=== PATIENT | male | born 1980 | race Caucasian/White ===

== ENCOUNTER 2018-07-31 11:19 | Emergency (ER) | payer MEDICARE, BC, MEDICAID, SELFPAY ==
[2018-07-31 11:21] VITALS: BP 145/92; PULSE 100; RESP 18; TEMP 36.9; O2SAT 100; BMI 42.2
--- NOTE | 2018-07-31 11:31 | ED.RN ---
HIGHEST FEVER WAS LAST FRIDAY 102.5. 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 TOOK TYLENOL LAST NIGHT FOR FEVER OF 100.2
--- NOTE | 2018-07-31 11:36 | EKG12_ITS ---
Test Reason : FEVER Blood Pressure : / mmHG Vent. Rate : 098 BPM Atrial Rate : 098 BPM P-R Int : 152 ms QRS Dur : 088 ms QT Int : 350 ms P-R-T Axes : 048 035 029 degrees QTc Int : 446 ms Normal sinus rhythm Normal ECG Confirmed by CONCHITA BELTRAN MD ([id number]), manuscript editor LUCINDA CHOWDHURY ([id number] on 08/05/2018 3:36:15 PM Referred By: DC Confirmed By:CONCHITA BELTRAN MD
--- NOTE | 2018-07-31 11:37 | RAD_ITS ---
STUDY: X-RAY CHEST REASON FOR EXAM: Male, 38 years old. Chest pain. TECHNIQUE: Single AP portable view of the chest. COMPARISON: Comparison is made with prior study dated October 18, 2015. FINDINGS: The lungs are clear and expanded. There is no demonstrated pleural abnormality. Normal size heart. Normal mediastinum and rakesh. Normal visualized pulmonary arteries. Normal visualized aortic arch and descending thoracic aorta. Normal visualized thoracic spine. Normal visualized ribs, clavicles, and shoulders. There is no demonstrated abnormality of the visualized soft tissue structures of the upper abdomen. RAD/Chest 1 View (Portable) IMPRESSION: Normal x-ray examination of the chest. Electronically Signed: Levon Mayorga MD at 13:24 EST Tel [phone], Service support ,
[2018-07-31 11:39] VITALS: BP 150/93; PULSE 84; RESP 18; TEMP 36.6
--- NOTE | 2018-07-31 11:42 | ED.DCSUM_ITS ---
- ER Visit Summary Date of Service: 07/31/18 Chief Complaint: Fevers History of Present Illness: The patient is a 38 M with fevers. He has these every day for the past week. They come on in the evenings. He does have a history of end-stage renal disease and performs hemodialysis at home. He was referred to the emergency department for possible bacteremia or endocarditis. He has no history of this. He only has cough and headache with his fevers but otherwise no symptoms. Physical Examination: Afebrile and vital signs unremarkable except for heart rate of 100. He appears in no acute distress. Alert and oriented. Skin appears unremarkable. His right forearm fistula unremarkable. Lungs are clear. Heart is regular. No murmurs. No signs of infective endocarditis. Test Results: EKG, troponin, labs, blood cultures pending. Emergency Department Course and Treatment: EKG unremarkable. Chest x-ray normal. Hemogram at 10.9, BUN 51, creatinine 12.4. Troponin normal. Cultures pending. Patient is doing well here. Afebrile. Not septic. I believe he is appropriate for outpatient follow-up. Will call him if his cultures are abnormal as he may need IV antibiotics. I discussed this with the patient. There is no reason to admit him for prophylactic antibiotics at this time. His phone number should we need to reach him is [phone]. Treatment Plan: As above Disposition: Discharge Impression: 1. Fevers 2. End-stage renal disease This note was generated with [employer] software. It may contain incorrect words, spelling, and punctuation that were not noted in review of the chart prior to signing ED Disposition - Plan for ED Patient: Chief Complaint: Fever Referrals: Marcell Thacker MD [Primary Care Provider] -
[2018-07-31 12:26] LABS: Absolute Neutrophil Count 6.4 X10^3/uL (2.0-7.7); Basophil# 0.04 X10^3/uL; Basophil% 0.5 % (0-1); Differential Indicated SCAN CRITERIA MET; Eosinophils% 2.5 % (0-5); Hematocrit 31.6 % (40-54); Hemoglobin 10.1 g/dl (13.0-16.5); Lymphocyte % 7.6 % (19-41); Mean Corpuscular Hgb 32.3 pg (27.0-32.0); Monocyte# 0.54 X10^3/uL; Monocyte% 6.8 % (0-10); Neutrophil # 6.41 X10^3/uL (2.7-7.7); Neutrophil % 81.2 % (47-70); POSITIVE COUNT NO; POSITIVE DIFFERENTIAL YES; POSITIVE MORPHOLOGY NO; Platelet Count 269 K/mm3 (150-450); RBC Distribution Width CV 14.7 % (11.6-14.6); RBC Distribution Width SD 53.4 fl (35.1-43.9); Red Blood Count 3.13 M/mm3 (4.6-6.2); White Blood Count 7.9 K/mm3 (4.4-11.0)
[2018-07-31 12:36] LABS: Anion Gap 13 (5-15); BUN 51 mg/dL (7-18); BUN/Creat Ratio 4.1 RATIO (10-20); Calcium,Total 9.5 mg/dL (8.5-10.1); Chloride 93 mmol/L (98-107); EST Glomerular Filtration Rate 5 mL/min (>60); Est Glom Filt Rate - Afr Amer 6 mL/min (>60); Estimated Creatinine Clearance 9.22 ml/min; Glucose 119 mg/dL (74-106); Potassium 3.7 mmol/L (3.5-5.1); Sodium Level 136 mmol/L (136-145)
[2018-07-31 12:39] VITALS: PULSE 89; RESP 16; TEMP 36.4
[2018-07-31 13:00] VITALS: BP 156/94; PULSE 72; RESP 15; TEMP 36.5
[2018-07-31 13:09] LABS: Platelet Estimate ADEQUATE (ADEQ); Red Cell Morphology NORM C+C NORMAL (NORM C&C)
--- NOTE | 2018-07-31 13:52 | ED.DEP ---
ED Disposition - Plan for ED Patient: Chief Complaint: Fever Instructions: ED Bacteremia Rule Out Referrals: Marcell Thacker MD [Primary Care Provider] -
[2018-07-31 14:19] VITALS: BP 138/79; PULSE 78; RESP 16; O2SAT 97
--- OUTSIDE RECORDS SUMMARY | 2018-09-16 06:36 | XMS RPT_ITS ---
:1980 Author Organization OHIP Care Team Providers Name Role Phone Marcell Thacker Primary Care Unavailable Robert Bryant Attending Unavailable Isma, Dr. Sebas Echavarria Attending Unavailable Kedar, Dr. Marcell Franz Primary Care Unavailable Isma, Dr. Sebas Echavarria Attending Unavailable Kedar, Dr. Marcell Franz Primary Care Unavailable Chapin, Dr. Paulina Pratt Admitting Unavailable Chapin, Dr. Paulina Pratt Attending Unavailable Braxton, Dr. Mcgregor Referring Unavailable Kedar, Dr. Marcell Franz Primary Care Unavailable Isma, Dr. Sebas Echavarria Attending Unavailable Kedar, Dr. Marcell Franz Primary Care Unavailable Isma, Dr. Sebas Echavarria Admitting Unavailable Isma, Dr. Sebsa Echavarria Attending Unavailable YASMANI, PCP Referring Unavailable Kedar, Dr. Marcell Franz Primary Care Unavailable Kedar, Dr. Marcell Franz Primary Care Unavailable Isma, Dr. Sebas Echavarria Attending Unavailable Isma, Dr. Sebas Echavarria Referring Unavailable Isma, Dr. Sebas Echavarria Attending Unavailable Thacker, Dr. Marcell Franz Primary Care Unavailable Isma, Dr. Sebas Echavarria Attending Unavailable Isma, Dr. Sebas Echavarria Referring Unavailable Thacker, Dr. Marcell Franz Primary Care Unavailable Thacker, Dr. Marcell Franz Primary Care Unavailable Isma, Dr. Sebas Echavarria Attending Unavailable Isma, Dr. Sebas Echavarria Referring Unavailable Isma, Dr. Sebas Echavarria Attending Unavailable Thacker, Dr. Marcell Franz Primary Care Unavailable BONILLA Attending Unavailable Isma, Dr. Sebas Echavarria Referring Unavailable Thacker, Dr. Marcell Franz Primary Care Unavailable Isma, Dr. Sebas Echavarria Attending Unavailable Thacker, Dr. Marcell Franz Primary Care Unavailable Isma, Dr. Sebas Echavarria Attending Unavailable Thacker, Dr. Marcell Franz Primary Care Unavailable Isma, Dr. Sebas Echavarria Attending Unavailable Thacker, Dr. Marcell Franz Primary Care Unavailable PROBLEMS PROBLEMS DATE TYPE CONDITION / CODE ATTENDING STATUS SOURCE 09/09/2018 Admitting End stage renal Dr. Isma [facility] diagnosis disease / [facility] N18.6(ICD-10) Repository 08/17/2018 Final diagnosis End stage renal Dr. Isma [facility] (discharge) disease / [facility] N18.6(ICD-10) Repository 06/12/2018 Final diagnosis Encounter for other Pending sale to [facility] (discharge) preprocedural Hospitals examination / Repository Z01.818(ICD-10) 06/12/2018 Final diagnosis Dependence on renal Pending sale to [facility] (discharge) dialysis / Hospitals Z99.2(ICD-10) Repository 06/12/2018 Final diagnosis Essential (primary) Pending sale to [facility] (discharge) hypertension / Hospitals I10(ICD-10) Repository 06/12/2018 Final diagnosis Morbid (severe) Pending sale to [facility] (discharge) obesity due to Hospitals excess calories / Repository E66.01(ICD-10) 06/12/2018 Final diagnosis Personal history of Pending sale to [facility] (discharge) endo, nutritional Hospitals and metabolic Repository disease / Z86.39(ICD-10) 06/12/2018 Final diagnosis Family hx of ischem Pending sale to [facility] (discharge) heart dis and oth Hospitals dis of the circ sys Repository / Z82.49(ICD-10) 06/12/2018 Final diagnosis Fam hx of congen IRENE [facility] (discharge) malform, Hospitals deformations and Repository chromsoml abnlt / Z82.79(ICD-10) 05/19/2018 Admitting Encounter for other Dr. Isma [facility] diagnosis preprocedural Sebas [facility] examination / Repository Z01.818(ICD-10) 12/29/2017 Final diagnosis Generalized anxiety Dr. Chapin [facility] (discharge) disorder / [facility] F41.1(ICD-10) Repository 12/29/[address] Pan[address]. Chapin [facility] (discharge) [episodic [facility] paroxysmal anxiety] Repository / F41.0(ICD-10) PROCEDURES PROCEDURES No Procedure Records FoundRESULTS RESULTS HLA CLASS II AB Collected: 09/09/2018 Status: F Source: [place] SCREEN,FC 11:43 AM HOSPITALS REPOSITORY TYPE CODE TESTS RESULT OUT OF REFERENCE UNITS RANGE LAB HLA2S(LOINC ) HLA CLASS SEE COMMENT II AB SCREEN,FC Result Comment: HLA CLASS II AB SCREEN,FLOW CYTOMETRY SEE SEPARATE REPORT. Performed By: #### HLAS2 #### [facility] [address] [place] [address] CROSSMATCH, FREEZE Collected: 08/17/2018 Status: F Source: [place] 10:22 AM HOSPITALS REPOSITORY TYPE CODE TESTS RESULT OUT OF REFERENCE UNITS RANGE LAB HLFXM(LOINC ) CROSSMATCH, COMMENT FREEZE Result Comment: SEE SEPARATE REPORT. Performed By: #### HLFXM #### [facility] [address] [place] [address] 12 LEAD ELECTROCARDIOGRAM Observed: 08/05/2018 Status: F Source: [place] 3:36 PM [facility] REPOSITORY Cardiovascular Services [address] [place] [address] 12 Lead EKG 07/31/18 1146 MR#: [id number] Acct: [id number] Name: DANE FONSECA Rep #: [id number] : 1980 38 From: Enmanuel Sanchez MD Attending Dr: Status: DEP ER Ordering Dr: Robert Bryant MD Date: 07/31/18 Location: ED Sex: M C Admitted: Test Reason : FEVER Blood Pressure : / mmHG Vent. Rate : 098 BPM Atrial Rate : 098 BPM P-R Int : 152 ms QRS Dur : 088 ms QT Int : 350 ms P-R-T Axes : 048 035 029 degrees QTc Int : 446 ms Normal sinus rhythm Normal ECG Confirmed by ENMANUEL SANCHEZ MD ([id number]), order editor LUCINDA CHOWDHURY ([id number]) on 08/05/2018 3:36:15 PM Referred By: DC Confirmed By:ENMANUEL SANCHEZ MD 08/05/18 1536 Date Enmanuel Sanchez MD CC: Robert Bryant MD; Marcell Thacker MD Signed DISCHARGE INSTRUCTION Observed: 07/31/2018 Status: F Source: [place] 4:14 PM [facility] REPOSITORY Medical Records Department [address] [place] [address] Discharge Instruction 07/31/18 1352 MR#: [id number] Acct: [id number] Name: DANE FONSECA Rep #: [id number] : 1980 38 From: Robert Bryant MD PCP: Marcell Thacker MD Status: DEP ER ED Disposition - Plan for ED Patient: Chief Complaint: Fever Instructions: ED Bacteremia Rule Out Referrals: Marcell Thacker MD [Primary Care Provider] - What to do if you have Problems For any increased pain, shortness of breath, bleeding, nausea or vomiting, chest pain, or any unexpected problems, contact your Primary Care Provider. Call [facility] ([phone]) or report to the closest Emergency Room. Call 911 if necessary. 07/31/18 1614 <Electronically signed by Robert Bryant MD> Date Robert Bryant MD Cosigner Signature (If Indicated): Date CC: Marcell Thacker MD EMERGENCY DEPARTMENT Observed: 07/31/2018 Status: F Source: [place] SUMMARY 4:14 PM [facility] REPOSITORY Medical Records Department [address] [place] [address] Emergency Department Summary 07/31/18 1140 MR#: [id number] Acct: [id number] Name: DANE FONSECA Rep #: [id number] : 1980 38 From: Robert Bryant MD PCP: Marcell Thacker MD Status: DEP ER - ER Visit Summary Date of Service: 07/31/18 Chief Complaint: Fevers History of Present Illness: The patient is a 38 M with fevers. He has these every day for the past week. They come on in the evenings. He does have a history of end-stage renal disease and performs hemodialysis at home. He was referred to the emergency department for possible bacteremia or endocarditis. He has no history of this. He only has cough and headache with his fevers but otherwise no symptoms. Physical Examination: Afebrile and vital signs unremarkable except for heart rate of 100. He appears in no acute distress. Alert and oriented. Skin appears unremarkable. His right forearm fistula unremarkable. Lungs are clear. Heart is regular. No murmurs. No signs of infective endocarditis. Test Results: EKG, troponin, labs, blood cultures pending. Emergency Department Course and Treatment: EKG unremarkable. Chest x-ray normal. Hemogram at 10.9, BUN 51, creatinine 12.4. Troponin normal. Cultures pending. Patient is doing well here. Afebrile. Not septic. I believe he is appropriate for outpatient follow-up. Will call him if his cultures are abnormal as he may need IV antibiotics. I discussed this with the patient. There is no reason to admit him for prophylactic antibiotics at this time. His phone number should we need to reach him is [phone]. Treatment Plan: As above Disposition: Discharge Impression: 1. Fevers 2. End-stage renal disease This note was generated with [employer] software. It may contain incorrect words, spelling, and punctuation that were not noted in review of the chart prior to signing ED Disposition - Plan for ED Patient: Chief Complaint: Fever Referrals: Marcell Thacker MD [Primary Care Provider] - What to do if you have Problems For any increased pain, shortness of breath, bleeding, nausea or vomiting, chest pain, or any unexpected problems, contact your Primary Care Provider. Call [facility] ([phone]) or report to the closest Emergency Room. Call 911 if necessary. 07/31/18 8974 <Electronically signed by Robert Bryant MD> Date Robert Bryant MD Cosigner Signature (If Indicated): Date CC: Marcell Thacker MD CBC W/DIFF, AUTOMATED Collected: 07/31/2018 Status: F Source: [place] 11:55 AM [facility] REPOSITORY TYPE CODE TESTS RESULT OUT OF RANGE REFERENCE UNITS LAB L100.1000 4.4-11.0 K/mm3 Normal WBC 7.9 LAB L100.1200 4.6-6.2 M/mm3 Low RBC 3.13 LAB L100.1300 13.0-16.5 g/dl Low HGB 10.1 LAB L100.1400 40-54 % Low HCT 31.6 LAB L100.1500 80-94 fL High MCV 101.0 LAB L100.1600 27.0-32.0 pg High MCH 32.3 LAB L100.1700 32-36 g/gl Normal MCHC 32.0 LAB L100.1810 11.6-14.6 % High RDW CV 14.7 LAB L100.1820 35.1-43.9 fl High RDW SD 53.4 LAB L100.1900 150-450 K/mm3 Normal PLT 269 LAB L100.2000 6.2-12.0 fl Normal MPV 9.0 LAB L100.2100 47-70 % High NEUT% 81.2 LAB L100.2200 19-41 % Low LY% 7.6 LAB L100.2300 0-10 % Normal MONO% 6.8 LAB L100.2400 0-5 % Normal EO% 2.5 LAB L100.2500 0-1 % Normal BASO% 0.5 LAB L100.2550 0.0-0.9 % High IM GRAN % 1.400 Result Comment: IG% - Immature Granulocytes (promyelocytes, myelocytes and metamyelocytes) > 1% indicates that a LEFT SHIFT is Present. LAB L100.2620 2.0-7.7 X10 3/uL Normal Absolute Neut 6.4 LAB L100.2720 0.83-4.51 X10 3/ul Low Absolute Lymph 0.60 LAB L100.4500 SMEAR Normal COMMENT Result Comment: LYMPHOPENIA NOTED LAB L100.5500 ADEQ Normal PLT ADEQUATE EST LAB L100.7000 NORM C AND NORMAL C Normal RED NORM C+C CELL MORPH Performed By: #### L100.0100 #### [facility] [address] [place], [address] BASIC METABOLIC Collected: 07/31/2018 Status: F Source: [place] PROFILE ([facility]) 11:55 AM [facility] REPOSITORY TYPE CODE TESTS RESULT OUT OF RANGE REFERENCE UNITS LAB L501.0100 74-106 mg/dL High GLU 119 Result Comment: Fasting Glucose result from 100 to 125 mg/dL suggests IMPAIRED HOMEOSTASIS per A.D.A. criteria. Please note revised GLUCOSE reference range effective 2017. LAB L501.1000 7-18 mg/dL High BUN 51 LAB L501.1100 0.70-1.30 mg/dL High alert CREAT,SERUM 12.40 Result Comment: Critical Result(s) Called at: 12:37:53 07/31/2018 by: Erasto Palacios RN The validity of the calculated GFR AND GFRAA in patients over 70 years has not been determined. Clinical correlation is essential. LAB L501.1110 >60 mL/min Low EST GFR 5 Result Comment: Non- GFR Calc LAB L501.1115 >60 mL/min Low EST GFR - AA 6 Result Comment: GFR Calc LAB L501.1255 ml/min Normal Estimated CRCL 9.22 LAB L501.1300 10-20 RATIO Low BUN/CRE 4.1 LAB L501.2200 8.5-10. mg/dL Normal 1 CA 9.5 LAB L501.5300 136-145 mmol/L Normal NA 136 LAB L501.5600 3.5-5.1 mmol/L Normal K 3.7 LAB L501.5900 98-107 mmol/L Low CL 93 LAB L501.6100 21.0-32 mmol/L Normal .0 CO2 30.0 LAB L501.6200 5-15 Normal GAP 13 Performed By: #### L500.2500, L501.4010 #### [facility] [address] [place], [address] TROPONIN-I Collected: 07/31/2018 Status: F Source: [place] 11:55 AM [facility] REPOSITORY TYPE CODE TESTS RESULT OUT OF RANGE REFERENCE UNITS LAB L501.4010 <0.045 ng/mL Normal < 0.015 TROPONIN-I Result Comment: TROPONIN-I EXPECTED VALUES <0.045 Negative 0.045 - 0.590 Consistent with Cardiac Damage > OR = 0.600 Critical Value Not every elevated troponin is indicative of WI. These values should be used with clinical judgement in examining the patient's clinical picture for diagnosis. To establish a diagnosis of WI versus myocardial injury, there must be a demonstrated rise and/or fall in the troponin values, in addition to ischemic symptoms, EKG changes, new regional wall motion abnormality, and/or angiographical evidence. PLEASE NOTE: REFERENCE RANGES EDITED 17 Performed By: #### L500.2500, L501.4010 #### [facility] [address] [place], [address] Observed: 07/31/2018 Status: F Source: [place] CULTURE, BLOOD (WB) 11:55 AM [facility] REPOSITORY BC No growth in 5 days. Performed By: #### M200.1000 #### [facility] [address] [place], [address] Observed: 07/31/2018 Status: F Source: [place] CULTURE, BLOOD (WB) 11:50 AM [facility] REPOSITORY BC No growth in 5 days. Performed By: #### M200.1000 #### [facility] [address] [place], [address] CHEST 1 VIEW Observed: 07/31/2018 Status: F Source: [place] (PORTABLE) 11:39 AM [facility] REPOSITORY Imaging Services [address] [place] [address] Chest 1 View (Portable) MR#: [id number] Acct: [id number] Name: DANE FONSECA Rep #: [id number] : 1980 M 38 From: Levon Mayorga MD PCP: Marcell Thacker MD Status: REG ER Study: Chest 1 View (Portable) Date of Exam: 07/31/18 Exam# [id number] Ordering Dr: Robert Bryant MD STUDY: X-RAY CHEST REASON FOR EXAM: Male, 38 years old. Chest pain. TECHNIQUE: Single AP portable view of the chest. COMPARISON: Comparison is made with prior study dated October 18, 2015. FINDINGS: The lungs are clear and expanded. There is no demonstrated pleural abnormality. Normal size heart. Normal mediastinum and rakesh. Normal visualized pulmonary arteries. Normal visualized aortic arch and descending thoracic aorta. Normal visualized thoracic spine. Normal visualized ribs, clavicles, and shoulders. There is no demonstrated abnormality of the visualized soft tissue structures of the upper abdomen. RAD/Chest 1 View (Portable) IMPRESSION: Normal x-ray examination of the chest. Electronically Signed: Levon Mayorga MD at 13:24 EST Tel [phone], Service support , CC: Robert Bryant MD; Marcell Thacker MD Medical Liaison: Signed HLA CLASS I AB Collected: 07/08/2018 Status: F Source: [facility] S[facility]EN,FC 11:55 AM [facility]ALS REPOSITORY TYPE CODE TESTS RESULT OUT OF REFERENCE UNITS RANGE LAB HLA1S(LOINC ) HLA CLASS SEE COMMENT I AB SCREEN,FC Result Comment: HLA CLASS I AB SCREEN,FLOW CYTOMETRY SEE SEPARATE REPORT. Performed By: #### HLAS1 #### [facility] [address] [place] [id number] OFFICE VISIT Observed: 06/12/2018 Status: UNK Source: [place] (CARDIOLOGY) 3:24 PM HOSPITALS REPOSITORY Chief Complaint DANE FONSECA is being seen for a cardiovascular evaluation. DANE FONSECA is being seen for an annual follow-up of Cardiac risk stratification pre-renal transplant and a routine medication evaluation. 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 Symptomatically he denies chest pain, palpitations, SOB, orthopnea, PND, syncope and pre syncope but will have occasional mild ankle swelling. His BP is high today despite taking his medications, and he has does conceded to being anxious whenever he needs to come to his medical appointments. Functionally, he continues to do well and has an unlimited exercise tolerance. He has been tolerating dialysis well and without any symptoms. he has undergone cardiovascular evaluation in the past ( 10- 12 years prior) and was given a clean bill of [employer]. Both his father and brother had a hole in the heart and his testing ruled this out for him. Since his last visit 03/31/2017 he has received several transplant calls. PSHx: Tonsillectomy, Peg tube placement (H1N1 disease) and PEG revision, AV fistula Shx: Never smoker,denies alcohol and illicit drug use Fhx: Father- heart issues, brother-heart issues hole in the heart. Dad unrepaired and with HF, brother intraop during defect repair Ix: TTE 05/19/2018 1. The left ventricular systolic function is normal with a 60% estimated ejection fraction. 2. Spectral Doppler shows an impaired relaxation pattern of left ventricular diastolic filling. LAs: 3.44 cm (2.7-4.0cm) IVSd: 1.14 cm (0.6-1.1cm) LVPWd: 1.00 cm (0.6-1.1cm) LVIDd: 4.84 cm (3.9-5.9cm) LVIDs: 2.30 cm LV % FS 52.5 % Physician portal has been reviewed by me for salient history. All cardiovascular imaging and testing available in Physician portal, and [facility] has been reviewed. ECG done in office today has been reviewed independently by me. He has no significant interval events. Symptoms: stable lower extremity edema, stable dyspnea on exertion, denies fatigue, denies exercise intolerance, denies orthopnea and denies paroxysmal nocturnal dyspnea. Associated symptoms include no chest pain and no palpitations. There are no spiritual/cultural practices/values/needs that are important to know Initial Fall Risk Screening: DANE has not fallen in the last 6 months. His fall did not result in injury. DANE does not have a fear of falling. He does not need assistance with sitting, standing or walking. Does not need assistan ce walking in his home. He does not need assistance in an unfamiliar setting. The patient is not using an assistive device. *Active Problems Anxiety (300.00) (F41.9) BPH (benign prostatic hypertrophy) (600.00) (N40.0) Elevated blood pressure reading in office with white coat syndrome, with diagnosis of hypertension (401.9) (I10) ESRD on hemodialysis (585.6,V45.11) (N18.6,Z99.2) High risk medication use (V58.69) (Z79.899) H1N1 Hypertension (401.9) (I10) Morbid obesity (278.01) (E66.01) Pre-kidney transplant, listed (V49.89) (Z76.82) UTI (urinary tract infection) (599.0) (N39.0) Pre-transplant evaluation for end stage renal disease (V72.83) (Z01.818) Surgical History History of Abdominal Surgery repair of bleeding after PEG placement History of G-Tube Insertion 2013 History of G-Tube Removal 2013 History of Hemodialysis Access Type Arteriovenous Fistula History of Tonsillectomy Past Medical History History of obesity (V12.29) (Z86.39) Current Meds Carvedilol 12.5 MG Oral Tablet; TAKE 1 TABLET TWICE DAILY; Therapy: (Recorded:53Dxb1749) to Recorded Dispense: 0 Days ; #: Sufficient Tablet; Refill: 0;For: PMH: Abdominal Surgery; PRATIK = N; Record; Last Updated By: Gayatri Butler; 01/03/2017 1:07:46 PM Doxazosin Mesylate 4 MG Oral Tablet; TAKE 1 TABLET DAILY; Therapy: (Recorded:03Jan2017) to Recorded Dispense: 0 Days ; #: Sufficient Tablet; Refill: 0;For: PMH: Abdominal Surgery; PRATIK = N; Record; Last Updated By: Gayatri Butler; 01/03/2017 1:07:46 PM Epogen SOLN; 5000 units every other week; Therapy: (Recorded:03Jan2017) to Recorded Dispense: 0 Days ; #: Sufficient ML; Refill: 0;For: PMH: Abdominal Surgery; PRATIK = N; Record; Last Updated By: Gayatri Butler; 01/03/2017 1:07:46 PM Imdur 30 MG TB24; TAKE 1 TABLET DAILY; Therapy: (Recorded:03Jan2017) to Recorded Dispense: 0 Days ; #: Sufficient Tablet Extended Release 24 Hour; Refill: 0;For: PMH: Abdominal Surgery; PRATIK = N; Record; Last Updated By: Gayatri Butler; 01/03/2017 1:07:46 PM Pantoprazole Sodium 40 MG Oral Tablet Delayed Release; Take 1 tablet daily; Therapy: (Recorded:03Jan2017) to Recorded Dispense: 0 Days ; #: Sufficient Tablet Delayed Release; Refill: 0;For: PMH: Abdominal Surgery; PRATIK = N; Record; Last Updated By: Gayatri Butler; 01/03/2017 1:07:46 PM Renal 1 MG Oral Capsule; TAKE 1 CAPSULE Daily; Therapy: (Recorded:03Jan2017) to Recorded Dispense: 0 Days ; #: Sufficient Capsule; Refill: 0;For: PMH: Abdominal Surgery; PRATIK = N; Record; Last Updated By: Gayatri Butler; 01/03/2017 1:07:46 PM Sensipar 30 MG Oral Tablet; TAKE 1 TABLET DAILY; Therapy: (Recorded:03Jan2017) to Recorded Dispense: 0 Days ; #: Sufficient Tablet; Refill: 0;For: PMH: Abdominal Surgery; PRATIK = N; Record; Last Updated By: Gayatri Butler; 01/03/2017 1:07:46 PM Ferrous Sulfate ER 140 (45 Fe) MG Oral Tablet Extended Release; Take 1 tablet daily; Therapy: 12Jun2018 to Recorded Dispense: 0 Days ; #: Sufficient Tablet Extended Release; Refill: 0; PRATIK = N; Record; Last Updated By: Katie Liu; 06/12/2018 11:58:19 AM Allergies No Known Drug Allergies Recorded By: Gayatri Butler; 01/03/2017 1:07:46 PM No Known Environmental Allergies Recorded By: Gayatri Butler; 01/03/2017 1:07:46 PM No Known Food Allergies Recorded By: Gayatri Butler; 01/03/2017 1:07:46 PM Family History Family history of hypertension (V17.49) (Z82.49) Family history of Family history of congenital heart disease (V19.5) (Z82.79) Family history of congenital heart disease (V19.5) (Z82.79) Social History Never a smoker No alcohol use No illicit drug use Review of Systems Constitutional: not feeling tired. Cardiovascular: as noted in HPI, no chest pain, no palpitations, no lower extremity edema and no intermittent leg claudication. Respiratory: no cough, no shortness of breath during exertion, no shortness of breath, no orthopnea and no PND. Gastrointestinal: no change in bowel habits and no blood in stools. Integumentary: no skin rashes. Neurological: no dizziness, no seizures, no frequent falls and no fainting. Vitals Vital Signs Recorded: 12Jun2018 11:48AM Heart Ptgr858 Qxnzuxyd950 Sapirpbol65 Height6 ft 1 in Jejdad035 lb BMI Rzzcpurbdz34.96 BSA Calculated2.62 Pain Scale0 Physical Exam Constitutional: Very pleasant young obese man in no CP or painful distress. MM pink and moist. No icterus or cyanosis. Eyes: no erythema, swelling or discharge from the eye . Neck: . Pulmonary: no increased work of breathing or signs of respiratory distress , normal percussion of chest , chest palpation normal and lungs clear to auscultation. Cardiovascular: carotid pulses 2+ bilaterally with no bruit , JVP was normal, no thrills , regular rhythm, normal S1 and S2, no murmurs and no edema . Abdomen: Obese, SNT, BS wnl. Lymphatic: no palpable adenopathy. Musculoskeletal: grossly normal. Skin: skin warm and dry, normal skin turgor . Neurologic: AO x 3. Psychiatric judgment and insight is normal , oriented to person, place and time , recent and remote memory intact and normal mood and affect . Results/Data 06/12/2018: sinus tachycardia [id number] 01:29PMSebas Ashby [Jun 05, 2018 10:56AM Sebas Ashby] Test looked good Test NameResultFlagReference Echocardiogram(Report) [id number] [facility], [address] [place] [address] and TRANSTHORACIC ECHOCARDIOGRAM RE PORT Patient Name: DANE FONSECA Reading Physician: [id number] Omar Arnett MD Study Date: 05/19/2018 Referring Physician: Sebas Ashby MD MRN/PID: [id number] PCP: Accession/Order#: [id number] 30 Department Location: [facility] Non Invasive Date of : 1980 Fellow: Gender: M Nurse: Lana Regalado RN Admit Date: Local Operator: Talya Ayala [facility] Admission Status: Outpatient Additional Staff: Height: 185.42 cm CC Report to: Weight: 140.61 kg Study Type: Echocardiogram BSA: 2.59 m2 Blood Pressure: 116 /79 mmHg Diagnosis/ICD: Z01.818 Encounter for other preprocedural examination Indication: Pre-transplant evaluation for end stage renal disease Procedure/CPT: Echo Complete w/Full Doppler (32358) Patient History: Pertinent History: H [place]. kidney disease. Study Detail: The following Echo studies were performed: 2D, M-Mode, Doppler and color flow. Technically challenging study due to body habitus and prominent lung artifa ct. Definity used as a contrast agent for endocardial border definition. Total contrast used for this procedure was 2 mL via IV push. PHYSICIAN INTERPRETATION: Left Ventricle: The left v entricular systolic function is normal, with an estimated ejection fraction of 60%. The left ventricular cavity size is normal. Abnormal (paradoxical) septal motion, consistent with an intraventricular conduction delay. Spectral Doppler shows an impaired relaxation pattern of left ventricular diastolic filling. Left Atrium: The left atrium is normal in size. Right Ventricle: The right ventricle is nor mal in size. There is normal right ventricular global systolic function. Right Atrium: The right atrium is normal in size. Aortic Valve: The aortic valve was not well visualized. There is trivial aortic valve regurgitation. The peak instantaneous gradient of the aortic valve is 8.2 mmHg. Mitral Valve: The mitral valve is normal in structure. There is trace mitral valve regurgitation. Tricuspid Valve: The tricuspid valve is structurally normal. There is trace tricuspid regurgitation. Pulmonic Valve: The pulmonic valve is not well visualized. There is trace pulmonic valve regurgitation. Pericardium: T here is a trivial pericardial effusion. Aorta: The aortic root is normal. Pulmonary Artery: The tricuspid regurgitant velocity is 1.25 m/s, and with an estimated right atrial pressure of 3 mmHg, the est imated pulmonary artery pressure is normal with the RVSP at 9.3 mmHg. CONCLUSIONS: 1. The left ventricular systolic function is normal with a 60% estimated ejection fraction. 2. Spectral Doppler nelly ws an impaired relaxation pattern of left ventricular diastolic filling. QUANTITATIVE DATA SUMMARY: 2D MEASUREMENTS: Normal Ranges: LAs: 3.44 cm (2.7-4.0cm) IVSd: 1.14 cm (0.6-1.1cm) LVPWd: 1. 00 cm (0.6-1.1cm) LVIDd: 4.84 cm (3.9-5.9cm) LVIDs: 2.30 cm LV % FS 52.5 % LA VOLUME: Normal Ranges: LA Vol A4C: 34.7 ml (22+/-6mL/m2) LA Vol A2C: 37.5 ml LA Vol BP: 38.3 ml LA Vol Index A4C: 13.4 ml/m2 LA Vol Index A2C: 14.5 ml/m2 LA Vol Index BP: 14.8 ml/m2 LA Area A4C: 14.7 cm2 LA Area A2C: 14.4 cm2 LA Major Flomot A4C: 5.3 cm LA Major Flomot A2C: 4.7 cm LA Volume Index : 14.8 ml/m2 LA Vol A4C: 30.7 ml LA Vol A2C: 36.0 ml RA VOLUME BY A/L METHOD: Normal Ranges: RA Area A4C: 15.8 cm2 M-MODE MEASUREMENTS: Normal Ranges: Ao Root: 3.00 cm (2.0-3. 7cm) LAs: 3.63 cm (2.7-4.0cm) AORTA MEASUREMENTS: Normal Ranges: Ao Sinus, d: 2.80 cm (2.1-3.5cm) LV SYSTOLIC FUNCTION BY 2D PLANIMETRY (MOD): Normal Ranges: EF-A4C View: 66.8 % ( >55%) EF-A2C View: 68.8 % EF-Biplane: 66.6 % LV DIASTOLIC FUNCTION: Normal Ranges: MV Peak E: 0.61 m/s (0.7-1.2 m/s) MV Peak A: 0.65 m/s (0.42-0.7 m/s) E/A Ratio: 0.94 (1 .0-2.2) MV e' 0.10 m/s (>8.0) MV lateral e' 0.08 m/s MV medial e' 0.11 m/s MV A Dur: 114.18 msec E/e' Ratio: 6.46 (<8.0) MV DT: 91 msec (150-240 msec) PulmV Sys Malcolm: 6 1.23 cm/s PulmV Stein Malcolm: 41.58 cm/s PulmV S/D Malcolm: 1.47 PulmV A Revs Malcolm: 53.16 cm/s PulmV A Revs Dur: 105.61 msec MITRAL VALVE: Normal Ranges: MV DT: 91 msec (150-240msec) AORTIC VALVE: Normal Ranges: AoV Vmax: 1.43 m/s (<1.7m/s) AoV Peak P.2 mmHg (<20mmHg) LVOT Max Malcolm: 1.14 m/s (<1.1m/s) LVOT VTI: 17.61 cm LVOT Diameter: 2.01 cm (1.8-2.4cm) AoV Area,Vmax: 2. 50 cm2 (2.5-4.5cm2) RIGHT VENTRICLE: RV 1 2.7 cm RV 2 1.7 cm RV 3 7.9 cm TAPSE: 19.8 mm RV s' 0.10 m/s TRICUSPID VALVE/RVSP: Normal Ranges: Peak TR Velocity: 1.25 m/s RV Syst Pressure: 9.3 mmHg (< 30mmHg) IVC Diam: 1.40 cm PULMONIC VALVE: Normal Ranges: PV Accel Time: 120 msec (>120ms) PV Max Malcolm: 1.0 m/s (0.6-0.9m/s) PV Max P.9 mmHg Pulmonary Veins: PulmV A Revs Dur: 105.61 msec PulmV A Revs Malcolm: 53.16 cm/s PulmV Stein Malcolm: 41.58 cm/s PulmV S/D Malcolm: 1.47 PulmV Sys Malcolm: 61.23 cm/s [id number] Omar Arnett MD Electronically signed on 05/20/2018 at 1:16:26 PM Final NM Cardiac Stress/Rest Nuclear Med Order Part [id number] 12:51PMSampson Lind [Apr 07, 2017 11:41AM Sampson Lind] Reason: Unspecified for NM Cardiac Stress/Rest Nuclear Med Order [Apr 07, 2017 11:41AM Sampson Lind] Reason: Unspecified for NM Cardiac Stress/Rest Nuclear Med Order Test NameResultFlagReference NM Cardiac Stress/Rest Nuclear Med Order(Report) Interpreted by: YURI OG 04/17/17 14:38 Patient Name: DANE FONSECA STUDY: PART 2 STRESS OR REST (NO CHARGE); CARDIAC STRESS/REST (MYOCARDIAL PERFUSION/MIBI); 04/17/2017 12:51 pm INDICATION: Signs/Symptoms: End stage renal disease, hypertension, obesity, obstructive sleep apnea. COMPARISON: None ACCESSION NUMBER(S): [id number]; [id number] ORDERING CLINICIAN: SAMPSON Freed TECHNIQUE: DIVISION OF NUCLEAR MEDICINE PHARMACOLOGIC STRESS MYOCARDIAL PERFUSION SCAN, ONE DAY PROTOCOL The patient received an intravenous dose of 10.6 mCi of Tc-99m Myoview and resting emission tomographic (SPECT) images of the myocardium were acquired. The patient then received an intravenous infusion of 0.4 mg regadenoson (Lexiscan) followed by an additional dose of 36 mCi of Tc-99m Myoview . Stress phase SPECT images of the myocardium were then acquired. These included ECG-gated images to assess and quantify ventricular function. FINDINGS: There is scatter artifact secondary to patient' s body habitus. There are mild fixed inferior wall irregularities with normal thickening representing diaphragmatic attenuation artifact. Stress and rest images both demonstrate an otherwise normal di stribution of perfusion throughout all LV segments with no sign of scar or ischemia. ECG-gated images demonstrate normal LV size and myocardial contractility with an LV ejection fraction of 56 % (norm al above 45 percent). IMPRESSION: 1. Normal stress myocardial perfusion imaging in response to pharmacologic stress with inferior attenuation artifact. 2. Well-maintained left ventricular function. I personally reviewed the images/study and I agree with the findings as stated. This study was interpreted at [place], [place]. Transcribed by: [email or web address], User Electronically signed by: Evi, User 04/17/17 14:38 NM Part 2 Stress OR Rest (No Charge)[id number] 12:51PMSampson Lind Test NameResultFlagReference NM Part 2 Stress Or Rest (No Charge)(Report) Interpreted by: YURI OG 04/17/17 14:38 Patient Name: DANE FONSECA STUDY: PART 2 STRESS OR REST (NO CHARGE); CARDIAC STRESS/REST (MYOCARDIAL PERFUSION/MIBI); 04/17/2017 12:51 pm INDICATION: Signs/Symptoms: End stage renal disease, hypertension, obesity, obstructive sleep apnea. COMPARISON: None ACCESSION NUMBER(S): [id number]; [id number] ORDERING CLINICIAN: SAMPSON Freed TECHNIQUE: DIVISION OF NUCLEAR MEDICINE PHARMACOLOGIC STRESS MYOCARDIAL PERFUSION SCAN, ONE DAY PROTOCOL The patient received an intravenous dose of 10.6 mCi of Tc-99m Myoview and resting emission tomographic (SPECT) images of the myocardium were acquired. The patient then received an intravenous infusion of 0.4 mg regadenoson (Lexiscan) followed by an additional dose of 36 mCi of Tc-99m Myoview . Stress phase SPECT images of the myocardium were then acquired. These included ECG-gated images to assess and quantify ventricular function. FINDINGS: There is scatter artifact secondary to patient' s body habitus. There are mild fixed inferior wall irregularities with normal thickening representing diaphragmatic attenuation artifact. Stress and rest images both demonstrate an otherwise normal di stribution of perfusion throughout all LV segments with no sign of scar or ischemia. ECG-gated images demonstrate normal LV size and myocardial contractility with an LV ejection fraction of 56 % (norm al above 45 percent). IMPRESSION: 1. Normal stress myocardial perfusion imaging in response to pharmacologic stress with inferior attenuation artifact. 2. Well-maintained left ventricular function. I personally reviewed the images/study and I agree with the findings as stated. This study was interpreted at [place], [place]. Transcribed by: [email or web address], User Electronically signed by: [email or web address], User 04/17/17 14:38 Diagnoses/Problems ESRD on hemodialysis (585.6,V45.11) (N18.6,Z99.2) Hypertension (401.9) (I10) Morbid obesity (278.01) (E66.01) Pre-transplant evaluation for end stage renal disease (V72.83) (Z01.818) History of Abdominal Surgery repair of bleeding after PEG placement History of Hemodialysis Access Type Arteriovenous Fistula History of obesity (V12.29) (Z86.39) Family history of hypertension (V17.49) (Z82.49) : Mother Family history of congenital heart disease (V19.5) (Z82.79) : Father, Brother Never a smoker No alcohol use No illicit drug use Impressions 38 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 He has been doing well and his ECG and TTE are satisfactory. His RCRI is 2 (high risk surgery, SCr> 2) with a 6.6% risk of cardiac perioperative events. No cardiac reservations re: kidney transplantation. Will plan to see Mr. Fonseca in May 2019 with a stress test and TTE before, if he is not transplanted. End of Encounter Meds Carvedilol 12.5 MG Oral Tablet; TAKE 1 TABLET TWICE DAILY; Therapy: (Recorded:[id number]) to Recorded Doxazosin Mesylate 4 MG Oral Tablet; TAKE 1 TABLET DAILY; Therapy: (Recorded:03Jan2017) to Recorded Epogen SOLN; 5000 units every other week; Therapy: (Recorded:03Jan2017) to Recorded Ferrous Sulfate ER 140 (45 Fe) MG Oral Tablet Extended Release; Take 1 tablet daily; Therapy: 12Jun2018 to Recorded Imdur 30 MG TB24 (Isosorbide Mononitrate ER); TAKE 1 TABLET DAILY; Therapy: (Recorded:03Jan2017) to Recorded Pantoprazole Sodium 40 MG Oral Tablet Delayed Release; Take 1 tablet daily; Therapy: (Recorded:03Jan2017) to Recorded Renal 1 MG Oral Capsule; TAKE 1 CAPSULE Daily; Therapy: (Recorded:[id number]) to Recorded Sensipar 30 MG Oral Tablet; TAKE 1 TABLET DAILY; Therapy: (Recorded:[id number]) to Recorded Signatures Electronically signed by : Sampson Lind MD; Jun 12 2018 3:24PM EST (Author) HLA CLASS I SP AB Collected: 06/05/2018 Status: F Source: [facility] ID,HD 9:12 AM HOSPITALS REPOSITORY TYPE CODE TESTS RESULT OUT OF REFERENCE UNITS RANGE LAB HL1HD(LOINC ) HLA CLASS SEE COMMENT I SP AB ID,HD Result Comment: HLA-CLASS I SP ANTIBODY IDENTIFICATION, HIGH DEFINITION SEE SEPARATE REPORT. Performed By: #### HL1HD #### [facility] [address] [place] [address] HLA CLASS II AB Collected: 06/05/2018 Status: F Source: [facility] SCREEN,FC 9:12 AM HOSPITALS REPOSITORY TYPE CODE TESTS RESULT OUT OF REFERENCE UNITS RANGE LAB HLA2S(LOINC ) HLA CLASS SEE COMMENT II AB SCREEN,FC Result Comment: HLA CLASS II AB SCREEN,FLOW CYTOMETRY SEE SEPARATE REPORT. Performed By: #### HLAS2 #### [facility] [address] [place] [address] TRANSPLANT SW Observed: 05/21/2018 Status: UNK Source: [facility] ASSESSMENT UPDATE 8:11 AM HOSPITALS REPOSITORY Note Body I met with the patient and his mother, Julisa, , to complete a psychosocial update. The patient currently has Medicare AANDB, Medicaid, and [place], and should not require PAP. I gave them in formation on [facility] Medicaid. The patients primary support person for post op recovery and transportation is his mother, she confirmed her support. The patients back up support person(s) for post op recove ry and transportation are Humaira, aunt and Radha, aunt and his niece, Shannen. The patient states his mood is good and stable, he states he has no anxiety, he takes Zoloft 150 mg QD, he reports he is stab le on this dose as prescribed by his psychiatrist. The patient has been seeing his psychiatrist for the past year. The patient states he does not use tobacco, alcohol, marijuana, crack, cocaine, or hero in. The patient states he uses a weekly pill organizer and reports he is compliant with his medications. He is compliant with his medical appointments. The patient does HD at home 3 hours a day 6 days a week, he has been doing this for 2 years. [employer] manages the patients PD and meet with the patient monthly. The patient is currently at a low psychosocial risk level. Plan: Social work to see the patient annually. Signatures Electronically signed by : HERB Guan; May 21 2018 8:11AM EST (Author) NUTRITION - TRANSPLANT Observed: 05/19/2018 Status: UNK Source: [facility] 3:50 PM HOSPITALS REPOSITORY Reason For Visit Reason For Visit: Patient is here for follow up/reassessment. Active Problems Problems Anxiety (300.00) (F41.9) BPH (benign prostatic hypertrophy) (600.00) (N40.0) Elevated blood pressure reading in office with white coat syndrome, with diagnosis of hypertension (401.9) (I10) ESRD on hemodialysis (585.6,V45.11) (N18.6,Z99.2) High risk medication use (V58.69) (Z79.899) Hypertension (401.9) (I10) Morbid obesity (278.01) (E66.01) Pre-kidney transplant, listed (V49.89) (Z76.82) Pre-transplant evaluation for end stage renal disease (V72.83) (Z01.818) UTI (urinary tract infection) (599.0) (N39.0) Past Medical History History of obesity (V12.29) (Z86.39) Family History Mother Family history of hypertension (V17.49) (Z82.49) Father Family history of Family history of congenital heart disease (V19.5) (Z82.79) Brother Family history of congenital heart disease (V19.5) (Z82.79) Social History Problems Never a smoker No alcohol use No illicit drug use Current Meds Medication NameInstruction Carvedilol 12.5 MG Oral TabletTAKE 1 TABLET TWICE DAILY. Doxazosin Mesylate 4 MG Oral TabletTAKE 1 TABLET DAILY. Epogen [id number] units every other week Imdur 30 MG [id number] 1 TABLET DAILY. Pantoprazole Sodium 40 MG Oral Tablet Delayed ReleaseTake 1 tablet daily Renal 1 MG Oral CapsuleTAKE 1 CAPSULE Daily Sensipar 30 MG Oral TabletTAKE 1 TABLET DAILY. Results/Data Nutrition Labs [id number] Height6 ft 1 in6 ft 1 in6 ft 1 in Wesefc653 lb 4.8 oz318 lb 319 lb BMI Oxoiccvasg93.9441.9642.09 Pxfqgpyjfb30.1 g/dL Sghutrgtea44.1 % Blood Urea Nitrogen (BUN)57 mg/dL Ejauyrdooo45.38 mg/dL Phosphorous4.5 mg/dL Albumin5.2 g/dL5.2 g/dL Total Bilirubin0.5 mg/dL Plqsdgogjud263 mg/dL Acfzgpovfineb735 mg/dL LDL64 mg/dL HGB A1C5.1 % History of Present Illness Transplant Nutrition HPI Listed Status: status 1 kidney. 24 Hour Diet Recall: - Breakfast: 2 eggs and 2 slices buttered toast. - Lunch: grilled chicken sandwich he prepared himself from the grill, w/ lettuce, tomato and james. - Dinner: 2 bowls of beef/vegetable stew, homemade. - 2 bananas w/ PB. Food Insecurity: denies. SNAP: Patient does not receive SNAP. Cooking: patient and family. Grocery Shopping: family. Appetite: Good - he thinks that Zoloft has caused his appetite to increase, he noticed increased appetite when his dose was increasd. Occasionally he has decreased appetite when his gastritis flares up. Fluid Intake: higher fluid intake has been the challenge the past few months (takes off 2-2.5 L/day). Supplement Intake: none. Dietary Supplements: multivitamin . no herbals. GI Symptoms: None . Uses zofran and carafate when he has episodes of gastritis. Chewing/Swallowing: Denies. 3-4 times per week walking for about 45 minutes, his back has been tolerating it. Every few months he sees the chiropractor for his back - it is much better than it used to be. Additional Comments: Patient reports that per discussions w/ his dialysis dietitian his albumin has been good, K+ has been WNL (was previously low and he needed supplements), phosphorus was elevated and he was switched to Auryxia and it has resulted in improved phosphorus the last few months. He used to take iron infusions w/ dialysis but hasn't required them w/ Auryxia. Recently got over a cold. Physical Exam Muscle Comment: No muscle wasting noted. Patient agrees his muscle mass has been stable for a few years. Subcutaneous Fat Comment: No subQ fat stores are reduced. Change in Metabolic Demand: Yes Malnutrition Assessment: Malnutrition not present at this time Estimated Nutrient Needs Estimated Nutrient Needs Estimated Nutrient Needs Designed for Weight Loss: 2500 kcals/day or less 125+ gms protein/day 1 L+ UOP over 24 hours . Nutrition Diagnosis Diagnosis 1: ongoing Overweight/obesity related to excessive calorie consumption due to intake of large portions of food as evidence by BMI of 40.9. This is an ongoing nutrition diagnosis that was initially established in when BMI was 41.6. He said that he continues to sometimes eat light during the day and then he ends up over-hungry at dinner and eats large portions (i.e. said he probably could have been satisfied w/ 1 bowl of stew last night but ate 2). Nutrition Interventions Nutrition Intervention Discussed: Coached patient on ideas for weight loss: 1) Discussed slowing down mealtime to allow his body to recognize satiety - advised if a meal is faster than 15 minutes he's going too quickly. 2) Rec'd satisfying hunger with high protein snacks in order to stave off big appetite later at meals, i.e. 2 hard-boiled eggs or a piece of re-heated chicken for an afternoon snack. 3) Told him to talk w/ his PCP about Zoloft if he truly thinks it is causing high appetite - but also told him not to lay all the blame on the medication since he could change food choices/timing to pro mote more satiety with less calories. Strongly encouraged at a minimum to maintain his weight, but told him to focus in on the short-term goal of trying to reach 300# prior to transplant coming through. He seems positive and receptive to these ideas. Monitoring and Evaluation Nutritional Goals: consistent meal/snack pattern and weight loss of at least 10# prior to transplant, and long-term it would be ideal to lose even more weight. Continue to walk for exercise. Recommended Follow-Up: 3-4 Months - will set a calender reminder to touch base w/ him about his weight. Signatures Electronically signed by : Renee Barber, ; May 19 2018 3:50PM EST (Author) ECHOCARDIOGRAM Observed: 05/19/2018 Status: F Source: [facility] 1:29 PM [facility], [address] [place] [address] and TRANSTHORACIC ECHOCARDIOGRAM REPORT Patient Name: DANE FONSECA Reading Physician: [id number] Omar Arnett MD Study Date: 05/19/2018 Referring Physician: Sebas Ashby MD MRN/PID: [id number] PCP: Accession/Order#: [id number] Department Location: [facility] Non Invasive Date of : 1980 Fellow: Gender: M Nurse: Lana Regalado RN Admit Date: Local Operator: Talya Ayala [facility] Admission Status: Outpatient Additional Staff: Height: 185.42 cm CC Report to: Weight: 140.61 kg Study Type: Echocardiogram BSA: 2.59 m2 Blood Pressure: 116 /79 mmHg Diagnosis/ICD: Z01.818 Encounter for other preprocedural examination Indication: Pre-transplant evaluation for end stage renal disease Procedure/CPT: Echo Complete w/Full Doppler (03259) Patient History: Pertinent History: HTN. kidney disease. Study Detail: The following Echo studies were performed: 2D, M-Mode, Doppler and color flow. Technically challenging study due to body habitus and prominent lung artifact. Definity used as a contrast agent for endocardial border definition. Total contrast used for this procedure was 2 mL via IV push. PHYSICIAN INTERPRETATION: Left Ventricle: The left ventricular systolic function is normal, with an estimated ejection fraction of 60%. The left ventricular cavity size is normal. Abnormal (paradoxical) septal motion, consistent with an intraventricular conduction delay. Spectral Doppler shows an impaired relaxation pattern of left ventricular diastolic filling. Left Atrium: The left atrium is normal in size. Right Ventricle: The right ventricle is normal in size. There is normal right ventricular global systolic function. Right Atrium: The right atrium is normal in size. Aortic Valve: The aortic valve was not well visualized. There is trivial aortic valve regurgitation. The peak instantaneous gradient of the aortic valve is 8.2 mmHg. Mitral Valve: The mitral valve is normal in structure. There is trace mitral valve regurgitation. Tricuspid Valve: The tricuspid valve is structurally normal. There is trace tricuspid regurgitation. Pulmonic Valve: The pulmonic valve is not well visualized. There is trace pulmonic valve regurgitation. Pericardium: There is a trivial pericardial effusion. Aorta: The aortic root is normal. Pulmonary Artery: The tricuspid regurgitant velocity is 1.25 m/s, and with an estimated right atrial pressure of 3 mmHg, the estimated pulmonary artery pressure is normal with the RVSP at 9.3 mmHg. CONCLUSIONS: 1. The left ventricular systolic function is normal with a 60% estimated ejection fraction. 2. Spectral Doppler shows an impaired relaxation pattern of left ventricular diastolic filling. QUANTITATIVE DATA SUMMARY: 2D MEASUREMENTS: Normal Ranges: LAs: 3.44 cm (2.7-4.0cm) IVSd: 1.14 cm (0.6-1.1cm) LVPWd: 1.00 cm (0.6-1.1cm) LVIDd: 4.84 cm (3.9-5.9cm) LVIDs: 2.30 cm LV % FS 52.5 % LA VOLUME: Normal Ranges: LA Vol A4C: 34.7 ml (22+/-6mL/m2) LA Vol A2C: 37.5 ml LA Vol BP: 38.3 ml LA Vol Index A4C: 13.4 ml/m2 LA Vol Index A2C: 14.5 ml/m2 LA Vol Index BP: 14.8 ml/m2 LA Area A4C: 14.7 cm2 LA Area A2C: 14.4 cm2 LA Major Flomot A4C: 5.3 cm LA Major Flomot A2C: 4.7 cm LA Volume Index: 14.8 ml/m2 LA Vol A4C: 30.7 ml LA Vol A2C: 36.0 ml RA VOLUME BY A/L METHOD: Normal Ranges: RA Area A4C: 15.8 cm2 M-MODE MEASUREMENTS: Normal Ranges: Ao Root: 3.00 cm (2.0-3.7cm) LAs: 3.63 cm (2.7-4.0cm) AORTA MEASUREMENTS: Normal Ranges: Ao Sinus, d: 2.80 cm (2.1-3.5cm) LV SYSTOLIC FUNCTION BY 2D PLANIMETRY (MOD): Normal Ranges: EF-A4C View: 66.8 % (>55%) EF-A2C View: 68.8 % EF-Biplane: 66.6 % LV DIASTOLIC FUNCTION: Normal Ranges: MV Peak E: 0.61 m/s (0.7-1.2 m/s) MV Peak A: 0.65 m/s (0.42-0.7 m/s) E/A Ratio: 0.94 (1.0-2.2) MV e' 0.10 m/s (>8.0) MV lateral e' 0.08 m/s MV medial e' 0.11 m/s MV A Dur: 114.18 msec E/e' Ratio: 6.46 (<8.0) MV DT: 91 msec (150-240 msec) PulmV Sys Malcolm: 61.23 cm/s PulmV Stein Malcolm: 41.58 cm/s PulmV S/D Malcolm: 1.47 PulmV A Revs Malcolm: 53.16 cm/s PulmV A Revs Dur: 105.61 msec MITRAL VALVE: Normal Ranges: MV DT: 91 msec (150-240msec) AORTIC VALVE: Normal Ranges: AoV Vmax: 1.43 m/s (<1.7m/s) AoV Peak P.2 mmHg (<20mmHg) LVOT Max Malcolm: 1.14 m/s (<1.1m/s) LVOT VTI: 17.61 cm LVOT Diameter: 2.01 cm (1.8-2.4cm) AoV Area,Vmax: 2.50 cm2 (2.5-4.5cm2) RIGHT VENTRICLE: RV 1 2.7 cm RV 2 1.7 cm RV 3 7.9 cm TAPSE: 19.8 mm RV s' 0.10 m/s TRICUSPID VALVE/RVSP: Normal Ranges: Peak TR Velocity: 1.25 m/s RV Syst Pressure: 9.3 mmHg (< 30mmHg) IVC Diam: 1.40 cm PULMONIC VALVE: Normal Ranges: PV Accel Time: 120 msec (>120ms) PV Max Malcolm: 1.0 m/s (0.6-0.9m/s) PV Max P.9 mmHg Pulmonary Veins: PulmV A Revs Dur: 105.61 msec PulmV A Revs Malcolm: 53.16 cm/s PulmV Stein Malcolm: 41.58 cm/s PulmV S/D Malcolm: 1.47 PulmV Sys Malcolm: 61.23 cm/s [id number] Omar Arnett MD Electronically signed on 05/20/2018 at 1:16:26 PM Final SYPHILIS IGG Collected: 05/19/2018 Status: F Source: [facility] 12:42 PM HOSPITALS REPOSITORY TYPE CODE TESTS RESULT OUT OF REFERENCE UNITS RANGE LAB SYPHG(LOIN NONREACTIVE C) SYPHILIS IGG NON REACTIVE Result Comment: Patients receiving more than 5 mg/day of biotin may have interference in test results. A sample should be taken no sooner than eight hours after previous dose. Contact [phone] for additional information. LAB SOURCE(LOINC) Lab Specimen Source Performed By: #### SYPH #### [facility] [address] [place] [address] HEPATITIS B SURF AB Collected: 05/19/2018 Status: F Source: [place] [address] [place] [address] REPOSITORY TYPE CODE TESTS RESULT OUT OF RANGE REFERENCE UNITS LAB HABF2(LOINC <10 mIU/mL ) HEP B 177.3 SURF AB Result Comment: INTERPRETIVE CRITERIA: <10 mIU/mL....NONREACTIVE >=10 mIU/mL...REACTIVE . Patients receiving more than 5 mg/day of biotin may have interference in test results. A sample should be taken no sooner than eight hours after previous dose. Contact [phone] for additional information. LAB SOURCE([facility]) Lab Specimen Source Performed By: #### [id number] #### [facility] [address] [place] [address] HEPATIC FUNCTION Collected: 05/19/2018 Status: F Source: [facility] 12:[address] [place] [address] REPOSITORY TYPE CODE TESTS RESULT OUT OF REFERENCE UNITS RANGE LAB ALB(LOINC) 3.4 - 5.0 g/dL ALBUMIN High 5.6 LAB TBILI(LOIN 0.0 - 1.2 mg/dL C) BILIRUBIN,TOTAL 0.6 LAB DBILI(LOIN 0.0 - 0.3 mg/dL C) BILIRUBIN,DIRECT 0.1 LAB AP(LOINC) 33 - 120 U/L ALKALINE PHOSPHATASE 66 LAB ALT(LOINC) 10 - 52 U/L ALT 19 Result Comment: Patients treated with Sulfasalazine may generate falsely decreased results for ALT. LAB AST(LOINC) 9 - 39 U/L AST 15 LAB TP(LOINC) 6.4 - 8.2 g/dL TOTAL High PROTEIN 8.4 LAB SOURCE(LOINC) Lab Specimen Source Performed By: #### HEPFP #### [facility] [address] [place] [address] HEPATITIS B SURFACE AG Collected: 05/19/2018 Status: F Source: [place] 12:42 [facility] REPOSITORY TYPE CODE TESTS RESULT OUT OF REFERENCE UNITS RANGE LAB HAGFN(LOIN NONREACTIVE C) HEP.B SURFACE NONREACTIVE AG Result Comment: Patients receiving more than 5 mg/day of biotin may have interference in test results. A sample should be taken no sooner than eight hours after previous dose. Contact [phone] for additional information. LAB SOURCE([facility]) Lab Specimen Source Performed By: #### HBSAG #### [facility] [address] [place] [address] HEPATITIS C AB Collected: 05/19/2018 Status: F Source: [place] 12:42 [facility] REPOSITORY TYPE CODE TESTS RESULT OUT OF REFERENCE UNITS RANGE LAB HCVFN(LOIN NONREACTIVE C) HEPATITIS C AB NON-REACTIVE Result Comment: Patients receiving more than 5 mg/day of biotin may have interference in test results. A sample should be taken no sooner than eight hours after previous dose. Contact [phone] for additional information. LAB SOURCE([facility]) Lab Specimen Source Performed By: #### HCVAB #### [facility] [address] [place] [address] HEPATITIS B CORE Collected: 05/19/2018 Status: F Source: [facility] 12:[address] [place] [address] REPOSITORY TYPE CODE TESTS RESULT OUT OF REFERENCE UNITS RANGE LAB HCTFN(LOIN NONREACTIVE C) NONREACTIVE HEP. B CORE AB-TOTAL Result Comment: Patients receiving more than 5 mg/day of biotin may have interference in test results. A sample should be taken no sooner than eight hours after previous dose. Contact [phone] for additional information. LAB SOURCE([facility]) Lab Specimen Source Performed By: #### HBCRT #### [facility] [address] [place] [address] QUANTIFERON TB GOLD Collected: 05/19/2018 Status: F Source: [place] 12:42 [facility] REPOSITORY TYPE CODE TESTS RESULT OUT OF REFERENCE UNITS RANGE LAB QUAFE(LOIN Negative C) QUANTIFERON TB GOLD NEGATIVE Result Comment: Negative test result. M. tuberculosis complex infection unlikely. LAB QUNIL(LOINC) IU/mL NIL 0.06 LAB QUMIN(LOINC) IU/mL MITOGEN NIL 8.82 LAB QUTBN(LOINC) IU/mL TB ANTIGEN NIL 0.00 Result Comment: The Nil tube value is used to determine if the patient has a preexisting immune response which could cause a false-positive reading on the test. In order for a test to be valid, the Nil tube must have a value of <=8.0 IU/mL. The Mitogen control tube is used to assure the patient has a healthy immune status and also serves as a control for correct blood handling and incubation. It is used to detect false-negative readings. The mitogen tube must have a gamma interferon value >= 0.5 IU/mL higher than the value of the Nil tube. The TB Antigen tube is coated with the M tuberculosis specific antigens. For a test to be considered positive the TB antigen tube value minus the Nil tube value must be >=0.35 IU/mL. Data on the performance of the test in children younger than 5 years of age are limited, and the CDC advises that caution is warranted when using the assay in children aged <5 years (MMWR 2010; 59 (RR-05):1-25). For additional information, please refer to: http://education.hdtMEDIA/faq/QFT (This link is being provided for informational/ educational purposes only). Performed By: #### QUAF1 #### [facility] [address] TH CHEST 2 VIEW PA Observed: 05/19/2018 Status: F Source: [facility] 12:24 PM HOSPITALS REPOSITORY Patient Name: DANE FONSECA STUDY: TH CHEST 2 VIEW PA AND LAT; 05/19/2018 12:24 pm INDICATION: Signs/Symptoms: pre-kidney transplant. COMPARISON: Chest radiograph from 11/12/2016 ACCESSION NUMBER(S): [id number] ORDERING CLINICIAN: SEBAS ASHBY FINDINGS: The cardiomediastinal silhouette is stable and within normal limits. There is no focal consolidation, edema or pneumothorax. No sizeable pleural effusion. No acute osseous abnormality. IMPRESSION: 1. No radiographic evidence of acute cardiopulmonary process. Electronically signed by: HAILEE REYES MD TRANSPLANT-SURGERY Observed: 05/19/2018 Status: UNK Source: [place] 10:52 AM HOSPITALS REPOSITORY Chief Complaint Annual follow up while on kidney transplant candidate list. History of Present Illness Reason For Visit: Follow-Up Surgical Evaluation . Annual Review. Functional Status: 71 - Cares for self; unable to carry on normal activity or do active work. CKD: stage 5 and ESRD. Disease Etiology: unknown. Disease Complications: hypertension. Symptoms Currently Experiencing: The patient is currently asymptomatic. Current Treatment: antihypertensives, aspirin, hemodialysis, renal diet and vitamin D. Compliance/Tolerance/Control: good compliance with treatment. Pertinent History: benign prostatic hypertrophy and hypertension. No risk factors have been identified. I am seeing your patient at your request to perform a surgical evaluation for potential candidacy on the kidney transplant list here at [facility] [place]. Michele fisher reviewed all potential records we have received, and all testing performed to this date. This is a patient of Dr. XIOMARA XAVIER [phone] This is a 37 year yo male with ESRD secondary to Unknown etiology Listing Date: 04/16/17 Dialysis Vintage: 03/28/14 Current Vascular Access or PD: right forearm, fistula Issues with dialysis or access: NO Exhausted Vascular Access: NO Urine O/P: small amount Blood transfusions in the past year: NO (last transfusion 2013) Recent hospitalizations/illnesses: NO Previous Transplant: NO Hx of Cancer: NO Hx Peripheral Vascular Disease: NO Living Donors: NO Patient reports he does home dialysis 6 days a week for 3 hours per day with a dry weight of 138 kg. Denies any smoking. Patient is from [place], [place] but does have a strong support system. Follows up candi counselor for anxiety. Reports to have ECHO scheduled for later today. Review of Systems Constitutional: no fever, no chills, no recent weight gain and no recent weight loss. Eyes: no jaundice present. ENT: no sore throat. Cardiovascular: no chest pain and no lower extremity edema. Respiratory: no cough and no shortness of breath. Gastrointestinal: no abdominal pain, no constipation, no vomiting, no diarrhea and no nausea. Genitourinary. no renal cancer. Musculoskeletal: no muscle aches. Integumentary: no skin lesions. Psychiatric: has stable social support system anxiety. Endocrine: not diabetic. Hematologic/Lymphatic: blood transfusion. Active Problems Anxiety (300.00) (F41.9) BPH (benign prostatic hypertrophy) (600.00) (N40.0) Elevated blood pressure reading in office with white coat syndrome, with diagnosis of hypertension (401.9) (I10) ESRD on hemodialysis (585.6,V45.11) (N18.6,Z99.2) Hypertension (401.9) (I10) Morbid obesity (278.01) (E66.01) Pre-transplant evaluation for end stage renal disease (V72.83) (Z01.818) UTI (urinary tract infection) (599.0) (N39.0) Past Medical History History of obesity (V12.29) (Z86.39) Surgical History History of Abdominal Surgery repair of bleeding after PEG placement History of G-Tube Insertion 2013 History of G-Tube Removal 2013 History of Hemodialysis Access Type Arteriovenous Fistula History of Tonsillectomy Family History Family history of hypertension (V17.49) (Z82.49) Family history of Family history of congenital heart disease (V19.5) (Z82.79) Family history of congenital heart disease (V19.5) (Z82.79) Social History Never a smoker No alcohol use No illicit drug use Allergies No Known Drug Allergies Recorded By: Gayatri Butler; 01/03/2017 1:07:46 PM No Known Environmental Allergies Recorded By: Gayatri Butler; 01/03/2017 1:07:46 PM No Known Food Allergies Recorded By: Gayatri Butler; 01/03/2017 1:07:46 PM Current Meds Carvedilol 12.5 MG Oral Tablet; TAKE 1 TABLET TWICE DAILY; Therapy: (Recorded:03Jan2017) to Recorded Dispense: 0 Days ; #: Sufficient Tablet; Refill: 0;For: PMH: Abdominal Surgery; PRATIK = N; Record; Last Updated By: Gayatri Butler; 01/03/2017 1:07:46 PM Doxazosin Mesylate 4 MG Oral Tablet; TAKE 1 TABLET DAILY; Therapy: (Recorded:03Jan2017) to Recorded Dispense: 0 Days ; #: Sufficient Tablet; Refill: 0;For: PMH: Abdominal Surgery; PRATIK = N; Record; Last Updated By: Gayatri Butler; 01/03/2017 1:07:46 PM Epogen SOLN; 5000 units every other week; Therapy: (Recorded:03Jan2017) to Recorded Dispense: 0 Days ; #: Sufficient ML; Refill: 0;For: PMH: Abdominal Surgery; PRATIK = N; Record; Last Updated By: Gayatri Butler; 01/03/2017 1:07:46 PM Imdur 30 MG TB24; TAKE 1 TABLET DAILY; Therapy: (Recorded:[id number]) to Recorded Dispense: 0 Days ; #: Sufficient Tablet Extended Release 24 Hour; Refill: 0;For: PMH: Abdominal Surgery; PRATIK = N; Record; Last Updated By: Gayatri Butler; 01/03/2017 1:07:46 PM Pantoprazole Sodium 40 MG Oral Tablet Delayed Release; Take 1 tablet daily; Therapy: (Recorded:69Rqc1077) to Recorded Dispense: 0 Days ; #: Sufficient Tablet Delayed Release; Refill: 0;For: PMH: Abdominal Surgery; PRATIK = N; Record; Last Updated By: Gayatri Butler; 01/03/2017 1:07:46 PM Renal 1 MG Oral Capsule; TAKE 1 CAPSULE Daily; Therapy: (Recorded:38Pjo8864) to Recorded Dispense: 0 Days ; #: Sufficient Capsule; Refill: 0;For: PMH: Abdominal Surgery; PRATIK = N; Record; Last Updated By: Gayatri Butler; 01/03/2017 1:07:46 PM Sensipar 30 MG Oral Tablet; TAKE 1 TABLET DAILY; Therapy: (Recorded:09Xxm5653) to Recorded Dispense: 0 Days ; #: Sufficient Tablet; Refill: 0;For: PMH: Abdominal Surgery; PRATIK = N; Record; Last Updated By: Gayatri Butler; 01/03/2017 1:07:46 PM Vitals Vital Signs Recorded: 19May2018 09:25AM Rogljpvutck86.8 F, Oral Heart Gzwz376 Ekwwgtog057 Nrbroemuo68 Height6 ft 1 in Jxadpp648 lb 4.8 oz BMI Nleeihrzub31.94 BSA Calculated2.59 O2 Xirjqwxjxf512, RA Physical Exam Constitutional - General appearance: In no acute distress, well appearing and well nourished. overweight. Eyes Conjunctiva and lids: No erythema, swelling or discharge. Ears, Nose, Mouth, and Throat - External inspection of ears and nose: Normal. Neck - Exam: Appearance of the neck was normal. No neck masses observed. Pulmonary - Respiratory effort: Normal respiration. Cardiovascular - Examination of femoral pulses equally palpable bilaterally. 2+ pulses bilaterally. Examination of extremities for edema and/or varicosities: No peripheral edema. Chest - Inspection of Breasts: Deferred. Abdomen - Abdomen: Non-tender, no abdominal masses. soft. Musculoskeletal - Range of motion: Normal. Muscle strength/tone: Normal. Neurologic - Coordination: Normal gait. Psychiatric - Orientation to person, place, and time: Normal. Mood and affect: Normal. Additional Findings - Right forearm fistula, button holes. Diagnoses/Problems Pre-transplant evaluation for end stage renal disease (V72.83) (Z01.818) Patient Discussion/Summary Impression: Kidney Transplant Pre-Transplant Visit . Annual Review. Current Status:. Patient is stable. Treatment plan includes. Dietary Modification. Transplant Status:. Candidate is on List. Obesity. Reviewed:. Appropriate for Transplant. Patient Discussion:. Discussed with the patient. I had a discussion with this patient regarding survival statistics at 1 year following renal transplantation for both living and donor allograft recipients. This data included [facility] data compared to National data. The difference between allograft function was discussed comparing living donor, KDPI 0-85%, >85% kidneys. Further discussion included: -The transplant selection committee process. -The need for lifelong immunosuppressive therapy, and the side effects of these medications including the risk of infections, cancer, and lymphoma. -The wait list time approximately is 3-5 years or more for donor transplants and the statistical superiority of a living donor. - public health services increased-risk donors and potential transmission of infectious disease from these donors, as well as living donors. -The possibility of transmission of tumors and infections via the transplanted organ. -The inability to completely test for all potential harmful tumors or infectious agents. -The possibility of listing at multiple locations. Surgical complications including need for reoperation(s) due to: -Bleeding -Repair of leaks -Control of infection -Possible Kidney Transplant removal The medical complications including but not limited to: - -Cardiac -Pulmonary -Infectious -Neurologic -Other Complications We also discussed how the Kidney Transplant could function: -Nonfunction and possible kidney transplant removal within the first 3-6 months -Delayed Graft function (Dialysis needed after transplant) -The potential of recurrence of kidney disease leading to kidney transplant graft loss The patient understands these issues and is eager to proceed with the re-evaluation and possibility of re-listing for Kidney transplantation. We appreciate asking us to evaluate and potentially help your patient with the possibility of transplantation. Plan: -Follow up with patient's ECHO results from today. -Advised patient to maintain his weight due to being at BMI cutoff. -Continue any further standard transplant workup via coordinator. -Patient has consented to DCD donors only. We did go over increased risk donors and patient will give it some consideration and call the office if he decides to sign up for those donors. Lasha Ashby MD FACS Surgical Director of Liver, Kidney, and Pancreas Transplantation Clinical Director of Abdominal Transplantation aerial applicator pilot Division of Transplant and Hepatobiliary Surgery [facility] [place], [place] [phone] FAX Transplant Office Line [phone] [employer]ATE [employer] .. By signing my name below, I, Vamsi VitaleScribe, attest that this documentation has been prepared under the direction and in the presence of Dr. Sebas Ashby. All medical record entries made by the Scribe were at my direction and personally dictated by me. I have reviewed the chart and agree that the record accurately reflects my personal performance of the h istory, physical exam, discussion and plan. Signatures Electronically signed by : Sebas Ashby MD; May 19 2018 10:52AM EST (Author) HLA CLASS II AB Collected: 01/08/2018 Status: F Source: [facility] 5:06 PM HOSPITALS REPOSITORY TYPE CODE TESTS RESULT OUT OF REFERENCE UNITS RANGE LAB HLA2S(LOINC ) HLA CLASS SEE COMMENT II AB SCREEN,FC Result Comment: HLA CLASS II AB SCREEN,FLOW CYTOMETRY SEE SEPARATE REPORT. Performed By: #### HLA2S #### [facility] [address] [place] [address] ALLOXM-FOR ADDN'L Collected: 11/25/2017 Status: F Source: [place] SERUM 4:51 PM HOSPITALS REPOSITORY TYPE CODE TESTS RESULT OUT OF REFERENCE UNITS RANGE LAB FLALP(LOINC ) COMMENT ALLOXM-FOR ADDN'L SERUM Result Comment: SEE SEPARATE REPORT. Performed By: #### FLALP #### [facility] [address] [place] [address] ALLOCROSSMATCH, FLOW Collected: 11/25/2017 Status: F Source: [place] 4:51 PM HOSPITALS REPOSITORY TYPE CODE TESTS RESULT OUT OF REFERENCE UNITS RANGE LAB FLALL(LOINC ) COMMENT ALLOCROSSMAT CH, FLOW Result Comment: SEE SEPARATE REPORT. Performed By: #### FLALL #### [facility] [address] [place] [address] HLA CLASS II AB Collected: 10/07/2017 Status: F Source: [facility] 8:24 AM HOSPITALS REPOSITORY TYPE CODE TESTS RESULT OUT OF REFERENCE UNITS RANGE LAB HLA2S(LOINC ) HLA CLASS SEE COMMENT II AB SCREEN,FC Result Comment: HLA CLASS II AB SCREEN,FLOW CYTOMETRY SEE SEPARATE REPORT. Performed By: #### HLA2S #### [facility] [address] [place] [address] HLA CLASS I SP AB Collected: 10/07/2017 Status: F Source: [facility] ID,[facility] 8:24 AM HOSPITALS REPOSITORY TYPE CODE TESTS RESULT OUT OF REFERENCE UNITS RANGE LAB HL1HD(LOINC ) HLA CLASS SEE COMMENT I SP AB ID,HD Result Comment: HLA-CLASS I SP ANTIBODY IDENTIFICATION, HIGH DEFINITION SEE SEPARATE REPORT. Performed By: #### HL1HD #### [facility] [address] [place] [address] SYNGO NUCLEAR ORDER Observed: 04/17/2017 Status: F Source: [place] 10:54 AM [facility], [address] [place] [address], [facility] [address] [address] and Nuclear Pharmacologic Stress Test Patient Name: Dane Fonseca Ordering Physician: Study Date: 04/17/2017 Reading Physician: [id number] Franchesca Kwok MD MRN/PID: [id number] Referring Physician: Sampson Lind MD Accession/Order#: [id number] PCP: Date of : 1980 Fellow: Gender: M Patient Location: [place] [facility] Admit Date: Rn Clinical Resource: Kiana PEREZ Admission Status: Outpatient Nurse: Roberta Nails RN Height: 185.42 cm Local Operator: MATHEUS Weight: 140.62 kg Technologist: BSA: 2.59 m2 Additional Staff: BMI: 40.90 kg/m2 cc report to: Age: 36 years cc report to: Study Type: Syngo Nuclear Order Diagnosis/ICD: Z01.810 Encounter for preprocedural cardiovascular examination Indication: Pre-Op Evaluation Procedure/CPT: 51-56576-3 NUCLEAR PHARMACOLOGIC STRESS TEST (71619); 51-39172-9 REGADENOSON ([id number]) Study Details: Correct procedure and correct patient verified verbally. Patient History: . 36 yo male ESRD on hemodialysis for pretransplant evaluation. PMH HTN, morbid obesity, DEVANG on BiPAP, anxiety, white coat syndrome. Medications: The patient's prescribed medication is Aspirin, Carvedilol, Clonazepam, Doxazosin, Epogen, Fosrenol, Imdur, Klorr-Con, Pantoprzole, Sensipar, Vitamin D, Ferrous. The patient took medications as prescribed. Patient Performance: Patient received a total of 36.0 mCi of Myoview at 11:42:07 AM. The patient exercised during infusion. The peak heart rate achieved was 131 bpm, which was 71 % of the age predicted target heart rate of 184 bpm. The resting blood pressure was 158/96 mmHg with a heart rate of 89 bpm. The standing blood pressure was 158/98 mmHg with a heart rate of 90 bpm. The patient developed no sy mptoms during the stress exam. The blood pressure response was normal. The test was terminated due to: completed lab protocol. Patient has met the discharge criteria and is discharged to home. Baseline ECG: Resting ECG showed normal sinus rhythm with normal tracing. Stress ECG: Stress ECG showed sinus tachycardia, with no abnormal findings. No ST changes. Peak HR 131 Peak BP 170/100. Stress Stage Data: +---+------+-------+ + HR Sys BPDias BPComments +---+------+-------+ + 89 158 96 +---+------+-------+ + 90 158 98 +---+------+-------+ + 104 00:30 Lexiscan 0.4mg IVP +---+------+-------+ + [id number] 100 02:00 +---+------+-------+ + 126 03:00 +---+------+-------+ + [id number] 102 04:00 +---+------+-------+ + Recovery ECG: Recovery ECG showed normal sinus rhythm. The heart rate recovery was normal. + +---+------+-------+--------+ HR Fiona ALBERTias BPComments + +---+------+-------+--------+ Recovery I [id number] 98 02:00 + +---+------+-------+--------+ Recovery [id number] 88 04:00 + +---+------+-------+--------+ Summary: 1. No electrocardiographic or clinical evidence for ischemia at a maximal infusion. 2. Nuclear image results are reported separately. 3. The adequate level of stress was achieved. [id number] Franchesca Kwok MD Electronically signed on 04/17/2017 at 1:17:35 PM Final ALLERGIES ALLERGIES DATE TYPE / CODE NAME / CODE REACTION SEVERITY SOURCE 07/31/2018 Drug No Known Unknown [facility]160 Allergies/F00 [facility] 22719(SNOMED [id number](RXNOR Repository CT) M) ENCOUNTERS ENCOUNTERS ADMIT/DISCHARGE ACCOUNT ADMITTING ENCOUNTER LOCATION SOURCE NUMBER CLASS 09/09/2018 [id number] [facility] Repository 08/17/2018 [id number] [facility] Repository 07/31/2018/07/31/20 [id number] [place] 18 [facility] ing:ED Repository 07/08/2018 [id number] [facility] Repository 06/12/2018 [id number] [facility] Repository 06/05/2018 [id number] [facility] Repository 05/19/2018 [id number] [facility] Repository 05/19/2018 [id number] [facility] Repository 05/19/2018 [id number] [facility] Repository 05/19/2018 [id number] [facility] Repository 05/19/[id number] [facility] Repository 01/08/2018 [id number] [facility] Repository 12/29/[id number] [facility] Repository 11/25/2017 [id number] [facility] Repository 10/07/2017 [id number] [facility] Repository PAYERS PAYERS ENCOUNTER GUARANTOR PAYER SUBSCRIBER SOURCE 09/09/2018 DANE BHATT: Primary DANE BHATT: University Insurance:Transplants [id number] [facility] SE[place]REST RecipientPolicy 3 [facility] [facility] [place] Number[facility] 95[address]Effective [facility] [place] [address]Okx: 330) Date:Plan Name:Health [address]26[address]Lde: (DA) [phone] () 09/09/2018 Secondary DANE BHATT: University Insurance:MedicarePol [id number] [facility] icy Number: 3 [place] Repository [id number] Date:Plan Name:[facility] [address]Pas: (330) A [phone] (HP) 09/09/2018 Tertiary DANE LONGB: [place] Insurance:MedicarePol [id number] [facility] icy Number: 3 [place] Repository [id number] [place] Date:Plan Name:[facility] [address]Nqm: ([phone]) B [phone] (HP) 09/09/2018 Tertiary DANE LONGB: [place] Insurance:AnthemPolic [id number] [facility] y Number: 3 [place] Repository [id number] [place] Date:Plan Name:[place] [id number]: (HP) 09/09/2018 Tertiary DANE LONGB: [place] Insurance:MedicaidPol [id number] [facility] icy Number: 3 [place] Repository [id number] [place] Date:Plan [address]Roq: (330) Name:Health [phone] (HP) [place], [place] [address]FU: 08/17/2018 DANE LONGB: Primary DANE LONGB: [place] Insurance:[facility] [id number] [facility] [place] RecipientPolicy 3 [place] Repository [place] Number: [address] [address]Xqn: (330) Date:Plan Name:Health [address]Gba: (HP) [phone] (HP) 08/17/2018 Secondary DANE LONGB: [place] Insurance:MedicarePol [id number] [facility] icy Number: 3 [place] Repository [id number] [place] Date:Plan Name:[facility] [address]Zjc: (330) A [phone] (HP) 08/17/2018 Tertiary DANE LONGB: [place] Insurance:MedicarePol [id number] [facility] icy Number: 3 [place] Repository [id number] [place] Date:Plan Name:[facility] [address]Leg: [phone]) B [phone] (HP) 08/17/2018 Tertiary DANE LONGB: [employer] Insurance:AnthemPolic [id number] Hospitals y Number: 3 [place] Repository [id number] [facility] [place] Date:Plan Name:Health [address]Tif: () 08/17/2018 Tertiary DANE LONGB: [facility] [id number] [facility] icy Number: 3 [place] Repository [id number] [facility], [place] Date:Plan [address]Gwa: (330) Name:[facility] [phone] () [place], [place] [address]IL: 07/31/2018 DANE L Primary DANE L [place] [id number] Insurance:MEDICARE EDGELLDOB: Community ELEONORA PART A BPolic [id number] [place], [place] Number: Repository [address]Xkt: (541) [id number] [id number] (HP) Date:2018-07-31 07/31/2018 Secondary DANE [place] Insurance:ANTHEMPolic EDGELLDOB: Community y Number: [id number] [facility] [id number] Repository Date:[id number] [id number] [place] [address]HA: 07/31/2018 Tertiary DANE L [place] Insurance:MEDICAIDPol EDGELLDOB: Community icy Number: [id number] [id number] Repository Date:2018-07-31 07/31/2018 Tertiary NOT GIVENUNK [place] Insurance:SELF PAY [facility] Number: Effective Repository Date:2018-07-31 07/08/2018 DANE FONSECADOB: Primary DANE EDGEHERIDOB: University Insurance:Transplants [id number] [facility] SECHREST RecipientPoly 3 SECHREST Repository [facility] [place] Number: [address]Effective [place], [place] [address]Cyg: (330) Date:Plan Name:Health 52148Hjp: (HP) 264-1216 (HP) 07/08/2018 Secondary DANE LONGB: [place] Insurance:MedicarePol [id number] Hospitals icy Number: 3 SECHREST Repository [id number] [place] Date:Plan Name:[facility] 50551Ruk: (330) A 264-1216 (HP) 07/08/2018 Tertiary DANE FONSECADOB: University Insurance:MedicarePol [id number] Hospitals icy Number: 3 SECHREST Repository [id number] [place] Date:Plan Name:[facility] 82726Qvj: (330) B 264-1216 (HP) 07/08/2018 Tertiary DANE LONGB: [place] Insurance:[facility] [id number] [facility] y Number: 3 SECHREST Repository [id number] [place] Date:Plan Name:[facility] 15894Ssp: (HP) 06/12/2018 DANE LONGB: Primary DANE LONGB: [place] Insurance:[facility] [id number] [facility] SECHREST RecipientPolicy 3 SECHREST Repository [place] Number: [address]ive [place] [address]Phg: (330) Date:Plan Name:Health 03544Oiw: (HP) 264-1216 (HP) 06/12/2018 Secondary DANE LONGB: [place] Insurance:MedicarePol [id number] [facility] icy Number: 3 SECHREST Repository [id number] [place] Date:Plan Name:[facility] 88842Mdv: (330) A 264-1216 (HP) 06/12/2018 Tertiary DANE LONGB: [place] Insurance:MedicarePol [id number] Hospitals icy Number: 3 SECHREST Repository [id number] [place] Date:Plan Name:[facility] 51124Cgo: (330) B 264-1216 (HP) 06/12/2018 Tertiary DANE FONSECADOB: [place] Insurance:[facility] [id number] Hospitals y Number: 3 SECHREST Repository [id number] [place] Date:Plan Name:[place] [address]Tel: (HP) 06/12/2018 Tertiary DANE FONSECADOB: University Insurance:MedicaidPol [id number] [facility] icy Number: 3 SECHREST Repository [id number] [place] Date:Plan [address]Exh: (330) Name:Health [address] (HP) [place], [place] [address]VE: 06/05/2018 DANE FONSECADOB: Primary [facility] [place] Insurance:[facility] [id number] [facility] SECHREST RecipientPolicy 3 SE[place] Repository [place] Number: [address]Effective [place], [place] [address]Rdk: (330) Date:Plan Name:[place] [address]Tel: (HP) 264-1216 (HP) 06/05/2018 Secondary DANE LONGB: [place] Insurance:MedicarePol [id number] [facility] icy Number: 3 SECHREST Repository [id number] [place] Date:Plan Name:[facility] 60977Pli: (330) A 264-1216 (HP) 06/05/2018 Tertiary DANE FONSECADOB: [place] Insurance:MedicarePol [id number] Hospitals icy Number: 3 SECHREST Repository [id number] [place] Date:Plan Name:[facility] 55713Lsp: (330) B 264-1216 (HP) 06/05/2018 Tertiary DANE LONGB: [place] Insurance:[facility] [id number] [facility] y Number: 3 SECHREST Repository [id number] [place] Date:Plan Name:[facility] 63172Hdk: (HP) 06/05/2018 Tertiary DANE LONGB: University Insurance:MedicaidPol [id number] [facility] icy Number: 3 SECHREST Repository [id number] [place] Date:Plan [address]Kpp: (330) Name:Health [address] (HP) [place], [place] [address]ZO: 05/19/2018 DANE LONGB: Primary [facility]ULSAHERIDOB: [place] Insurance:[facility] [id number] [facility] SECHREST RecipientPolicy 3 SE[place] Repository [place] Number: [address]ive [place] [address]Cwp: (330) Date:Plan Name:[facility] 77928Rvu: (HP) 264-1216 (HP) 05/19/2018 Secondary DANE LONGB: University Insurance:MedicarePol [id number] [facility] icy Number: 3 SECHREST Repository [id number] [place] Date:Plan Name:[facility] 16182Bot: (330) A 2641216 (HP) 05/19/2018 Tertiary DANE LONGB: University Insurance:MedicarePol [id number] [facility] icy Number: 3 SECHREST Repository [id number] [place] Date:Plan Name:[facility] 19549Fwc: (330) B 2641216 (HP) 05/19/2018 Tertiary ADNE LONGB: University Insurance:AnthemPolic [id number] Hospitals y Number: 3 SECHREST Repository [id number] [place] Date:Plan Name:[facility] 57408Htl: (HP) 05/19/2018 Tertiary DANE LONGB: University Insurance:MedicaidPol [id number] Hospitals icy Number: 3 SECHREST Repository [id number] [place] Date:Plan [address]Amr: (330) Name:HealthP [phone] (HP) [place], [place] [address]DX: 05/19/2018 DANE LONGB: Primary [facility]HERIB: [place] Insurance:[facility] [id number] [facility] SECHREST RecipientPolicy 3 [place] Repository [place] Number: [address]Effective [place] [address]Bzz: (330) Date:Plan Name:Health 77381Qoz: (HP) 264-1216 (HP) 05/19/2018 Secondary DANE LONGB: [place] [facility] [id number] [facility] icy Number: 3 SECHREST Repository [id number] [place] Date:Plan Name:[facility] 89799Brj: (330) A 264-1216 (HP) 05/19/2018 Tertiary DANE LONGB: [place] Insurance[facility] [id number] [facility] icy Number: 3 SECHREST Repository [id number] [place] Date:Plan Name:[facility] [address]7621Zfv: (330) B 264-1216 (HP) 05/19/2018 Tertiary DANE LONGB: [place] Insurance:[facility] [id number] [facility] y Number: 3 SECHREST Repository [id number] [place] Date:Plan Name:Health 78396Glw: (HP) 05/19/2018 Tertiary DANE LONGB: University Insurance:MedicaidPol [id number] [facility] icy Number: 3 SECHREST Repository [id number] [place] Date:Plan [address]Mhp: (330) Name:HealthP [address] (HP) [address], [place] [address]IK: 05/19/2018 DANE LONGB: Primary DANE LONGB: [place] Insurance:Transplants [id number] Hospitals SECHREST RecipientPolicy 3 SE[place] Repository [place] Number: [address]Effective [place], [place] [address]Xva: (330) Date:Plan Name:Health 69809Ber: (HP) 264-1216 (HP) 05/19/2018 Secondary DANE LONGB: [place] Insurance:[facility] [id number] [facility] olicy Number: 3 SECHREST Repository [id number] [place] Date:Plan [address]Emd: (330) Name:HealthP [phone] (HP) [address] [place] [address] [id number]: 05/19/2018 Tertiary DANE LONGB: [place] Insurance:[facility] [id number] [facility] olicy Number: 3 SECHREST Repository [id number] [place] Date:Plan [address]73Bur: (330) Name:HealthP [phone] (HP) [address] [place] [address] [id number]: 05/19/2018 DANE OLNGB: Primary DANE LONGB: [place] Insurance:[facility] [id number] [facility] SECHREST RecipientPolicy 3 SE[place] Repository [place] Number: [address]Effective [place], [place] [address]Ypr: (330) Date:Plan Name:Health 10685Jek: (HP) 264-1216 (HP) 05/19/2018 Secondary DANE LONGB: [place] Insurance:[facility] [id number] [facility] olicy Number: 3 SECHREST Repository [id number] [place] Date:Plan [address]Frq: (330) Name:HealthP [phone] (HP) [address], [place] [id number]: 05/19/2018 Tertiary DANE LONGB: [place] Insurance:CaresourceP [id number] [facility] olicy Number: 3 SECHREST Repository [id number] [place] Date:Plan 36503Hws: (330) Name:[facility] [phone] () [address] [place] [address] [id number]: 05/19/2018 DANE LONGB: Primary [facility]: [place] Insurance:[facility] [id number] [facility] SECHREST RecipientPolicy 3 SE[place] Repository [place] Number: [address]Effective [place], [place] [address]Qzq: (330) Date:Plan Name:[facility] 44284Unj: (HP) 264-1216 (HP) 05/19/2018 Secondary DANE LONGB: [place] Insurance:MedicarePol [id number] [facility] icy Number: 3 SECHREST Repository [id number] [place] Date:Plan Name:[facility] 22843Nqe: (330) A 2641216 (HP) 05/19/2018 Tertiary DANE LONGB: [place] Insurance:MedicarePol [id number] [facility] icy Number: 3 SE[place]REST Repository [id number] [place] Date:Plan Name:[facility] 88342Sea: (330) B 2641216 (HP) 05/19/2018 Tertiary DANE LONGB: [place] Insurance:AnthemPolic [id number] Hospitals y Number: 3 SECHREST Repository [id number] [place] Date:Plan Name:[facility] 13011Vvo: (HP) 05/19/2018 Tertiary DANE LONGB: University Insurance:MedicaidPol [id number] [facility] icy Number: 3 SE[place] Repository [id number] [place] Date:Plan [address]54[address]Ycn: (330) Name:HealthP [phone] (HP) [address], [place] [address]QJ: 01/08/2018 DANE LONGB: Primary DANE LONGB: [place] Insurance:Transplants [id number] Hospitals SECHREST RecipientPolicy 3 SE[place] Repository [place] Number: [address]Effective [place], [place] [address]Rpr: (330) Date:Plan Name:[facility] 51565Cvu: (HP) 264-1216 (HP) 01/08/2018 Secondary DANE LONGB: [place] Insurance:MedicarePol [id number] [facility] icy Number: 3 SECHREST Repository [id number] [place] Date:Plan Name:[facility] 92289Gpj: (330) A 264-1216 (HP) 01/08/2018 Tertiary DANE LONGB: [place] Insurance:MedicarePol [id number] [facility] icy Number: 3 SE[place] Repository [id number] [place] Date:Plan Name:[facility] 41738Bwh: (330) B 2641216 (HP) 01/08/2018 Tertiary DANE LONGB: [place] Insurance[facility] [id number] [facility] icy Number: 3 SE[place] Repository [id number] [place] Date:Plan [address]Djd: (330) Name:Health [phone] (HP) [place], [place] [address]OK: 12/29/2017 DANE FONSECADOB: Primary DANE LONGB: [place] Insurance:Transplants [id number] Hospitals SECHREST RecipientPolicy 3 SE[place] Repository [place] Number: 95[address]Effective [place], [place] [address]Lxe: (330) Date:Plan Name:[facility] 93376Oqf: (HP) [phone] (HP) 12/29/2017 Secondary DANE LONGB: [place] Insurance:MedicarePol [id number] Hospitals icy Number: 3 SECHREST Repository [id number] [place] Date:Plan Name:[facility] [address]Tew: (330) A 264-1216 (HP) 12/29/2017 Tertiary DANE LONGB: [place] Insurance:MedicarePol [id number] Hospitals icy Number: 3 SE[place] Repository [id number] [place] Date:Plan Name:[facility] 14624Lzq: (330) B 2641216 (HP) 12/29/2017 Tertiary DANE LONGB: [place] Insurance:MedicaidPol [id number] [facility] icy Number: 3 SECHREST Repository [id number] [place] Date:Plan 47[address]Rgr: (330) Name:[facility] [id number] () [address], [place] [address]ZT: 11/25/2017 DANE LONGB: Primary DANE LONGB: [place] Insurance:[facility] [id number] [facility] SECHREST RecipientPolicy 3 [place] Repository [place] Number: [address]Effective [place] [address]Znp: (330) Date:Plan Name:[facility] 21931Ccz: (HP) 264-1216 (HP) 11/25/2017 Secondary DANE LONGB: University Insurance:MedicarePol [id number] [facility] icy Number: 3 SE[place] Repository [id number] [place] Date:Plan Name:[facility] 55250Arq: (330) A 264-1216 (HP) 11/25/2017 Tertiary DANE LONGB: [place] Insurance:MedicarePol [id number] Hospitals icy Number: 3 SE[place] Repository [id number] [place] Date:Plan Name:[facility] 70931Hlw: (330) B 264-1216 (HP) 11/25/2017 Tertiary DANE LONGB: [place] Insurance:MedicaidPol [id number] Hospitals icy Number: 3 SE[place] Repository [id number] [place] Date:Plan [address]Tsc: (330) Name:HealthP [phone] (HP) [address], [place] [address]VD: 10/07/2017 DANE LONGB: Primary DANE LONGB: [place] Insurance:[facility] [id number] [facility] SECHREST RecipientPolicy 3 SE[place] Repository [place] Number: [address]Effective [place], [place] [address]Gwr: (330) Date:Plan Name:[place] 25588691Tel: (HP) [phone] (HP) 10/07/2017 Secondary DANE BHATT: [place] Insurance:MedicarePol [id number] [facility] icy Number: 3 SE[place] Repository [id number] [place] Date:Plan Name:[facility] 19151Jzh: (330) A 2641216 (HP) 10/07/2017 Tertiary DANE LONGB: [place] Insurance:MedicarePol [id number] [facility] icy Number: 3 SE[place] Repository [id number] [place] Date:Plan Name:[facility] 83560Tft: (330) B 2641216 (HP) 10/07/2017 Tertiary DANE LONGB: [place] Insurance:MedicaidPol [id number] [facility] icy Number: 3 SE[place] Repository [id number] [place] Date:Plan [address]Kdg: (330) Name:HealthP [address] (HP) [address], [place] [address]GP:
== END 2018-07-31 14:20 | disposition home or self-care (01) ==
LOC: ED 11:58
PROVIDERS: Emergency Provider Emergency Medicine; Family Provider Family Medicine; PCP Family Medicine
DX: R50.9 Fever, unspecified (principal); I12.0 Hypertensive chronic kidney disease with stage 5 chronic kidney disease or end stage renal disease; N18.6 End stage renal disease; Z99.2 Dependence on renal dialysis
CPT/HCPCS: 71045; 80048; 84484; 85025; 87040; 93005; 99283; A4216

== ENCOUNTER 2018-11-18 12:20 | Emergency (ER) | payer MEDICARE, BC, MEDICAID, SELFPAY ==
[2018-11-18 12:21] VITALS: BP 146/93; PULSE 84; RESP 16; TEMP 36.4; O2SAT 98; BMI 41.5
--- NOTE | 2018-11-18 12:31 | ED.VISSUMM ---
- ER Visit Summary Date of Service: 11/18/18 Chief Complaint: Fevers History of Present Illness: The patient is a 38 M with a history of focal segmental glomerulosclerosis, end-stage renal disease, and hemodialysis. He presents with intermittent fevers for the last several nights. T-max 100.5 degrees. He does report a mild headache and body aches as well as a dry cough. No other associated symptoms. No rashes. He does not make urine. Physical Examination: Afebrile and vital signs unremarkable. Alert and oriented. No acute distress. HEENT exam unremarkable. Heart regular. Lungs clear. Abdomen soft and nontender. Fistula normal, positive thrill. Skin normal. Test Results: Laboratory studies, blood cultures, influenza test pending. Emergency Department Course and Treatment: Patient symptoms sound infectious. He may be coming down with something. I did check a flu swab. I am also concerned for bacteremia and sepsis. I checked blood work and cultures. Patient overall appears well. Will reassess after results. Workup so far reflexes end-stage renal disease without any complication. He is anemic. His flu was negative. Cultures are pending. No further workup is indicated. No indication for admission. Patient will follow-up as an outpatient for his culture results. Return right away for any new or worsening issues. Treatment Plan: As above Disposition: Discharge Impression: 1. Fevers 2. End-stage renal disease This note was generated with [employer] Institute[employer] software. It may contain incorrect words, spelling, and punctuation that were not noted in review of the chart prior to signing ED Disposition - Plan for ED Patient: Referrals: Marcell Thacker MD [Primary Care Provider] -
[2018-11-18 13:12] LABS: Absolute Lymphocyte Count 0.69 X10^3/ul (0.83-4.51); Absolute Neutrophil Count 8.1 X10^3/uL (2.0-7.7); Basophil# 0.02 X10^3/uL; Basophil% 0.2 % (0-1); Eosinophil# 0.45 X10^3/uL; Eosinophils% 4.6 % (0-5); Hematocrit 30.4 % (40-54); Hemoglobin 10.1 g/dl (13.0-16.5); Lymphocyte # 0.69 X10^3/ul (4.0); Mean Corp Hgb Conc 33.2 g/gl (32-36); Mean Corpuscular Hgb 32.5 pg (27.0-32.0); Mean Corpuscular Volume 97.7 fL (80-94); Mean Platelet Vol. 9.8 fl (6.2-12.0); Monocyte% 6.1 % (0-10); Neutrophil # 8.09 X10^3/uL (2.7-7.7); Neutrophil % 81.7 % (47-70); Platelet Count 211 K/mm3 (150-450); RBC Distribution Width SD 44.1 fl (35.1-43.9); Red Blood Count 3.11 M/mm3 (4.6-6.2); White Blood Count 9.9 K/mm3 (4.4-11.0)
[2018-11-18 13:15] LABS: POSITIVE COUNT NO; POSITIVE DIFFERENTIAL NO; POSITIVE MORPHOLOGY NO
--- NOTE | 2018-11-18 13:25 | ED.RN ---
CREATININE 14.4, AWARE.
[2018-11-18 13:26] LABS: Anion Gap 10 (5-15); BUN 65 mg/dL (7-18); BUN/Creat Ratio 4.5 RATIO (10-20); Calcium,Total 9.6 mg/dL (8.5-10.1); Chloride 94 mmol/L (98-107); EST Glomerular Filtration Rate 4 mL/min (>60); Est Glom Filt Rate - Afr Amer 5 mL/min (>60); Estimated Creatinine Clearance 7.94 ml/min; Glucose 108 mg/dL (74-106); Potassium 3.7 mmol/L (3.5-5.1); Sodium Level 134 mmol/L (136-145)
--- NOTE | 2018-11-18 13:40 | ED.DEP ---
ED Disposition - Plan for ED Patient: Instructions: ED Fever Unconf Cause Referrals: Marcell Thacker MD [Primary Care Provider] -
[2018-11-18 14:01] VITALS: BP 139/74; PULSE 78; RESP 16; O2SAT 97
== END 2018-11-18 14:02 | disposition home or self-care (01) ==
LOC: ED 12:48
PROVIDERS: Emergency Provider Emergency Medicine; Family Provider Family Medicine; PCP Family Medicine
DX: R50.9 Fever, unspecified (principal); I12.0 Hypertensive chronic kidney disease with stage 5 chronic kidney disease or end stage renal disease; N18.6 End stage renal disease; N26.9 Renal sclerosis, unspecified; Z99.2 Dependence on renal dialysis; Z79.899 Other long term (current) drug therapy
CPT/HCPCS: 80048; 85025; 87040; 87804; 99283; A4216

== ENCOUNTER 2019-01-13 07:43 | Inpatient (IN) | payer MEDICARE, BC, MEDICAID, SELFPAY ==
[2019-01-13] VITALS (13 sets, daily range): BP systolic 128–162; BP diastolic 76–81; PULSE 78–100; RESP 18–35; TEMP 37–37.9; O2SAT 78–98; BMI 40.8; BMI 41.5
--- NOTE | 2019-01-13 08:03 | ED.VISSUMM ---
- ER Visit Summary Date of Service: 01/13/19 Chief Complaint: Nausea and vomiting History of Present Illness: The patient is a 38 M who presents with nausea and vomiting for the past 5 days. Patient states his vomiting improved after the first 24 hours but has since returned. Patient denies any hematemesis or coffee-ground emesis. Patient states his emesis is just stomach contents. Patient admits to some mild diarrhea. Patient denies any melena or hematochezia. Patient states he has been drinking some fluids. Patient states he did take some Reglan at home but this did not help. Patient complains of pain in his back chest, and upper abdomen from the vomiting. Patient also admits to some shortness of breath. Patient does home dialysis and states his last dialysis was 2 days ago. Patient states he has been having fevers up to 103.5 at home. Patient states his fevers are better in the morning but get worse throughout the day. Physical Examination: Vital signs are stable. Patient is afebrile. Patient is in no acute distress. Oral mucosa is pink and moist. Neck is supple. Trachea is midline. There is no JVD noted. Heart was regular rate and rhythm. Lungs are clear and equal bilaterally. Abdomen is soft. Bowel sounds are normal. There is no tenderness. There is no guarding noted. Cranial nerves II through XII are intact. There are no focal motor or sensory deficits noted. Test Results: CBC showed a hemoglobin of 8.9 and hematocrit 26.4. Platelets were 105. Comprehensive metabolic profile showed a sodium of 128 and chloride of 84. BUN was 90 and creatinine was 17.4. These are all consistent with prior results. Acute abdominal x-rays were obtained and showed increased markings at the lung bases slightly worse on the left suggestive of atelectasis and/or infiltrate. Emergency Department Course and Treatment: Given the patient's fevers, chest and back pain, I feel this is more of infiltrate than atelectasis. Patient requested a blood cultures be obtained. These were ordered. Patient was given his first dose of Zithromax here. Patient was given a prescription for Zithromax. Patient was instructed to continue his dialysis at home as previously instructed. Patient was given a prescription for Zofran to take as needed for nausea and vomiting. Patient was also given a prescription for a short course of [place] for pain. Patient was instructed to follow-up with his primary care physician in 3 to 5 days. Patient understood and was agreeable with the plan. All questions were answered. As the patient was getting ready to be discharged his oxygen saturation dropped into the 80s. Patient was given a DuoNeb aerosol here. Patient was reevaluated on room air and his oxygen saturation dropped to 86% on room air. Patient was placed back on oxygen. Case was discussed with the hospitalist. Patient will be admitted to the hospital. Patient understood and was agreeable with the plan. All questions were answered. Disposition: Admit to hospital Impression: Community-acquired pneumonia This note was generated with [employer] dictation software. It may contain incorrect words, spelling, and punctuation that were not noted in review of the chart prior to signing ED Disposition - Plan for ED Patient: Disposition: Acute Care Hospital [facility] Diagnosis: Community acquired pneumonia Instructions: ED Pneumonia Adult, ED Nausea Vomiting Prescriptions: Hydrocodone Bitart/Apap 5-325 [[place] 5MG-325MG] 1 tab PO Q6H PRN PRN 3 Days #10 tab PRN Reason: Pain Ondansetron [Zofran Odt] 4 mg PO Q8H PRN PRN #10 tab PRN Reason: Nausea Azithromycin [Zithromax] 250 mg PO DAILY #4 tab Referrals: Marcell Thacker MD [Primary Care Provider] - 3-5 Days
--- NOTE | 2019-01-13 08:06 | ED.DCSUM_ITS ---
- ER Visit Summary Date of Service: 01/13/19 Chief Complaint: Nausea and vomiting History of Present Illness: The patient is a 38 M who presents with nausea and vomiting for the past 5 days. Patient states his vomiting improved after the first 24 hours but has since returned. Patient denies any hematemesis or coffee-ground emesis. Patient states his emesis is just stomach contents. Patient admits to some mild diarrhea. Patient denies any melena or hematochezia. Patient states he has been drinking some fluids. Patient states he did take some Reglan at home but this did not help. Patient complains of pain in his back chest, and upper abdomen from the vomiting. Patient also admits to some shortness of breath. Patient does home dialysis and states his last dialysis was 2 days ago. Patient states he has been having fevers up to 103.5 at home. Patient states his fevers are better in the morning but get worse throughout the day. Physical Examination: Vital signs are stable. Patient is afebrile. Patient is in no acute distress. Oral mucosa is pink and moist. Neck is supple. Trachea is midline. There is no JVD noted. Heart was regular rate and rhythm. Lungs are clear and equal bilaterally. Abdomen is soft. Bowel sounds are normal. There is no tenderness. There is no guarding noted. Cranial nerves II through XII are intact. There are no focal motor or sensory deficits noted. Test Results: CBC showed a hemoglobin of 8.9 and hematocrit 26.4. Platelets were 105. Comprehensive metabolic profile showed a sodium of 128 and chloride of 84. BUN was 90 and creatinine was 17.4. These are all consistent with prior results. Acute abdominal x-rays were obtained and showed increased markings at the lung bases slightly worse on the left suggestive of atelectasis and/or infiltrate. Emergency Department Course and Treatment: Given the patient's fevers, chest and back pain, I feel this is more of infiltrate than atelectasis. Patient requested a blood cultures be obtained. These were ordered. Patient was given his first dose of Zithromax here. Patient was given a prescription for Zithromax. Patient was instructed to continue his dialysis at home as previously instructed. Patient was given a prescription for Zofran to take as needed for nausea and vomiting. Patient was also given a prescription for a short course of [place] for pain. Patient was instructed to follow-up with his primary care physician in 3 to 5 days. Patient understood and was agreeable with the plan. All questions were answered. As the patient was getting ready to be discharged his oxygen saturation dropped into the 80s. Patient was given a DuoNeb aerosol here. Patient was reevaluated on room air and his oxygen saturation dropped to 86% on room air. Patient was placed back on oxygen. Case was discussed with the hospitalist. Patient will be admitted to the hospital. Patient understood and was agreeable with the plan. All questions were answered. Disposition: Admit to hospital Impression: Community-acquired pneumonia This note was generated with vufind dictation software. It may contain incorrect words, spelling, and punctuation that were not noted in review of the chart prior to signing ED Disposition - Plan for ED Patient: Disposition: [facility] Care [facility] Diagnosis: Community acquired pneumonia Instructions: ED Pneumonia Adult, ED Nausea Vomiting Prescriptions: Hydrocodone Bitart/Apap 5-325 [[place] 5MG-325MG] 1 tab PO Q6H PRN PRN 3 Days #10 tab PRN Reason: Pain Ondansetron [Zofran Odt] 4 mg PO Q8H PRN PRN #10 tab PRN Reason: Nausea Azithromycin [Zithromax] 250 mg PO DAILY #4 tab Referrals: Marcell Thacker MD [Primary Care Provider] - 3-5 Days
--- NOTE | 2019-01-13 08:15 | RAD_ITS ---
STUDY: X-RAY - ACUTE ABDOMINAL SERIES REASON FOR EXAM: Male, 38 years old. Nausea and vomiting. TECHNIQUE: Single view of the chest. Supine, and erect view(s) of the abdomen were obtained. COMPARISON: Comparison is made with prior chest radiograph dated July 31, 2018. FINDINGS: Mild increased markings at the lung bases slightly worse on the left side suggesting bibasilar atelectasis and/or infiltrates. Normal size heart. Normal mediastinum and rakesh. Normal visualized pulmonary arteries. Normal visualized aortic arch and descending thoracic aorta. There is a moderate amount of colonic fecal material. Moderate splenomegaly. Normal visualized osseous structures. RAD/Acute Abdomen Inc Chest IMPRESSION: Increased markings at the lung bases slightly worse on the left side suggestive of bibasilar atelectasis and/or infiltrates. Splenomegaly. Electronically Signed: Levon Mayorga, at 8:53 EDT , Service support ,
[2019-01-13] MEDS: Ondansetron 4 MG/2 ML Vial IV (08:16)
[2019-01-13 08:23] LABS: ALB/GLOB Ratio 0.8 RATIO (0.9-2.4); AST(SGOT) 28 U/L (15-37); Alanine Aminotransfer ALT/SGPT 47 U/L (16-61); Albumin, Serum 3.2 g/dL (3.2-5.0); Alkaline Phosphatase 135 U/L (45-117); Anion Gap 17 (5-15); BUN 90 mg/dL (7-18); BUN/Creat Ratio 5.2 RATIO (10-20); Calcium,Total 8.7 mg/dL (8.5-10.1); Chloride 84 mmol/L (98-107); EST Glomerular Filtration Rate 3 mL/min (>60); Est Glom Filt Rate - Afr Amer 4 mL/min (>60); Estimated Creatinine Clearance 6.57 ml/min; Globulin 4.2 g/dL (2.2-4.2); Glucose 131 mg/dL (74-106); Lipase 251 U/L (73-393); Potassium 3.5 mmol/L (3.5-5.1); Protein, Total 7.4 g/dL (6.4-8.2); Sodium Level 128 mmol/L (136-145)
--- NOTE | 2019-01-13 08:23 | ED.RN ---
DR SHAH INFORMED CREATININE=17.40. NNO
[2019-01-13 08:31] LABS: Absolute Lymphocyte Count 0.24 X10^3/ul (0.83-4.51); Absolute Neutrophil Count 5.8 X10^3/uL (2.0-7.7); Basophil# 0.01 X10^3/uL; Basophil% 0.2 % (0-1); Eosinophil# 0.03 X10^3/uL; Eosinophils% 0.5 % (0-5); Hematocrit 26.4 % (40-54); Hemoglobin 8.9 g/dl (13.0-16.5); Lymphocyte # 0.24 X10^3/ul (4.0); Lymphocyte % 3.7 % (19-41); Mean Corp Hgb Conc 33.7 g/gl (32-36); Mean Corpuscular Hgb 31.2 pg (27.0-32.0); Mean Corpuscular Volume 92.6 fL (80-94); Mean Platelet Vol. 10.7 fl (6.2-12.0); Monocyte# 0.37 X10^3/uL; Monocyte% 5.7 % (0-10); Neutrophil # 5.84 X10^3/uL (2.7-7.7); Neutrophil % 89.6 % (47-70); Platelet Count 105 K/mm3 (150-450); RBC Distribution Width CV 12.9 % (11.6-14.6); RBC Distribution Width SD 42.1 fl (35.1-43.9); Red Blood Count 2.85 M/mm3 (4.6-6.2); White Blood Count 6.5 K/mm3 (4.4-11.0)
[2019-01-13 08:32] LABS: Differential Indicated SCAN CRITERIA MET; POSITIVE COUNT NO; POSITIVE DIFFERENTIAL YES; POSITIVE MORPHOLOGY NO
[2019-01-13 08:49] LABS: Hypochromasia 1+
--- NOTE | 2019-01-13 09:37 | ED.RN ---
PT COMPLAINS OF CONTINUED CHEST/BACK PAIN, DR. SHAH MADE AWARE.
[2019-01-13] MEDS: Morphine 4 MG/ML Syringe IV (09:48)
--- NOTE | 2019-01-13 10:33 | ED.RN ---
PT PLACED ON 3L O2 VIA NC, PULSE OX 95%.
--- NOTE | 2019-01-13 10:56 | ED.RN ---
CALLED LAB TO OBTAIN THE SECOND BLOOD CULTURE AFTER 2 SUCCESSFUL ATTEMPTS BY Kaushik GUZMAN RN AND Bill FORMAN.
[2019-01-13] MEDS: Ipratropium/Albuterol Sulfate 3 ML AMPUL.NEB INHALATION ×3 (11:04→19:14)
[2019-01-13] MEDS: Azithromycin 250 MG Tablet 500 MG PO (12:03)
--- NOTE | 2019-01-13 12:41 | ED.RN ---
ROCEPHIN AND MORPHINE NOT GIVEN IN ED, PT WAS TAKEN TO FLOOR BEFORE PT COULD BE MEDICATED.
--- NOTE | 2019-01-13 13:25 | PCM.HP.STD ---
Problem List (1) Acute respiratory failure with hypoxia Status: Acute (2) Community acquired pneumonia Status: Acute (3) Anxiety Status: Chronic Comment: generalized anxiety with panic attacks (4) Focal segmental glomerulosclerosis Status: Chronic Comment: on HD 3 times a week (5) HTN (hypertension) Status: Acute History of Present Illness Date of Admission: 01/13/19 Chief Complaint: Nausea and vomiting The patient is a 38 year old M with a PMH as below who presents with 5 days of nausea and vomiting. He states that it did improve a little bit after the first day but then worsened again. He is also had mild diarrhea but no blood in either his emesis or his diarrhea. He also is having some shortness of breath during this time and had a chest x-ray on admission to the ER which demonstrated a possible lower lobe infiltrate. He is also been having some chest soreness because of all of the vomiting and coughing. He was going to be discharged home however when he stood up his pulse ox decreased to the low 80s and he had to get a breathing treatment. When they try to get to get him up to walk he desatted once again and was therefore placed on oxygen. He states that he is also been having fevers up to about 103.5 at home. In the ER he was given a dose of azithromycin and Rocephin and was admitted. 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 Dysphagia (Chronic) Depression (Chronic) Anemia of chronic disease (Chronic) Allergies No Known Allergies Allergy (Verified 01/13/19 07:46) Home Medications: Ambulatory Orders Medication Instructions Recorded Carvedilol [Coreg (Beta Bentley)] 12.5 mg PO DAILY 06/02/14 Azithromycin [Zithromax] 250 mg PO DAILY #4 tab 01/13/19 Cinacalcet HCl [Sensipar] 90 mg PO DAILY 01/13/19 Hydrocodone Bitart/Apap 5-325 1 tab PO Q6H PRN PRN 3 Days #10 tab 01/13/19 [[place] 5MG-325MG] Isosorbide Mononitrate [Imdur] 30 mg PO DAILY 01/13/19 Ondansetron [Zofran Odt] 4 mg PO Q8H PRN PRN #10 tab 01/13/19 Sertraline HCl [Zoloft] 100 mg PO DAILY 01/13/19 Surgical History: - Psychiatric History: Anxiety Smoking Status: Never smoker Alcohol: None Drugs: None - *Family History Paternal History Items: Heart Disease Review of Systems Constitutional: Reports: Fever. Denies: Chills, Weight Change HEENT: Denies: Head Aches, Sinus Congestion, Sinus Drainage Cardiovascular: Denies: Chest Pain, Palpitations Respiratory: Reports: Cough, Shortness of Breath. Denies: Shortness of breath at rest, Sputum production Gastrointestinal: Reports: Diarrhea, Nausea, Vomiting. Denies: Abdominal Pain Genitourinary: Denies: Dysuria Musculoskeletal: Denies: Joint Pain, Joint Tenderness Skin: Denies: Rash, Wounds Neurological: Denies: Numbness, Tingling, Focal weakness Psychiatric: Denies: Anxiety, Depression Hematologic/ Lymphatic: Denies: Easy Bruising, Easy Bleeding VTE Information - Inpt Only VTE Present on Admission: No Patient Problems: Active and Suspected Problems Community acquired pneumonia (Acute) Acute respiratory failure with hypoxia (Acute) - Physical Exam General: Alert, Oriented x3, Cooperative, No apparent distress HEENT: Atraumatic, PERRLA, EOMI, Normocephalic Oral: Moist Mucosa Neck: Supple, No JVD Lungs: Clear to auscultation, Normal air movement, No rhonchi, No wheeze, No rales Cardiovascular: Regular rate, Regular Rhythm, Normal S1, Normal S2, No murmurs Abdomen: Soft, Non Tender, Non-Distended, No Hepato-splenomegaly, Obese Extremities: No edema, Capillary Refill Less than 3 Seconds Skin: No breakdown, Rash Present - He has a fistula in his right forearm, the thrill is good however he states that it is more elevated and there does seem to be an area of redness going into the medial aspect of his arm Neurological: Neuro grossly intact, Sensory exam intact to light touch and pain Psych/Mental Status: Normal Affect, Appropriate Vital Signs Temp Pulse Resp BP Pulse Ox 98.8 F 94 20 H 154/80 H 94 01/13/19 12:34 01/13/19 12:34 01/13/19 12:34 01/13/19 12:34 01/13/19 12:34 Oxygen Flow Rate (L/min) 2 Oxygen Delivery Method Nasal Cannula Weight: 315 lb 3 oz Body Mass Index (BMI) 41.5 Laboratory Tests Past 24 Hrs 01/13/19 01/13/19 07:56 07:56 WBC 6.5 RBC 2.85 L Hgb 8.9 L Hct 26.4 L MCV 92.6 MCH 31.2 MCHC 33.7 RDW 12.9 RDW Differential 42.1 Plt Count 105 L MPV 10.7 Immature Gran % (Auto) 0.300 Neut % (Auto) 89.6 H Lymph % (Auto) 3.7 L [place] % (Auto) 5.7 Eos % (Auto) 0.5 Baso % (Auto) 0.2 Absolute Neuts (auto) 5.8 Absolute Lymphs (auto) 0.24 L Total Counted Not Reportable Hypochromasia 1+ Sodium 128 L Potassium 3.5 Chloride 84 L Carbon Dioxide 27.0 Anion Gap 17 H BUN 90 H Creatinine 17.40 H* Estim Creat Clear Calc 6.57 Est GFR (MDRD) Af Amer 4 L Est GFR (MDRD) Non-Af 3 L BUN/Creatinine Ratio 5.2 L Glucose 131 H Calcium 8.7 Total Bilirubin 1.60 H AST 28 ALT 47 Alkaline Phosphatase 135 H Total Protein 7.4 Albumin 3.2 Globulin 4.2 Albumin/Globulin Ratio 0.8 L Lipase 251 Assessment/Plan All Active Problems Community acquired pneumonia (Acute) Acute respiratory failure with hypoxia (Acute) Anemia (Acute) Nausea (Acute) Transaminitis (Acute) HTN (hypertension) (Acute) Hematemesis/vomiting blood (Acute) Anemia due to blood loss, acute (Acute) Hemorrhagic shock (Acute) Decubitus ulcer (Acute) Physical deconditioning (Acute) ARDS (adult respiratory distress syndrome) (Resolved) H1N1 influenza with pneumonia (Resolved) 1. Acute hypoxic respiratory failure secondary to community-acquired pneumonia/questionable right fistula infection (abscess versus superficial cellulitis) -We will continue with azithromycin and Rocephin -We will continue with duo nebs as needed and placed on oxygen -We will obtain strep and Legionella urine antigens -He states that he is gone to the dialysis center to have his fistula checked out and they said that it was okay, however he is saying that it is more elevated than usual though not painful. Will obtain an ultrasound to see if there is an abscess underneath otherwise the Rocephin should treat the infection if is just a superficial cellulitis 2. 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 Anxiety/depression -Stable -We will continue with Zoloft 4. Morbid obesity -BMI is 41.6 -Had extensive discussions for lifestyle modifications DVT: Ambulation Code Visit Inpatient E&M: 16140 Init Hosp L3
[2019-01-13] MEDS: 0.9% NaCl Peripheral Flush Adult/Peds IV (13:53)
--- NOTE | 2019-01-13 15:12 | US_ITS ---
STUDY: SUPERFICIAL ULTRASOUND - RIGHT ARM ULTRASOUND. REASON FOR EXAM: Male, 38 years old. RT ARM ABSCESS? ENLARGED AREA AROUND FISTULA X 2 DAYS TECHNIQUE: A superficial ultrasound was performed with real-time and static tim-scale imaging. COMPARISON: None. FINDINGS: Ultrasound along the length of the AV fistula, shows a 3.0 x 2.9 x 1.7 cm heterogeneous structure directly adjacent to the fistula with internal echogenic material and some internal flow. The findings suggest a thrombosed pseudoaneurysm. Electronically Signed: Wing Cote MD at 17:52 EDT , Service support , US/Ext Non Vasc Limited/Soft Tiss
--- NOTE | 2019-01-13 15:15 | NURSING ---
PT PHARMACY, [facility], CALLED TO CLARIFY IMDUR
[2019-01-13] MEDS: Acetaminophen 325 MG Tablet 650 MG PO (20:19)
[2019-01-13] MEDS: Cinacalcet HCl 30 MG Tablet 90 MG PO (22:02)
[2019-01-13] MEDS: Isosorbide Mononitrate 30 MG Tablet PO (22:02)
[2019-01-13] MEDS: Carvedilol 12.5 MG Tablet PO (22:02)
[2019-01-13] MEDS: Sertraline 100 MG Tablet PO (22:03)
[2019-01-14] VITALS (16 sets, daily range): BP systolic 125–180; BP diastolic 71–97; PULSE 84–101; RESP 16–48; TEMP 36.6–37.1; O2SAT 91–98; BMI 43.3
[2019-01-14] MEDS: guaiFENesin 1,200 MG Tablet 1200 MG PO (00:38)
[2019-01-14] MEDS: Acetaminophen 325 MG Tablet 650 MG PO ×2 (02:30→10:14)
[2019-01-14] MEDS: cycloBENZAPRine HCl 10 MG Tablet PO (02:32)
[2019-01-14 06:22] LABS: Anion Gap 19 (5-15); BUN 109 mg/dL (7-18); BUN/Creat Ratio 5.5 RATIO (10-20); Calcium,Total 8.3 mg/dL (8.5-10.1); Chloride 82 mmol/L (98-107); EST Glomerular Filtration Rate 3 mL/min (>60); Est Glom Filt Rate - Afr Amer 3 mL/min (>60); Estimated Creatinine Clearance 5.77 ml/min; Glucose 106 mg/dL (74-106); Potassium 3.5 mmol/L (3.5-5.1); Sodium Level 125 mmol/L (136-145)
[2019-01-14 06:50] LABS: Absolute Lymphocyte Count 0.21 X10^3/ul (0.83-4.51); Absolute Neutrophil Count 5.9 X10^3/uL (2.0-7.7); Basophil# 0.01 X10^3/uL; Basophil% 0.1 % (0-1); Eosinophil# 0.05 X10^3/uL; Eosinophils% 0.7 % (0-5); Hemoglobin 7.9 g/dl (13.0-16.5); Lymphocyte # 0.21 X10^3/ul (4.0); Lymphocyte % 3.1 % (19-41); Mean Corp Hgb Conc 34.3 g/gl (32-36); Mean Corpuscular Hgb 31.3 pg (27.0-32.0); Mean Corpuscular Volume 91.3 fL (80-94); Mean Platelet Vol. 10.6 fl (6.2-12.0); Monocyte# 0.53 X10^3/uL; Monocyte% 7.9 % (0-10); Neutrophil # 5.88 X10^3/uL (2.7-7.7); Neutrophil % 88.1 % (47-70); Platelet Count 91 K/mm3 (150-450); RBC Distribution Width CV 13.5 % (11.6-14.6); RBC Distribution Width SD 45.2 fl (35.1-43.9); Red Blood Count 2.52 M/mm3 (4.6-6.2); White Blood Count 6.7 K/mm3 (4.4-11.0)
[2019-01-14 07:00] LABS: Differential Indicated SCAN CRITERIA MET; POSITIVE COUNT NO; POSITIVE DIFFERENTIAL YES; POSITIVE MORPHOLOGY NO
[2019-01-14] MEDS: Ipratropium/Albuterol Sulfate 3 ML AMPUL.NEB INHALATION ×3 (07:08→19:15)
--- NOTE | 2019-01-14 08:12 | NURSING ---
Pt resting in bed on 2 lnc. Dialysis nurse into see pt and she was notified that pt fistula in right upper arm doppler results. Dr.Dasari roberto and he was present at bedside and looked at fistula. Consult for Dr. Osei Aranda to see pt and assess fistula. DEMETRIUS Alvares was present and also looked at Pt fistula.Pt and mother is updated as to all the consults and that dialysis on on hold. DEMETRIUS requested that ultra sound machine be present at bedside for to use when he comes to see the patient. Shank Sorter felisa and Ultra sound machine is placed at pt bedside and office was notified of consult.
--- NOTE | 2019-01-14 09:14 | ECHOCS_ITS ---
Reason For Study: SOB Procedure This was a 2D Doppler, Color Flow transthoracic echocardiogram. The study was technically difficult. Contrast injection was performed. Exam performed portable in patient room. Left Ventricle Normal LV size. Left ventricular systolic function is normal. The estimated ejection fraction is 65 %. No evidence for diastolic dysfunction. No regional wall motion abnormalities noted. Right Ventricle Normal RV size. Normal systolic function. Atria The left atrium is mildly enlarged. Normal right atrium. No doppler evidence for ASD. Mitral Valve There is no mitral annular calcification. Normal mitral valve. Mild (1+) eccentric mitral valve insufficiency. Tricuspid Valve Normal tricuspid valve. Trivial tricuspid valve insufficiency. Right ventricular systolic pressure estimated to be 28 mmHg. Aortic Valve Trisinus/trileaflet aortic valve. Normal aortic valve. Pulmonic Valve The pulmonic valve is not well visualized. Trivial pulmonic valve insufficiency. Great Vessels Normal sized aortic root. Pericardium/Pleural No pericardial effusion. Medication Diluted definity 3ml given slow IV push to enhance endocardial definition. MMode/2D Measurements & Calculations LVIDd: 5.9 cm IVSd: 1.1 cm LVOT diam: 2.4 cm LVIDs: 3.3 cm LVPWd: 1.2 cm RVDd: 3.8 cm FS: 44.0 % LVOT area: 4.5 cm2 Ao root diam: 3.1 cm LAV(MOD-bp): 72.2 ml LA A4 area: 25.1 cm2 LAV(MOD-bp) Indexed: 27.7 ml/m2 LAV(MOD-sp2): 66.4 ml LAV(MOD-sp4): 70.7 ml LA dimension(2D): 4.3 cm RA A4 area: 17.2 cm2 Doppler Measurements & Calculations MV E max malcolm: 133.0 cm/sec Lat Peak E' Malcolm: 12.2 cm/sec Med Peak E' Malcolm: 10.1 cm/sec MV A max malcolm: 84.5 cm/sec E/E' lat: 10.9 E/E' med: 13.2 MV E/A: 1.6 Ao V2 max: 217.9 cm/sec LV V1 max: 143.1 cm/sec SV(LVOT): 123.8 ml Ao max P.0 mmHg LV V1 max P.2 mmHg Ao V2 mean: 147.6 cm/sec LV V1 mean P.9 mmHg Ao mean P.9 mmHg LV V1 mean: 103.1 cm/sec Ao V2 VTI: 39.3 cm LV V1 VTI: 27.6 cm ARGENIS(I,D): 3.1 cm2 ARGENIS(V,D): 2.9 cm2 PA V2 max: 121.2 cm/sec TR max malcolm: 251.2 cm/sec TR max P.2 mmHg Interpretation Summary The study was technically difficult. Contrast injection was performed. Left ventricular systolic function is normal. The estimated ejection fraction is 65 %. The left atrium is mildly enlarged. Mild (1+) eccentric mitral valve insufficiency. Trivial tricuspid valve insufficiency. Trivial pulmonic valve insufficiency. Right ventricular systolic pressure estimated to be 28 mmHg. No evidence for diastolic dysfunction. Ordering Physician: Osei Barba Referring Physician: Vitaly Pittman Performed By: Yessi Lucia RDCS
--- NOTE | 2019-01-14 09:28 | PCM.CONS.GEN ---
Problem List (1) Chronic renal failure, stage 5 Status: Chronic (2) Problem with dialysis access Status: Acute Reason for Consult Date of Consultation: 01/14/19 Reason for Consultation: Erythema and swelling of right forearm AV fistula History of Present Illness: The patient is a 38 year old M who presented yesterday with flu-like symptoms with associated nausea and vomiting. Patient is a known dialysis patient. Dr. Aranda had performed a transposition right forearm cephalic vein to radial artery arteriovenous in 2013. Patient is currently on dialysis at home 6 days a week. His last fistulogram by Dr. Aranda was on 09/21/14. Findings included venous spasm. No intervention was completed. Patient has since been evaluated by Dr. Pascal, transportation project manager, who has intermittently performed fistulograms in [place] at patient's request. Patient denies recent concerns or problems with fistula previously. Patient noted on Friday he had developed a lump in the mid portion of the fistula. He was evaluated at the dialysis center on Friday with concern of this lump. Per patient, dialysis had noted no concerns other than possible pseudoaneurysm. Patient's last dialysis treatment was on Friday. Per patient's mother, he took Friday off and presented to the ED on Friday. Patient did not want to have dialysis yesterday. Patient notes minimal amount of pain/discomfort. Soft tissue ultrasound demonstrated a 3.0 x 2.9 x 1.7 cm heterogeneous structure adjacent to the fistula. Findings suggested of thrombosed pseudo aneurysm. Past Medical History Past Medical History (Chronic Problems): Chronic Problems Chronic renal failure, stage 5 (Chronic) Anxiety (Chronic) generalized anxiety with panic attacks Focal segmental glomerulosclerosis (Chronic) on HD 3 times a week Dysphagia (Chronic) Depression (Chronic) Anemia of chronic disease (Chronic) Allergies No Known Allergies Allergy (Verified 01/13/19 07:46) Home Medications: Ambulatory Orders Medication Instructions Recorded Carvedilol [Coreg (Beta Bentley)] 12.5 mg PO DAILY 06/02/14 Azithromycin [Zithromax] 250 mg PO DAILY #4 tab 01/13/19 Cinacalcet HCl [Sensipar] 90 mg PO DAILY 01/13/19 Hydrocodone Bitart/Apap 5-325 1 tab PO Q6H PRN PRN 3 Days #10 tab 01/13/19 [[place] 5MG-325MG] Isosorbide Mononitrate [Imdur] 30 mg PO DAILY 01/13/19 Ondansetron [Zofran Odt] 4 mg PO Q8H PRN PRN #10 tab 01/13/19 Sertraline HCl [Zoloft] 100 mg PO DAILY 01/13/19 Surgical History: - - EGD w Dobhoff placement (09/2013), PEG tube placement (10/2013), Right IJ catheter placement (10/2013), right AV fistula placement (05/2014), fistulogram (08/2014, 09/2014), removal of tunneled catheters (10/2014) Psychiatric History: Anxiety Smoking Status: Never smoker Alcohol: None Drugs: None - *Family History Maternal History Items: COPD Paternal History Items: Heart Disease Review of Systems Constitutional: Reports: Anorexia, Weakness, Fatigue HEENT: Denies: Head Aches, Sinus Congestion, Sinus Drainage Cardiovascular: Denies: Chest Pain, Palpitations Respiratory: Denies: Cough, Shortness of breath at rest, Sputum production Gastrointestinal: Reports: Diarrhea, Nausea, Vomiting Genitourinary: Denies: Dysuria Musculoskeletal: Denies: Joint Pain, Joint Tenderness Skin: Reports: Dryness Neurological: Denies: Numbness, Tingling, Focal weakness Psychiatric: Denies: Anxiety, Depression, Homicidal Ideations, Suicidal Ideations Hematologic/ Lymphatic: Denies: Easy Bruising, Easy Bleeding Patient Problems: Active and Suspected Problems Community acquired pneumonia (Acute) Acute respiratory failure with hypoxia (Acute) Problem with dialysis access (Acute) ESRD (end stage renal disease) on dialysis (Acute) MRSA bacteremia (Acute) - Physical Exam General: Alert, Oriented x3, Cooperative HEENT: Atraumatic, PERRLA, EOMI, Normocephalic Neck: Supple, No JVD, Negative Carotid Bruits Lungs: Clear to auscultation, Normal air movement Cardiovascular: Regular rate, No murmurs Abdomen: Bowel Sounds Present, Soft, Non Tender, Obese Extremities: No edema, Capillary Refill Less than 3 Seconds, - - Right upper extremity AV fistula- moderate sized lump mid fistula with faint erythema surrounding. Good pulse, bruit and thrill. Diminished bruit at the site of swelling. Button hole appearance noted. Very mild tenderness at the site. Skin: No rashes, No breakdown Musculoskeletal: No Tenderness to Palpation of Joints or Extremities Neurological: Neuro grossly intact Psych/Mental Status: Normal Affect, Appropriate Vital Signs Temp Pulse Resp BP Pulse Ox 98.1 F 85 18 129/74 H 98 01/14/19 08:00 01/14/19 08:00 01/14/19 08:00 01/14/19 08:00 01/14/19 08:00 Oxygen Flow Rate (L/min) 2 Oxygen Delivery Method Nasal Cannula Weight: 328 lb 11.347 oz Body Mass Index (BMI) 41.5 Intake and Output for Last 24 Hours 01/12/19 01/13/19 01/14/19 23:59 23:59 23:59 Intake Total 290 / 290 960 / 960 Output Total 0 / 0 Balance 290 / 290 960 / 960 Microbiology Past 72 Hours 01/13/19 11:00 Blood Culture - Preliminary Blood Culture (Wb) - Anticubital Left 01/13/19 10:15 Bacteria Detection (PCR) - Final Blood Culture (Wb) - Anticubital Left Staphylococcus aureus Blood Culture - Preliminary Laboratory Tests Past 24 Hrs 01/14/19 01/14/19 05:15 05:15 WBC 6.7 RBC 2.52 L Hgb 7.9 L Hct 23.0 L MCV 91.3 MCH 31.3 MCHC 34.3 RDW 13.5 RDW Differential 45.2 H Plt Count 91 L MPV 10.6 Immature Gran % (Auto) 0.100 Neut % (Auto) 88.1 H Lymph % (Auto) 3.1 L [place] % (Auto) 7.9 Eos % (Auto) 0.7 Baso % (Auto) 0.1 Absolute Neuts (auto) 5.9 Absolute Lymphs (auto) 0.21 L Total Counted Not Reportable Sodium 125 L Potassium 3.5 Chloride 82 L Carbon Dioxide 24.0 Anion Gap 19 H BUN 109 H* Creatinine 19.80 H* Estim Creat Clear Calc 5.77 Est GFR (MDRD) Af Amer 3 L Est GFR (MDRD) Non-Af 3 L BUN/Creatinine Ratio 5.5 L Glucose 106 Calcium 8.3 L Assessment/Plan All Active Problems Community acquired pneumonia (Acute) Acute respiratory failure with hypoxia (Acute) Problem with dialysis access (Acute) ESRD (end stage renal disease) on dialysis (Acute) MRSA bacteremia (Acute) Anemia (Acute) Nausea (Acute) Transaminitis (Acute) HTN (hypertension) (Acute) Hematemesis/vomiting blood (Acute) Anemia due to blood loss, acute (Acute) Hemorrhagic shock (Acute) Decubitus ulcer (Acute) Physical deconditioning (Acute) ARDS (adult respiratory distress syndrome) (Resolved) H1N1 influenza with pneumonia (Resolved) I have been consulted in conjunction with Dr. Aranda. Impression: Infected right upper extremity AV fistula. In need of incision and debridement and tunneled dialysis catheter placement. Plan: I have discussed this patient with Dr. Aranda, who has evaluated this patient for himself. Dr. Aranda will plan to perform right possible left chest tunneled dialysis catheter placement and ligation of right forearm fistula with abscess drainage and vein resection. Procedure details, risks and benefits have been explained to the patient and his mother by Dr. Aranda. Patient has had the opportunity to ask and have questions answered. Patient verbally understands and agrees with the plan. We will order coags. Keep patient NPO. Ancef for pre-op antibiotic will be ordered. Plan for procedure later today around 1530. Thank you for allowing us to participate in this patient's care. Code Visit Office Visits / Consults: [id number] IP Consult L3
--- NOTE | 2019-01-14 09:40 | CASEMGMT ---
Addendum entered by Elsie Howard 01/14/19 10:17: Blood culture w/gram + cocci. ID consulted. CM to follow for further home-going needs. Original Note: Addendum entered by Elsie Howard 01/14/19 10:14: Pt states his mom runs a residential from out of their house and there are 3 people from the residential that live with them. Original Note: RN CM RAILWAY PATROL OFFICER CM to room to meet with patient for initial transition planning/care coordination assessment. RN CM introduced self and role at [facility]. Pt voices understanding and consents to assessment at this time. Pt sitting on edge of bed no distress at this time. Pt is A/O at this time and answers all questions appropriately. Care providers, pharmacy, and demographics verified at this time. PCP: Dr Thacker Specialists: Dr Limon--administrator of home health in [place]. Office #: [phone]. Does HD @ home 6 days a week. Prior to home HD, pt states he went to [facility] for Dialysis. He states he does not have any back-up chair time @ the Center. Preferred Pharmacy: [facility] Insurance: [facility], [place], On License Of [facility] Prescription Benefit: Yes Living Will/HPOA: Pt does not currently have LW/HCPOA and declines info at this time. LNOK: Mother Living Arrangements: Lives with mother in 2 story home. Stairs have rails. Ramp to enter home. States is independent w/personal ADL's. Mother manages home mgmt tasks. Transportation: Pt states drives self and states no transportation concerns at this time. Mother able to drive pt home on d/c. DME: States has the following DME: BIPAP. Does not have home O2 or nebulizer. Has no preference of DME company if would need home O2. Pt states no need for further DME at this time. HHC/SNF: Hx [place] about 4-5 yrs ago. No history of HHC. Denies need for HHC on discharge. Pt wishes to return home and states has no concerns with going home at time of discharge. Pt states does not smoke or drink ETOH. CM to follow for home oxygen needs and any further discharge planning/needs. Pt voices no further concerns/needs at this time. Advised pt to ask for CM if any further questions/concerns/needs arise. Voices understanding. PLAN: Home with support of mother. CM to follow for any dialysis needs or any home oxygen needs. Marcus MCKEONN RN CM
--- NOTE | 2019-01-14 09:50 | PCM.PN.HOSP ---
Patient Problems: Active and Suspected Problems Community acquired pneumonia (Acute) Acute respiratory failure with hypoxia (Acute) Subjective: States that his back and chest pain is better, though he still has difficulty taking a deep breath because of the pain that occurs in his chest wall muscles when he takes a deep breath. Denies any lightheadedness or dizziness. Vitals/I&O's: Vital Signs Temp Pulse Resp BP Pulse Ox 98.1 F 85 18 129/74 H 98 01/14/19 08:00 01/14/19 08:00 01/14/19 08:00 01/14/19 08:00 01/14/19 08:00 Oxygen Flow Rate (L/min) 2 Oxygen Delivery Method Nasal Cannula Weight: 328 lb 11.347 oz Body Mass Index (BMI) 41.5 Intake and Output for Last 24 Hours 01/12/19 01/13/19 01/14/19 23:59 23:59 23:59 Intake Total 290 / 290 960 / 960 Output Total 0 / 0 Balance 290 / 290 960 / 960 General: Alert, Oriented x3, Cooperative, No apparent distress HEENT: Atraumatic, PERRLA, EOMI, Normocephalic Oral: Moist Mucosa Neck: Supple, No JVD Lungs: Clear to auscultation, Normal air movement, No rhonchi, No wheeze, No rales Cardiovascular: Regular rate, Regular Rhythm, Normal S1, Normal S2, No murmurs Abdomen: Soft, Non Tender, Non-Distended, No Hepato-splenomegaly, Obese Extremities: No edema, Capillary Refill Less than 3 Seconds Skin: No breakdown, Rash Present - He has a fistula in his right forearm, the thrill is good, does not seem to be more elevated than yesterday and the redness appears to be slightly improved Neurological: Neuro grossly intact, Sensory exam intact to light touch and pain Psych/Mental Status: Normal Affect, Appropriate Microbiology Past 72 Hours 01/13/19 11:00 Blood Culture (Wb) - Anticubital Left Blood Culture - Preliminary 01/13/19 10:15 Blood Culture (Wb) - Anticubital Left Bacteria Detection (PCR) - Final Staphylococcus aureus 01/13/19 10:15 Blood Culture (Wb) - Anticubital Left Blood Culture - Preliminary Laboratory Results 01/14/19 05:15: WBC 6.7, RBC 2.52 L, Hgb 7.9 L, Hct 23.0 L, MCV 91.3, MCH 31.3, MCHC 34.3, RDW 13.5, RDW Differential 45.2 H, Plt Count 91 L, MPV 10.6, Immature Gran % (Auto) 0.100, Neut % (Auto) 88.1 H, Lymph % (Auto) 3.1 L, [place] % (Auto) 7.9, Eos % (Auto) 0.7, Baso % (Auto) 0.1, Absolute Neuts (auto) 5.9, Absolute Lymphs (auto) 0.21 L, Total Counted Not Reportable 01/14/19 05:15: Sodium 125 L, Potassium 3.5, Chloride 82 L, Carbon Dioxide 24.0, Anion Gap 19 H, BUN 109 H*, Creatinine 19.80 H*, Estim Creat Clear Calc 5.77, Est GFR (MDRD) Af Amer 3 L, Est GFR (MDRD) Non-Af 3 L, BUN/Creatinine Ratio 5.5 L, Glucose 106, Calcium 8.3 L Current Medications Acetaminophen (Tylenol) 650 mg PO Q6H PRN PRN PRN Reason: FEVER Last Admin: 01/14/19 02:30 Dose: 650 mg Albuterol/Ipratropium (Duoneb) 3 ml INHALATION Q4HWA.RT [facility] Last Admin: 01/14/19 07:08 Dose: 3 ml Carvedilol (Coreg) 12.5 mg PO QHS [facility] Last Admin: 01/13/19 22:02 Dose: 12.5 mg Cinacalcet (Sensipar) 90 mg PO QHS [facility] Last Admin: 01/13/19 22:02 Dose: 90 mg Cyclobenzaprine HCl (Flexeril) 10 mg PO TID PRN PRN PRN Reason: MUSCLE SPASMS Last Admin: 01/14/19 02:32 Dose: 10 mg Guaifenesin (Mucinex) 1,200 mg PO BID [facility] Last Admin: 01/14/19 00:38 Dose: 1,200 mg Azithromycin 500 mg/ Dextrose 255 mls @ 250 mls/hr IV Q24 [facility] Stop: 01/16/19 11:02 Ceftriaxone Sodium 2 gm/ (Sodium Chloride) 50 mls @ 100 mls/hr IV Q24 [facility] Stop: 01/17/19 10:29 Last Admin: 01/13/19 13:53 Dose: 100 mls/hr Vancomycin IV Pharmacy to Dose (1 ea/ Sodium Chloride) 500 mls @ 250 mls/hr IV X1 PRN; Protocol PRN Reason: Rx to Dose Isosorbide Mononitrate (Imdur) 30 mg PO QHS [facility] Last Admin: 01/13/19 22:02 Dose: 30 mg Ondansetron HCl (Zofran) 4 mg IV Q8H PRN PRN PRN Reason: NAUSEA/VOMITING Sertraline HCl (Zoloft) 100 mg PO QHS [facility] Last Admin: 01/13/19 22:03 Dose: 100 mg Sodium Chloride () 5 - 15 ml IV UD PRN PRN Reason: SALINE FLUSH Last Admin: 01/13/19 13:53 Dose: 10 ml Medical Necessity - Tobacco Use Smoking Status: Never smoker Assessment/Plan All Active Problems Community acquired pneumonia (Acute) Acute respiratory failure with hypoxia (Acute) Anemia (Acute) Nausea (Acute) Transaminitis (Acute) HTN (hypertension) (Acute) Hematemesis/vomiting blood (Acute) Anemia due to blood loss, acute (Acute) Hemorrhagic shock (Acute) Decubitus ulcer (Acute) Physical deconditioning (Acute) ARDS (adult respiratory distress syndrome) (Resolved) H1N1 influenza with pneumonia (Resolved) 1. Acute hypoxic respiratory failure secondary to community-acquired pneumonia/questionable right fistula infection (abscess versus superficial cellulitis) -Rocephin and azithromycin for his community acquired pneumonia -continue with duo nebs as needed and continue with on oxygen -Blood cultures showing a PCR for staph aureus therefore vancomycin will also be added -Ultrasound that was obtained late last evening stated a thrombosed pseudoaneurysm. This finding plus the staph aureus PCR positive blood culture, consult was placed to Dr. Bunn who would place the fistula who is here to take him to surgery for temporary dialysis catheter and to washout that area this afternoon 2. End-stage renal disease secondary to glomerulosclerosis/HTN/anemia of chronic disease/thrombocytopenia -He is on home dialysis which we will continue here -We will consult his radioisotope production operator for dialysis -Continue with Coreg -He is more anemic and more thrombocytopenic today he will likely need a blood transfusion tomorrow morning, will recheck CBC and if so obtain a type and cross. -He has obtained multiple blood transfusions in the past so there is some concern for him becoming a more difficult match both for blood transfusions as well as renal transplant in the future. He states that he did receive a shot of Epogen last week, will discuss with nephrology if they would want to repeat that while he is here or to just proceed with blood transfusion if necessary 3. Anxiety/depression -Stable -We will continue with Zoloft 4. Morbid obesity -BMI is 41.6 -Had extensive discussions for lifestyle modifications DVT: Ambulation Code Visit Inpatient E&M: 64014 Subs Hosp L2
--- NOTE | 2019-01-14 09:58 | PN_ITS ---
Patient Problems: Active and Suspected Problems Community acquired pneumonia (Acute) Acute respiratory failure with hypoxia (Acute) Subjective: States that his back and chest pain is better, though he still has difficulty taking a deep breath because of the pain that occurs in his chest wall muscles when he takes a deep breath. Denies any lightheadedness or dizziness. Vitals/I&O's: Vital Signs Temp Pulse Resp BP Pulse Ox 98.1 F 85 18 129/74 H 98 01/14/19 08:00 01/14/19 08:00 01/14/19 08:00 01/14/19 08:00 01/14/19 08:00 Oxygen Flow Rate (L/min) 2 Oxygen Delivery Method Nasal Cannula Weight: 328 lb 11.347 oz Body Mass Index (BMI) 41.5 Intake and Output for Last 24 Hours 01/12/19 01/13/19 01/14/19 23:59 23:59 23:59 Intake Total 290 / 290 960 / 960 Output Total 0 / 0 Balance 290 / 290 960 / 960 General: Alert, Oriented x3, Cooperative, No apparent distress HEENT: Atraumatic, PERRLA, EOMI, Normocephalic Oral: Moist Mucosa Neck: Supple, No JVD Lungs: Clear to auscultation, Normal air movement, No rhonchi, No wheeze, No rales Cardiovascular: Regular rate, Regular Rhythm, Normal S1, Normal S2, No murmurs Abdomen: Soft, Non Tender, Non-Distended, No Hepato-splenomegaly, Obese Extremities: No edema, Capillary Refill Less than 3 Seconds Skin: No breakdown, Rash Present - He has a fistula in his right forearm, the thrill is good, does not seem to be more elevated than yesterday and the redness appears to be slightly improved Neurological: Neuro grossly intact, Sensory exam intact to light touch and pain Psych/Mental Status: Normal Affect, Appropriate Microbiology Past 72 Hours 01/13/19 11:00 Blood Culture (Wb) - Anticubital Left Blood Culture - Preliminary 01/13/19 10:15 Blood Culture (Wb) - Anticubital Left Bacteria Detection (PCR) - Final Staphylococcus aureus 01/13/19 10:15 Blood Culture (Wb) - Anticubital Left Blood Culture - Preliminary Laboratory Results 01/14/19 05:15: WBC 6.7, RBC 2.52 L, Hgb 7.9 L, Hct 23.0 L, MCV 91.3, MCH 31.3, MCHC 34.3, RDW 13.5, RDW Differential 45.2 H, Plt Count 91 L, MPV 10.6, Immature Gran % (Auto) 0.100, Neut % (Auto) 88.1 H, Lymph % (Auto) 3.1 L, [place] % (Auto) 7.9, Eos % (Auto) 0.7, Baso % (Auto) 0.1, Absolute Neuts (auto) 5.9, Absolute Lymphs (auto) 0.21 L, Total Counted Not Reportable 01/14/19 05:15: Sodium 125 L, Potassium 3.5, Chloride 82 L, Carbon Dioxide 24.0, Anion Gap 19 H, BUN 109 H*, Creatinine 19.80 H*, Estim Creat Clear Calc 5.77, Est GFR (MDRD) Af Amer 3 L, Est GFR (MDRD) Non-Af 3 L, BUN/Creatinine Ratio 5.5 L, Glucose 106, Calcium 8.3 L Current Medications Acetaminophen (Tylenol) 650 mg PO Q6H PRN PRN PRN Reason: FEVER Last Admin: 01/14/19 02:30 Dose: 650 mg Albuterol/Ipratropium (Duoneb) 3 ml INHALATION Q4HWA.RT [facility] Last Admin: 01/14/19 07:08 Dose: 3 ml Carvedilol (Coreg) 12.5 mg PO QHS [facility] Last Admin: 01/13/19 22:02 Dose: 12.5 mg Cinacalcet (Sensipar) 90 mg PO QHS [facility] Last Admin: 01/13/19 22:02 Dose: 90 mg Cyclobenzaprine HCl (Flexeril) 10 mg PO TID PRN PRN PRN Reason: MUSCLE SPASMS Last Admin: 01/14/19 02:32 Dose: 10 mg Guaifenesin (Mucinex) 1,200 mg PO BID [facility] Last Admin: 01/14/19 00:38 Dose: 1,200 mg Azithromycin 500 mg/ Dextrose 255 mls @ 250 mls/hr IV Q24 [facility] Stop: 01/16/19 11:02 Ceftriaxone Sodium 2 gm/ (Sodium Chloride) 50 mls @ 100 mls/hr IV Q24 [facility] Stop: 01/17/19 10:29 Last Admin: 01/13/19 13:53 Dose: 100 mls/hr Vancomycin IV Pharmacy to Dose (1 ea/ Sodium Chloride) 500 mls @ 250 mls/hr IV X1 PRN; Protocol PRN Reason: Rx to Dose Isosorbide Mononitrate (Imdur) 30 mg PO QHS [facility] Last Admin: 01/13/19 22:02 Dose: 30 mg Ondansetron HCl (Zofran) 4 mg IV Q8H PRN PRN PRN Reason: NAUSEA/VOMITING Sertraline HCl (Zoloft) 100 mg PO QHS [facility] Last Admin: 01/13/19 22:03 Dose: 100 mg Sodium Chloride () 5 - 15 ml IV UD PRN PRN Reason: SALINE FLUSH Last Admin: 01/13/19 13:53 Dose: 10 ml Medical Necessity - Tobacco Use Smoking Status: Never smoker Assessment/Plan All Active Problems Community acquired pneumonia (Acute) Acute respiratory failure with hypoxia (Acute) Anemia (Acute) Nausea (Acute) Transaminitis (Acute) HTN (hypertension) (Acute) Hematemesis/vomiting blood (Acute) Anemia due to blood loss, acute (Acute) Hemorrhagic shock (Acute) Decubitus ulcer (Acute) Physical deconditioning (Acute) ARDS (adult respiratory distress syndrome) (Resolved) H1N1 influenza with pneumonia (Resolved) 1. Acute hypoxic respiratory failure secondary to community-acquired pneumonia/questionable right fistula infection (abscess versus superficial cellulitis) -Rocephin and azithromycin for his community acquired pneumonia -continue with duo nebs as needed and continue with on oxygen -Blood cultures showing a PCR for staph aureus therefore vancomycin will also be added -Ultrasound that was obtained late last evening stated a thrombosed pseudoaneurysm. This finding plus the staph aureus PCR positive blood culture, consult was placed to Dr. Bunn who would place the fistula who is here to take him to surgery for temporary dialysis catheter and to washout that area this afternoon 2. 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 -He has obtained multiple blood transfusions in the past so there is some concern for him becoming a more difficult match both for blood transfusions as well as renal transplant in the future. He states that he did receive a shot of Epogen last week, will discuss with nephrology if they would want to repeat that while he is here or to just proceed with blood transfusion if necessary 3. Anxiety/depression -Stable -We will continue with Zoloft 4. Morbid obesity -BMI is 41.6 -Had extensive discussions for lifestyle modifications DVT: Ambulation Code Visit Inpatient E&M: 25637 Subs Hosp L2
--- NOTE | 2019-01-14 10:11 | PCM.CONS.R ---
Problem List (1) ESRD (end stage renal disease) on dialysis Status: Acute Consultation - Renal 01/14/19 PCP/ Referring MD: Requesting physician: Dr Pittman Primary care physician: Marcell Thacker MD Reason for Consultation:: ESRD - History of Present Illness History of Present Illness: The patient is a 38 year old M who presented to hospital with generalized weakness, nausea and vomitings along with fever. admission diagnosis is suspected pneumonia and AVF infection. renal consulted for ESRD. ESRD on HHD. last treatment was friday. noticed redness at one of the button holes on friday now worse - Allergies Allergies: Allergies No Known Allergies Allergy (Verified 01/13/19 07:46) - Current Medications Current Medications: Current Medications Acetaminophen (Tylenol) 650 mg PO Q6H PRN PRN PRN Reason: FEVER Last Admin: 01/14/19 02:30 Dose: 650 mg Albuterol/Ipratropium (Duoneb) 3 ml INHALATION Q4HWA.RT [facility] Last Admin: 01/14/19 07:08 Dose: 3 ml Carvedilol (Coreg) 12.5 mg PO QHS [facility] Last Admin: 01/13/19 22:02 Dose: 12.5 mg Cinacalcet (Sensipar) 90 mg PO QHS [facility] Last Admin: 01/13/19 22:02 Dose: 90 mg Cyclobenzaprine HCl (Flexeril) 10 mg PO TID PRN PRN PRN Reason: MUSCLE SPASMS Last Admin: 01/14/19 02:32 Dose: 10 mg Guaifenesin (Mucinex) 1,200 mg PO BID [facility] Last Admin: 01/14/19 00:38 Dose: 1,200 mg Azithromycin 500 mg/ Dextrose 255 mls @ 250 mls/hr IV Q24 [facility] Stop: 01/16/19 11:02 Ceftriaxone Sodium 2 gm/ (Sodium Chloride) 50 mls @ 100 mls/hr IV Q24 [facility] Stop: 01/17/19 10:29 Last Admin: 01/13/19 13:53 Dose: 100 mls/hr Vancomycin IV Pharmacy to Dose (1 ea/ Sodium Chloride) 500 mls @ 250 mls/hr IV X1 PRN; Protocol PRN Reason: Rx to Dose Isosorbide Mononitrate (Imdur) 30 mg PO QHS [facility] Last Admin: 01/13/19 22:02 Dose: 30 mg Ondansetron HCl (Zofran) 4 mg IV Q8H PRN PRN PRN Reason: NAUSEA/VOMITING Sertraline HCl (Zoloft) 100 mg PO QHS [facility] Last Admin: 01/13/19 22:03 Dose: 100 mg Sodium Chloride () 5 - 15 ml IV UD PRN PRN Reason: SALINE FLUSH Last Admin: 01/13/19 13:53 Dose: 10 ml - Past Medical History Past Medical History (Chronic Problems): Chronic Problems Chronic renal failure, stage 5 (Chronic) Anxiety (Chronic) generalized anxiety with panic attacks 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 Denies: Weight Change HEENT: Denies: Head Aches, Sinus Congestion, Sinus Drainage Cardiovascular: Denies: Chest Pain, Palpitations Respiratory: Denies: Cough, Shortness of breath at rest, Sputum production Gastrointestinal: Denies: Abdominal Pain, Nausea, Vomiting Genitourinary: Denies: Dysuria Musculoskeletal: Denies: Joint Pain, Joint Tenderness Skin: Denies: Rash, Wounds Neurological: Denies: Numbness, Tingling, Focal weakness Psychiatric: Denies: Anxiety, Depression, Homicidal Ideations, Suicidal Ideations Hematologic/ Lymphatic: Denies: Easy Bruising, Easy Bleeding Patient Problems: Active and Suspected Problems Community acquired pneumonia (Acute) Acute respiratory failure with hypoxia (Acute) Problem with dialysis access (Acute) ESRD (end stage renal disease) on dialysis (Acute) - Physical Exam General: Alert - redness, tenderness over button hole site, Oriented x3, Cooperative HEENT: Atraumatic, PERRLA, EOMI, Normocephalic Neck: Supple, No JVD, Negative Carotid Bruits Lungs: Clear to auscultation, Normal air movement Cardiovascular: Regular rate, No murmurs Abdomen: Bowel Sounds Present, Soft, Non Tender Extremities: No edema, Capillary Refill Less than 3 Seconds Skin: No rashes, No breakdown Musculoskeletal: No Tenderness to Palpation of Joints or Extremities Neurological: Cranial nerves II-XII grossly intact Psych/Mental Status: Normal Affect, Appropriate Vital Signs Temp Pulse Resp BP Pulse Ox 98.1 F 85 18 129/74 H 98 01/14/19 08:00 01/14/19 08:00 01/14/19 08:00 01/14/19 08:00 01/14/19 08:00 Oxygen Flow Rate (L/min) 2 Oxygen Delivery Method Nasal Cannula Weight: 149.1 kg Body Mass Index (BMI) 41.5 Intake and Output for Last 24 Hours 01/12/19 01/13/19 01/14/19 23:59 23:59 23:59 Intake Total 290 / 290 960 / 960 Output Total 0 / 0 Balance 290 / 290 960 / 960 Microbiology Past 72 Hours 01/13/19 11:00 Blood Culture - Preliminary Blood Culture (Wb) - Anticubital Left 01/13/19 10:15 Bacteria Detection (PCR) - Final Blood Culture (Wb) - Anticubital Left Staphylococcus aureus Blood Culture - Preliminary Laboratory Tests Past 24 Hrs 01/14/19 01/14/19 05:15 05:15 WBC 6.7 RBC 2.52 L Hgb 7.9 L Hct 23.0 L MCV 91.3 MCH 31.3 MCHC 34.3 RDW 13.5 RDW Differential 45.2 H Plt Count 91 L MPV 10.6 Immature Gran % (Auto) 0.100 Neut % (Auto) 88.1 H Lymph % (Auto) 3.1 L [place] % (Auto) 7.9 Eos % (Auto) 0.7 Baso % (Auto) 0.1 Absolute Neuts (auto) 5.9 Absolute Lymphs (auto) 0.21 L Total Counted Not Reportable Sodium 125 L Potassium 3.5 Chloride 82 L Carbon Dioxide 24.0 Anion Gap 19 H BUN 109 H* Creatinine 19.80 H* Estim Creat Clear Calc 5.77 Est GFR (MDRD) Af Amer 3 L Est GFR (MDRD) Non-Af 3 L BUN/Creatinine Ratio 5.5 L Glucose 106 Calcium 8.3 L Assessment/Plan All Active Problems Community acquired pneumonia (Acute) Acute respiratory failure with hypoxia (Acute) Problem with dialysis access (Acute) ESRD (end stage renal disease) on dialysis (Acute) Anemia (Acute) Nausea (Acute) Transaminitis (Acute) HTN (hypertension) (Acute) Hematemesis/vomiting blood (Acute) Anemia due to blood loss, acute (Acute) Hemorrhagic shock (Acute) Decubitus ulcer (Acute) Physical deconditioning (Acute) ARDS (adult respiratory distress syndrome) (Resolved) H1N1 influenza with pneumonia (Resolved) ESRD. HD later today after catheter placement Cellulitis likely abscess of AVF site. patient has button holes in seeing of home HD. on exam it seems like he has an abscess over button hole site. Blood cultures are positive for staph. received vancomycin overnight. He is going for surgical exploration later today. likely excision and dialysis catheter placement. will dialyze after. Hyponatremia. likely due to lack of dialysis for 3 days now. will dialyze today after catheter placement Pneumonia. CXR consistent with pneumonia. on ceftriaxone and azithromycin.
--- NOTE | 2019-01-14 10:16 | CON.PCM_ITS ---
Problem List (1) ESRD (end stage renal disease) on dialysis Status: Acute Consultation - Renal 01/14/19 PCP/ Referring MD: Requesting physician: Dr Pittman Primary care physician: Marcell Thacker MD Reason for Consultation:: ESRD - History of Present Illness History of Present Illness: The patient is a 38 year old M who presented to hospital with generalized weakness, nausea and vomitings along with fever. admission diagnosis is suspected pneumonia and AVF infection. renal consulted for ESRD. ESRD on HHD. last treatment was friday. noticed redness at one of the button holes on friday now worse - Allergies Allergies: Allergies No Known Allergies Allergy (Verified 01/13/19 07:46) - Current Medications Current Medications: Current Medications Acetaminophen (Tylenol) 650 mg PO Q6H PRN PRN PRN Reason: FEVER Last Admin: 01/14/19 02:30 Dose: 650 mg Albuterol/Ipratropium (Duoneb) 3 ml INHALATION Q4HWA.RT [facility] Last Admin: 01/14/19 07:08 Dose: 3 ml Carvedilol (Coreg) 12.5 mg PO QHS [facility] Last Admin: 01/13/19 22:02 Dose: 12.5 mg Cinacalcet (Sensipar) 90 mg PO QHS [facility] Last Admin: 01/13/19 22:02 Dose: 90 mg Cyclobenzaprine HCl (Flexeril) 10 mg PO TID PRN PRN PRN Reason: MUSCLE SPASMS Last Admin: 01/14/19 02:32 Dose: 10 mg Guaifenesin (Mucinex) 1,200 mg PO BID [facility] Last Admin: 01/14/19 00:38 Dose: 1,200 mg Azithromycin 500 mg/ Dextrose 255 mls @ 250 mls/hr IV Q24 [facility] Stop: 01/16/19 11:02 Ceftriaxone Sodium 2 gm/ (Sodium Chloride) 50 mls @ 100 mls/hr IV Q24 [facility] Stop: 01/17/19 10:29 Last Admin: 01/13/19 13:53 Dose: 100 mls/hr Vancomycin IV Pharmacy to Dose (1 ea/ Sodium Chloride) 500 mls @ 250 mls/hr IV X1 PRN; Protocol PRN Reason: Rx to Dose Isosorbide Mononitrate (Imdur) 30 mg PO QHS [facility] Last Admin: 01/13/19 22:02 Dose: 30 mg Ondansetron HCl (Zofran) 4 mg IV Q8H PRN PRN PRN Reason: NAUSEA/VOMITING Sertraline HCl (Zoloft) 100 mg PO QHS [facility] Last Admin: 01/13/19 22:03 Dose: 100 mg Sodium Chloride () 5 - 15 ml IV UD PRN PRN Reason: SALINE FLUSH Last Admin: 01/13/19 13:53 Dose: 10 ml - Past Medical History Past Medical History (Chronic Problems): Chronic Problems Chronic renal failure, stage 5 (Chronic) Anxiety (Chronic) generalized anxiety with panic attacks 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 Denies: Weight Change HEENT: Denies: Head Aches, Sinus Congestion, Sinus Drainage Cardiovascular: Denies: Chest Pain, Palpitations Respiratory: Denies: Cough, Shortness of breath at rest, Sputum production Gastrointestinal: Denies: Abdominal Pain, Nausea, Vomiting Genitourinary: Denies: Dysuria Musculoskeletal: Denies: Joint Pain, Joint Tenderness Skin: Denies: Rash, Wounds Neurological: Denies: Numbness, Tingling, Focal weakness Psychiatric: Denies: Anxiety, Depression, Homicidal Ideations, Suicidal Ideatio ns Hematologic/ Lymphatic: Denies: Easy Bruising, Easy Bleeding Patient Problems: Active and Suspected Problems Community acquired pneumonia (Acute) Acute respiratory failure with hypoxia (Acute) Problem with dialysis access (Acute) ESRD (end stage renal disease) on dialysis (Acute) - Physical Exam General: Alert - redness, tenderness over button hole site, Oriented x3, Cooperative HEENT: Atraumatic, PERRLA, EOMI, Normocephalic Neck: Supple, No JVD, Negative Carotid Bruits Lungs: Clear to auscultation, Normal air movement Cardiovascular: Regular rate, No murmurs Abdomen: Bowel Sounds Present, Soft, Non Tender Extremities: No edema, Capillary Refill Less than 3 Seconds Skin: No rashes, No breakdown Musculoskeletal: No Tenderness to Palpation of Joints or Extremities Neurological: Cranial nerves II-XII grossly intact Psych/Mental Status: Normal Affect, Appropriate Vital Signs Temp Pulse Resp BP Pulse Ox 98.1 F 85 18 129/74 H 98 01/14/19 08:00 01/14/19 08:00 01/14/19 08:00 01/14/19 08:00 01/14/19 08:00 Oxygen Flow Rate (L/min) 2 Oxygen Delivery Method Nasal Cannula Weight: 149.1 kg Body Mass Index (BMI) 41.5 Intake and Output for Last 24 Hours 01/12/19 01/13/19 01/14/19 23:59 23:59 23:59 Intake Total 290 / 290 960 / 960 Output Total 0 / 0 Balance 290 / 290 960 / 960 Microbiology Past 72 Hours 01/13/19 11:00 Blood Culture - Preliminary Blood Culture (Wb) - Anticubital Left 01/13/19 10:15 Bacteria Detection (PCR) - Final Blood Culture (Wb) - Anticubital Left Staphylococcus aureus Blood Culture - Preliminary Laboratory Tests Past 24 Hrs 01/14/19 01/14/19 05:15 05:15 WBC 6.7 RBC 2.52 L Hgb 7.9 L Hct 23.0 L MCV 91.3 MCH 31.3 MCHC 34.3 RDW 13.5 RDW Differential 45.2 H Plt Count 91 L MPV 10.6 Immature Gran % (Auto) 0.100 Neut % (Auto) 88.1 H Lymph % (Auto) 3.1 L Stone % (Auto) 7.9 Eos % (Auto) 0.7 Baso % (Auto) 0.1 Absolute Neuts (auto) 5.9 Absolute Lymphs (auto) 0.21 L Total Counted Not Reportable Sodium 125 L Potassium 3.5 Chloride 82 L Carbon Dioxide 24.0 Anion Gap 19 H BUN 109 H* Creatinine 19.80 H* Estim Creat Clear Calc 5.77 Est GFR (MDRD) Af Amer 3 L Est GFR (MDRD) Non-Af 3 L BUN/Creatinine Ratio 5.5 L Glucose 106 Calcium 8.3 L Assessment/Plan All Active Problems Community acquired pneumonia (Acute) Acute respiratory failure with hypoxia (Acute) Problem with dialysis access (Acute) ESRD (end stage renal disease) on dialysis (Acute) Anemia (Acute) Nausea (Acute) Transaminitis (Acute) HTN (hypertension) (Acute) Hematemesis/vomiting blood (Acute) Anemia due to blood loss, acute (Acute) Hemorrhagic shock (Acute) Decubitus ulcer (Acute) Physical deconditioning (Acute) ARDS (adult respiratory distress syndrome) (Resolved) H1N1 influenza with pneumonia (Resolved) ESRD. HD later today after catheter placement Cellulitis likely abscess of AVF site. patient has button holes in seeing of home HD. on exam it seems like he has an abscess over button hole site. Blood cultures are positive for staph. received vancomycin overnight. He is going for surgical exploration later today. likely excision and dialysis catheter placement. will dialyze after. Hyponatremia. likely due to lack of dialysis for 3 days now. will dialyze today after catheter placement Pneumonia. CXR consistent with pneumonia. on ceftriaxone and azithromycin.
--- NOTE | 2019-01-14 10:19 | PCM.HP.ID ---
Problem List (1) MRSA bacteremia Status: Acute Reason for Consult: mrsa bacteremia Consulted by: Dr. Pittman History of Present Illness: The patient is a 38 year old M with ESRD, dialysis via RUE fistula, no prior h/o MRSA or skin abscess. Developed nausea and severe vomiting on 01/08, last 2-3 days, associated with fever and chills. No diarrhea. On 01/11, noticed fistula swelling, mild discomfort, no drainage. Had some SOB, worse with lying down. No sputum. Came to ED, found to be hypoxic, started azithro/ceftriaxone, single bcx with GPC, add vanc last night. No new joint/back pain. Full ROS Performed and neg except as noted above. 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 Dysphagia (Chronic) Depression (Chronic) Anemia of chronic disease (Chronic) Allergies/Adverse Reactions: Allergies No Known Allergies Allergy (Verified 01/13/19 07:46) Home Medications: Ambulatory Orders Medication Instructions Recorded Carvedilol [Coreg (Beta Bentley)] 12.5 mg PO DAILY 06/02/14 Azithromycin [Zithromax] 250 mg PO DAILY #4 tab 01/13/19 Cinacalcet HCl [Sensipar] 90 mg PO DAILY 01/13/19 Hydrocodone Bitart/Apap 5-325 1 tab PO Q6H PRN PRN 3 Days #10 tab 01/13/19 [[place] 5MG-325MG] Isosorbide Mononitrate [Imdur] 30 mg PO DAILY 01/13/19 Ondansetron [Zofran Odt] 4 mg PO Q8H PRN PRN #10 tab 01/13/19 Sertraline HCl [Zoloft] 100 mg PO DAILY 01/13/19 - Social History Tobacco Use: non-smoker Vital Signs Temp Pulse Resp BP Pulse Ox 98.1 F 85 18 129/74 H 98 01/14/19 08:00 01/14/19 08:00 01/14/19 08:00 01/14/19 08:00 01/14/19 08:00 Oxygen Flow Rate (L/min) 2 Oxygen Delivery Method Nasal Cannula Weight: 149.1 kg Body Mass Index (BMI) 41.5 Microbiology Past 72 Hours 01/13/19 11:00 Blood Culture - Preliminary Blood Culture (Wb) - Anticubital Left 01/13/19 10:15 Bacteria Detection (PCR) - Final Blood Culture (Wb) - Anticubital Left Staphylococcus aureus Blood Culture - Preliminary Laboratory Tests Past 24 Hrs 01/14/19 01/14/19 05:15 05:15 WBC 6.7 RBC 2.52 L Hgb 7.9 L Hct 23.0 L MCV 91.3 MCH 31.3 MCHC 34.3 RDW 13.5 RDW Differential 45.2 H Plt Count 91 L MPV 10.6 Immature Gran % (Auto) 0.100 Neut % (Auto) 88.1 H Lymph % (Auto) 3.1 L [place] % (Auto) 7.9 Eos % (Auto) 0.7 Baso % (Auto) 0.1 Absolute Neuts (auto) 5.9 Absolute Lymphs (auto) 0.21 L Total Counted Not Reportable Sodium 125 L Potassium 3.5 Chloride 82 L Carbon Dioxide 24.0 Anion Gap 19 H BUN 109 H* Creatinine 19.80 H* Estim Creat Clear Calc 5.77 Est GFR (MDRD) Af Amer 3 L Est GFR (MDRD) Non-Af 3 L BUN/Creatinine Ratio 5.5 L Glucose 106 Calcium 8.3 L - Other Studies Radiology: [] reviewed images Other Studies: [] Route of nutrition/ use of supplements: [] Nutritional Intake: [] IV Site: [] [place] Catheter: [] - Physical Exam General: Alert, Oriented x3, Cooperative, No apparent distress HEENT: Atraumatic, PERRLA, EOMI Neck: Supple, No Nodes Lungs: Diminished Cardiovascular: Regular rate, Regular Rhythm, No murmurs Abdomen: Soft, Non Tender, Non-Distended Extremities: Edema - mild Skin: - - no janeway/osler/splinter hemorrhages on hands or feet IV Site: - - RUE fistula with some swelling, warmth Musculoskeletal: No Tenderness to Palpation of Joints or Extremities, - - no spine tenderness Neurological: Cranial nerves II-XII grossly intact - Assessment/Plan Antibiotics: [] Assessment/Plan: [] Active and Suspected Problems Community acquired pneumonia (Acute) Acute respiratory failure with hypoxia (Acute) Problem with dialysis access (Acute) ESRD (end stage renal disease) on dialysis (Acute) MRSA bacteremia related to RUE fistula - u/s showed pseudoaneurym, concerning for infection. Dr. Aranda consulted. Low suspicion for pneumonia given lack of sputum, xray appearance, and worsening with lying flat; may be more consistent with pulm edema. Will stop azithro and ceftriaxone. Will order vanc to continue. Repeat bcx today. Check echo. No sign of endocarditis on exam. Thank you, will follow
--- NOTE | 2019-01-14 12:50 | EKG12_ITS ---
Test Reason : PRE-OPERATIVE Blood Pressure : / mmHG Vent. Rate : 084 BPM Atrial Rate : 084 BPM P-R Int : 156 ms QRS Dur : 090 ms QT Int : 390 ms P-R-T Axes : 035 028 031 degrees QTc Int : 460 ms Normal sinus rhythm Normal ECG Confirmed by CRISTEL PARSONS, ZURDO ([id number]), society editor LUCINDA CHOWDHURY ([id number]) on 01/18/2019 3:07:03 PM Referred By: Vitaly Pittman Confirmed By:ZURDO FAM MD
[2019-01-14 13:14] LABS: International Normalized Ratio 1.3; Prothrombin Time (Protime)PT. 15.7 SECONDS (11.7-14.9)
[2019-01-14 13:15] LABS: Partial Thromboplast Time 39.8 Seconds (24.1-36.2)
[2019-01-14 13:27] LABS: Thyroid Stim Hormone (TSH) 0.68 uIU/mL (0.358-3.74)
--- NOTE | 2019-01-14 15:30 | ABS_PTH ---
PATIENT: MANUEL FARNSWORTH LOC: MS3 U#:[id number] AGE/SX: 38/M [place] [facility] [place]: Dr. Syed Jarrell MD : [id number] BED: 1 DIS: 01/19/2019 SPEC #: [id number] RECD: 01/15/19 08:06 STATUS: NINI REQ #: [id number] ALIYA: 01/14/19 15:[address]: Osei Aranda DEPT: SURGICAL PATHOLOGY RECD BY: Davion Garduno ENTERED: 01/15/19 14:28 SP TYPE: Abscess OTHR DR: MD Dr. Vitaly Thorne MD Dr. Paul Nielsen, MD Dr. Robert Leininger, MD Tissues: Right arm (tissue only) Procedures: Surgery Specimen Level IV HEADER OPERATION: Tunnel, hemodialysis catheter, chest, fistula arteriovenous PRE-OP DIAGNOSIS: Pseudoaneurysm/abscess in arteriovenous fistula right arm; sepsis TISSUE SUBMITTED: Pseudoaneurysm/abscess right arm arteriovenous fistula site MICROSCOPIC DIAGNOSIS Skin and soft tissue of right arm, excision: Granulation with associated acute and chronic inflammation. Skin with no significant pathologic change. AM:susan 01/18/19 COMMENT Clinical correlation is necessary. MICROSCOPIC DESCRIPTION Slides are reviewed. GROSS DESCRIPTION Received in fixative is one container labeled with the patient's name and designated soft tissue right arm. The specimen consists of two irregular fragments of skin with attached fibrofatty tissue that in aggregate measure 5.2 x 3 x 1 cm. Serial sections do not reveal mass lesions. Also present in the specimen are multiple irregular fragments of reddish-cantor blood clot that in aggregate measure 5 x 4 x 1 cm. Banquet Bartender sections are submitted in one cassette. / AM:susan 01/15/19 TC:2 CPT: 63170
[2019-01-14] MEDS: Cefazolin 2 GM in 0.9% Normal Saline 100 ML IV (16:40)
[2019-01-14] MEDS: Bupivacaine Mpf 0.5% 30 ML VIAL (17:15)
[2019-01-14] MEDS: Heparin 10,000 UNITS/10 ML Vial 10000 UNITS (18:15)
--- NOTE | 2019-01-14 18:49 | OP.PCM_ITS ---
Problem List (1) Problem with dialysis access Status: Acute Qualifiers: Encounter type: initial encounter Qualified Code(s): T82.898A - Other specified complication of vascular prosthetic devices, implants and grafts, initial encounter Report of Operation Date of Procedure: 01/14/19 Pre-Operative Diagnosis: Sepsis secondary to infected pseudoaneurysm right forearm radial to cephalic arteriovenous hemodialysis fistula with abscess and cellulitis Post-Operative Diagnosis: Same plus occluded right internal jugular vein Surgery/Procedure Performed:: Attempted right internal jugular vein tunneled hemodialysis catheter placement. successful left internal jugular vein. Tunneled 23 cm pre-curved palindrome hemodialysis catheter placement. Ligation right forearm transposed cephalic vein to radial artery hemodialysis fistula with debridement of abscess and resection of infected vein Description of Surgical Findings:: Amount and informed consent was obtained. 38-year-old gent was taken the operating room. He was placed on the table. He underwent general anesthesia. Initially the right neck and chest were sterilely prepped draped. Ancef 2 g given intravenously preoperatively. I used 1% lidocaine mixed 50-50 with 0.5% Marcaine injected local used a micropuncture needle gain access to the right internal jugular vein under ultrasound guidance but Salinger wire advancement would not go. I try to advance the sheath I tried using an 035 angled Glidewire but it became apparent that the right internal jugular vein was occluded. Further attempts were aborted. The left neck and chest were sterilely prepped and draped. Again under ultrasound guidance 1% lidocaine mixed 50-50 with 0.5% Marcaine was used as local anesthetic in the left neck. Micropuncture needle was inserted under ultrasound guidance into the left internal jugular vein micropuncture wire micropuncture sheath a 035 J-wire was inserted fluoroscopy demonstrated good positioning local was instilled down upon the chest wall then the 23 cm pre- curved palindrome cath was tunneled from the chest to the neck site. Serial dilatation was performed under fluoroscopic control. Then the sheath dilator was inserted over the wire the dilator wire removed the catheter was advanced through the sheath and then to assist with advancement of the catheter I did place an 035 angled Glidewire through the catheter to further assist with placing the catheter in the SVC atrial junction. Fluoroscopy demonstrated good positioning. It aspirated easily was flushed with saline and then 2 cc per channel of heparinized saline. The neck site was closed with interrupted 5-0 Vicryl subdermal stitches Steri-Strip Telfa OpSite dressing. The catheter was secured to skin with interrupted 3-0 nylon. Silver impregnated dressing and OpSite dressing applied. Patient tolerated procedure well. It is of note that he had significant venous pressure. Attention was drawn to the right forearm which was now sterilely prepped and draped. Close to the radial anastomosis I made a transverse incision identified the vein got circumferential control ligated with a 0 silk.. Using ultrasound close to the antecubital space made a similar procedure transverse incision identify the outflow of the cephalic vein at that location and again ligated with 0 silk. Wounds were closed with interrupted 4 Monocryl subdermal stitches. I created an elliptical debridement excision of skin and subtenons tissue overlying the infected pseudoaneurysm. Purulence was obtained and sent for Gram stain C&S. Hematoma was encountered this was evacuated the vein wall had a wide open defect. A venous section was performed by excising that portion of infected vein. Where needed hemostasis was obtained with interrupted 3-0 Vicryl suture ligatures. Hemostasis was intact. Roll Kerlix gauze was soaked with Betadine placed in the cavity covered with ABDs Kerlix wrap and then Ernesto wrap. Sponge and needle and instrument counts were reported the surgeon be correct. He was taken to the recovery room in satisfactory condition. Stat portable chest x-ray is pending. No apparent complications. Osei Aranda M.D., F.A.C.S. Type of Anesthesia:: General Anesthesiologist: Toyin Robbins
--- NOTE | 2019-01-14 18:59 | DIALYSIS ---
Patient still not back from surgery, discussed w Dr Fabian and reviewed labs with him and he wishes to hold dialysis tonight and do a 4 hour treatment first thing in the am. Report given to Margaux RASMUSSEN
--- NOTE | 2019-01-14 19:02 | RAD_ITS ---
STUDY: X-RAY CHEST REASON FOR EXAM: Male, 38 years old. Hemodialysis catheter placement. TECHNIQUE: Single AP portable upright view of the chest. COMPARISON: Frontal chest x-ray included with acute abdomen series 0817 hours. FINDINGS: Dual-lumen hemodialysis catheter overlaps the upper left chest/supraclavicular region, its tip at the confluence of the left brachiocephalic vein to the superior vena cava. There are persistent patchy densities of probable atelectasis in the inferior lung bases. Very small left pleural effusion may be present. Infection is not excluded. The heart size is upper normal. Normal mediastinum and rakesh. Normal visualized pulmonary arteries. Normal visualized aortic arch and descending thoracic aorta. Normal visualized thoracic spine. Normal visualized ribs, clavicles, and shoulders. There is no demonstrated abnormality of the visualized soft tissue structures of the upper abdomen. RAD/Chest 1 View (Portable) IMPRESSION: 1. Left-sided tunneled hemodialysis catheter in place. No pneumothorax. 2. Stable patchy bibasilar airspace disease, likely atelectasis. Electronically Signed: Roni Wright MD at 19:47 EDT , Service support ,
--- NOTE | 2019-01-14 19:35 | NURSING ---
Dr. Arshad called the floor and talked to me about this pt. He felt dialysis needed to be done tonight because the pt's creatinine is 20 and the pt was on a nonrebreather in PACU. Advised him Dr. Fabian was going to do it tomorrow. He wants me to call Dr. Fabian and request that dialysis be done tonight.
--- NOTE | 2019-01-14 19:42 | NURSING ---
Called Dr. Fabian's answering service and asked them to have Dr. Fabian call me about dialyzing this pt tonight.
[2019-01-15] VITALS (19 sets, daily range): BP systolic 123–151; BP diastolic 67–83; PULSE 82–97; RESP 15–26; TEMP 36.7–37.2; O2SAT 92–95
--- NOTE | 2019-01-15 00:15 | PCM.RX.CS ---
Consult Pharmacy has been consulted to manage selected antiobiotic: Vancomycin Type of Consult: Follow-up Suspected Infection: Bacteremia Prior Doses of Antibiotics Received/Current Regimen: Medications Vancomycin HCl (Vancomycin) 1,000 mg in 200 mls @ 200 mls/hr IV X1 ONE Stop: 01/15/19 01:59 Discontinued Medications Vancomycin HCl 2,000 mg/ (Dextrose) 540 mls @ 250 mls/hr IV X1 ONE Stop: 01/14/19 02:10 Last Admin: 01/14/19 00:37 Dose: 250 mls/hr Labs: Sodium 125 mmol/L (136-145) L 01/14/19 05:15 Potassium 3.5 mmol/L (3.5-5.1) 01/14/19 05:15 Chloride 82 mmol/L (98-107) L 01/14/19 05:15 Carbon Dioxide 24.0 mmol/L (21.0-32.0) 01/14/19 05:15 Anion Gap 19 (5-15) H 01/14/19 05:15 BUN 109 mg/dL (7-18) H* 01/14/19 05:15 Creatinine 19.80 mg/dL (0.70-1.30) H* 01/14/19 05:15 Est GFR (MDRD) Af Amer 3 mL/min (>60) L 01/14/19 05:15 Est GFR (MDRD) Non-Af 3 mL/min (>60) L 01/14/19 05:15 BUN/Creatinine Ratio 5.5 RATIO (10-20) L 01/14/19 05:15 Glucose 106 mg/dL (74-106) 01/14/19 05:15 Microbiology: Microbiology 01/13/19 10:15 Blood Culture (Wb) - Anticubital Left Bacteria Detection (PCR) - Final Staphylococcus aureus 01/13/19 10:15 Blood Culture (Wb) - Anticubital Left Blood Culture - Preliminary Staphylococcus aureus 01/13/19 11:00 Blood Culture (Wb) - Anticubital Left Blood Culture - Preliminary Weight used for dosin.1 kg Estimated Creatinine Clearance: 5.77 Goal Trough: 15-20 mcg/mL Pharmacy Plan for Drug Dosing: Scheduled a x1 vancomycin 1000mg dose to be given after dialysis (01/15/19 @0100). Will schedule a vancomycin level to be drawn prior to next dialysis, once that is determined. Pharmacy Service will continue to monitor and adjust dosing as required. Follow-Up Labs: Trough Vancomycin - random prior to next dialysis
[2019-01-15] MEDS: Heparin 10,000 UNITS/10 ML Vial 3800 UNITS IV (00:33)
--- NOTE | 2019-01-15 00:50 | DIALYSIS ---
Hemodialysis x 2 hours completed, -2200ml off. stable t/o. tolerated well. CVC worked well. Closed with heparin to each lumen fill volume. report to RN
--- NOTE | 2019-01-15 00:55 | NURSING ---
0030 2200 taken off with dialysis. Dialysis nurse said another dialysis nurse will be back in the welding instructor to dialyze again.
[2019-01-15] MEDS: Carvedilol 12.5 MG Tablet PO ×2 (01:46→23:49)
[2019-01-15] MEDS: Isosorbide Mononitrate 30 MG Tablet PO ×2 (01:47→23:49)
[2019-01-15] MEDS: guaiFENesin 1,200 MG Tablet 1200 MG PO ×3 (01:47→23:49)
[2019-01-15] MEDS: Cinacalcet HCl 30 MG Tablet 90 MG PO ×2 (01:47→23:50)
[2019-01-15] MEDS: Sertraline 100 MG Tablet PO ×2 (01:48→23:50)
[2019-01-15] MEDS: Vancomycin IV 1,000 MG/200 ML BAG 200 MG IV (01:56)
[2019-01-15] MEDS: Acetaminophen 325 MG Tablet 650 MG PO ×2 (02:34→09:46)
[2019-01-15 05:38] LABS: Absolute Lymphocyte Count 0.56 X10^3/ul (0.83-4.51); Absolute Neutrophil Count 5.9 X10^3/uL (2.0-7.7); Differential Indicated SCAN CRITERIA MET; Eosinophil# 0.16 X10^3/uL; Eosinophils% 2.3 % (0-5); Hematocrit 22.5 % (40-54); Hemoglobin 7.7 g/dl (13.0-16.5); Lymphocyte # 0.56 X10^3/ul (4.0); Lymphocyte % 8.2 % (19-41); Mean Corp Hgb Conc 34.2 g/gl (32-36); Mean Corpuscular Hgb 31.2 pg (27.0-32.0); Mean Corpuscular Volume 91.1 fL (80-94); Mean Platelet Vol. 10.7 fl (6.2-12.0); Monocyte# 0.23 X10^3/uL; Monocyte% 3.4 % (0-10); Neutrophil # 5.86 X10^3/uL (2.7-7.7); Neutrophil % 85.7 % (47-70); POSITIVE COUNT NO; POSITIVE DIFFERENTIAL YES; POSITIVE MORPHOLOGY NO; Platelet Count 121 K/mm3 (150-450); RBC Distribution Width CV 13.6 % (11.6-14.6); RBC Distribution Width SD 45.2 fl (35.1-43.9); Red Blood Count 2.47 M/mm3 (4.6-6.2); White Blood Count 6.8 K/mm3 (4.4-11.0)
--- NOTE | 2019-01-15 05:45 | PCM.PN.SRG ---
Patient Problems: Active and Suspected Problems Community acquired pneumonia (Acute) Acute respiratory failure with hypoxia (Acute) Problem with dialysis access (Acute) ESRD (end stage renal disease) on dialysis (Acute) MRSA bacteremia (Acute) Subjective: Pt states minimal discomfort - Physical Exam Neck: - - left neck,chest clean dry Extremities: - - dressings intact right forearm Vital Signs Temp Pulse Resp BP Pulse Ox 99.0 F 92 22 H 135/83 H 94 01/15/19 02:36 01/15/19 02:36 01/15/19 02:36 01/15/19 02:36 01/15/19 02:36 Oxygen Flow Rate (L/min) 4 Oxygen Delivery Method Nasal Cannula Weight: 328 lb 11.347 oz Body Mass Index (BMI) 43.3 Intake and Output for Last 24 Hours 01/13/19 01/14/19 01/15/19 23:59 23:59 23:59 Intake Total 290 / 290 1685 / 1685 883 / 883 Output Total 0 / 0 2200 / 2200 Balance 290 / 290 1685 / 1685 -1317 / -1317 Microbiology Past 72 Hours 01/14/19 09:30 Blood Culture - Preliminary Blood Culture (Wb) - Left Hand 01/13/19 10:15 Bacteria Detection (PCR) - Final Blood Culture (Wb) - Anticubital Left Staphylococcus aureus Blood Culture - Preliminary Staphylococcus aureus 01/13/19 11:00 Blood Culture - Preliminary Blood Culture (Wb) - Anticubital Left Laboratory Tests Past 24 Hrs 01/14/19 01/14/19 01/14/19 05:15 05:15 12:50 WBC 6.7 RBC 2.52 L Hgb 7.9 L Hct 23.0 L MCV 91.3 MCH 31.3 MCHC 34.3 RDW 13.5 RDW Differential 45.2 H Plt Count 91 L MPV 10.6 Immature Gran % (Auto) 0.100 Neut % (Auto) 88.1 H Lymph % (Auto) 3.1 L [place] % (Auto) 7.9 Eos % (Auto) 0.7 Baso % (Auto) 0.1 Absolute Neuts (auto) 5.9 Absolute Lymphs (auto) 0.21 L Total Counted Not Reportable PT 15.7 H INR 1.3 APTT 39.8 H Sodium 125 L Potassium 3.5 Chloride 82 L Carbon Dioxide 24.0 Anion Gap 19 H BUN 109 H* Creatinine 19.80 H* Estim Creat Clear Calc 5.77 Est GFR (MDRD) Af Amer 3 L Est GFR (MDRD) Non-Af 3 L BUN/Creatinine Ratio 5.5 L Glucose 106 Calcium 8.3 L TSH 01/14/19 01/15/19 01/15/19 12:50 05:05 05:05 WBC 6.8 RBC 2.47 L Hgb 7.7 L Hct 22.5 L MCV 91.1 MCH 31.2 MCHC 34.2 RDW 13.6 RDW Differential 45.2 H Plt Count 121 L MPV 10.7 Immature Gran % (Auto) 0.400 Neut % (Auto) 85.7 H Lymph % (Auto) 8.2 L [place] % (Auto) 3.4 Eos % (Auto) 2.3 Baso % (Auto) 0.0 Absolute Neuts (auto) 5.9 Absolute Lymphs (auto) 0.56 L Total Counted Pending PT INR APTT Sodium Pending Potassium Pending Chloride Pending Carbon Dioxide Pending Anion Gap Pending BUN Pending Creatinine Pending Estim Creat Clear Calc Est GFR (MDRD) Af Amer Pending Est GFR (MDRD) Non-Af Pending BUN/Creatinine Ratio Pending Glucose Pending Calcium Pending TSH 0.68 Medical Necessity - Tobacco Use Smoking Status: Never smoker Assessment/Plan All Active Problems Community acquired pneumonia (Acute) Acute respiratory failure with hypoxia (Acute) Problem with dialysis access (Acute) ESRD (end stage renal disease) on dialysis (Acute) MRSA bacteremia (Acute) Anemia (Acute) Nausea (Acute) Transaminitis (Acute) HTN (hypertension) (Acute) Hematemesis/vomiting blood (Acute) Anemia due to blood loss, acute (Acute) Hemorrhagic shock (Acute) Decubitus ulcer (Acute) Physical deconditioning (Acute) ARDS (adult respiratory distress syndrome) (Resolved) H1N1 influenza with pneumonia (Resolved) By report catheters performed well Initiate wet to dry dressing changes right forearm with plans to convert to wound vac Will need to see in office after infection resolved for consideration RUE brachial cephalic AV fistula creation
--- NOTE | 2019-01-15 05:48 | VDUE_ITS ---
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 Left jugular vein is spontaneous, widely Right subclavian vein is spontaneous, widely patent, phasic, with no intraluminal patent, phasic, with no intraluminal echogenicity noted. echogenicity noted. Left subclavian vein is spontaneous, widely Right Arm patent, phasic, with no intraluminal Right axillary vein is spontaneous, patent, echogenicity noted. phasic, competent, compressible and Left Arm demonstrates augmentation. Left axillary vein is spontaneous, patent, Right brachial vein is compressible. phasic, competent, compressible and Right cephalic vein is compressible. demonstrates augmentation. Right Cephalic Vein above antecub measures Left brachial vein is compressible. 0.69 x 0.78 cm. Left cephalic vein is compressible. Right Cephalic Vein mid bicep measures 0.62 x Left Cephalic Vein at the wrist measures 0.16 0.68 cm. x 0.15 cm. Right Cephalic Vein at the shoulder measures Left Cephalic Vein in the forearm measures 0.63 x 0.69 cm. 0.24 x 0.24 cm. Right basilic vein is compressible. Left Cephalic Vein above antecub measures Right Basilic Vein at the origin measures 0.48 x 0.55 cm. 0.77 x 0.81 cm. Left Cephalic Vein at mid bicep measures 0.45 Right Basilic Vein mid bicep measures 0.90 x x 0.48 cm. 1.08 cm. Left Cephalic Vein at the shoulder measures Right Basilic Vein above antecub measures 0.42 x 0.49 cm. 1.03 x 1.08 cm. Left basilic vein is compressible. Right brachial artery measures 0.74 x 0.78 cm Basilic vein at origin measures 0.56 x 0.55 with a velocity of 117.7 cm/sec. cm. Basilic vein at bicep measures 0.28 x 0.28 cm. Basilic vein above antecub measures 0.25 x 0.23 cm. Right brachial artery measures 0.55 x 0.56 cm with a velocity of 87.9 cm/sec. Right radial artery measures 0.22 x 0.23 cm with a velocity of 94.2 cm/sec. Left Lower Arm Left radial vein is compressible. Left ulnar vein is compressible. Patient Safety Prelim to RN. Interpretation Summary Occluded right internal jugular vein Enlarged right upper arm cephalic and basilic veins. Normal right brachial artery Small left forearm cephalic vein Adequate left upper arm cephalic vein Adequate left upper arm basilic vein Normal flow left brachial and radial arteries Ordering Physician: Osei Aranda Referring Physician: Marcell Thacker Performed By: Joanne Plata RVT ?
[2019-01-15 05:59] LABS: Anion Gap 15 (5-15); BUN 94 mg/dL (7-18); BUN/Creat Ratio 5.7 RATIO (10-20); Calcium,Total 8.1 mg/dL (8.5-10.1); Chloride 89 mmol/L (98-107); EST Glomerular Filtration Rate 4 mL/min (>60); Est Glom Filt Rate - Afr Amer 4 mL/min (>60); Estimated Creatinine Clearance 6.97 ml/min; Glucose 122 mg/dL (74-106); Potassium 3.5 mmol/L (3.5-5.1); Sodium Level 130 mmol/L (136-145)
[2019-01-15 06:14] LABS: Differential Comment SCANNED
[2019-01-15] MEDS: Ipratropium/Albuterol Sulfate 3 ML AMPUL.NEB INHALATION ×4 (07:15→19:02)
--- NOTE | 2019-01-15 09:23 | NURSING ---
Pt is currently getting dialysis. will assess wound to the right arm after patient is off dialysis. was consulted for possible wound VAC placement. will discuss with Dr Aranda after wound is assessed.
--- NOTE | 2019-01-15 11:54 | PN.RENAL_ITS ---
Patient Problems: Active and Suspected Problems Community acquired pneumonia (Acute) Acute respiratory failure with hypoxia (Acute) Problem with dialysis access (Acute) ESRD (end stage renal disease) on dialysis (Acute) MRSA bacteremia (Acute) Subjective: No new complaints - Physical Exam General: Alert, Oriented x3, Cooperative HEENT: Atraumatic, PERRLA, EOMI, Normocephalic Neck: Supple, No JVD, Negative Carotid Bruits Lungs: Clear to auscultation, Normal air movement Cardiovascular: Regular rate, No murmurs Abdomen: Bowel Sounds Present, Soft, Non Tender Extremities: No edema, Capillary Refill Less than 3 Seconds Skin: No rashes, No breakdown Musculoskeletal: No Tenderness to Palpation of Joints or Extremities Neurological: Cranial nerves II-XII grossly intact Psych/Mental Status: Normal Affect, Appropriate Vital Signs Temp Pulse Resp BP Pulse Ox 98.1 F 84 18 131/74 H 94 01/15/19 09:10 01/15/19 10:00 01/15/19 09:10 01/15/19 09:10 01/15/19 09:10 Oxygen Flow Rate (L/min) 2 Oxygen Delivery Method Nasal Cannula Weight: 149.1 kg Body Mass Index (BMI) 43.3 Intake and Output for Last 24 Hours 01/13/19 01/14/19 01/15/19 23:59 23:59 23:59 Intake Total 290 / 290 1685 / 1685 1083 / 1083 Output Total 0 / 0 2200 / 2200 Balance 290 / 290 1685 / 1685 -1117 / -1117 Microbiology Past 72 Hours 01/14/19 19:05 Gram Stain - Final Tissue - Other 01/13/19 11:00 Blood Culture - Final Blood Culture (Wb) - Anticubital Left Staphylococcus aureus 01/13/19 10:15 Bacteria Detection (PCR) - Final Blood Culture (Wb) - Anticubital Left Staphylococcus aureus Blood Culture - Final Meth. resistant Staph. aureus 01/14/19 09:30 Blood Culture - Preliminary Blood Culture (Wb) - Left Hand Laboratory Tests Past 24 Hrs 01/14/19 01/14/19 01/15/19 12:50 12:50 05:05 WBC 6.8 RBC 2.47 L Hgb 7.7 L Hct 22.5 L MCV 91.1 MCH 31.2 MCHC 34.2 RDW 13.6 RDW Differential 45.2 H Plt Count 121 L MPV 10.7 Immature Gran % (Auto) 0.400 Neut % (Auto) 85.7 H Lymph % (Auto) 8.2 L [place] % (Auto) 3.4 Eos % (Auto) 2.3 Baso % (Auto) 0.0 Absolute Neuts (auto) 5.9 Absolute Lymphs (auto) 0.56 L Total Counted Not Reportable Differential Comment SCANNED PT 15.7 H INR 1.3 APTT 39.8 H Sodium Potassium Chloride Carbon Dioxide Anion Gap BUN Creatinine Estim Creat Clear Calc Est GFR (MDRD) Af Amer Est GFR (MDRD) Non-Af BUN/Creatinine Ratio Glucose Calcium TSH 0.68 01/15/19 05:05 WBC RBC Hgb Hct MCV MCH MCHC RDW RDW Differential Plt Count MPV Immature Gran % (Auto) Neut % (Auto) Lymph % (Auto) [place] % (Auto) Eos % (Auto) Baso % (Auto) Absolute Neuts (auto) Absolute Lymphs (auto) Total Counted Differential Comment PT INR APTT Sodium 130 L Potassium 3.5 Chloride 89 L Carbon Dioxide 26.0 Anion Gap 15 BUN 94 H Creatinine 16.40 H* Estim Creat Clear Calc 6.97 Est GFR (MDRD) Af Amer 4 L Est GFR (MDRD) Non-Af 4 L BUN/Creatinine Ratio 5.7 L Glucose 122 H Calcium 8.1 L TSH Medical Necessity - Tobacco Use Smoking Status: Never smoker Assessment/Plan All Active Problems Community acquired pneumonia (Acute) Acute respiratory failure with hypoxia (Acute) Problem with dialysis access (Acute) ESRD (end stage renal disease) on dialysis (Acute) MRSA bacteremia (Acute) Anemia (Acute) Nausea (Acute) Transaminitis (Acute) HTN (hypertension) (Acute) Hematemesis/vomiting blood (Acute) Anemia due to blood loss, acute (Acute) Hemorrhagic shock (Acute) Decubitus ulcer (Acute) Physical deconditioning (Acute) ARDS (adult respiratory distress syndrome) (Resolved) H1N1 influenza with pneumonia (Resolved) ESRD. Seen on dialysis today AV fistula infection MRSA bacteremia Status post ligation and excision of infected graft. Currently on vancomycin. Plan is to go in center hemodialysis for a while until he get trained with home hemo-dialysis. We will arrange for vancomycin with dialysis. Duration of antibiotics to be determined depending on culture data anemia. Epogen with dialysis today Discussed with family in detail
--- NOTE | 2019-01-15 12:13 | DIALYSIS ---
HD x 4 hours complete. Tolerated tx well. Ran on 3k bath. UF of 2500ml. Used left chest wall catheter. Catheter closed with heparin per fill volume. Report was given to VALERY Damico.
[2019-01-15] MEDS: Heparin 10,000 UNITS/10 ML Vial IV (12:47)
[2019-01-15] MEDS: Epoetin Alfa epbx 10,000 UNITS/ML 10000 UNIT IV (12:47)
--- NOTE | 2019-01-15 13:17 | PCM.PN.HOSP ---
Patient Problems: Active and Suspected Problems Community acquired pneumonia (Acute) Acute respiratory failure with hypoxia (Acute) Problem with dialysis access (Acute) ESRD (end stage renal disease) on dialysis (Acute) MRSA bacteremia (Acute) Subjective: Doing well after surgery. Is currently receiving dialysis, denies any significant pain. Vitals/I&O's: Vital Signs Temp Pulse Resp BP Pulse Ox 98.1 F 84 15 131/76 H 94 01/15/19 11:30 01/15/19 11:30 01/15/19 11:30 01/15/19 11:30 01/15/19 09:10 Oxygen Flow Rate (L/min) 2 Oxygen Delivery Method Nasal Cannula Weight: 328 lb 11.347 oz Body Mass Index (BMI) 43.3 Intake and Output for Last 24 Hours 01/13/19 01/14/19 01/15/19 23:59 23:59 23:59 Intake Total 290 / 290 1685 / 1685 1473 / 1473 Output Total 0 / 0 4700 / 4700 Balance 290 / 290 1685 / 1685 -3227 / -3227 General: Alert, Oriented x3, Cooperative, No apparent distress HEENT: Atraumatic, PERRLA, EOMI, Normocephalic Oral: Moist Mucosa Neck: Supple, No JVD Lungs: Clear to auscultation, Normal air movement, No rhonchi, No wheeze, No rales Cardiovascular: Regular rate, Regular Rhythm, Normal S1, Normal S2, No murmurs Abdomen: Soft, Non Tender, Non-Distended, No Hepato-splenomegaly, Obese Extremities: No edema, Capillary Refill Less than 3 Seconds Skin: No breakdown, surgical dressing in place clean dry and intact, left subclavian tunneled catheter for dialysis Neurological: Neuro grossly intact, Sensory exam intact to light touch and pain Psych/Mental Status: Normal Affect, Appropriate Microbiology Past 72 Hours 01/14/19 19:05 Tissue - Other Gram Stain - Final 01/14/19 19:05 Tissue - Other Wound Culture - Preliminary Staphylococcus aureus 01/13/19 11:00 Blood Culture (Wb) - Anticubital Left Blood Culture - Final Staphylococcus aureus 01/13/19 10:15 Blood Culture (Wb) - Anticubital Left Bacteria Detection (PCR) - Final Staphylococcus aureus 01/13/19 10:15 Blood Culture (Wb) - Anticubital Left Blood Culture - Final Meth. resistant Staph. aureus 01/14/19 09:30 Blood Culture (Wb) - Left Hand Blood Culture - Preliminary Laboratory Results 01/14/19 12:50: TSH 0.68 01/15/19 05:05: WBC 6.8, RBC 2.47 L, Hgb 7.7 L, Hct 22.5 L, MCV 91.1, MCH 31.2, MCHC 34.2, RDW 13.6, RDW Differential 45.2 H, Plt Count 121 L, MPV 10.7, Immature Gran % (Auto) 0.400, Neut % (Auto) 85.7 H, Lymph % (Auto) 8.2 L, [place] % (Auto) 3.4, Eos % (Auto) 2.3, Baso % (Auto) 0.0, Absolute Neuts (auto) 5.9, Absolute Lymphs (auto) 0.56 L, Total Counted Not Reportable, Differential Comment SCANNED 01/15/19 05:05: Sodium 130 L, Potassium 3.5, Chloride 89 L, Carbon Dioxide 26.0, Anion Gap 15, BUN 94 H, Creatinine 16.40 H*, Estim Creat Clear Calc 6.97, Est GFR (MDRD) Af Amer 4 L, Est GFR (MDRD) Non-Af 4 L, BUN/Creatinine Ratio 5.7 L, Glucose 122 H, Calcium 8.1 L Current Medications Acetaminophen (Tylenol) 650 mg PO Q6H PRN PRN PRN Reason: pain or fever Last Admin: 01/15/19 09:46 Dose: 650 mg Hydrocodone Bitart/Acetaminophen ([place] 5mg-325mg) 1 tablet PO Q4H PRN PRN PRN Reason: PAIN Albuterol/Ipratropium (Duoneb) 3 ml INHALATION Q4HWA.RT CATHI Last Admin: 01/14/19 19:15 Dose: 3 ml Carvedilol (Coreg) 12.5 mg PO QHS CATHI Last Admin: 01/15/19 01:46 Dose: 12.5 mg Cinacalcet (Sensipar) 90 mg PO QHS CATHI Last Admin: 01/15/19 01:47 Dose: 90 mg Cyclobenzaprine HCl (Flexeril) 10 mg PO TID PRN PRN PRN Reason: MUSCLE SPASMS Last Admin: 01/14/19 02:32 Dose: 10 mg Guaifenesin (Mucinex) 1,200 mg PO BID [facility] Last Admin: 01/15/19 09:46 Dose: 1,200 mg Hydromorphone HCl (Dilaudid Inj) 0.5 mg IV Q3H PRN PRN PRN Reason: SEVERE PAIN (6-10/10) Vancomycin IV Pharmacy to Dose (1 ea/ Sodium Chloride) 500 mls @ 250 mls/hr IV X1 PRN; Protocol PRN Reason: Rx to Dose Isosorbide Mononitrate (Imdur) 30 mg PO QHS [facility] Last Admin: 01/15/19 01:47 Dose: 30 mg Ondansetron HCl (Zofran) 4 mg IV Q8H PRN PRN PRN Reason: NAUSEA/VOMITING Sertraline HCl (Zoloft) 100 mg PO QHS [facility] Last Admin: 01/15/19 01:48 Dose: 100 mg Sodium Chloride () 5 - 15 ml IV UD PRN PRN Reason: SALINE FLUSH Last Admin: 01/13/19 13:53 Dose: 10 ml Medical Necessity - Tobacco Use Smoking Status: Never smoker Assessment/Plan All Active Problems Community acquired pneumonia (Acute) Acute respiratory failure with hypoxia (Acute) Problem with dialysis access (Acute) ESRD (end stage renal disease) on dialysis (Acute) MRSA bacteremia (Acute) Anemia (Acute) Nausea (Acute) Transaminitis (Acute) HTN (hypertension) (Acute) Hematemesis/vomiting blood (Acute) Anemia due to blood loss, acute (Acute) Hemorrhagic shock (Acute) Decubitus ulcer (Acute) Physical deconditioning (Acute) ARDS (adult respiratory distress syndrome) (Resolved) H1N1 influenza with pneumonia (Resolved) 1. Acute hypoxic respiratory failure/right AV fistula infection and thrombosed pseudoaneurysm -continue with duo nebs as needed and continue with on oxygen -ID does not feel that there is no pneumonia present -Blood cultures with MRSA, will continue to obtain blood cultures to obtain clearance, continue with vancomycin -Status post resection of his upper extremity fistula and washout postop day 1 2. 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 -He has obtained multiple blood transfusions in the past so there is some concern for him becoming a more difficult match both for blood transfusions as well as renal transplant in the future. He states that he did receive a shot of Epogen last week, will discuss with nephrology if they would want to repeat that while he is here or to just proceed with blood transfusion if necessary -Platelets are improving however he is slightly more anemic today with a hemoglobin of 7.7, will continue to monitor 3. Anxiety/depression -Stable -We will continue with Zoloft 4. Morbid obesity -BMI is 41.6 -Had extensive discussions for lifestyle modifications DVT: Ambulation Code Visit Inpatient E&M: 74071 Subs Hosp L2
--- NOTE | 2019-01-15 13:17 | PCM.PN.ID ---
Patient Problems: Active and Suspected Problems Community acquired pneumonia (Acute) Acute respiratory failure with hypoxia (Acute) Problem with dialysis access (Acute) ESRD (end stage renal disease) on dialysis (Acute) MRSA bacteremia (Acute) Subjective: Feeling ok, still pain in arm s/p OR. No fever, no n/v/d. - Physical Exam General: Alert, Cooperative, No apparent distress Lungs: Clear to auscultation, Normal air movement Cardiovascular: Regular rate, Regular Rhythm Abdomen: Soft, Non Tender, Non-Distended Skin: Ulcer/ Wound - RUE wrapped Vital Signs Temp Pulse Resp BP Pulse Ox 98.1 F 84 15 131/76 H 94 01/15/19 11:30 01/15/19 11:30 01/15/19 11:30 01/15/19 11:30 01/15/19 09:10 Oxygen Flow Rate (L/min) 2 Oxygen Delivery Method Nasal Cannula Weight: 149.1 kg Body Mass Index (BMI) 43.3 Intake and Output for Last 24 Hours 01/13/19 01/14/19 01/15/19 23:59 23:59 23:59 Intake Total 290 / 290 1685 / 1685 1473 / 1473 Output Total 0 / 0 4700 / 4700 Balance 290 / 290 1685 / 1685 -3227 / -3227 Microbiology Past 72 Hours 01/14/19 19:05 Gram Stain - Final Tissue - Other Wound Culture - Preliminary Staphylococcus aureus 01/13/19 11:00 Blood Culture - Final Blood Culture (Wb) - Anticubital Left Staphylococcus aureus 01/13/19 10:15 Bacteria Detection (PCR) - Final Blood Culture (Wb) - Anticubital Left Staphylococcus aureus Blood Culture - Final Meth. resistant Staph. aureus 01/14/19 09:30 Blood Culture - Preliminary Blood Culture (Wb) - Left Hand Laboratory Tests Past 24 Hrs 01/14/19 01/15/19 01/15/19 12:50 05:05 05:05 WBC 6.8 RBC 2.47 L Hgb 7.7 L Hct 22.5 L MCV 91.1 MCH 31.2 MCHC 34.2 RDW 13.6 RDW Differential 45.2 H Plt Count 121 L MPV 10.7 Immature Gran % (Auto) 0.400 Neut % (Auto) 85.7 H Lymph % (Auto) 8.2 L [place] % (Auto) 3.4 Eos % (Auto) 2.3 Baso % (Auto) 0.0 Absolute Neuts (auto) 5.9 Absolute Lymphs (auto) 0.56 L Total Counted Not Reportable Differential Comment SCANNED Sodium 130 L Potassium 3.5 Chloride 89 L Carbon Dioxide 26.0 Anion Gap 15 BUN 94 H Creatinine 16.40 H* Estim Creat Clear Calc 6.97 Est GFR (MDRD) Af Amer 4 L Est GFR (MDRD) Non-Af 4 L BUN/Creatinine Ratio 5.7 L Glucose 122 H Calcium 8.1 L TSH 0.68 Medical Necessity - Tobacco Use Smoking Status: Never smoker Route of nutrition/ use of supplements: [] Nutritional Intake: [] IV Site: [] [place] Catheter: [] - Assessment/Plan Antibiotics: [] Assessment/Plan: [] Active and Suspected Problems Community acquired pneumonia (Acute) Acute respiratory failure with hypoxia (Acute) Problem with dialysis access (Acute) ESRD (end stage renal disease) on dialysis (Acute) MRSA bacteremia related to RUE fistula - u/s showed pseudoaneurym, concerning for infection. Dr. Aranda consulted. Cont vanc. Taken to OR 01/14 for debridement of infected fistula. Repeat bcx today. TTE neg. No sign of endocarditis on exam. Plan will be for discharge once bcx clear on IV vanc for 4-6 weeks, dosed with HD. will follow, d/w Dr. Pittman
--- NOTE | 2019-01-15 13:23 | PN_ITS ---
Patient Problems: Active and Suspected Problems Community acquired pneumonia (Acute) Acute respiratory failure with hypoxia (Acute) Problem with dialysis access (Acute) ESRD (end stage renal disease) on dialysis (Acute) MRSA bacteremia (Acute) Subjective: Doing well after surgery. Is currently receiving dialysis, denies any sign ificant pain. Vitals/I&O's: Vital Signs Temp Pulse Resp BP Pulse Ox 98.1 F 84 15 131/76 H 94 01/15/19 11:30 01/15/19 11:30 01/15/19 11:30 01/15/19 11:30 01/15/19 09:10 Oxygen Flow Rate (L/min) 2 Oxygen Delivery Method Nasal Cannula Weight: 328 lb 11.347 oz Body Mass Index (BMI) 43.3 Intake and Output for Last 24 Hours 01/13/19 01/14/19 01/15/19 23:59 23:59 23:59 Intake Total 290 / 290 1685 / 1685 1473 / 1473 Output Total 0 / 0 4700 / 4700 Balance 290 / 290 1685 / 1685 -3227 / -3227 General: Alert, Oriented x3, Cooperative, No apparent distress HEENT: Atraumatic, PERRLA, EOMI, Normocephalic Oral: Moist Mucosa Neck: Supple, No JVD Lungs: Clear to auscultation, Normal air movement, No rhonchi, No wheeze, No rales Cardiovascular: Regular rate, Regular Rhythm, Normal S1, Normal S2, No murmurs Abdomen: Soft, Non Tender, Non-Distended, No Hepato-splenomegaly, Obese Extremities: No edema, Capillary Refill Less than 3 Seconds Skin: No breakdown, surgical dressing in place clean dry and intact, left subclavian tunneled catheter for dialysis Neurological: Neuro grossly intact, Sensory exam intact to light touch and pain Psych/Mental Status: Normal Affect, Appropriate Microbiology Past 72 Hours 01/14/19 19:05 Tissue - Other Gram Stain - Final 01/14/19 19:05 Tissue - Other Wound Culture - Preliminary Staphylococcus aureus 01/13/19 11:00 Blood Culture (Wb) - Anticubital Left Blood Culture - Final Staphylococcus aureus 01/13/19 10:15 Blood Culture (Wb) - Anticubital Left Bacteria Detection (PCR) - Final Staphylococcus aureus 01/13/19 10:15 Blood Culture (Wb) - Anticubital Left Blood Culture - Final Meth. resistant Staph. aureus 01/14/19 09:30 Blood Culture (Wb) - Left Hand Blood Culture - Preliminary Laboratory Results 01/14/19 12:50: TSH 0.68 01/15/19 05:05: WBC 6.8, RBC 2.47 L, Hgb 7.7 L, Hct 22.5 L, MCV 91.1, MCH 31.2, MCHC 34.2, RDW 13.6, RDW Differential 45.2 H, Plt Count 121 L, MPV 10.7, Immature Gran % (Auto) 0.400, Neut % (Auto) 85.7 H, Lymph % (Auto) 8.2 L, [place] % (Auto) 3.4, Eos % (Auto) 2.3, Baso % (Auto) 0.0, Absolute Neuts (auto) 5.9, Absolute Lymphs (auto) 0.56 L, Total Counted Not Reportable, Differential Comment SCANNED 01/15/19 05:05: Sodium 130 L, Potassium 3.5, Chloride 89 L, Carbon Dioxide 26.0, Anion Gap 15, BUN 94 H, Creatinine 16.40 H*, Estim Creat Clear Calc 6.97, Est GFR (MDRD) Af Amer 4 L, Est GFR (MDRD) Non-Af 4 L, BUN/Creatinine Ratio 5.7 L, Glucose 122 H, Calcium 8.1 L Current Medications Acetaminophen (Tylenol) 650 mg PO Q6H PRN PRN PRN Reason: pain or fever Last Admin: 01/15/19 09:46 Dose: 650 mg Hydrocodone Bitart/Acetaminophen ([place] 5mg-325mg) 1 tablet PO Q4H PRN PRN PRN Reason: PAIN Albuterol/Ipratropium (Duoneb) 3 ml INHALATION Q4HWA.RT CATHI Last Admin: 01/14/19 19:15 Dose: 3 ml Carvedilol (Coreg) 12.5 mg PO QHS CATHI Last Admin: 01/15/19 01:46 Dose: 12.5 mg Cinacalcet (Sensipar) 90 mg PO QHS CATHI Last Admin: 01/15/19 01:47 Dose: 90 mg Cyclobenzaprine HCl (Flexeril) 10 mg PO TID PRN PRN PRN Reason: MUSCLE SPASMS Last Admin: 01/14/19 02:32 Dose: 10 mg Guaifenesin (Mucinex) 1,200 mg PO BID [facility] Last Admin: 01/15/19 09:46 Dose: 1,200 mg Hydromorphone HCl (Dilaudid Inj) 0.5 mg IV Q3H PRN PRN PRN Reason: SEVERE PAIN (6-10/10) Vancomycin IV Pharmacy to Dose (1 ea/ Sodium Chloride) 500 mls @ 250 mls/hr IV X1 PRN; Protocol PRN Reason: Rx to Dose Isosorbide Mononitrate (Imdur) 30 mg PO QHS [facility] Last Admin: 01/15/19 01:47 Dose: 30 mg Ondansetron HCl (Zofran) 4 mg IV Q8H PRN PRN PRN Reason: NAUSEA/VOMITING Sertraline HCl (Zoloft) 100 mg PO QHS [facility] Last Admin: 01/15/19 01:48 Dose: 100 mg Sodium Chloride () 5 - 15 ml IV UD PRN PRN Reason: SALINE FLUSH Last Admin: 01/13/19 13:53 Dose: 10 ml Medical Necessity - Tobacco Use Smoking Status: Never smoker Assessment/Plan All Active Problems Community acquired pneumonia (Acute) Acute respiratory failure with hypoxia (Acute) Problem with dialysis access (Acute) ESRD (end stage renal disease) on dialysis (Acute) MRSA bacteremia (Acute) Anemia (Acute) Nausea (Acute) Transaminitis (Acute) HTN (hypertension) (Acute) Hematemesis/vomiting blood (Acute) Anemia due to blood loss, acute (Acute) Hemorrhagic shock (Acute) Decubitus ulcer (Acute) Physical deconditioning (Acute) ARDS (adult respiratory distress syndrome) (Resolved) H1N1 influenza with pneumonia (Resolved) 1. Acute hypoxic respiratory failure/right AV fistula infection and thrombosed pseudoaneurysm -continue with duo nebs as needed and continue with on oxygen -ID does not feel that there is no pneumonia present -Blood cultures with MRSA, will continue to obtain blood cultures to obtain clearance, continue with vancomycin -Status post resection of his upper extremity fistula and washout postop day 1 2. 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 -He has obtained multiple blood transfusions in the past so there is some concern for him becoming a more difficult match both for blood transfusions as well as renal transplant in the future. He states that he did receive a shot of Epogen last week, will discuss with nephrology if they would want to repeat that while he is here or to just proceed with blood transfusion if necessary -Platelets are improving however he is slightly more anemic today with a hemoglobin of 7.7, will continue to monitor 3. Anxiety/depression -Stable -We will continue with Zoloft 4. Morbid obesity -BMI is 41.6 -Had extensive discussions for lifestyle modifications DVT: Ambulation Code Visit Inpatient E&M: 89720 Subs Hosp L2
--- NOTE | 2019-01-15 13:53 | PCM.RX.CS ---
Consult Pharmacy has been consulted to manage selected antiobiotic: Vancomycin Type of Consult: Follow-up Suspected Infection: Bacteremia Prior Doses of Antibiotics Received/Current Regimen: Vancomycin 2000mg IV x1 on 01/14/19 at 0037, Vancomycin 1000mg IV x1 on 01/15/19 at 0100 (post dialysis) Labs: Sodium 130 mmol/L (136-145) L 01/15/19 05:05 Potassium 3.5 mmol/L (3.5-5.1) 01/15/19 05:05 Chloride 89 mmol/L (98-107) L 01/15/19 05:05 Carbon Dioxide 26.0 mmol/L (21.0-32.0) 01/15/19 05:05 Anion Gap 15 (5-15) 01/15/19 05:05 BUN 94 mg/dL (7-18) H 01/15/19 05:05 Creatinine 16.40 mg/dL (0.70-1.30) H* 01/15/19 05:05 Est GFR (MDRD) Af Amer 4 mL/min (>60) L 01/15/19 05:05 Est GFR (MDRD) Non-Af 4 mL/min (>60) L 01/15/19 05:05 BUN/Creatinine Ratio 5.7 RATIO (10-20) L 01/15/19 05:05 Glucose 122 mg/dL (74-106) H 01/15/19 05:05 Microbiology: Microbiology 01/14/19 19:05 Tissue - Other Gram Stain - Final 01/14/19 19:05 Tissue - Other Wound Culture - Preliminary Staphylococcus aureus 01/13/19 11:00 Blood Culture (Wb) - Anticubital Left Blood Culture - Final Staphylococcus aureus 01/13/19 10:15 Blood Culture (Wb) - Anticubital Left Bacteria Detection (PCR) - Final Staphylococcus aureus 01/13/19 10:15 Blood Culture (Wb) - Anticubital Left Blood Culture - Final Meth. resistant Staph. aureus 01/14/19 09:30 Blood Culture (Wb) - Left Hand Blood Culture - Preliminary Weight used for dosin kg Estimated Creatinine Clearance: 16ml/min Goal Trough: 15-20 mcg/mL Pharmacy Plan for Drug Dosing: Pt is receiving HD 6 days a week. He will get a Vancomycin random level every day. Pt's dose will be determined off the daily random level. Vancomycin will be dosed and administered only on the days he receives dialysis. Pharmacy Service will continue to monitor and adjust dosing as required. Follow-Up Labs: Trough Vancomycin - daily random level
--- NOTE | 2019-01-15 13:54 | NURSING ---
Called and talked with Dr Aranda. plan to continue NS wet to dry dressings to the right forearm TID through the weekend with possible wound VAC placement on Friday. Patient and mother aware. dressing changed at this time. see wound assessment and wound photo.
--- NOTE | 2019-01-15 14:01 | PHA.PHARE_ITS ---
Addendum entered and electronically signed by Vitaly Duncan [facility] 01/15/19 16:45: Pt's random level on 01/15/19 resulted in 20.8. Per policy he will not be getting a dose until the level drops below 20. Another random level will be checked 01/16/19 at 0600. If pt has dialysis on 01/16/19 and level is below 20, pt will be re-dosed. Original Note: Consult Pharmacy has been consulted to manage selected antiobiotic: Vancomycin Type of Consult: Follow-up Suspected Infection: Bacteremia Prior Doses of Antibiotics Received/Current Regimen: Vancomycin 2000mg IV x1 on 01/14/19 at 0037, Vancomycin 1000mg IV x1 on 01/15/19 at 0100 (post dialysis) Labs: Sodium 130 mmol/L (136-145) L 01/15/19 05:05 Potassium 3.5 mmol/L (3.5-5.1) 01/15/19 05:05 Chloride 89 mmol/L (98-107) L 01/15/19 05:05 Carbon Dioxide 26.0 mmol/L (21.0-32.0) 01/15/19 05:05 Anion Gap 15 (5-15) 01/15/19 05:05 BUN 94 mg/dL (7-18) H 01/15/19 05:05 Creatinine 16.40 mg/dL (0.70-1.30) H* 01/15/19 05:05 Est GFR (MDRD) Af Amer 4 mL/min (>60) L 01/15/19 05:05 Est GFR (MDRD) Non-Af 4 mL/min (>60) L 01/15/19 05:05 BUN/Creatinine Ratio 5.7 RATIO (10-20) L 01/15/19 05:05 Glucose 122 mg/dL (74-106) H 01/15/19 05:05 Microbiology: Microbiology 01/14/19 19:05 Tissue - Other Gram Stain - Final 01/14/19 19:05 Tissue - Other Wound Culture - Preliminary Staphylococcus aureus 01/13/19 11:00 Blood Culture (Wb) - Anticubital Left Blood Culture - Final Staphylococcus aureus 01/13/19 10:15 Blood Culture (Wb) - Anticubital Left Bacteria Detection (PCR) - Final Staphylococcus aureus 01/13/19 10:15 Blood Culture (Wb) - Anticubital Left Blood Culture - Final Meth. resistant Staph. aureus 01/14/19 09:30 Blood Culture (Wb) - Left Hand Blood Culture - Preliminary Weight used for dosin kg Estimated Creatinine Clearance: 16ml/min Goal Trough: 15-20 mcg/mL Pharmacy Plan for Drug Dosing: Pt is receiving HD 6 days a week. He will get a Vancomycin random level every day. Pt's dose will be determined off the daily random level. Vancomycin will be dosed and administered only on the days he receives dialysis. Pharmacy Service will continue to monitor and adjust dosing as required. Follow-Up Labs: Trough Vancomycin - daily random level
--- NOTE | 2019-01-15 14:04 | NURSING ---
wound photo: right forearm
[2019-01-15 16:24] LABS: Vancomycin, Random Level 20.8 ug/mL (0.0-15.0)
[2019-01-15] MEDS: HYDROcodone Bitartrate/Apap 5/325 Tablet PO ×2 (18:18→23:51)
[2019-01-15] MEDS: cycloBENZAPRine HCl 10 MG Tablet PO (18:18)
--- NOTE | 2019-01-15 20:15 | NURSING ---
Patient's aunt requested physical therapy. Charge nurse, Makenna, and this RN said we would pass that along for the morning shift and try to get an order. Patient spoke up and said he does NOT want physical therapy. He is open to getting up with assistance tonight to the bedside and ambulation around the room.
[2019-01-16] VITALS (16 sets, daily range): BP systolic 130–159; BP diastolic 72–86; PULSE 83–94; RESP 16–24; TEMP 36.7–37.6; O2SAT 91–97
[2019-01-16] MEDS: Ipratropium/Albuterol Sulfate 3 ML AMPUL.NEB INHALATION ×4 (06:47→19:22)
[2019-01-16] MEDS: Acetaminophen 325 MG Tablet 650 MG PO ×2 (06:49→15:08)
--- NOTE | 2019-01-16 07:13 | PCM.PN.SRG ---
Patient Problems: Active and Suspected Problems Community acquired pneumonia (Acute) Acute respiratory failure with hypoxia (Acute) Problem with dialysis access (Acute) ESRD (end stage renal disease) on dialysis (Acute) MRSA bacteremia (Acute) Subjective: Pt without complaint except for very sore bottom - Physical Exam Lungs: - - catheter site clean and dry Extremities: - - narda wrap Vital Signs Temp Pulse Resp BP Pulse Ox 99.6 F H 83 24 H 130/82 H 92 01/16/19 04:44 01/16/19 04:44 01/16/19 04:44 01/16/19 04:44 01/16/19 04:44 Oxygen Flow Rate (L/min) 1.5 Oxygen Delivery Method Nasal Cannula Weight: 328 lb 11.347 oz Body Mass Index (BMI) 43.3 Intake and Output for Last 24 Hours 01/14/19 01/15/19 01/16/19 23:59 23:59 23:59 Intake Total 1685 / 1685 1773 / 1773 300 / 300 Output Total 4700 / 4700 Balance 1685 / 1685 -2927 / -2927 300 / 300 Microbiology Past 72 Hours 01/14/19 19:05 Gram Stain - Final Tissue - Other Wound Culture - Final Meth. resistant Staph. aureus 01/13/19 11:00 Blood Culture - Final Blood Culture (Wb) - Anticubital Left Staphylococcus aureus 01/13/19 10:15 Bacteria Detection (PCR) - Final Blood Culture (Wb) - Anticubital Left Staphylococcus aureus Blood Culture - Final Meth. resistant Staph. aureus 01/14/19 09:30 Blood Culture - Preliminary Blood Culture (Wb) - Left Hand Laboratory Tests Past 24 Hrs 01/15/19 15:40 Random Vancomycin 20.8 H Medical Necessity - Tobacco Use Smoking Status: Never smoker Assessment/Plan All Active Problems Community acquired pneumonia (Acute) Acute respiratory failure with hypoxia (Acute) Problem with dialysis access (Acute) ESRD (end stage renal disease) on dialysis (Acute) MRSA bacteremia (Acute) Anemia (Acute) Nausea (Acute) Transaminitis (Acute) HTN (hypertension) (Acute) Hematemesis/vomiting blood (Acute) Anemia due to blood loss, acute (Acute) Hemorrhagic shock (Acute) Decubitus ulcer (Acute) Physical deconditioning (Acute) ARDS (adult respiratory distress syndrome) (Resolved) H1N1 influenza with pneumonia (Resolved) wet to dry dressing changes right forearm wound vac on Friday Future right upper arm transposed cephalic vein to brachial artery AV fistula
[2019-01-16 08:04] LABS: Absolute Neutrophil Count 7.7 X10^3/uL (2.0-7.7); Basophil# 0.03 X10^3/uL; Basophil% 0.3 % (0-1); Eosinophil# 0.31 X10^3/uL; Eosinophils% 3.1 % (0-5); Hematocrit 24.3 % (40-54); Mean Corp Hgb Conc 32.9 g/gl (32-36); Mean Corpuscular Hgb 30.9 pg (27.0-32.0); Mean Corpuscular Volume 93.8 fL (80-94); Mean Platelet Vol. 10.3 fl (6.2-12.0); Monocyte# 1.14 X10^3/uL; Monocyte% 11.4 % (0-10); Neutrophil # 7.67 X10^3/uL (2.7-7.7); Neutrophil % 76.7 % (47-70); Platelet Count 207 K/mm3 (150-450); RBC Distribution Width CV 13.8 % (11.6-14.6); RBC Distribution Width SD 47.3 fl (35.1-43.9); Red Blood Count 2.59 M/mm3 (4.6-6.2)
[2019-01-16 08:08] LABS: POSITIVE COUNT NO; POSITIVE DIFFERENTIAL NO; POSITIVE MORPHOLOGY NO
[2019-01-16 08:17] LABS: Vancomycin, Random Level 20.3 ug/mL (0.0-15.0)
--- NOTE | 2019-01-16 08:32 | PCM.PN.HOSP ---
Patient Problems: Active and Suspected Problems Community acquired pneumonia (Acute) Acute respiratory failure with hypoxia (Acute) Problem with dialysis access (Acute) ESRD (end stage renal disease) on dialysis (Acute) MRSA bacteremia (Acute) Subjective: Doing well today. Has a little bit of pain in his right arm but otherwise tolerable. No shortness of breath or dizziness. No chest pain. Vitals/I&O's: Vital Signs Temp Pulse Resp BP Pulse Ox 98.0 F 92 18 137/81 H 96 01/16/19 07:45 01/16/19 08:09 01/16/19 07:45 01/16/19 07:45 01/16/19 07:45 Oxygen Flow Rate (L/min) 3 Oxygen Delivery Method Nasal Cannula Weight: 328 lb 11.347 oz Body Mass Index (BMI) 43.3 Intake and Output for Last 24 Hours 01/14/19 01/15/19 01/16/19 23:59 23:59 23:59 Intake Total 1685 / 1685 1773 / 1773 300 / 300 Output Total 4700 / 4700 Balance 1685 / 1685 -2927 / -2927 300 / 300 General: Alert, Oriented x3, Cooperative, No apparent distress HEENT: Atraumatic, PERRLA, EOMI, Normocephalic Oral: Moist Mucosa Neck: Supple, No JVD Lungs: Clear to auscultation, Normal air movement, No rhonchi, No wheeze, No rales Cardiovascular: Regular rate, Regular Rhythm, Normal S1, Normal S2, No murmurs Abdomen: Soft, Non Tender, Non-Distended, No Hepato-splenomegaly, Obese Extremities: No edema, Capillary Refill Less than 3 Seconds Skin: No breakdown, surgical dressing in place clean dry and intact, left subclavian tunneled catheter for dialysis Neurological: Neuro grossly intact, Sensory exam intact to light touch and pain Psych/Mental Status: Normal Affect, Appropriate Microbiology Past 72 Hours 01/14/19 09:30 Blood Culture (Wb) - Left Hand Blood Culture - Preliminary Staphylococcus aureus 01/14/19 19:05 Tissue - Other Gram Stain - Final 01/14/19 19:05 Tissue - Other Wound Culture - Final Meth. resistant Staph. aureus 01/13/19 11:00 Blood Culture (Wb) - Anticubital Left Blood Culture - Final Staphylococcus aureus 01/13/19 10:15 Blood Culture (Wb) - Anticubital Left Bacteria Detection (PCR) - Final Staphylococcus aureus 01/13/19 10:15 Blood Culture (Wb) - Anticubital Left Blood Culture - Final Meth. resistant Staph. aureus Laboratory Results 01/15/19 15:40: Random Vancomycin 20.8 H 01/16/19 07:00: Random Vancomycin 20.3 H 01/16/19 07:00: WBC 10.0, RBC 2.59 L, Hgb 8.0 L, Hct 24.3 L, MCV 93.8, MCH 30.9, MCHC 32.9, RDW 13.8, RDW Differential 47.3 H, Plt Count 207, MPV 10.3, Immature Gran % (Auto) 1.500 H, Neut % (Auto) 76.7 H, Lymph % (Auto) 7.0 L, [place] % (Auto) 11.4 H, Eos % (Auto) 3.1, Baso % (Auto) 0.3, Absolute Neuts (auto) 7.7, Absolute Lymphs (auto) 0.70 L, Total Counted Not Reportable 01/16/19 07:00: Sodium Pending, Potassium Pending, Chloride Pending, Carbon Dioxide Pending, Anion Gap Pending, BUN Pending, Creatinine Pending, Est GFR (MDRD) Af Amer Pending, Est GFR (MDRD) Non-Af Pending, BUN/Creatinine Ratio Pending, Glucose Pending, Calcium Pending Current Medications Acetaminophen (Tylenol) 650 mg PO Q6H PRN PRN PRN Reason: pain or fever Last Admin: 01/16/19 06:49 Dose: 650 mg Hydrocodone Bitart/Acetaminophen ([place] 5mg-325mg) 1 tablet PO Q4H PRN PRN PRN Reason: PAIN Last Admin: 01/15/19 23:51 Dose: 1 tablet Albuterol/Ipratropium (Duoneb) 3 ml INHALATION Q4HWA.RT CATHI Last Admin: 01/16/19 06:47 Dose: 3 ml Carvedilol (Coreg) 12.5 mg PO QHS [facility] Last Admin: 01/15/19 23:49 Dose: 12.5 mg Cinacalcet (Sensipar) 90 mg PO QHS [facility] Last Admin: 01/15/19 23:50 Dose: 90 mg Cyclobenzaprine HCl (Flexeril) 10 mg PO TID PRN PRN PRN Reason: MUSCLE SPASMS Last Admin: 01/15/19 18:18 Dose: 10 mg Guaifenesin (Mucinex) 1,200 mg PO BID [facility] Last Admin: 01/15/19 23:49 Dose: 1,200 mg Hydromorphone HCl (Dilaudid Inj) 0.5 mg IV Q3H PRN PRN PRN Reason: SEVERE PAIN (6-10/10) Vancomycin IV Pharmacy to Dose (1 ea/ Sodium Chloride) 500 mls @ 250 mls/hr IV X1 PRN; Protocol PRN Reason: Rx to Dose Isosorbide Mononitrate (Imdur) 30 mg PO QHS [facility] Last Admin: 01/15/19 23:49 Dose: 30 mg Ondansetron HCl (Zofran) 4 mg IV Q8H PRN PRN PRN Reason: NAUSEA/VOMITING Pantoprazole Sodium (Protonix) 40 mg PO DAILY [facility] Sertraline HCl (Zoloft) 100 mg PO QHS [facility] Last Admin: 01/15/19 23:50 Dose: 100 mg Sodium Chloride () 5 - 15 ml IV UD PRN PRN Reason: SALINE FLUSH Last Admin: 01/13/19 13:53 Dose: 10 ml Sodium Chloride ([place] Nasal [place]) 1 spray NASAL BID PRN PRN PRN Reason: NASAL DRYNESS Medical Necessity - Tobacco Use Smoking Status: Never smoker Assessment/Plan All Active Problems Community acquired pneumonia (Acute) Acute respiratory failure with hypoxia (Acute) Problem with dialysis access (Acute) ESRD (end stage renal disease) on dialysis (Acute) MRSA bacteremia (Acute) Anemia (Acute) Nausea (Acute) Transaminitis (Acute) HTN (hypertension) (Acute) Hematemesis/vomiting blood (Acute) Anemia due to blood loss, acute (Acute) Hemorrhagic shock (Acute) Decubitus ulcer (Acute) Physical deconditioning (Acute) ARDS (adult respiratory distress syndrome) (Resolved) H1N1 influenza with pneumonia (Resolved) 1. Acute hypoxic respiratory failure/right AV fistula infection and thrombosed pseudoaneurysm -continue with duo nebs as needed and continue with on oxygen -ID does not feel that there is no pneumonia present -Blood cultures with MRSA, will continue to obtain blood cultures to obtain clearance, continue with vancomycin -Status post resection of his upper extremity fistula and washout 2. 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 Anxiety/depression -Stable -We will continue with Zoloft 4. Morbid obesity -BMI is 41.6 -Had extensive discussions for lifestyle modifications DVT: Ambulation Code Visit Inpatient E&M: 88652 Subs Hosp L2
--- NOTE | 2019-01-16 08:36 | PN_ITS ---
Patient Problems: Active and Suspected Problems Community acquired pneumonia (Acute) Acute respiratory failure with hypoxia (Acute) Problem with dialysis access (Acute) ESRD (end stage renal disease) on dialysis (Acute) MRSA bacteremia (Acute) Subjective: Doing well today. Has a little bit of pain in his right arm but otherwise tolerable. No shortness of breath or dizziness. No chest pain. Vitals/I&O's: Vital Signs Temp Pulse Resp BP Pulse Ox 98.0 F 92 18 137/81 H 96 01/16/19 07:45 01/16/19 08:09 01/16/19 07:45 01/16/19 07:45 01/16/19 07:45 Oxygen Flow Rate (L/min) 3 Oxygen Delivery Method Nasal Cannula Weight: 328 lb 11.347 oz Body Mass Index (BMI) 43.3 Intake and Output for Last 24 Hours 01/14/19 01/15/19 01/16/19 23:59 23:59 23:59 Intake Total 1685 / 1685 1773 / 1773 300 / 300 Output Total 4700 / 4700 Balance 1685 / 1685 -2927 / -2927 300 / 300 General: Alert, Oriented x3, Cooperative, No apparent distress HEENT: Atraumatic, PERRLA, EOMI, Normocephalic Oral: Moist Mucosa Neck: Supple, No JVD Lungs: Clear to auscultation, Normal air movement, No rhonchi, No wheeze, No rales Cardiovascular: Regular rate, Regular Rhythm, Normal S1, Normal S2, No murmurs Abdomen: Soft, Non Tender, Non-Distended, No Hepato-splenomegaly, Obese Extremities: No edema, Capillary Refill Less than 3 Seconds Skin: No breakdown, surgical dressing in place clean dry and intact, left subclavian tunneled catheter for dialysis Neurological: Neuro grossly intact, Sensory exam intact to light touch and pain Psych/Mental Status: Normal Affect, Appropriate Microbiology Past 72 Hours 01/14/19 09:30 Blood Culture (Wb) - Left Hand Blood Culture - Preliminary Staphylococcus aureus 01/14/19 19:05 Tissue - Other Gram Stain - Final 01/14/19 19:05 Tissue - Other Wound Culture - Final Meth. resistant Staph. aureus 01/13/19 11:00 Blood Culture (Wb) - Anticubital Left Blood Culture - Final Staphylococcus aureus 01/13/19 10:15 Blood Culture (Wb) - Anticubital Left Bacteria Detection (PCR) - Final Staphylococcus aureus 01/13/19 10:15 Blood Culture (Wb) - Anticubital Left Blood Culture - Final Meth. resistant Staph. aureus Laboratory Results 01/15/19 15:40: Random Vancomycin 20.8 H 01/16/19 07:00: Random Vancomycin 20.3 H 01/16/19 07:00: WBC 10.0, RBC 2.59 L, Hgb 8.0 L, Hct 24.3 L, MCV 93.8, MCH 30.9, MCHC 32.9, RDW 13.8, RDW Differential 47.3 H, Plt Count 207, MPV 10.3, Immature Gran % (Auto) 1.500 H, Neut % (Auto) 76.7 H, Lymph % (Auto) 7.0 L, [place] % (Auto) 11.4 H, Eos % (Auto) 3.1, Baso % (Auto) 0.3, Absolute Neuts (auto) 7.7, Absolute Lymphs (auto) 0.70 L, Total Counted Not Reportable 01/16/19 07:00: Sodium Pending, Potassium Pending, Chloride Pending, Carbon Dioxide Pending, Anion Gap Pending, BUN Pending, Creatinine Pending, Est GFR (MDRD) Af Amer Pending, Est GFR (MDRD) Non-Af Pending, BUN/Creatinine Ratio Pending, Glucose Pending, Calcium Pending Current Medications Acetaminophen (Tylenol) 650 mg PO Q6H PRN PRN PRN Reason: pain or fever Last Admin: 01/16/19 06:49 Dose: 650 mg Hydrocodone Bitart/Acetaminophen ([place] 5mg-325mg) 1 tablet PO Q4H PRN PRN PRN Reason: PAIN Last Admin: 01/15/19 23:51 Dose: 1 tablet Albuterol/Ipratropium (Duoneb) 3 ml INHALATION Q4HWA.RT [facility] Last Admin: 01/16/19 06:47 Dose: 3 ml Carvedilol (Coreg) 12.5 mg PO QHS [facility] Last Admin: 01/15/19 23:49 Dose: 12.5 mg Cinacalcet (Sensipar) 90 mg PO QHS [facility] Last Admin: 01/15/19 23:50 Dose: 90 mg Cyclobenzaprine HCl (Flexeril) 10 mg PO TID PRN PRN PRN Reason: MUSCLE SPASMS Last Admin: 01/15/19 18:18 Dose: 10 mg Guaifenesin (Mucinex) 1,200 mg PO BID COUNT INCLUDES THE [facility] Last Admin: 01/15/19 23:49 Dose: 1,200 mg Hydromorphone HCl (Dilaudid Inj) 0.5 mg IV Q3H PRN PRN PRN Reason: SEVERE PAIN (6-10/10) Vancomycin IV Pharmacy to Dose (1 ea/ Sodium Chloride) 500 mls @ 250 mls/hr IV X1 PRN; Protocol PRN Reason: Rx to Dose Isosorbide Mononitrate (Imdur) 30 mg PO QHS COUNT INCLUDES THE [facility] Last Admin: 01/15/19 23:49 Dose: 30 mg Ondansetron HCl (Zofran) 4 mg IV Q8H PRN PRN PRN Reason: NAUSEA/VOMITING Pantoprazole Sodium (Protonix) 40 mg PO DAILY COUNT INCLUDES THE [facility] Sertraline HCl (Zoloft) 100 mg PO QHS COUNT INCLUDES THE [facility] Last Admin: 01/15/19 23:50 Dose: 100 mg Sodium Chloride () 5 - 15 ml IV UD PRN PRN Reason: SALINE FLUSH Last Admin: 01/13/19 13:53 Dose: 10 ml Sodium Chloride ([place] Nasal [place]) 1 spray NASAL BID PRN PRN PRN Reason: NASAL DRYNESS Medical Necessity - Tobacco Use Smoking Status: Never smoker Assessment/Plan All Active Problems Community acquired pneumonia (Acute) Acute respiratory failure with hypoxia (Acute) Problem with dialysis access (Acute) ESRD (end stage renal disease) on dialysis (Acute) MRSA bacteremia (Acute) Anemia (Acute) Nausea (Acute) Transaminitis (Acute) HTN (hypertension) (Acute) Hematemesis/vomiting blood (Acute) Anemia due to blood loss, acute (Acute) Hemorrhagic shock (Acute) Decubitus ulcer (Acute) Physical deconditioning (Acute) ARDS (adult respiratory distress syndrome) (Resolved) H1N1 influenza with pneumonia (Resolved) 1. Acute hypoxic respiratory failure/right AV fistula infection and thrombosed pseudoaneurysm -continue with duo nebs as needed and continue with on oxygen -ID does not feel that there is no pneumonia present -Blood cultures with MRSA, will continue to obtain blood cultures to obtain clearance, continue with vancomycin -Status post resection of his upper extremity fistula and washout 2. 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 Anxiety/depression -Stable -We will continue with Zoloft 4. Morbid obesity -BMI is 41.6 -Had extensive discussions for lifestyle modifications DVT: Ambulation Code Visit Inpatient E&M: 18957 Subs Hosp L2
[2019-01-16 08:50] LABS: Anion Gap 13 (5-15); BUN 77 mg/dL (7-18); Calcium,Total 7.7 mg/dL (8.5-10.1); Chloride 93 mmol/L (98-107); EST Glomerular Filtration Rate 5 mL/min (>60); Est Glom Filt Rate - Afr Amer 6 mL/min (>60); Estimated Creatinine Clearance 8.93 ml/min; Glucose 104 mg/dL (74-106); Potassium 3.7 mmol/L (3.5-5.1); Sodium Level 132 mmol/L (136-145)
[2019-01-16] MEDS: guaiFENesin 1,200 MG Tablet 1200 MG PO (10:01)
[2019-01-16] MEDS: Pantoprazole Sodium 40 MG Tablet PO (10:01)
--- NOTE | 2019-01-16 19:56 | PCM.PN.REN ---
Patient Problems: Active and Suspected Problems Community acquired pneumonia (Acute) Acute respiratory failure with hypoxia (Acute) Problem with dialysis access (Acute) ESRD (end stage renal disease) on dialysis (Acute) MRSA bacteremia (Acute) Subjective: No complaints - Physical Exam General: Alert, Oriented x3 HEENT: Atraumatic Oral: Moist Mucosa Neck: Supple, No JVD Lungs: Clear to auscultation, Normal air movement, No rhonchi, No wheeze Cardiovascular: Regular rate, Regular Rhythm, Normal S1, Normal S2 Abdomen: Bowel Sounds Present, Non Tender, Non-Distended Extremities: No clubbing, No cyanosis, No edema Skin: No rashes Musculoskeletal: No Tenderness to Palpation of Joints or Extremities Lymphatic: No Cervical, Supraclavicular, or Inguinal Adenopathy Neurological: Cranial nerves II-XII grossly intact, Neuro grossly intact Psych/Mental Status: Normal Affect Vital Signs Temp Pulse Resp BP Pulse Ox 98.0 F 89 18 137/72 H 96 01/16/19 14:00 01/16/19 16:52 01/16/19 14:51 01/16/19 14:00 01/16/19 14:00 Oxygen Flow Rate (L/min) 2 Oxygen Delivery Method Nasal Cannula Weight: 149.1 kg Body Mass Index (BMI) 43.3 Intake and Output for Last 24 Hours 01/14/19 01/15/19 01/16/19 23:59 23:59 23:59 Intake Total 1685 / 1685 1773 / 1773 780 / 780 Output Total 4700 / 4700 Balance 1685 / 1685 -2927 / -2927 780 / 780 Microbiology Past 72 Hours 01/15/19 12:20 Blood Culture - Preliminary Blood Culture (Wb) - Left Hand 01/14/19 09:30 Blood Culture - Preliminary Blood Culture (Wb) - Left Hand No growth in 48 hours. 01/14/19 19:05 Gram Stain - Final Tissue - Other Wound Culture - Final Meth. resistant Staph. aureus 01/13/19 11:00 Blood Culture - Final Blood Culture (Wb) - Anticubital Left Staphylococcus aureus 01/13/19 10:15 Bacteria Detection (PCR) - Final Blood Culture (Wb) - Anticubital Left Staphylococcus aureus Blood Culture - Final Meth. resistant Staph. aureus Laboratory Tests Past 24 Hrs 01/16/19 01/16/19 01/16/19 07:00 07:00 07:00 WBC 10.0 RBC 2.59 L Hgb 8.0 L Hct 24.3 L MCV 93.8 MCH 30.9 MCHC 32.9 RDW 13.8 RDW Differential 47.3 H Plt Count 207 MPV 10.3 Immature Gran % (Auto) 1.500 H Neut % (Auto) 76.7 H Lymph % (Auto) 7.0 L [place] % (Auto) 11.4 H Eos % (Auto) 3.1 Baso % (Auto) 0.3 Absolute Neuts (auto) 7.7 Absolute Lymphs (auto) 0.70 L Total Counted Not Reportable Sodium 132 L Potassium 3.7 Chloride 93 L Carbon Dioxide 26.0 Anion Gap 13 BUN 77 H Creatinine 12.80 H* Estim Creat Clear Calc 8.93 Est GFR (MDRD) Af Amer 6 L Est GFR (MDRD) Non-Af 5 L BUN/Creatinine Ratio 6.0 L Glucose 104 Calcium 7.7 L Random Vancomycin 20.3 H Medical Necessity - Tobacco Use Smoking Status: Never smoker Assessment/Plan All Active Problems Community acquired pneumonia (Acute) Acute respiratory failure with hypoxia (Acute) Problem with dialysis access (Acute) ESRD (end stage renal disease) on dialysis (Acute) MRSA bacteremia (Acute) Anemia (Acute) Nausea (Acute) Transaminitis (Acute) HTN (hypertension) (Acute) Hematemesis/vomiting blood (Acute) Anemia due to blood loss, acute (Acute) Hemorrhagic shock (Acute) Decubitus ulcer (Acute) Physical deconditioning (Acute) ARDS (adult respiratory distress syndrome) (Resolved) H1N1 influenza with pneumonia (Resolved) ESRD.MWF. last HD [facility] 01/15 AV fistula infection MRSA bacteremia Status post ligation and excision of infected graft. Currently on vancomycin. Plan is to go in center hemodialysis for a while until he get trained with home hemo-dialysis. anemia. Epogen with dialysis today D/w patient
[2019-01-16] MEDS: HYDROcodone Bitartrate/Apap 5/325 Tablet PO (20:42)
[2019-01-16] MEDS: Isosorbide Mononitrate 30 MG Tablet PO (22:41)
[2019-01-16] MEDS: Carvedilol 12.5 MG Tablet PO (22:41)
[2019-01-16] MEDS: Cinacalcet HCl 30 MG Tablet 90 MG PO (22:41)
[2019-01-16] MEDS: Sertraline 100 MG Tablet PO (22:41)
[2019-01-17] VITALS (12 sets, daily range): BP systolic 128–143; BP diastolic 66–77; PULSE 76–88; RESP 16–18; TEMP 36.5–37.1; O2SAT 88–100
[2019-01-17] MEDS: Acetaminophen 325 MG Tablet 650 MG PO ×2 (02:51→17:29)
[2019-01-17] MEDS: HYDROcodone Bitartrate/Apap 5/325 Tablet PO ×2 (06:34→21:56)
[2019-01-17] MEDS: Ipratropium/Albuterol Sulfate 3 ML AMPUL.NEB INHALATION (06:49)
[2019-01-17 07:53] LABS: Vancomycin, Random Level 17.3 ug/mL (0.0-15.0)
[2019-01-17] MEDS: Pantoprazole Sodium 40 MG Tablet PO (10:04)
--- NOTE | 2019-01-17 11:24 | PCM.PN.HOSP ---
Patient Problems: Active and Suspected Problems Community acquired pneumonia (Acute) Acute respiratory failure with hypoxia (Acute) Problem with dialysis access (Acute) ESRD (end stage renal disease) on dialysis (Acute) MRSA bacteremia (Acute) Subjective: Feeling well today, less short of breath and is needing less oxygen. Arm pain is a little bit improved Vitals/I&O's: Vital Signs Temp Pulse Resp BP Pulse Ox 97.7 F L 78 18 133/68 H 97 01/17/19 10:01 01/17/19 10:01 01/17/19 10:01/17/19 10:01/17/19 10:01 Oxygen Flow Rate (L/min) 1 Oxygen Delivery Method Nasal Cannula Weight: 328 lb 11.347 oz Body Mass Index (BMI) 43.3 Intake and Output for Last 24 Hours 01/15/19 01/16/19 01/17/19 23:59 23:59 23:59 Intake Total 1773 / 1773 780 / 780 420 / 420 Output Total 4700 / 4700 Balance -2927 / -2927 780 / 780 420 / 420 General: Alert, Oriented x3, Cooperative, No apparent distress HEENT: Atraumatic, PERRLA, EOMI, Normocephalic Oral: Moist Mucosa Neck: Supple, No JVD Lungs: Clear to auscultation, Normal air movement, diminished, no rhonchi, No wheeze, No rales Cardiovascular: Regular rate, Regular Rhythm, Normal S1, Normal S2, No murmurs Abdomen: Soft, Non Tender, Non-Distended, No Hepato-splenomegaly, Obese Extremities: No edema, Capillary Refill Less than 3 Seconds Skin: No breakdown, surgical dressing in place clean dry and intact, left subclavian tunneled catheter for dialysis Neurological: Neuro grossly intact, Sensory exam intact to light touch and pain Psych/Mental Status: Normal Affect, Appropriate Microbiology Past 72 Hours 01/15/19 12:20 Blood Culture (Wb) - Left Hand Blood Culture - Preliminary Staphylococcus aureus 01/14/19 09:30 Blood Culture (Wb) - Left Hand Blood Culture - Preliminary No growth in 48 hours. 01/14/19 19:05 Tissue - Other Gram Stain - Final 01/14/19 19:05 Tissue - Other Wound Culture - Final Meth. resistant Staph. aureus 01/13/19 11:00 Blood Culture (Wb) - Anticubital Left Blood Culture - Final Staphylococcus aureus 01/13/19 10:15 Blood Culture (Wb) - Anticubital Left Bacteria Detection (PCR) - Final Staphylococcus aureus 01/13/19 10:15 Blood Culture (Wb) - Anticubital Left Blood Culture - Final Meth. resistant Staph. aureus Laboratory Results 01/17/19 06:02: Random Vancomycin 17.3 H Current Medications Acetaminophen (Tylenol) 650 mg PO Q6H PRN PRN PRN Reason: pain or fever Last Admin: 01/17/19 02:51 Dose: 650 mg Hydrocodone Bitart/Acetaminophen ([place] 5mg-325mg) 1 tablet PO Q4H PRN PRN PRN Reason: PAIN Last Admin: 01/17/19 06:34 Dose: 1 tablet Albuterol/Ipratropium (Duoneb) 3 ml INHALATION Q4HWA.RT [facility] Last Admin: 01/17/19 10:43 Dose: Not Given Carvedilol (Coreg) 12.5 mg PO QHS [facility] Last Admin: 01/16/19 22:41 Dose: 12.5 mg Cinacalcet (Sensipar) 90 mg PO QHS [facility] Last Admin: 01/16/19 22:41 Dose: 90 mg Cyclobenzaprine HCl (Flexeril) 10 mg PO TID PRN PRN PRN Reason: MUSCLE SPASMS Last Admin: 01/15/19 18:18 Dose: 10 mg Guaifenesin (Mucinex) 1,200 mg PO BID [facility] Last Admin: 01/17/19 10:04 Dose: Not Given Hydromorphone HCl (Dilaudid Inj) 0.5 mg IV Q3H PRN PRN PRN Reason: SEVERE PAIN (6-10/10) Vancomycin IV Pharmacy to Dose (1 ea/ Sodium Chloride) 500 mls @ 250 mls/hr IV X1 PRN; Protocol PRN Reason: Rx to Dose Isosorbide Mononitrate (Imdur) 30 mg PO QHS [facility] Last Admin: 01/16/19 22:41 Dose: 30 mg Ondansetron HCl (Zofran) 4 mg IV Q8H PRN PRN PRN Reason: NAUSEA/VOMITING Pantoprazole Sodium (Protonix) 40 mg PO DAILY [facility] Last Admin: 01/17/19 10:04 Dose: 40 mg Sertraline HCl (Zoloft) 100 mg PO QHS [facility] Last Admin: 01/16/19 22:41 Dose: 100 mg Sodium Chloride () 5 - 15 ml IV UD PRN PRN Reason: SALINE FLUSH Last Admin: 01/13/19 13:53 Dose: 10 ml Sodium Chloride ([place] Nasal [place]) 1 spray NASAL BID PRN PRN PRN Reason: NASAL DRYNESS Medical Necessity - Tobacco Use Smoking Status: Never smoker Assessment/Plan All Active Problems Community acquired pneumonia (Acute) Acute respiratory failure with hypoxia (Acute) Problem with dialysis access (Acute) ESRD (end stage renal disease) on dialysis (Acute) MRSA bacteremia (Acute) Anemia (Acute) Nausea (Acute) Transaminitis (Acute) HTN (hypertension) (Acute) Hematemesis/vomiting blood (Acute) Anemia due to blood loss, acute (Acute) Hemorrhagic shock (Acute) Decubitus ulcer (Acute) Physical deconditioning (Acute) ARDS (adult respiratory distress syndrome) (Resolved) H1N1 influenza with pneumonia (Resolved) 1. Acute hypoxic respiratory failure/right AV fistula infection and thrombosed pseudoaneurysm -continue with duo nebs as needed and continue with on oxygen -ID does not feel that there is no pneumonia present -Blood cultures with MRSA, will continue to obtain blood cultures to obtain clearance, continue with vancomycin -Status post resection of his upper extremity fistula and washout, will need a wound VAC on Friday 2. 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 Anxiety/depression -Stable -We will continue with Zoloft 4. Morbid obesity -BMI is 41.6 -Had extensive discussions for lifestyle modifications DVT: Ambulation Code Visit Inpatient E&M: 21408 Subs Hosp L2
--- NOTE | 2019-01-17 17:25 | PCM.PN.REN ---
Patient Problems: Active and Suspected Problems Community acquired pneumonia (Acute) Acute respiratory failure with hypoxia (Acute) Problem with dialysis access (Acute) ESRD (end stage renal disease) on dialysis (Acute) MRSA bacteremia (Acute) Subjective: Pt is complaining of back pain. breathing is stable No nausea No vomiting - Physical Exam General: Alert, Oriented x3 HEENT: Atraumatic Oral: Moist Mucosa Neck: Supple, No JVD Lungs: No wheeze, No rales, Diminished Cardiovascular: Regular rate, Regular Rhythm, Normal S1, Normal S2 Abdomen: Bowel Sounds Present, Soft, Non Tender, Non-Distended Extremities: No clubbing, No cyanosis, No edema Skin: No rashes Musculoskeletal: No Tenderness to Palpation of Joints or Extremities Lymphatic: No Cervical, Supraclavicular, or Inguinal Adenopathy Neurological: Cranial nerves II-XII grossly intact, Neuro grossly intact Psych/Mental Status: Normal Affect Vital Signs Temp Pulse Resp BP Pulse Ox 97.7 F L 81 18 133/68 H 97 01/17/19 10:01 01/17/19 10:55 01/17/19 10:01 01/17/19 10:01 01/17/19 10:01 Oxygen Flow Rate (L/min) 1 Oxygen Delivery Method Nasal Cannula Weight: 149.1 kg Body Mass Index (BMI) 43.3 Intake and Output for Last 24 Hours 01/15/19 01/16/19 01/17/19 23:59 23:59 23:59 Intake Total 1773 / 1773 780 / 780 420 / 420 Output Total 4700 / 4700 Balance -2927 / -2927 780 / 780 420 / 420 Microbiology Past 72 Hours 01/15/19 12:20 Blood Culture - Preliminary Blood Culture (Wb) - Left Hand Staphylococcus aureus 01/14/19 09:30 Blood Culture - Preliminary Blood Culture (Wb) - Left Hand No growth in 48 hours. 01/14/19 19:05 Gram Stain - Final Tissue - Other Wound Culture - Final Meth. resistant Staph. aureus 01/13/19 11:00 Blood Culture - Final Blood Culture (Wb) - Anticubital Left Staphylococcus aureus 01/13/19 10:15 Bacteria Detection (PCR) - Final Blood Culture (Wb) - Anticubital Left Staphylococcus aureus Blood Culture - Final Meth. resistant Staph. aureus Laboratory Tests Past 24 Hrs 01/17/19 06:02 Random Vancomycin 17.3 H Medical Necessity - Tobacco Use Smoking Status: Never smoker Assessment/Plan All Active Problems Community acquired pneumonia (Acute) Acute respiratory failure with hypoxia (Acute) Problem with dialysis access (Acute) ESRD (end stage renal disease) on dialysis (Acute) MRSA bacteremia (Acute) Anemia (Acute) Nausea (Acute) Transaminitis (Acute) HTN (hypertension) (Acute) Hematemesis/vomiting blood (Acute) Anemia due to blood loss, acute (Acute) Hemorrhagic shock (Acute) Decubitus ulcer (Acute) Physical deconditioning (Acute) ARDS (adult respiratory distress syndrome) (Resolved) H1N1 influenza with pneumonia (Resolved) ESRD.MWF. last HD sessio 01/15. Will arrange for 2nd HD session tomorrow HD access is IJ tunneled cath Infected thrombosed RUE AVF pseudoaneurysm s/p excision. On IV vancomycin. Pt going to have wound vac tomorrow MRSA bacteremia. On vancomycin. follow BC anemia. Epogen with dialysis today HTN: BP is well controlled SHPT: continue sensipar D/w patient Renal team will continue to follow Please call if any question Nany De La Garza MD
--- NOTE | 2019-01-17 19:25 | CPS ---
pt refused aero tx -pt states it makes him shakey and thinks they are giving him nightmares
[2019-01-17] MEDS: Isosorbide Mononitrate 30 MG Tablet PO (21:57)
[2019-01-17] MEDS: Sertraline 100 MG Tablet PO (21:57)
[2019-01-17] MEDS: Carvedilol 12.5 MG Tablet PO (21:57)
[2019-01-17] MEDS: Cinacalcet HCl 30 MG Tablet 90 MG PO (21:57)
[2019-01-18] VITALS (8 sets, daily range): BP systolic 127–170; BP diastolic 70–87; PULSE 68–82; RESP 16–18; TEMP 36.6–37.6; O2SAT 95–98
[2019-01-18] MEDS: Acetaminophen 325 MG Tablet 650 MG PO ×3 (04:38→20:26)
[2019-01-18 07:01] LABS: Vancomycin, Random Level 15.6 ug/mL (0.0-15.0)
[2019-01-18 07:17] LABS: Hematocrit 23.6 % (40-54); Hemoglobin 7.7 g/dl (13.0-16.5); Mean Corp Hgb Conc 32.6 g/gl (32-36); Mean Corpuscular Hgb 31.6 pg (27.0-32.0); Mean Corpuscular Volume 96.7 fL (80-94); Mean Platelet Vol. 10.4 fl (6.2-12.0); Platelet Count 248 K/mm3 (150-450); RBC Distribution Width CV 13.3 % (11.6-14.6); RBC Distribution Width SD 43.9 fl (35.1-43.9); Red Blood Count 2.44 M/mm3 (4.6-6.2)
[2019-01-18 07:18] LABS: Differential Indicated MANUAL DIFF; POSITIVE COUNT YES; POSITIVE DIFFERENTIAL NO; POSITIVE MORPHOLOGY YES
[2019-01-18 07:24] LABS: Anion Gap 24 (5-15); BUN 126 mg/dL (7-18); BUN/Creat Ratio 6.9 RATIO (10-20); Calcium,Total 7.9 mg/dL (8.5-10.1); Chloride 92 mmol/L (98-107); EST Glomerular Filtration Rate 3 mL/min (>60); Est Glom Filt Rate - Afr Amer 4 mL/min (>60); Estimated Creatinine Clearance 6.28 ml/min; Glucose 107 mg/dL (74-106); Potassium 4.3 mmol/L (3.5-5.1); Sodium Level 133 mmol/L (136-145)
[2019-01-18] MEDS: HYDROcodone Bitartrate/Apap 5/325 Tablet PO (07:34)
--- NOTE | 2019-01-18 08:14 | PN.SURG_ITS ---
Patient Problems: Active and Suspected Problems Community acquired pneumonia (Acute) Acute respiratory failure with hypoxia (Acute) Problem with dialysis access (Acute) ESRD (end stage renal disease) on dialysis (Acute) MRSA bacteremia (Acute) Subjective: Patient evaluated sitting in the chair. He denies pain/discomfort at the right upper extremity wound site. Left chest catheter working well. No discomfort noted at the catheter site. - Physical Exam General: Alert, Oriented x3, Cooperative Skin: Ulcer/ Wound - Right forearm- open wound with clean healthy wound base. No active bleeding noted. Wound vac was being placed. Vital Signs Temp Pulse Resp BP Pulse Ox 97.9 F 76 16 127/70 H 95 01/18/19 04:34 01/18/19 04:34 01/18/19 04:34 01/18/19 04:34 01/18/19 06:50 Oxygen Flow Rate (L/min) 1 Oxygen Delivery Method Nasal Cannula Weight: 328 lb 11.347 oz Body Mass Index (BMI) 43.3 Intake and Output for Last 24 Hours 01/16/19 01/17/19 01/18/19 23:59 23:59 23:59 Intake Total 780 / 780 820 / 820 300 / 300 Balance 780 / 780 820 / 820 300 / 300 Microbiology Past 72 Hours 01/14/19 09:30 Blood Culture - Preliminary Blood Culture (Wb) - Left Hand Staphylococcus aureus 01/15/19 12:20 Blood Culture - Preliminary Blood Culture (Wb) - Left Hand Staphylococcus aureus 01/14/19 19:05 Gram Stain - Final Tissue - Other Wound Culture - Final Meth. resistant Staph. aureus 01/13/19 11:00 Blood Culture - Final Blood Culture (Wb) - Anticubital Left Staphylococcus aureus 01/13/19 10:15 Bacteria Detection (PCR) - Final Blood Culture (Wb) - Anticubital Left Staphylococcus aureus Blood Culture - Final Meth. resistant Staph. aureus Laboratory Tests Past 24 Hrs 01/18/19 01/18/19 01/18/19 05:56 05:56 05:56 WBC 11.0 RBC 2.44 L Hgb 7.7 L Hct 23.6 L MCV 96.7 H MCH 31.6 MCHC 32.6 RDW 13.3 RDW Differential 43.9 Plt Count 248 MPV 10.4 Neut % (Auto) Not Reportable Absolute Neuts (auto) Not Reportable Total Counted Pending Sodium 133 L Potassium 4.3 Chloride 92 L Carbon Dioxide 17.0 L Anion Gap 24 H BUN 126 H* Creatinine 18.20 H* Estim Creat Clear Calc 6.28 Est GFR (MDRD) Af Amer 4 L Est GFR (MDRD) Non-Af 3 L BUN/Creatinine Ratio 6.9 L Glucose 107 H Calcium 7.9 L Random Vancomycin 15.6 H Medical Necessity - Tobacco Use Smoking Status: Never smoker Assessment/Plan All Active Problems Community acquired pneumonia (Acute) Acute respiratory failure with hypoxia (Acute) Problem with dialysis access (Acute) ESRD (end stage renal disease) on dialysis (Acute) MRSA bacteremia (Acute) Anemia (Acute) Nausea (Acute) Transaminitis (Acute) HTN (hypertension) (Acute) Hematemesis/vomiting blood (Acute) Anemia due to blood loss, acute (Acute) Hemorrhagic shock (Acute) Decubitus ulcer (Acute) Physical deconditioning (Acute) ARDS (adult respiratory distress syndrome) (Resolved) H1N1 influenza with pneumonia (Resolved) I am following this patient in conjunction with Dr. Aranda. Impression: infected pseudoaneurysm. S/p I&D of right forearm. removal of infected vein. tied off right forearm fistula. Placement of left chest tunneled dialysis catheters. - Wound vac placement today - Left chest tunneled dialysis catheters working well - Plan for outpatient follow-up with Dr. Aranda for vein mapping and creation of right upper extremity AV fistula after complete healing of right forearm wound. - We will continue to monitor this patient Code Visit Inpatient E&M: 80195 [facility] Hosp L1 - No charge/Post-op
--- NOTE | 2019-01-18 08:19 | PCM.PN.HOSP ---
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 Patient was diagnosed with an infected pseudoaneurysm patient underwent debridement of abscess and resection of infected vein on 01/14/[address] Aranda. Patient also had placement of temporary left IJ dialysis catheter. Objective: GENERAL: cooperative HEENT: Atraumatic; EYES; Anicteric, Normal Conjunctiva NECK; supple, normal thyroid, RESPIRATORY: Diminished to auscultation CARDIOVASCULAR: Regular S1 S2, no audible murmurs GI: soft, non-tender, normoactive bowel sounds, : No Renal angle tenderness; EXTREMITIES: Wound VAC right forearm MUSCULOSKELETAL: No Joint Tenderness; NEURO: Awake; no lateralizing signs. SKIN: No Rash PSYCH; Normal affect Vitals/I&O's: Vital Signs Temp Pulse Resp BP Pulse Ox 97.9 F 76 16 127/70 H 95 01/18/19 04:34 01/18/19 04:34 01/18/19 04:34 01/18/19 04:34 01/18/19 06:50 Oxygen Flow Rate (L/min) 1 Oxygen Delivery Method Nasal Cannula Weight: 149.1 kg Body Mass Index (BMI) 43.3 Intake and Output for Last 24 Hours 01/16/19 01/17/19 01/18/19 23:59 23:59 23:59 Intake Total 780 / 780 820 / 820 300 / 300 Balance 780 / 780 820 / 820 300 / 300 Microbiology Past 72 Hours 01/14/19 09:30 Blood Culture (Wb) - Left Hand Blood Culture - Preliminary Staphylococcus aureus 01/15/19 12:20 Blood Culture (Wb) - Left Hand Blood Culture - Preliminary Staphylococcus aureus 01/14/19 19:05 Tissue - Other Gram Stain - Final 01/14/19 19:05 Tissue - Other Wound Culture - Final Meth. resistant Staph. aureus 01/13/19 11:00 Blood Culture (Wb) - Anticubital Left Blood Culture - Final Staphylococcus aureus 01/13/19 10:15 Blood Culture (Wb) - Anticubital Left Bacteria Detection (PCR) - Final Staphylococcus aureus 01/13/19 10:15 Blood Culture (Wb) - Anticubital Left Blood Culture - Final Meth. resistant Staph. aureus Laboratory Results 01/18/19 05:56: Random Vancomycin 15.6 H 01/18/19 05:56: WBC 11.0, RBC 2.44 L, Hgb 7.7 L, Hct 23.6 L, MCV 96.7 H, MCH 31.6, MCHC 32.6, RDW 13.3, RDW Differential 43.9, Plt Count 248, MPV 10.4, Neut % (Auto) Not Reportable, Absolute Neuts (auto) Not Reportable, Total Counted Pending 01/18/19 05:56: Sodium 133 L, Potassium 4.3, Chloride 92 L, Carbon Dioxide 17.0 L, Anion Gap 24 H, BUN 126 H*, Creatinine 18.20 H*, Estim Creat Clear Calc 6.28, Est GFR (MDRD) Af Amer 4 L, Est GFR (MDRD) Non-Af 3 L, BUN/Creatinine Ratio 6.9 L, Glucose 107 H, Calcium 7.9 L Current Medications Acetaminophen (Tylenol) 650 mg PO Q6H PRN PRN PRN Reason: pain or fever Last Admin: 01/18/19 04:38 Dose: 650 mg Hydrocodone Bitart/Acetaminophen (Switzer 5mg-325mg) 1 tablet PO Q4H PRN PRN PRN Reason: PAIN Last Admin: 01/18/19 07:34 Dose: 1 tablet Albuterol/Ipratropium (Duoneb) 3 ml INHALATION Q4HWA.RT [facility] Last Admin: 01/18/19 06:50 Dose: Not Given Carvedilol (Coreg) 12.5 mg PO QHS [facility] Last Admin: 01/17/19 21:57 Dose: 12.5 mg Cinacalcet (Sensipar) 90 mg PO QHS [facility] Last Admin: 01/17/19 21:57 Dose: 90 mg Cyclobenzaprine HCl (Flexeril) 10 mg PO TID PRN PRN PRN Reason: MUSCLE SPASMS Last Admin: 01/15/19 18:18 Dose: 10 mg Guaifenesin (Mucinex) 1,200 mg PO BID [facility] Last Admin: 01/17/19 22:01 Dose: Not Given Hydromorphone HCl (Dilaudid Inj) 0.5 mg IV Q3H PRN PRN PRN Reason: SEVERE PAIN (6-05/27) Vancomycin IV Pharmacy to Dose (1 ea/ Sodium Chloride) 500 mls @ 250 mls/hr IV X1 PRN; Protocol PRN Reason: Rx to Dose Isosorbide Mononitrate (Imdur) 30 mg PO QHS [facility] Last Admin: 01/17/19 21:57 Dose: 30 mg Ondansetron HCl (Zofran) 4 mg IV Q8H PRN PRN PRN Reason: NAUSEA/VOMITING Pantoprazole Sodium (Protonix) 40 mg PO DAILY [facility] Last Admin: 01/17/19 10:04 Dose: 40 mg Sertraline HCl (Zoloft) 100 mg PO QHS [facility] Last Admin: 01/17/19 21:57 Dose: 100 mg Sodium Chloride () 5 - 15 ml IV UD PRN PRN Reason: SALINE FLUSH Last Admin: 01/13/19 13:53 Dose: 10 ml Sodium Chloride (Leslie Nasal [place]) 1 spray NASAL BID PRN PRN PRN Reason: NASAL DRYNESS Medical Necessity - Tobacco Use Smoking Status: Never smoker Assessment/Plan All Active Problems Community acquired pneumonia (Acute) Acute respiratory failure with hypoxia (Acute) Problem with dialysis access (Acute) ESRD (end stage renal disease) on dialysis (Acute) MRSA bacteremia (Acute) Anemia (Acute) Nausea (Acute) Transaminitis (Acute) HTN (hypertension) (Acute) Hematemesis/vomiting blood (Acute) Anemia due to blood loss, acute (Acute) Hemorrhagic shock (Acute) Decubitus ulcer (Acute) Physical deconditioning (Acute) ARDS (adult respiratory distress syndrome) (Resolved) H1N1 influenza with pneumonia (Resolved) Patient is a 38-year-old gentleman with past medical history is none for 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 Patient was diagnosed with an infected pseudoaneurysm patient underwent debridement of abscess and resection of infected vein on 01/14/[address] Aranda. Patient also had placement of temporary left IJ dialysis catheter. 1. Sepsis secondary to an infected pseudoaneurysm with MRSA with subsequent bacteremia. Patient underwent debridement of abscess and resection of infected vein on 01/14/[address] Aranda ; he also had a ELYSIA which was negative for endocarditis. Patient has since been managed with vancomycin with repeat cultures ordered. Patient has also been seen in consultation by infectious disease 2. Acute hypoxic respiratory failure secondary to fluid overload from patient end-stage renal disease. Pneumonia was ruled out 3. 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 Patient is on dialysis for the past 5 years. He had a left IJ placed on 01/14/2019. Consult placed to nephrology for dialysis orders 4. Morbid obesity with BMI of 43.4 weight loss advised 5. Hypertension-blood pressure controlled, home medications continued with dose adjustment as needed 6. Anemia secondary to anemia of end-stage renal disease monitoring H&H with plans to transfuse if patient becomes symptomatic or hemoglobin falls below 7 7. Depression with anxiety patient is on Zoloft 8. Thrombocytopenia attributed to patient being septic on admission resolved 9. DVT prophylaxis did encourage early ambulation avoided the use of heparin and its related products due to patient being thrombocytopenic on admission Active Medications Acetaminophen (Tylenol) 650 mg PO Q6H PRN PRN PRN Reason: pain or fever Last Admin: 01/18/19 04:38 Dose: 650 mg Hydrocodone Bitart/Acetaminophen ([place] 5mg-325mg) 1 tablet PO Q4H PRN PRN PRN Reason: PAIN Last Admin: 01/18/19 07:34 Dose: 1 tablet Albuterol/Ipratropium (Duoneb) 3 ml INHALATION Q4HWA.RT [facility] Last Admin: 01/18/19 06:50 Dose: Not Given Carvedilol (Coreg) 12.5 mg PO QHS [facility] Last Admin: 01/17/19 21:57 Dose: 12.5 mg Cinacalcet (Sensipar) 90 mg PO QHS [facility] Last Admin: 01/17/19 21:57 Dose: 90 mg Cyclobenzaprine HCl (Flexeril) 10 mg PO TID PRN PRN PRN Reason: MUSCLE SPASMS Last Admin: 01/15/19 18:18 Dose: 10 mg Guaifenesin (Mucinex) 1,200 mg PO BID [facility] Last Admin: 01/17/19 22:01 Dose: Not Given Hydromorphone HCl (Dilaudid Inj) 0.5 mg IV Q3H PRN PRN PRN Reason: SEVERE PAIN (6-10/10) Vancomycin IV Pharmacy to Dose (1 ea/ Sodium Chloride) 500 mls @ 250 mls/hr IV X1 PRN; Protocol PRN Reason: Rx to Dose Isosorbide Mononitrate (Imdur) 30 mg PO QHS [facility] Last Admin: 01/17/19 21:57 Dose: 30 mg Ondansetron HCl (Zofran) 4 mg IV Q8H PRN PRN PRN Reason: NAUSEA/VOMITING Pantoprazole Sodium (Protonix) 40 mg PO DAILY [facility] Last Admin: 01/17/19 10:04 Dose: 40 mg Sertraline HCl (Zoloft) 100 mg PO QHS [facility] Last Admin: 01/17/19 21:57 Dose: 100 mg Sodium Chloride () 5 - 15 ml IV UD PRN PRN Reason: SALINE FLUSH Last Admin: 01/13/19 13:53 Dose: 10 ml Sodium Chloride (Leslie Nasal [place]) 1 spray NASAL BID PRN PRN PRN Reason: NASAL DRYNESS Code Visit Inpatient E&M: 37272 Subs Hosp L2
--- NOTE | 2019-01-18 08:33 | NURSING ---
Assessed the right forearm wound with DEMETRIUS Lundberg. no bleeding noted. tissues granulating well. wound VAC applied at 125mmHg low continuous suction. will discuss with Case Management to be sure home health is arranged for VAC changes at home. unsure of discharge date at this time.
--- NOTE | 2019-01-18 08:39 | NURSING ---
wound photo: right forearm
[2019-01-18 09:32] LABS: Blast 1 % (0-0); Lymphocyte 12 % (19-41); Metamyelocyte 3 % (0-1); Monocyte 1 % (0-10); Myelocyte 1 (0-0); Neutrophil-Segmented 81 % (47-70); Promyelocyte 1 (0-0); Total Cells Counted 100 (MANUAL DIFF)
[2019-01-18 09:33] LABS: Absolute Neutrophil Count 8.9 X10^3/uL (2.0-7.7); Platelet Estimate ADEQUATE (ADEQ); Red Cell Morphology NORM C+C NORMAL (NORM C&C)
--- NOTE | 2019-01-18 09:33 | PHA.PHARE_ITS ---
Consult Pharmacy has been consulted to manage selected antiobiotic: Vancomycin Type of Consult: Follow-up Suspected Infection: Bacteremia Prior Doses of Antibiotics Received/Current Regimen: Vancomycin 2000mg IV x1 on 01/14/19 at 0037, Vancomycin 1000mg IV x1 on 01/15/19 a t 0100 Labs: Sodium 133 mmol/L (136-145) L 01/18/19 05:56 Potassium 4.3 mmol/L (3.5-5.1) 01/18/19 05:56 Chloride 92 mmol/L (98-107) L 01/18/19 05:56 Carbon Dioxide 17.0 mmol/L (21.0-32.0) L 01/18/19 05:56 Anion Gap 24 (5-15) H 01/18/19 05:56 BUN 126 mg/dL (7-18) H* 01/18/19 05:56 Creatinine 18.20 mg/dL (0.70-1.30) H* 01/18/19 05:56 Est GFR (MDRD) Af Amer 4 mL/min (>60) L 01/18/19 05:56 Est GFR (MDRD) Non-Af 3 mL/min (>60) L 01/18/19 05:56 BUN/Creatinine Ratio 6.9 RATIO (10-20) L 01/18/19 05:56 Glucose 107 mg/dL (74-106) H 01/18/19 05:56 Random Vancomycin 15.6 ug/mL (0.0-15.0) H 01/18/19 05:56 Microbiology: Microbiology 01/14/19 09:30 Blood Culture (Wb) - Left Hand Blood Culture - Preliminary Staphylococcus aureus 01/15/19 12:20 Blood Culture (Wb) - Left Hand Blood Culture - Preliminary Staphylococcus aureus 01/14/19 19:05 Tissue - Other Gram Stain - Final 01/14/19 19:05 Tissue - Other Wound Culture - Final Meth. resistant Staph. aureus 01/13/19 11:00 Blood Culture (Wb) - Anticubital Left Blood Culture - Final Staphylococcus aureus 01/13/19 10:15 Blood Culture (Wb) - Anticubital Left Bacteria Detection (PCR) - Final Staphylococcus aureus 01/13/19 10:15 Blood Culture (Wb) - Anticubital Left Blood Culture - Final Meth. resistant Staph. aureus Weight used for dosin kg Estimated Creatinine Clearance: 10ml/min Goal Trough: 15-20 mcg/mL Pharmacy Plan for Drug Dosing: Pt received HD on Friday01/18/19. His pre-dialysis random Vancomycin level was 15.6. According to policy to will receive a 1 time dose of Vancomycin 500mg IV on 01/18/19 after dialysis is finished. Next dose will be after the next HD session (possibly Friday01/20/19). Pt will continue to receive daily Vancomycin random levels at 0600 in case HD sessions change. Pt will only be dosed on dialysis days after dialysis is finished. Pharmacy Service will continue to monitor and adjust dosing as required.
[2019-01-18 09:34] LABS: Absolute Lymphocyte Count 1.32 X10^3/ul (0.83-4.51); Lymphocyte # 1.32 X10^3/ul (4.0)
--- NOTE | 2019-01-18 11:50 | PCM.PN.REN ---
Patient Problems: Active and Suspected Problems Community acquired pneumonia (Acute) Acute respiratory failure with hypoxia (Acute) Problem with dialysis access (Acute) ESRD (end stage renal disease) on dialysis (Acute) MRSA bacteremia (Acute) Subjective: no new complaints - Physical Exam General: Alert, Oriented x3, Cooperative HEENT: Atraumatic, PERRLA, EOMI, Normocephalic Neck: Supple, No JVD, Negative Carotid Bruits Lungs: Clear to auscultation, Normal air movement Cardiovascular: Regular rate, No murmurs Abdomen: Bowel Sounds Present, Soft, Non Tender Extremities: No edema, Capillary Refill Less than 3 Seconds Skin: No rashes, No breakdown Musculoskeletal: No Tenderness to Palpation of Joints or Extremities Neurological: Cranial nerves II-XII grossly intact Psych/Mental Status: Normal Affect, Appropriate Vital Signs Temp Pulse Resp BP Pulse Ox 97.9 F 76 16 127/70 H 95 01/18/19 04:34 01/18/19 04:34 01/18/19 04:34 01/18/19 04:34 01/18/19 06:50 Oxygen Flow Rate (L/min) 1 Oxygen Delivery Method Nasal Cannula Weight: 149.1 kg Body Mass Index (BMI) 43.3 Intake and Output for Last 24 Hours 01/16/19 01/17/19 01/18/19 23:59 23:59 23:59 Intake Total 780 / 780 820 / 820 300 / 300 Balance 780 / 780 820 / 820 300 / 300 Microbiology Past 72 Hours 01/14/19 19:05 Gram Stain - Final Tissue - Other Wound Culture - Final Meth. resistant Staph. aureus Anaerobic Culture - Final No anaerobic bacteria isolated. 01/14/19 09:30 Blood Culture - Preliminary Blood Culture (Wb) - Left Hand Staphylococcus aureus 01/15/19 12:20 Blood Culture - Preliminary Blood Culture (Wb) - Left Hand Staphylococcus aureus 01/13/19 11:00 Blood Culture - Final Blood Culture (Wb) - Anticubital Left Staphylococcus aureus 01/13/19 10:15 Bacteria Detection (PCR) - Final Blood Culture (Wb) - Anticubital Left Staphylococcus aureus Blood Culture - Final Meth. resistant Staph. aureus Laboratory Tests Past 24 Hrs 01/18/19 01/18/19 01/18/19 05:56 05:56 05:56 WBC 11.0 RBC 2.44 L Hgb 7.7 L Hct 23.6 L MCV 96.7 H MCH 31.6 MCHC 32.6 RDW 13.3 RDW Differential 43.9 Plt Count 248 MPV 10.4 Neut % (Auto) Not Reportable Absolute Neuts (auto) 8.9 H Absolute Lymphs (auto) 1.32 Total Counted 100 Neutrophils % (Manual) 81 H Lymphocytes % (Manual) 12 L Monocytes % (Manual) 1 Metamyelocytes % 3 H Myelocytes % 1 H Promyelocytes % 1 H Blast Cells % 1 H* Diff Path Review May foll Platelet Estimate ADEQUATE RBC Morphology NORM C+C Sodium 133 L Potassium 4.3 Chloride 92 L Carbon Dioxide 17.0 L Anion Gap 24 H BUN 126 H* Creatinine 18.20 H* Estim Creat Clear Calc 6.28 Est GFR (MDRD) Af Amer 4 L Est GFR (MDRD) Non-Af 3 L BUN/Creatinine Ratio 6.9 L Glucose 107 H Calcium 7.9 L Random Vancomycin 15.6 H Medical Necessity - Tobacco Use Smoking Status: Never smoker Assessment/Plan All Active Problems Community acquired pneumonia (Acute) Acute respiratory failure with hypoxia (Acute) Problem with dialysis access (Acute) ESRD (end stage renal disease) on dialysis (Acute) MRSA bacteremia (Acute) Anemia (Acute) Nausea (Acute) Transaminitis (Acute) HTN (hypertension) (Acute) Hematemesis/vomiting blood (Acute) Anemia due to blood loss, acute (Acute) Hemorrhagic shock (Acute) Decubitus ulcer (Acute) Physical deconditioning (Acute) ARDS (adult respiratory distress syndrome) (Resolved) H1N1 influenza with pneumonia (Resolved) ESRD. Seen on dialysis today AV fistula infection MRSA bacteremia Status post ligation and excision of infected graft. Currently on vancomycin. Plan is to go in center hemodialysis for a while until he get trained with home hemo-dialysis. We will arrange for vancomycin with dialysis. Duration of antibiotics to be determined depending on culture data anemia. Epogen with dialysis today seen on HD today, see orders/ flowsheets waiting for negative cultures, from 6.1 still pending vanco 4-6 weeks as per ID
[2019-01-18] MEDS: Vancomycin IV 500 MG/100 ML BAG 100 MG IV (14:17)
[2019-01-18] MEDS: 0.9% NaCl Peripheral Flush Adult/Peds IV (14:17)
[2019-01-18] MEDS: Epoetin Alfa epbx 10,000 UNITS/ML 10000 UNIT IV (14:18)
[2019-01-18] MEDS: Pantoprazole Sodium 40 MG Tablet PO (14:18)
[2019-01-18] MEDS: guaiFENesin 1,200 MG Tablet 1200 MG PO ×2 (14:18→21:45)
[2019-01-18] MEDS: Heparin 10,000 UNITS/10 ML Vial IV (14:19)
[2019-01-18 15:30] LABS: Pathologist Review Reviewed
--- NOTE | 2019-01-18 15:39 | NURSING ---
Home VAC is approved and patient will get dressing changes per [facility]. Unsure of discharge date at this time. Next VAC change will be 01/20/19.
--- NOTE | 2019-01-18 15:57 | DIALYSIS ---
Hemodialysis x 4.5 hours completed at 1314. UF 2 liters. Unable to obtain UF goal of 3-4 liters as ordered due to the patient complaining of cramping. When returning the patients blood there was approximately 125 mL blood loss due to some clotting in the line. Patient tolerated dialysis well, except for the cramping. Stable vital signs post dialysis.
[2019-01-18] MEDS: cycloBENZAPRine HCl 10 MG Tablet PO (20:27)
--- NOTE | 2019-01-18 20:29 | NURSING ---
Flexeril pulled out of accudose at Meagan Fischer's request d/t pt being on isolation precautions.
[2019-01-18] MEDS: Isosorbide Mononitrate 30 MG Tablet PO (21:44)
[2019-01-18] MEDS: Carvedilol 12.5 MG Tablet PO (21:44)
[2019-01-18] MEDS: Sertraline 100 MG Tablet PO (21:45)
[2019-01-18] MEDS: Cinacalcet HCl 30 MG Tablet 90 MG PO (21:45)
[2019-01-19 03:15] VITALS: BP 132/77; PULSE 77; RESP 18; TEMP 36.8; O2SAT 95
[2019-01-19] MEDS: Acetaminophen 325 MG Tablet 650 MG PO (03:17)
[2019-01-19 06:35] LABS: Vancomycin, Random Level 17.2 ug/mL (0.0-15.0)
--- NOTE | 2019-01-19 07:57 | PN.SURG_ITS ---
Patient Problems: Active and Suspected Problems Community acquired pneumonia (Acute) Acute respiratory failure with hypoxia (Acute) Problem with dialysis access (Acute) ESRD (end stage renal disease) on dialysis (Acute) MRSA bacteremia (Acute) Subjective: Patient evaluated resting comfortably in the chair. He denies pain at the f orearm or at the chest catheter site. - Physical Exam General: Alert, Oriented x3, Cooperative Skin: Ulcer/ Wound - Wound vac intact, - - Left tunneled chest catheters in place. No active bleeding Vital Signs Temp Pulse Resp BP Pulse Ox 98.2 F 77 18 132/77 H 95 01/19/19 03:15 01/19/19 03:15 01/19/19 03:15 01/19/19 03:15 01/19/19 03:15 Oxygen Flow Rate (L/min) 1 Oxygen Delivery Method Bi-pap Weight: 328 lb 11.347 oz Body Mass Index (BMI) 43.3 Intake and Output for Last 24 Hours 01/17/19 01/18/19 01/19/19 23:59 23:59 23:59 Intake Total 820 / 820 420 / 420 120 / 120 Output Total 2500 / 2500 Balance 820 / 820 -2080 / -2080 120 / 120 Microbiology Past 72 Hours 01/16/19 11:32 Blood Culture - Preliminary Blood Culture (Wb) - Left Hand No growth in 48 hours. 01/14/19 19:05 Gram Stain - Final Tissue - Other Wound Culture - Final Meth. resistant Staph. aureus Anaerobic Culture - Final No anaerobic bacteria isolated. 01/14/19 09:30 Blood Culture - Preliminary Blood Culture (Wb) - Left Hand Staphylococcus aureus 01/15/19 12:20 Blood Culture - Preliminary Blood Culture (Wb) - Left Hand Staphylococcus aureus Laboratory Tests Past 24 Hrs 01/18/19 01/19/19 05:56 05:56 Absolute Neuts (auto) 8.9 H Absolute Lymphs (auto) 1.32 Total Counted 100 Neutrophils % (Manual) 81 H Lymphocytes % (Manual) 12 L Monocytes % (Manual) 1 Metamyelocytes % 3 H Myelocytes % 1 H Promyelocytes % 1 H Blast Cells % 1 H* Diff Path Review Reviewed Platelet Estimate ADEQUATE RBC Morphology NORM C+C Random Vancomycin 17.2 H Medical Necessity - Tobacco Use Smoking Status: Never smoker Assessment/Plan All Active Problems Community acquired pneumonia (Acute) Acute respiratory failure with hypoxia (Acute) Problem with dialysis access (Acute) ESRD (end stage renal disease) on dialysis (Acute) MRSA bacteremia (Acute) Anemia (Acute) Nausea (Acute) Transaminitis (Acute) HTN (hypertension) (Acute) Hematemesis/vomiting blood (Acute) Anemia due to blood loss, acute (Acute) Hemorrhagic shock (Acute) Decubitus ulcer (Acute) Physical deconditioning (Acute) ARDS (adult respiratory distress syndrome) (Resolved) H1N1 influenza with pneumonia (Resolved) I am following this patient in conjunction with Dr. Aranda. Impression: infected pseudoaneurysm. S/p I&D of right forearm. removal of infected vein. tied off right forearm fistula. Placement of left chest tunneled dialysis catheters. - Wound vac in place - Left chest tunneled dialysis catheters working well - Plan for outpatient follow-up with our office 1 week after discharge to schedule creation of right upper extremity AV fistula after complete healing of right forearm wound. - We will monitor this patient as needed Code Visit Inpatient E&M: 53369 [facility] Hosp L1 - No charge/Post-op
--- NOTE | 2019-01-19 08:48 | PCM.PN.HOSP ---
Patient Problems: Active and Suspected Problems Community acquired pneumonia (Acute) Acute respiratory failure with hypoxia (Acute) Problem with dialysis access (Acute) ESRD (end stage renal disease) on dialysis (Acute) MRSA bacteremia (Acute) Subjective: Patient seen had a relatively uneventful night. Blood cultures drawn on 01/16/2019 so far negative to date. Repeat blood cultures were ordered on 01/18/2019 final results pending. Objective: GENERAL: cooperative HEENT: Atraumatic; EYES; Anicteric, Normal Conjunctiva NECK; supple, normal thyroid, RESPIRATORY: Diminished to auscultation CARDIOVASCULAR: Regular S1 S2, no audible murmurs GI: soft, non-tender, normoactive bowel sounds, : No Renal angle tenderness; EXTREMITIES: Wound VAC right forearm MUSCULOSKELETAL: No Joint Tenderness; NEURO: Awake; no lateralizing signs. SKIN: No Rash PSYCH; Normal affect Vitals/I&O's: Vital Signs Temp Pulse Resp BP Pulse Ox 98.2 F 77 18 132/77 H 95 01/19/19 03:15 01/19/19 03:15 01/19/19 03:15 01/19/19 03:15 01/19/19 03:15 Oxygen Flow Rate (L/min) 1 Oxygen Delivery Method Bi-pap Weight: 149.1 kg Body Mass Index (BMI) 43.3 Intake and Output for Last 24 Hours 01/17/19 01/18/19 01/19/19 23:59 23:59 23:59 Intake Total 820 / 820 420 / 420 120 / 120 Output Total 2500 / 2500 Balance 820 / 820 -2080 / -2080 120 / 120 Microbiology Past 72 Hours 01/16/19 11:32 Blood Culture (Wb) - Left Hand Blood Culture - Preliminary No growth in 48 hours. 01/14/19 19:05 Tissue - Other Gram Stain - Final 01/14/19 19:05 Tissue - Other Wound Culture - Final Meth. resistant Staph. aureus 01/14/19 19:05 Tissue - Other Anaerobic Culture - Final No anaerobic bacteria isolated. 01/14/19 09:30 Blood Culture (Wb) - Left Hand Blood Culture - Preliminary Staphylococcus aureus 01/15/19 12:20 Blood Culture (Wb) - Left Hand Blood Culture - Preliminary Staphylococcus aureus Laboratory Results 01/18/19 05:56: Absolute Neuts (auto) 8.9 H, Absolute Lymphs (auto) 1.32, Total Counted 100, Neutrophils % (Manual) 81 H, Lymphocytes % (Manual) 12 L, Monocytes % (Manual) 1, Metamyelocytes % 3 H, Myelocytes % 1 H, Promyelocytes % 1 H, Blast Cells % 1 H*, Diff Path Review Reviewed, Platelet Estimate ADEQUATE, RBC Morphology NORM C+C 01/19/19 05:56: Random Vancomycin 17.2 H Current Medications Acetaminophen (Tylenol) 650 mg PO Q6H PRN PRN PRN Reason: pain or fever Last Admin: 01/19/19 03:17 Dose: 650 mg Hydrocodone Bitart/Acetaminophen (Ririe 5mg-325mg) 1 tablet PO Q4H PRN PRN PRN Reason: PAIN Last Admin: 01/18/19 07:34 Dose: 1 tablet Albuterol/Ipratropium (Duoneb) 3 ml INHALATION Q4HWA.RT [facility] Last Admin: 01/19/19 07:17 Dose: Not Given Carvedilol (Coreg) 12.5 mg PO QHS [facility] Last Admin: 01/18/19 21:44 Dose: 12.5 mg Cinacalcet (Sensipar) 90 mg PO QHS [facility] Last Admin: 01/18/19 21:45 Dose: 90 mg Cyclobenzaprine HCl (Flexeril) 10 mg PO TID PRN PRN PRN Reason: MUSCLE SPASMS Last Admin: 01/18/19 20:27 Dose: 10 mg Guaifenesin (Mucinex) 1,200 mg PO BID [facility] Last Admin: 01/18/19 21:45 Dose: 1,200 mg Hydromorphone HCl (Dilaudid Inj) 0.5 mg IV Q3H PRN PRN PRN Reason: SEVERE PAIN (6-10/10) Vancomycin IV Pharmacy to Dose (1 ea/ Sodium Chloride) 500 mls @ 250 mls/hr IV X1 PRN; Protocol PRN Reason: Rx to Dose Isosorbide Mononitrate (Imdur) 30 mg PO QHS [facility] Last Admin: 01/18/19 21:44 Dose: 30 mg Ondansetron HCl (Zofran) 4 mg IV Q8H PRN PRN PRN Reason: NAUSEA/VOMITING Pantoprazole Sodium (Protonix) 40 mg PO DAILY [facility] Last Admin: 01/18/19 14:18 Dose: 40 mg Sertraline HCl (Zoloft) 100 mg PO QHS [facility] Last Admin: 01/18/19 21:45 Dose: 100 mg Sodium Chloride () 5 - 15 ml IV UD PRN PRN Reason: SALINE FLUSH Last Admin: 01/18/19 14:17 Dose: 10 ml Sodium Chloride (Rice Nasal [place]) 1 spray NASAL BID PRN PRN PRN Reason: NASAL DRYNESS Medical Necessity - Tobacco Use Smoking Status: Never smoker Assessment/Plan All Active Problems Community acquired pneumonia (Acute) Acute respiratory failure with hypoxia (Acute) Problem with dialysis access (Acute) ESRD (end stage renal disease) on dialysis (Acute) MRSA bacteremia (Acute) Anemia (Acute) Nausea (Acute) Transaminitis (Acute) HTN (hypertension) (Acute) Hematemesis/vomiting blood (Acute) Anemia due to blood loss, acute (Acute) Hemorrhagic shock (Acute) Decubitus ulcer (Acute) Physical deconditioning (Acute) ARDS (adult respiratory distress syndrome) (Resolved) H1N1 influenza with pneumonia (Resolved) Patient is a 38-year-old gentleman with past medical history is none for 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 Patient was diagnosed with an infected pseudoaneurysm patient underwent debridement of abscess and resection of infected vein on 01/14/[address] Aranda. Patient also had placement of temporary left IJ dialysis catheter. 1. Sepsis secondary to an infected pseudoaneurysm with MRSA with subsequent bacteremia. Patient underwent debridement of abscess and resection of infected vein on 01/14/[address] Aranda ; he also had a ELYSIA which was negative for endocarditis. Patient has since been managed with vancomycin with repeat cultures ordered. Patient has also been seen in consultation by infectious disease blood cultures drawn 01/16/2019 so far negative to date. Plan is for patient to be treated with vancomycin as outpatient for total of 4 to 6 weeks per recommendations from ID 2. Acute hypoxic respiratory failure secondary to fluid overload from patient end-stage renal disease. Pneumonia was ruled out 3. 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 Patient is on dialysis for the past 5 years. He had a left IJ placed on 01/14/2019. Consult placed to nephrology for dialysis orders 4. Morbid obesity with BMI of 43.4 weight loss advised 5. Hypertension-blood pressure controlled, home medications continued with dose adjustment as needed 6. Anemia secondary to anemia of end-stage renal disease monitoring H&H with plans to transfuse if patient becomes symptomatic or hemoglobin falls below 7 7. Depression with anxiety patient is on Zoloft 8. Thrombocytopenia attributed to patient being septic on admission resolved 9. DVT prophylaxis did encourage early ambulation avoided the use of heparin and its related products due to patient being thrombocytopenic on admission Code Visit Inpatient E&M: 16855 Subs Hosp L2
[2019-01-19 09:00] VITALS: RESP 18
[2019-01-19 09:15] VITALS: BP 149/84; PULSE 77; RESP 18; TEMP 36.5; O2SAT 94
[2019-01-19] MEDS: Pantoprazole Sodium 40 MG Tablet PO (09:21)
[2019-01-19] MEDS: guaiFENesin 1,200 MG Tablet 1200 MG PO (09:21)
--- NOTE | 2019-01-19 09:45 | CASEMGMT ---
VALERY SCHMIDT called [facility] to confirm patient's chair time for hemodialysis. Patient's schedule is MWF 1610. VALERY SCHMIDT updated patient that HHC was setup with [facility] for wound vac management. Per ID patient will need IV ATBs at HD at discharge. Plan is for patient to discharge home tomorrow prior to HD chair time so that patient can attend HD at [facility]. Patient voiced understanding. VALERY SCHMIDT updated [facility] with HD schedule.
--- NOTE | 2019-01-19 10:43 | DCINST_ITS ---
- Discharge Diagnoses Current Active Problems: Current Active and Chronic Problems Community acquired pneumonia (Acute) Acute respiratory failure with hypoxia (Acute) Chronic renal failure, stage 5 (Chronic) Problem with dialysis access (Acute) ESRD (end stage renal disease) on dialysis (Acute) MRSA bacteremia (Acute) You will use the following diet at home:: Renal (restricted protein/sodium) Discharge Activity: Return to Normal Activity Allergies/Adverse Reactions: Allergies No Known Allergies Allergy (Verified 01/13/19 07:46) Medications to take at Discharge Carvedilol [Coreg (Beta Bentley)] 12.5 mg PO DAILY 06/02/14 Cinacalcet HCl [Sensipar] 90 mg PO DAILY 01/13/19 Isosorbide Mononitrate [Imdur] 30 mg PO DAILY 01/13/19 Ondansetron [Zofran Odt] 4 mg PO Q8H PRN PRN #10 tab 01/13/19 Sertraline HCl [Zoloft] 100 mg PO DAILY 01/13/19 Acetaminophen [Tylenol Tablet] 650 mg PO Q6H PRN PRN tablet 01/19/19 Isosorbide Mononitrate [Imdur] 30 mg PO QHS #30 tablet 01/19/19 Vancomycin IV [Vancomycin] 500 mg IV UD 40 Days #17 bag 01/19/19 The following prescriptions were given: Isosorbide Mononitrate [Imdur] 30 mg PO QHS #30 tablet Ondansetron [Zofran Odt] 4 mg PO Q8H PRN PRN #10 tab PRN Reason: Nausea Vancomycin IV [Vancomycin] 500 mg IV UD 40 Days #17 bag Primary Care Physician: Marcell Thacker MD [Primary Care Provider] - 3-5 Days Test Results: Test results from this visit will be discussed in further detail at your follow- up appointment, if applicable. Please Follow Up With: Richi Fabian MD When: for Dialysis MONDAYS, WEDNESDAYS AND FRIDAYS Please Follow Up With: Osei Barba MD Please Follow Up With: Osei Aranda MD Proposed Discharge Date: 01/19/19
--- NOTE | 2019-01-19 10:48 | PCM.DC.SUM ---
Discharge Date and Diagnosis - Problem List Patient Problems: Active and Suspected Problems Acute respiratory failure with hypoxia (Acute) Problem with dialysis access (Acute) ESRD (end stage renal disease) on dialysis (Acute) MRSA bacteremia (Acute) Date of Admission: 01/13/19 Date of Discharge: 01/19/19 - Primary Discharge Diagnosis Active and Suspected Problems Acute respiratory failure with hypoxia (Acute) Problem with dialysis access (Acute) ESRD (end stage renal disease) on dialysis (Acute) MRSA bacteremia (Acute) - Secondary Discharge Diagnosis Chronic Problems Chronic renal failure, stage 5 (Chronic) Anxiety (Chronic) generalized anxiety with panic attacks 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 01/14/19 19:05 Tissue - Other Gram Stain - Final 01/14/19 19:05 Tissue - Other Wound Culture - Final Meth. resistant Staph. aureus 01/14/19 19:05 Tissue - Other Anaerobic Culture - Final No anaerobic bacteria isolated. 01/14/19 09:30 Blood Culture (Wb) - Left Hand Blood Culture - Preliminary Staphylococcus aureus 01/15/19 12:20 Blood Culture (Wb) - Left Hand Blood Culture - Preliminary Staphylococcus aureus 01/13/19 11:00 Blood Culture (Wb) - Anticubital Left Blood Culture - Final Staphylococcus aureus 01/13/19 10:15 Blood Culture (Wb) - Anticubital Left Bacteria Detection (PCR) - Final Staphylococcus aureus 01/13/19 10:15 Blood Culture (Wb) - Anticubital Left Blood Culture - Final Meth. resistant Staph. aureus Clinical Impression(s) from Imaging Studies Acute Abdomen Series 01/13/19 08:15 IMPRESSION: Increased markings at the lung bases slightly worse on the left side suggestive of bibasilar atelectasis and/or infiltrates. Splenomegaly. Electronically Signed: Levon Mayorga, at 8:53 EDT , Service support , Soft Tissue Ultrasound 01/13/19 15:12 Chest X-Ray 01/14/19 19:02 IMPRESSION: 1. Left-sided tunneled hemodialysis catheter in place. No pneumothorax. 2. Stable patchy bibasilar airspace disease, likely atelectasis. 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 Patient was diagnosed with an infected pseudoaneurysm patient underwent debridement of abscess and resection of infected vein on 01/14/[address] Aranda. Patient also had placement of temporary left IJ dialysis catheter. 1. Sepsis secondary to an infected pseudoaneurysm with MRSA with subsequent bacteremia. Patient underwent debridement of abscess and resection of infected vein on 01/14/[address] Aranda ; he also had a ELYSIA which was negative for endocarditis. Patient has since been managed with vancomycin with repeat cultures ordered. Patient has also been seen in consultation by infectious disease blood cultures drawn 01/16/2019 so far negative to date. Plan is for patient to be treated with vancomycin as outpatient for total of 4 to 6 weeks per recommendations from ID 2. Acute hypoxic respiratory failure secondary to fluid overload from patient end-stage renal disease. Pneumonia was ruled out 3. 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 Patient is on dialysis for the past 5 years. He had a left IJ placed on 01/14/2019. Consult placed to nephrology for dialysis orders patient will continue with outpatient dialysis on Mondays, Wednesdays and Fridays. 4. Morbid obesity with BMI of 43.4 weight loss advised 5. Hypertension-blood pressure controlled, home medications continued with dose adjustment as needed 6. Anemia secondary to anemia of end-stage renal disease monitorED H&H 7. Depression with anxiety patient is on Zoloft 8. Thrombocytopenia attributed to patient being septic on admission resolved 9. DVT prophylaxis did encourage early ambulation avoided the use of heparin and its related products due to patient being thrombocytopenic on admission Patient Problems: Active and Suspected Problems Acute respiratory failure with hypoxia (Acute) Problem with dialysis access (Acute) ESRD (end stage renal disease) on dialysis (Acute) MRSA bacteremia (Acute) Objective: GENERAL: cooperative HEENT: Atraumatic; EYES; Anicteric, Normal Conjunctiva NECK; supple, normal thyroid, RESPIRATORY: Diminished to auscultation CARDIOVASCULAR: Regular S1 S2, no audible murmurs GI: soft, non-tender, normoactive bowel sounds, : No Renal angle tenderness; EXTREMITIES: Wound VAC right forearm MUSCULOSKELETAL: No Joint Tenderness; NEURO: Awake; no lateralizing signs. SKIN: No Rash PSYCH; Normal affect - Physical Exam Vital Signs Temp Pulse Resp BP Pulse Ox 97.7 F L 77 18 149/84 H 94 01/19/19 09:15 01/19/19 09:15 01/19/19 09:15 01/19/19 09:15 01/19/19 09:15 Oxygen Flow Rate (L/min) 1 Oxygen Delivery Method Nasal Cannula Weight: 149.1 kg Body Mass Index (BMI) 43.3 Intake and Output for Last 24 Hours 01/17/19 01/18/19 01/19/19 23:59 23:59 23:59 Intake Total 820 / 820 420 / 420 600 / 600 Output Total 2500 / 2500 Balance 820 / 820 -2080 / -2080 600 / 600 Microbiology Past 72 Hours 01/16/19 11:32 Blood Culture - Preliminary Blood Culture (Wb) - Left Hand No growth in 48 hours. 01/14/19 19:05 Gram Stain - Final Tissue - Other Wound Culture - Final Meth. resistant Staph. aureus Anaerobic Culture - Final No anaerobic bacteria isolated. 01/14/19 09:30 Blood Culture - Preliminary Blood Culture (Wb) - Left Hand Staphylococcus aureus 01/15/19 12:20 Blood Culture - Preliminary Blood Culture (Wb) - Left Hand Staphylococcus aureus Laboratory Tests Past 24 Hrs 01/18/19 01/19/19 05:56 05:56 Diff Path Review Reviewed Random Vancomycin 17.2 H Discharge Diet: Renal Diet Discharge Activity: Return to Normal Activity Home Medications: Medications to take at Discharge Carvedilol [Coreg (Beta Bentley)] 12.5 mg PO DAILY 06/02/14 Cinacalcet HCl [Sensipar] 90 mg PO DAILY 01/13/19 Isosorbide Mononitrate [Imdur] 30 mg PO DAILY 01/13/19 Ondansetron [Zofran Odt] 4 mg PO Q8H PRN PRN #10 tab 01/13/19 Sertraline HCl [Zoloft] 100 mg PO DAILY 01/13/19 Acetaminophen [Tylenol Tablet] 650 mg PO Q6H PRN PRN tablet 01/19/19 Isosorbide Mononitrate [Imdur] 30 mg PO QHS #30 tablet 01/19/19 Vancomycin IV [Vancomycin] 500 mg IV UD 40 Days #17 bag 01/19/19 Following Prescrptions Were Given to Patient: Isosorbide Mononitrate [Imdur] 30 mg PO QHS #30 tablet Ondansetron [Zofran Odt] 4 mg PO Q8H PRN PRN #10 tab PRN Reason: Nausea Vancomycin IV [Vancomycin] 500 mg IV UD 40 Days #17 bag Primary Care Physician: Marcell Thakcer MD [Primary Care Provider] - 3-5 Days Please Follow Up With: Richi Fabian MD When: for Dialysis MONDAYS, WEDNESDAYS AND FRIDAYS Please Follow Up With: Osei Barba MD Please Follow Up With: Osei Aranda MD Disposition: Home Minutes spent on discharge:: 42 Medical Necessity - Tobacco Use Smoking Status: Never smoker Meaningful Use Info Meaningful Use Diagnoses (Choose all that apply): None applicable Code Visit Inpatient E&M: 24003 Disch Hosp
--- NOTE | 2019-01-19 11:09 | PCM.PN.ID ---
Patient Problems: Active and Suspected Problems Acute respiratory failure with hypoxia (Acute) Problem with dialysis access (Acute) ESRD (end stage renal disease) on dialysis (Acute) MRSA bacteremia (Acute) Subjective: Feeling well, wound vac in place, no fever, no n/v/d. - Physical Exam General: Alert, Cooperative, No apparent distress Lungs: Clear to auscultation, Normal air movement Cardiovascular: Regular rate, Regular Rhythm Abdomen: Soft, Non Tender, Non-Distended Skin: Ulcer/ Wound - RUE wound vac Vital Signs Temp Pulse Resp BP Pulse Ox 97.7 F L 77 18 149/84 H 94 01/19/19 09:15 01/19/19 09:15 01/19/19 09:15 01/19/19 09:15 01/19/19 09:15 Oxygen Flow Rate (L/min) 1 Oxygen Delivery Method Nasal Cannula Weight: 149.1 kg Body Mass Index (BMI) 43.3 Intake and Output for Last 24 Hours 01/17/19 01/18/19 01/19/19 23:59 23:59 23:59 Intake Total 820 / 820 420 / 420 600 / 600 Output Total 2500 / 2500 Balance 820 / 820 -2080 / -2080 600 / 600 Microbiology Past 72 Hours 01/14/19 09:30 Blood Culture - Final Blood Culture (Wb) - Left Hand Staphylococcus aureus 01/16/19 11:32 Blood Culture - Preliminary Blood Culture (Wb) - Left Hand No growth in 48 hours. 01/14/19 19:05 Gram Stain - Final Tissue - Other Wound Culture - Final Meth. resistant Staph. aureus Anaerobic Culture - Final No anaerobic bacteria isolated. 01/15/19 12:20 Blood Culture - Preliminary Blood Culture (Wb) - Left Hand Staphylococcus aureus Laboratory Tests Past 24 Hrs 01/18/19 01/19/19 05:56 05:56 Diff Path Review Reviewed Random Vancomycin 17.2 H Medical Necessity - Tobacco Use Smoking Status: Never smoker Route of nutrition/ use of supplements: [] Nutritional Intake: [] IV Site: [] [place] Catheter: [] - Assessment/Plan Antibiotics: [] Assessment/Plan: [] Active and Suspected Problems Community acquired pneumonia (Acute) Acute respiratory failure with hypoxia (Acute) Problem with dialysis access (Acute) ESRD (end stage renal disease) on dialysis (Acute) MRSA bacteremia related to RUE fistula - u/s showed pseudoaneurym, concerning for infection. Dr. Aranda consulted. Cont vanc. Taken to OR 01/14 for debridement of infected fistula. Repeat bcx remains neg. TTE neg. No sign of endocarditis on exam. Ok for d/c home on iv vanc 500mg qMWF with HD for 6 week course, stop date 02/27/19. Rx written. will follow, d/w Dr. Jarrell. ID followup in 4 weeks.
--- NOTE | 2019-01-19 11:26 | NURSING ---
Pt being discharged today. Switched pt over to the home VAC. Reviewed home VAC, canister change, and alarms with patient. Pt denies questions. Proof of delivery form signed and faxed. Home health will be changing dressing in the am to be sure patient can get to dialysis by 3:15pm tomorrow.
--- NOTE | 2019-01-19 11:40 | CASEMGMT ---
VALERY SCHMIDT received updated that patient will be discharging today. Script received for IV ATB and faxed to [facility] along with discharge instructions and summary. VALERY SCHMIDT updated [facility] with discharge today and next vac change for Saturday 01/20. Patient updated regarding discharge for today and that [facility] was updated.
--- NOTE | 2019-01-19 11:59 | PCM.PN.REN ---
Patient Problems: Active and Suspected Problems Acute respiratory failure with hypoxia (Acute) Problem with dialysis access (Acute) ESRD (end stage renal disease) on dialysis (Acute) MRSA bacteremia (Acute) Subjective: No new complaints - Physical Exam General: Alert, Oriented x3, Cooperative HEENT: Atraumatic, PERRLA, EOMI, Normocephalic Neck: Supple, No JVD, Negative Carotid Bruits Lungs: Clear to auscultation, Normal air movement Cardiovascular: Regular rate, No murmurs Abdomen: Bowel Sounds Present, Soft, Non Tender Extremities: No edema, Capillary Refill Less than 3 Seconds Skin: No rashes, No breakdown Musculoskeletal: No Tenderness to Palpation of Joints or Extremities Neurological: Cranial nerves II-XII grossly intact Psych/Mental Status: Normal Affect, Appropriate Vital Signs Temp Pulse Resp BP Pulse Ox 97.7 F L 77 18 149/84 H 94 01/19/19 09:15 01/19/19 09:15 01/19/19 09:15 01/19/19 09:15 01/19/19 09:15 Oxygen Flow Rate (L/min) 1 Oxygen Delivery Method Nasal Cannula Weight: 149.1 kg Body Mass Index (BMI) 43.3 Intake and Output for Last 24 Hours 01/17/19 01/18/19 01/19/19 23:59 23:59 23:59 Intake Total 820 / 820 420 / 420 600 / 600 Output Total 2500 / 2500 Balance 820 / 820 -2080 / -2080 600 / 600 Microbiology Past 72 Hours 01/14/19 09:30 Blood Culture - Final Blood Culture (Wb) - Left Hand Staphylococcus aureus 01/16/19 11:32 Blood Culture - Preliminary Blood Culture (Wb) - Left Hand No growth in 48 hours. 01/14/19 19:05 Gram Stain - Final Tissue - Other Wound Culture - Final Meth. resistant Staph. aureus Anaerobic Culture - Final No anaerobic bacteria isolated. 01/15/19 12:20 Blood Culture - Preliminary Blood Culture (Wb) - Left Hand Staphylococcus aureus Laboratory Tests Past 24 Hrs 01/18/19 01/19/19 05:56 05:56 Diff Path Review Reviewed Random Vancomycin 17.2 H Medical Necessity - Tobacco Use Smoking Status: Never smoker Assessment/Plan All Active Problems Community acquired pneumonia (Ruled-out) Acute respiratory failure with hypoxia (Acute) Problem with dialysis access (Acute) ESRD (end stage renal disease) on dialysis (Acute) MRSA bacteremia (Acute) Anemia (Acute) Nausea (Acute) Transaminitis (Acute) HTN (hypertension) (Acute) Hematemesis/vomiting blood (Acute) Anemia due to blood loss, acute (Acute) Hemorrhagic shock (Acute) Decubitus ulcer (Acute) Physical deconditioning (Acute) ARDS (adult respiratory distress syndrome) (Resolved) H1N1 influenza with pneumonia (Resolved) ESRD. Continue dialysis Friday, Friday, Friday AV fistula infection MRSA bacteremia Status post ligation and excision of infected graft. Currently on vancomycin. Plan is to go in center hemodialysis for a while until he get trained with home hemo-dialysis. Repeat cultures are negative. Called in vancomycin with dialysis as per ID recommendations. anemia. Epogen with dialysis
[2019-01-19 13:32] VITALS: BP 148/95; PULSE 80; RESP 18; TEMP 36.6; O2SAT 97
[2019-01-19 14:00] VITALS: BP 148/95; PULSE 80; RESP 18; TEMP 36.6; O2SAT 97
--- NOTE | 2019-01-20 13:50 | CASEMGMT ---
VALERY SCHMIDT Discharge Follow-Up Phone Call. Mari: Finn Strata: 3 Discharge Date: 01/19/19 Adm Dx: CAP w/hypoxic resp failure Call to pt to inquire about how he has been doing since being discharged from the hospital. Pt stated, I'm doing just fine. He states he was able to get his new prescriptions, has no questions/concerns about the discharge instructions or follow-up appts, and has no other needs/concerns. Instructed to call PCP's office if he has any questions or to call VALERY SCHMIDT @ [facility]. Pt voices understanding. Marcus MCKEONN VALERY SCHMIDT
== END 2019-01-19 14:00 | disposition home health service (06) | DRG 853 ==
LOC: ED 11:54 → MS3 12:17
PROVIDERS: Anesthesiology; Internal Medicine Infectious Disease; Physician Assistant; Surgery; Admitting Provider Family Medicine; Emergency Provider Emergency Medicine; Family Provider Family Medicine; PCP Family Medicine; Referring Provider Family Medicine; Visit Provider Internal Medicine
PROC: 0JH60XZ Insertion of Tunneled Vascular Access Device into Chest Subcutaneous Tissue and Fascia, Open Approach (ICD-10-PCS; principal; 2019-01-14 15:15)
DX: A41.02 Sepsis due to Methicillin resistant Staphylococcus aureus (principal); J96.01 Acute respiratory failure with hypoxia; N18.6 End stage renal disease; I12.0 Hypertensive chronic kidney disease with stage 5 chronic kidney disease or end stage renal disease; Z68.41 Body mass index [BMI] 40.0-44.9, adult; E87.1 Hypo-osmolality and hyponatremia; T82.7XXA Infection and inflammatory reaction due to other cardiac and vascular devices, implants and grafts, initial encounter; L02.413 Cutaneous abscess of right upper limb; L03.113 Cellulitis of right upper limb; T82.868A Thrombosis due to vascular prosthetic devices, implants and grafts, initial encounter; Z99.2 Dependence on renal dialysis; N26.9 Renal sclerosis, unspecified; E66.01 Morbid (severe) obesity due to excess calories; D63.1 Anemia in chronic kidney disease; F41.8 Other specified anxiety disorders; D69.6 Thrombocytopenia, unspecified; Z79.899 Other long term (current) drug therapy; B95.62 Methicillin resistant Staphylococcus aureus infection as the cause of diseases classified elsewhere
CPT/HCPCS: 36415; 71045; 74022; 76000; 76882; 80048; 80053; 80202; 83690; 84443; 85025; 85610; 85730; 87040; 87070; 87075; 87077; 87149; 87186; 87205; 88304; 88305; 90937; 93005; 93306; 93970; 94640; 97802; 99284; J7030; J7040; Q9957; A4216; C8929; G0257; J0696; J2405; Q5106

== ENCOUNTER 2019-01-31 05:41 | Inpatient (IN) | payer MEDICARE, BC, MEDICAID, SELFPAY ==
[2019-01-19 11:05] VITALS: BMI 43.3
[2019-01-31] VITALS (9 sets, daily range): BP systolic 170–206; BP diastolic 90–121; PULSE 76–89; RESP 18–26; TEMP 36.9–37.3; O2SAT 94–100; BMI 43.4; BMI 39.2
--- NOTE | 2019-01-31 05:46 | ED.RN ---
CALLED FOR EKG PER RN REQUEST, PULLED OLD EKGS FOR
--- NOTE | 2019-01-31 05:55 | EKG12_ITS ---
Test Reason : CP Blood Pressure : / mmHG Vent. Rate : 085 BPM Atrial Rate : 085 BPM P-R Int : 150 ms QRS Dur : 074 ms QT Int : 374 ms P-R-T Axes : 027 044 039 degrees QTc Int : 445 ms Normal sinus rhythm Normal ECG Confirmed by CONCHITA BELTRAN MD ([id number]), non linear editor LUCINDA CHOWDHURY ([id number] on 02/01/2019 12:55:54 PM Referred By: Confirmed By:CONCHITA BELTRAN MD
--- NOTE | 2019-01-31 05:55 | RAD_ITS ---
STUDY: X-RAY CHEST REASON FOR EXAM: Male, 38 years old. Short of breath TECHNIQUE: Stable chest COMPARISON: Portable chest FINDINGS: There is worsening right lower lobe infiltrate, enlarged moderate pleural effusion and atelectasis. There is mild left basilar opacity and likely small pleural effusion. There is stable cardiomegaly. There is mild prominence of the pulmonary vascularity. Normal mediastinum and rakesh. Normal visualized pulmonary arteries. Normal visualized aortic arch and descending thoracic aorta. Normal visualized thoracic spine. Normal visualized ribs, clavicles, and shoulders. There is no demonstrated abnormality of the visualized soft tissue structures of the upper abdomen. RAD/Chest 1 View (Portable) IMPRESSION: Mild worsening right lower lobe infiltrate, enlarging moderate, right pleural effusion and atelectasis Mild left basilar pulmonary opacity and small pleural effusion Stable cardiomegaly Mild pulmonary venous congestion Electronically Signed: Osei Sims, at 6:21 EDT Tel , Service support ,
--- NOTE | 2019-01-31 06:11 | ED.VISSUMM ---
- ER Visit Summary Date of Service: 01/31/19 Chief Complaint: Shortness of breath, chest pain History of Present Illness: The patient is a 38 M presenting with shortness of breath which he states has been ongoing for the past few days. He woke up this morning with chest pain and shortness of breath. He states that the shortness of breath is worsened with exertion. He was recently admitted from January 13 to January 19. At that time he was found to have sepsis secondary to an infected pseudoaneurysm with MRSA with subsequent bacteremia. Patient underwent debridement of abscess and resection of infected vein on 01/14/[address] Aranda; and acute hypoxic respiratory failure secondary to fluid overload. Patient is on dialysis Friday. He completed his dialysis on Friday. He receives vancomycin IV following dialysis. His right arm wound is followed by home health. He states his hemoglobin has been running low. It was 7.7 before he was discharged. Family states it was 6.5 at dialysis on Friday. He states his budget report clerk does not want him to have a blood transfusion because this will decrease the chances of him getting a kidney transplant. He denies blood in his stool or melena. Denies fever or cough. Denies other complaints. Until his recent admission he was on home hemodialysis 6 days per week. He now gets dialyzed 3 times per week. Physical Examination: Vitals are stable. Patient is afebrile. Alert no acute distress. HEENT exam is unremarkable. Neck is supple. Lungs are diminished bilaterally. Heart is regular rate and rhythm. Abdomen is soft obese nontender nondistended. Extremities are unremarkable. Skin is warm and dry. No focal neurologic deficit. Remainder of exam is unremarkable. Emergency Department Course and Treatment: EKG is sinus rate of 85 with no acute ischemic changes. Chest x-ray shows mild worsening right lower lobe infiltrate, enlarging moderate, right pleural effusion and atelectasis. Mild left basilar pulmonary opacity and small pleural effusion. Stable cardiomegaly. Mild pulmonary venous congestion. CBC shows hemoglobin 7.0. Chemistries show BUN 35, creatinine 12. Troponin negative. With ambulation his pulse ox is 85% on room air. He does not have home O2. Discussed with the hospitalist for observation. Disposition: Observation Impression: Fluid overload, hypoxia This note was generated with [employer] dictation software. It may contain incorrect words, spelling, and punctuation that were not noted in review of the chart prior to signing ED Disposition - Plan for ED Patient: Referrals: Marcell Thacker MD [Primary Care Provider] -
[2019-01-31 06:15] LABS: Absolute Lymphocyte Count 0.64 X10^3/ul (0.83-4.51); Absolute Neutrophil Count 3.4 X10^3/uL (2.0-7.7); Basophil# 0.03 X10^3/uL; Basophil% 0.7 % (0-1); Eosinophils% 4.4 % (0-5); Hematocrit 23.2 % (40-54); Lymphocyte # 0.64 X10^3/ul (4.0); Mean Corp Hgb Conc 30.2 g/gl (32-36); Mean Corpuscular Hgb 30.6 pg (27.0-32.0); Mean Corpuscular Volume 101.3 fL (80-94); Mean Platelet Vol. 8.9 fl (6.2-12.0); Monocyte# 0.25 X10^3/uL; Monocyte% 5.5 % (0-10); Neutrophil # 3.42 X10^3/uL (2.7-7.7); POSITIVE COUNT NO; POSITIVE DIFFERENTIAL NO; POSITIVE MORPHOLOGY NO; Platelet Count 321 K/mm3 (150-450); RBC Distribution Width CV 13.2 % (11.6-14.6); RBC Distribution Width SD 45.7 fl (35.1-43.9); Red Blood Count 2.29 M/mm3 (4.6-6.2); White Blood Count 4.6 K/mm3 (4.4-11.0)
[2019-01-31 06:34] LABS: Anion Gap 6 (5-15); BUN 35 mg/dL (7-18); BUN/Creat Ratio 2.9 RATIO (10-20); Calcium,Total 8.4 mg/dL (8.5-10.1); Chloride 99 mmol/L (98-107); EST Glomerular Filtration Rate 5 mL/min (>60); Est Glom Filt Rate - Afr Amer 6 mL/min (>60); Estimated Creatinine Clearance 9.53 ml/min; Glucose 94 mg/dL (74-106); Potassium 4.4 mmol/L (3.5-5.1); Sodium Level 134 mmol/L (136-145)
--- NOTE | 2019-01-31 06:34 | ED.RN ---
DR RUFF NOTIFIED OF CRE LEVEL
[2019-01-31 08:19] LABS: Iron 35 ug/dL (65-175); Iron Binding Capacity,Total 211 ug/dL (250-450); PERCENT IRON SATURATION 16.6 % (15.0-55.0)
--- NOTE | 2019-01-31 08:42 | HP.PCM_ITS ---
Problem List (1) Chronic renal failure, stage 5 Status: Chronic (2) ESRD (end stage renal disease) on dialysis Status: Acute (3) MRSA bacteremia Status: Acute (4) Anemia Status: Acute (5) Focal segmental glomerulosclerosis Status: Chronic Comment: on HD 3 times a week (6) HTN (hypertension) Status: Acute History of Present Illness Date of Admission: 01/31/19 Chief Complaint: Shortness of breath The patient is a 38 year old M with PMH as below who presents with a few day history of worsening shortness of breath. He had been recently discharged after having both pneumonia and a MRSA bacteremia from an infected fistula. He presents now because of shortness of breath going back a few days. He also states that he has what sounds like a pleuritic chest pain where it hurts when he tried to take a deep breath, and this resolved with oxygen. He had a normal oxygen saturation while laying in bed however on ambulation he dropped into the mid to high 80s. Of note he is also been having problems with anemia. His platelet count is normal however he was discharged previously with a hemoglobin of around 7.7-8. He went to dialysis and has started receiving Epogen with each dialysis. His hemoglobin per report was 6.4 down at the outpatient dialysis center, however now that he is complaining of shortness of breath his hemoglobin is 7.0. The mom states that they did an iron profile at the dialysis center and said that his iron was high and therefore discontinued any oral iron. He also states that in the last week he lost blood during dialysis one time because the line clotted and a second time because there is an air gap and they are trying to infuse his vancomycin. He currently denies any chest pain, or lightheadedness or dizziness. In the ER he had a normal troponin and a normal EKG, however chest x-ray demonstrated possible increase in fluid though his weight is down 10 kg from baseline. Past Medical History Past Medical History (Chronic Problems): Chronic Problems Chronic renal failure, stage 5 (Chronic) Anxiety (Chronic) generalized anxiety with panic attacks Focal segmental glomerulosclerosis (Chronic) on HD 3 times a week Dysphagia (Chronic) Depression (Chronic) Anemia of chronic disease (Chronic) Allergies No Known Allergies Allergy (Verified 01/31/19 05:42) Home Medications: Ambulatory Orders Medication Instructions Recorded Carvedilol [Coreg (Beta Bentley)] 12.5 mg PO DAILY 06/02/14 Cinacalcet HCl [Sensipar] 90 mg PO DAILY 01/13/19 Isosorbide Mononitrate [Imdur] 30 mg PO DAILY 01/13/19 Ondansetron [Zofran Odt] 4 mg PO Q8H PRN PRN #10 tab 01/13/19 Sertraline HCl [Zoloft] 100 mg PO DAILY 01/13/19 Acetaminophen [Tylenol Tablet] 650 mg PO Q6H PRN PRN tablet 01/19/19 Vancomycin IV [Vancomycin] 500 mg IV UD 40 Days #17 bag 01/19/19 Epoetin Gera [Epogen] 10,000 unit IJ MOWEFR 01/31/19 Surgical History: - Psychiatric History: Anxiety Smoking Status: Never smoker Alcohol: None Drugs: None - *Family History Maternal History Items: COPD Paternal History Items: Heart Disease Review of Systems Constitutional: Denies: Chills, Fever, Weight Change HEENT: Denies: Head Aches, Sinus Congestion, Sinus Drainage Cardiovascular: Denies: Chest Pain, Palpitations Respiratory: Reports: Pleuritic Pain, Shortness of Breath. Denies: Cough, Shortness of breath at rest, Sputum production Gastrointestinal: Denies: Abdominal Pain, Nausea, Vomiting Genitourinary: Denies: Dysuria Musculoskeletal: Denies: Joint Pain, Joint Tenderness Skin: Denies: Rash, Wounds Neurological: Denies: Numbness, Tingling, Focal weakness Psychiatric: Denies: Anxiety, Depression Hematologic/ Lymphatic: Denies: Easy Bruising, Easy Bleeding VTE Information - Inpt Only VTE Present on Admission: No - Physical Exam General: Alert, Oriented x3, Cooperative, No apparent distress HEENT: Atraumatic, PERRLA, EOMI, Normocephalic Oral: Moist Mucosa Neck: Supple, No JVD, - - Tunneled dialysis catheter on the left Lungs: Clear to auscultation, Normal air movement, No rhonchi, No wheeze, No rales Cardiovascular: Regular rate, Regular Rhythm, Normal S1, Normal S2, No murmurs Abdomen: Soft, Non Tender, Non-Distended, No Hepato-splenomegaly Extremities: No edema, Capillary Refill Less than 3 Seconds Skin: No rashes, No breakdown, Ulcer/ Wound - Wound VAC in place Neurological: Neuro grossly intact, Sensory exam intact to light touch and pain Psych/Mental Status: Normal Affect, Appropriate Vital Signs Temp Pulse Resp BP Pulse Ox 98.6 F 80 24 H 183/111 H 99 01/31/19 08:12 01/31/19 08:12 01/31/19 08:12 01/31/19 08:12 01/31/19 08:12 Oxygen Flow Rate (L/min) 3 Oxygen Delivery Method Nasal Cannula Weight: 296 lb 15.402 oz Body Mass Index (BMI) 39.2 Laboratory Tests Past 24 Hrs 01/31/19 01/31/19 01/31/19 05:56 05:56 05:56 WBC 4.6 RBC 2.29 L Hgb 7.0 L Hct 23.2 L MCV 101.3 H MCH 30.6 MCHC 30.2 L RDW 13.2 RDW Differential 45.7 H Plt Count 321 MPV 8.9 Immature Gran % (Auto) 0.400 Neut % (Auto) 75.0 H Lymph % (Auto) 14.0 L [place] % (Auto) 5.5 Eos % (Auto) 4.4 Baso % (Auto) 0.7 Absolute Neuts (auto) 3.4 Absolute Lymphs (auto) 0.64 L Total Counted Not Reportable Sodium 134 L Potassium 4.4 Chloride 99 Carbon Dioxide 29.0 Anion Gap 6 BUN 35 H Creatinine 12.00 H* Estim Creat Clear Calc 9.53 Est GFR (MDRD) Af Amer 6 L Est GFR (MDRD) Non-Af 5 L BUN/Creatinine Ratio 2.9 L Glucose 94 Calcium 8.4 L Iron TIBC Iron Saturation Troponin I < 0.015 Vitamin B12 Pending Folate 01/31/19 05:56 WBC RBC Hgb Hct MCV MCH MCHC RDW RDW Differential Plt Count MPV Immature Gran % (Auto) Neut % (Auto) Lymph % (Auto) [place] % (Auto) Eos % (Auto) Baso % (Auto) Absolute Neuts (auto) Absolute Lymphs (auto) Total Counted Sodium Potassium Chloride Carbon Dioxide Anion Gap BUN Creatinine Estim Creat Clear Calc Est GFR (MDRD) Af Amer Est GFR (MDRD) Non-Af BUN/Creatinine Ratio Glucose Calcium Iron 35 L TIBC 211 L Iron Saturation 16.6 Troponin I Vitamin B12 Folate 6.90 Assessment/Plan All Active Problems Community acquired pneumonia (Ruled-out) Acute respiratory failure with hypoxia (Acute) Problem with dialysis access (Acute) ESRD (end stage renal disease) on dialysis (Acute) MRSA bacteremia (Acute) Anemia (Acute) Nausea (Acute) Transaminitis (Acute) HTN (hypertension) (Acute) Hematemesis/vomiting blood (Acute) Anemia due to blood loss, acute (Acute) Hemorrhagic shock (Acute) Decubitus ulcer (Acute) Physical deconditioning (Acute) ARDS (adult respiratory distress syndrome) (Resolved) H1N1 influenza with pneumonia (Resolved) 1. Shortness of breath with pleuritic chest pain -Chest x-ray shows an increase in fluid though his weight is down and he is receiving dialysis and exam does not support a fluid overload state -We will consult nephrology for dialysis and may need some fluid removed -I think his shortness of breath is more related to his state of anemia, and will obtain iron studies -He is not tachycardic however the findings of shortness of breath and pleuritic chest pain may necessitate a CTA of the chest, his pleuritic pain and his shortness of breath are resolved currently with 2 L of nasal cannula, if necessary will obtain a CTA of the chest if his symptoms do not resolve. His Wells score for PE is 0 indicating very low risk, and unfortunately a d-dimer in his situation would be falsely elevated. -He had an echo January 14, 2019 with a normal EF and normal diastolic function, RVSP was 20 mmHg 2. End-stage renal disease secondary to glomerulosclerosis/HTN/anemia of chronic disease -He is on dialysis Friday -If he is receiving Epogen, may need to restart iron therapy -We will consult his helicopter technician for dialysis -Continue with Coreg -Monitor his platelets and his anemia with a CBC in the morning 3. Anxiety/depression -Stable -We will continue with Zoloft 4. Morbid obesity -BMI is 40 -Had extensive discussions for lifestyle modifications 5. Chronic wound/MRSA bacteremia -His right forearm fistula was removed on his previous admission and a wound VAC was placed. -We will consult wound care for management -We will continue with vancomycin dosing as it has been at home DVT: Heparin Code Visit OBSV E&M: [id number] Initial observation care L3
[2019-01-31] MEDS: Heparin Injection (Vial) 5,000 UNIT/ML VIAL 5000 UNIT SC (10:06)
[2019-01-31] MEDS: Sertraline 100 MG Tablet PO (10:07)
[2019-01-31] MEDS: Isosorbide Mononitrate 30 MG Tablet PO (10:07)
--- NOTE | 2019-01-31 13:46 | CON.PCM_ITS ---
Reason for Consult Date of Consultation: 01/31/19 History of Present Illness: The patient is a 38 year old M pme esrd recent avf inf with TDC placement for MRSA bacteremia presented with gradually worsening sob no cp/cough/f/c/n/abd pain/sore throat.Has some loose stool no abd pain hematochezia/melena.patient of dr. Soriano in [place]. Last HD Friday. No other c/o no discharge from TDC site and has been getting vanco in center. Past Medical History Past Medical History (Chronic Problems): Chronic Problems Chronic renal failure, stage 5 (Chronic) Anxiety (Chronic) generalized anxiety with panic attacks Focal segmental glomerulosclerosis (Chronic) on HD 3 times a week Dysphagia (Chronic) Depression (Chronic) Anemia of chronic disease (Chronic) Allergies No Known Allergies Allergy (Verified 01/31/19 05:42) Home Medications: Ambulatory Orders Medication Instructions Recorded Carvedilol [Coreg (Beta Bentley)] 12.5 mg PO DAILY 06/02/14 Cinacalcet HCl [Sensipar] 90 mg PO DAILY 01/13/19 Isosorbide Mononitrate [Imdur] 30 mg PO DAILY 01/13/19 Ondansetron [Zofran Odt] 4 mg PO Q8H PRN PRN #10 tab 01/13/19 Sertraline HCl [Zoloft] 100 mg PO DAILY 01/13/19 Acetaminophen [Tylenol Tablet] 650 mg PO Q6H PRN PRN tablet 01/19/19 Vancomycin IV [Vancomycin] 500 mg IV UD 40 Days #17 bag 01/19/19 Epoetin Gera [Epogen] 10,000 unit IJ MOWEFR 01/31/19 Surgical History: - Psychiatric History: Anxiety Smoking Status: Never smoker Alcohol: None Drugs: None - *Family History Maternal History Items: COPD Paternal History Items: Heart Disease Review of Systems Comment: negative unless noted in HPI - Physical Exam General: Alert, Oriented x3, Cooperative, No apparent distress HEENT: Atraumatic, PERRLA, EOMI Oral: Moist Mucosa, No Gingival or Mucosal Lesions/ Ulcerations Neck: Supple, No JVD, Negative Carotid Bruits Lungs: Clear to auscultation, Normal air movement, No rhonchi Cardiovascular: Regular rate, Regular Rhythm, Normal S1, Normal S2 Abdomen: Bowel Sounds Present, Soft, Non Tender Extremities: No clubbing, No cyanosis, No edema - [facility] no signs of infection Vital Signs Temp Pulse Resp BP Pulse Ox 98.6 F 80 24 H 183/111 H 99 01/31/19 08:12 01/31/19 08:12 01/31/19 08:12 01/31/19 08:12 01/31/19 08:12 Oxygen Flow Rate (L/min) 3 Oxygen Delivery Method Nasal Cannula Weight: 134.7 kg Body Mass Index (BMI) 39.2 Laboratory Tests Past 24 Hrs 01/31/19 01/31/19 01/31/19 05:56 05:56 05:56 WBC 4.6 RBC 2.29 L Hgb 7.0 L Hct 23.2 L MCV 101.3 H MCH 30.6 MCHC 30.2 L RDW 13.2 RDW Differential 45.7 H Plt Count 321 MPV 8.9 Immature Gran % (Auto) 0.400 Neut % (Auto) 75.0 H Lymph % (Auto) 14.0 L [place] % (Auto) 5.5 Eos % (Auto) 4.4 Baso % (Auto) 0.7 Absolute Neuts (auto) 3.4 Absolute Lymphs (auto) 0.64 L Total Counted Not Reportable Sodium 134 L Potassium 4.4 Chloride 99 Carbon Dioxide 29.0 Anion Gap 6 BUN 35 H Creatinine 12.00 H* Estim Creat Clear Calc 9.53 Est GFR (MDRD) Af Amer 6 L Est GFR (MDRD) Non-Af 5 L BUN/Creatinine Ratio 2.9 L Glucose 94 Calcium 8.4 L Iron TIBC Iron Saturation Troponin I < 0.015 Vitamin B12 Pending Folate 01/31/19 05:56 WBC RBC Hgb Hct MCV MCH MCHC RDW RDW Differential Plt Count MPV Immature Gran % (Auto) Neut % (Auto) Lymph % (Auto) [place] % (Auto) Eos % (Auto) Baso % (Auto) Absolute Neuts (auto) Absolute Lymphs (auto) Total Counted Sodium Potassium Chloride Carbon Dioxide Anion Gap BUN Creatinine Estim Creat Clear Calc Est GFR (MDRD) Af Amer Est GFR (MDRD) Non-Af BUN/Creatinine Ratio Glucose Calcium Iron 35 L TIBC 211 L Iron Saturation 16.6 Troponin I Vitamin B12 Folate 6.90 Assessment/Plan All Active Problems Community acquired pneumonia (Ruled-out) Acute respiratory failure with hypoxia (Acute) Problem with dialysis access (Acute) ESRD (end stage renal disease) on dialysis (Acute) MRSA bacteremia (Acute) Anemia (Acute) Nausea (Acute) Transaminitis (Acute) HTN (hypertension) (Acute) Hematemesis/vomiting blood (Acute) Anemia due to blood loss, acute (Acute) Hemorrhagic shock (Acute) Decubitus ulcer (Acute) Physical deconditioning (Acute) ARDS (adult respiratory distress syndrome) (Resolved) H1N1 influenza with pneumonia (Resolved) ESRD UF today vanco to be dosed per pharmacy Anemia epo and iron to be called in tomorrow with hd iron studies pending transfuse if Hb<7 HTN continue meds monitor reeval after UF CKD MBD monitor phos ca H/o MRSA bacteremia continue vanco d/w patient family at bedside and RN
--- NOTE | 2019-01-31 18:20 | DIALYSIS ---
Hemodialysis today. UF -2000mL removed. Patient tolerated tx well. Pt stable with no complaints. Report to VALERY Soto. Pt to have full HD tx on Friday.
[2019-01-31] MEDS: Vancomycin IV 500 MG/100 ML BAG 100 MG IV (18:54)
[2019-01-31] MEDS: Cinacalcet HCl 30 MG Tablet 90 MG PO (21:49)
[2019-01-31] MEDS: Carvedilol 12.5 MG Tablet PO (21:49)
[2019-02-01] VITALS (14 sets, daily range): BP systolic 150–180; BP diastolic 90–124; PULSE 60–86; RESP 16–24; TEMP 36.6–37.2; O2SAT 96–100
[2019-02-01] MEDS: hydrALAZINE 20 MG/ML Vial 5 MG IV (05:23)
[2019-02-01] MEDS: 0.9% NaCl Peripheral Flush Adult/Peds IV ×3 (05:24→16:32)
[2019-02-01 06:02] LABS: Absolute Lymphocyte Count 0.68 X10^3/ul (0.83-4.51); Absolute Neutrophil Count 2.6 X10^3/uL (2.0-7.7); Basophil# 0.04 X10^3/uL; Eosinophils% 5.2 % (0-5); Hematocrit 21.2 % (40-54); Hemoglobin 6.5 g/dl (13.0-16.5); Lymphocyte # 0.68 X10^3/ul (4.0); Lymphocyte % 17.7 % (19-41); Mean Corp Hgb Conc 30.7 g/gl (32-36); Mean Corpuscular Hgb 30.7 pg (27.0-32.0); Mean Platelet Vol. 8.5 fl (6.2-12.0); Monocyte# 0.35 X10^3/uL; Monocyte% 9.1 % (0-10); Neutrophil # 2.56 X10^3/uL (2.7-7.7); Neutrophil % 66.5 % (47-70); Platelet Count 228 K/mm3 (150-450); RBC Distribution Width CV 13.8 % (11.6-14.6); RBC Distribution Width SD 49.6 fl (35.1-43.9); Red Blood Count 2.12 M/mm3 (4.6-6.2); White Blood Count 3.9 K/mm3 (4.4-11.0)
[2019-02-01 06:04] LABS: POSITIVE COUNT NO; POSITIVE DIFFERENTIAL NO; POSITIVE MORPHOLOGY NO
[2019-02-01 06:41] LABS: Anion Gap 4 (5-15); BUN 37 mg/dL (7-18); Calcium,Total 8.3 mg/dL (8.5-10.1); Chloride 102 mmol/L (98-107); EST Glomerular Filtration Rate 5 mL/min (>60); Est Glom Filt Rate - Afr Amer 6 mL/min (>60); Estimated Creatinine Clearance 9.29 ml/min; Glucose 85 mg/dL (74-106); Potassium 5.1 mmol/L (3.5-5.1); Sodium Level 137 mmol/L (136-145)
[2019-02-01] MEDS: ALPRAZolam 0.5 MG Tablet PO ×2 (08:20→23:28)
[2019-02-01] MEDS: hydrALAZINE 25 MG Tablet PO ×3 (08:22→21:07)
[2019-02-01 10:00] LABS: Vitamin B12 617 pg/mL (211-911)
--- NOTE | 2019-02-01 11:16 | PCM.PN.REN ---
Subjective: Pt was seen during HD session. No nausea No vomiting No SOB - Physical Exam General: Alert, Oriented x3 HEENT: Atraumatic Oral: Moist Mucosa Neck: Supple, No JVD Lungs: Clear to auscultation, Normal air movement, No rhonchi, No wheeze Cardiovascular: Regular rate, Regular Rhythm, Normal S1, Normal S2 Abdomen: Bowel Sounds Present, Soft, Non Tender, Non-Distended Extremities: No clubbing, No cyanosis, No edema Skin: No rashes Musculoskeletal: No Tenderness to Palpation of Joints or Extremities Lymphatic: No Cervical, Supraclavicular, or Inguinal Adenopathy Neurological: Neuro grossly intact Psych/Mental Status: Normal Affect Vital Signs Temp Pulse Resp BP Pulse Ox 98.8 F 70 16 152/90 H 100 02/01/19 08:04 02/01/19 11:00 02/01/19 11:00 02/01/19 11:00 02/01/19 08:04 Oxygen Flow Rate (L/min) 3 Oxygen Delivery Method Room Air Weight: 146 kg Body Mass Index (BMI) 39.2 Intake and Output for Last 24 Hours 01/30/19 01/31/19 02/01/19 23:59 23:59 23:59 Intake Total 260 / 260 Balance 260 / 260 Laboratory Tests Past 24 Hrs 01/31/19 02/01/19 02/01/19 05:56 05:30 05:30 WBC 3.9 L RBC 2.12 L Hgb 6.5 L Hct 21.2 L MCV 100.0 H MCH 30.7 MCHC 30.7 L RDW 13.8 RDW Differential 49.6 H Plt Count 228 MPV 8.5 Immature Gran % (Auto) 0.500 Neut % (Auto) 66.5 Lymph % (Auto) 17.7 L [place] % (Auto) 9.1 Eos % (Auto) 5.2 H Baso % (Auto) 1.0 Absolute Neuts (auto) 2.6 Absolute Lymphs (auto) 0.68 L Total Counted Not Reportable Sodium 137 Potassium 5.1 Chloride 102 Carbon Dioxide 31.0 Anion Gap 4 L BUN 37 H Creatinine 12.30 H* Estim Creat Clear Calc 9.29 Est GFR (MDRD) Af Amer 6 L Est GFR (MDRD) Non-Af 5 L BUN/Creatinine Ratio 3.0 L Glucose 85 Calcium 8.3 L Vitamin B12 617 Blood Type Antibody Screen Crossmatch 02/01/19 09:15 WBC RBC Hgb Hct MCV MCH MCHC RDW RDW Differential Plt Count MPV Immature Gran % (Auto) Neut % (Auto) Lymph % (Auto) [place] % (Auto) Eos % (Auto) Baso % (Auto) Absolute Neuts (auto) Absolute Lymphs (auto) Total Counted Sodium Potassium Chloride Carbon Dioxide Anion Gap BUN Creatinine Estim Creat Clear Calc Est GFR (MDRD) Af Amer Est GFR (MDRD) Non-Af BUN/Creatinine Ratio Glucose Calcium Vitamin B12 Blood Type O POSITIVE Antibody Screen NEGATIVE Crossmatch See Detail Medical Necessity - Tobacco Use Smoking Status: Never smoker Assessment/Plan All Active Problems Community acquired pneumonia (Ruled-out) Acute respiratory failure with hypoxia (Acute) Problem with dialysis access (Acute) ESRD (end stage renal disease) on dialysis (Acute) MRSA bacteremia (Acute) Anemia (Acute) Nausea (Acute) Transaminitis (Acute) HTN (hypertension) (Acute) Hematemesis/vomiting blood (Acute) Anemia due to blood loss, acute (Acute) Hemorrhagic shock (Acute) Decubitus ulcer (Acute) Physical deconditioning (Acute) ARDS (adult respiratory distress syndrome) (Resolved) H1N1 influenza with pneumonia (Resolved) ESRD on MWF. HD sessio today: B Q 400 DQ 700 UF 4L Anemia. Hgb < 7.0. 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
--- NOTE | 2019-02-01 12:49 | DIALYSIS ---
Hemodialysis tx completed x 4 hours without complications. Pt tolerated tx fair with some cramping duirng tx. Fluid removed 3,300ml using crit-line monitor. Cramping resolved with decreased UF goal. Verbal report given to VALERY Jordan post tx.
[2019-02-01] MEDS: Isosorbide Mononitrate 30 MG Tablet PO (13:11)
[2019-02-01] MEDS: Epoetin Alfa epbx 10,000 UNITS/ML 10000 UNIT IV (13:11)
[2019-02-01] MEDS: Heparin 10,000 UNITS/10 ML Vial IV (13:11)
[2019-02-01] MEDS: Sertraline 100 MG Tablet PO (13:11)
[2019-02-01] MEDS: Ferrous Sulfate 325 MG Tablet PO ×2 (13:12→16:35)
[2019-02-01] MEDS: Acetaminophen 325 MG Tablet 650 MG PO (13:15)
--- NOTE | 2019-02-01 13:21 | CON.PCM_ITS ---
Problem List (1) MRSA bacteremia Status: Acute Reason for Consult: mrsa Consulted by: Dr. Montoya History of Present Illness: The patient is a 38 year old M with ESRD, recent admit with MRSA bacteremia from infection RUE fistula. He required surgical I&D, permacath placement, discharged on vanc via HD, stop date 02/27/19. Has been doing well with abx, wound vac remains on arm, but improving. Admitted 02/01 due to acute onset SOB. Denies cough or sputum. No fever. No issues with permacath. Taken to ED, found to be anemic, volume overloaded. Now feeling much better, SOB resolved. Remains on vanc. Full ROS performed and neg except as noted above. 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 Dysphagia (Chronic) Depression (Chronic) Anemia of chronic disease (Chronic) Allergies/Adverse Reactions: Allergies No Known Allergies Allergy (Verified 01/31/19 05:42) Home Medications: Ambulatory Orders Medication Instructions Recorded Carvedilol [Coreg (Beta Bentley)] 12.5 mg PO DAILY 06/02/14 Cinacalcet HCl [Sensipar] 90 mg PO DAILY 01/13/19 Isosorbide Mononitrate [Imdur] 30 mg PO DAILY 01/13/19 Ondansetron [Zofran Odt] 4 mg PO Q8H PRN PRN #10 tab 01/13/19 Sertraline HCl [Zoloft] 100 mg PO DAILY 01/13/19 Acetaminophen [Tylenol Tablet] 650 mg PO Q6H PRN PRN tablet 01/19/19 Vancomycin IV [Vancomycin] 500 mg IV UD 40 Days #17 bag 01/19/19 Epoetin Gera [Epogen] 10,000 unit IJ MOWEFR 01/31/19 - Social History Tobacco Use: non-smoker Vital Signs Temp Pulse Resp BP Pulse Ox 98.8 F 86 16 150/92 H 100 02/01/19 08:04 02/01/19 13:13 02/01/19 11:33 02/01/19 11:33 02/01/19 08:04 Oxygen Flow Rate (L/min) 3 Oxygen Delivery Method Room Air Weight: 146 kg Body Mass Index (BMI) 39.2 Laboratory Tests Past 24 Hrs 01/31/19 02/01/19 02/01/19 05:56 05:30 05:30 WBC 3.9 L RBC 2.12 L Hgb 6.5 L Hct 21.2 L MCV 100.0 H MCH 30.7 MCHC 30.7 L RDW 13.8 RDW Differential 49.6 H Plt Count 228 MPV 8.5 Immature Gran % (Auto) 0.500 Neut % (Auto) 66.5 Lymph % (Auto) 17.7 L [place] % (Auto) 9.1 Eos % (Auto) 5.2 H Baso % (Auto) 1.0 Absolute Neuts (auto) 2.6 Absolute Lymphs (auto) 0.68 L Total Counted Not Reportable Sodium 137 Potassium 5.1 Chloride 102 Carbon Dioxide 31.0 Anion Gap 4 L BUN 37 H Creatinine 12.30 H* Estim Creat Clear Calc 9.29 Est GFR (MDRD) Af Amer 6 L Est GFR (MDRD) Non-Af 5 L BUN/Creatinine Ratio 3.0 L Glucose 85 Calcium 8.3 L Vitamin B12 617 Blood Type Antibody Screen Crossmatch 02/01/19 09:15 WBC RBC Hgb Hct MCV MCH MCHC RDW RDW Differential Plt Count MPV Immature Gran % (Auto) Neut % (Auto) Lymph % (Auto) [place] % (Auto) Eos % (Auto) Baso % (Auto) Absolute Neuts (auto) Absolute Lymphs (auto) Total Counted Sodium Potassium Chloride Carbon Dioxide Anion Gap BUN Creatinine Estim Creat Clear Calc Est GFR (MDRD) Af Amer Est GFR (MDRD) Non-Af BUN/Creatinine Ratio Glucose Calcium Vitamin B12 Blood Type O POSITIVE Antibody Screen NEGATIVE Crossmatch See Detail - Other Studies Radiology: [] reviewed Other Studies: [] Route of nutrition/ use of supplements: [] Nutritional Intake: [] IV Site: [] [place] Catheter: [] - Physical Exam General: Alert, Oriented x3, Cooperative, No apparent distress HEENT: Atraumatic, PERRLA, EOMI Neck: Supple, No Nodes Lungs: Clear to auscultation, Normal air movement Cardiovascular: Regular rate, Regular Rhythm Abdomen: Soft, Non Tender, Non-Distended Extremities: Edema Skin: No rashes, Ulcer/ Wound - wound vac over R forearm IV Site: Central Line, without redness Musculoskeletal: No Tenderness to Palpation of Joints or Extremities Neurological: Cranial nerves II-XII grossly intact - Assessment/Plan Antibiotics: [] Assessment/Plan: [] MRSA bacteremia from infected RUE fistula - cont iv vanc, stop date 02/27/19, doses to be given with dialysis after discharge. No sign of new or worsened infection. Will follow, thank you.
--- NOTE | 2019-02-01 14:04 | NURSING ---
wound photo: right forearm
--- NOTE | 2019-02-01 15:00 | PCM.PN.HOSP ---
Subjective: Patient was fluid overloaded and felt very short of breath. Patient had improvement shortness of breath on hemodialysis today. Pulse ox 100% on room air. No tachypnea. Hemoglobin dropped to 6.5. No obvious loss of blood that he had drop in hemoglobin from baseline 10 g to 7 g after recent AV fistula infection/abscess which required surgical I&D, permacath placement and IV vancomycin Vitals/I&O's: Vital Signs Temp Pulse Resp BP Pulse Ox 98.4 F 84 16 151/91 H 100 02/01/19 14:04 02/01/19 14:04 02/01/19 14:04 02/01/19 14:04 02/01/19 14:04 Oxygen Flow Rate (L/min) 3 Oxygen Delivery Method Room Air Weight: 321 lb 13.998 oz Body Mass Index (BMI) 39.2 Intake and Output for Last 24 Hours 01/30/19 01/31/19 02/01/19 23:59 23:59 23:59 Intake Total 860 / 860 Balance 860 / 860 General: Alert, Oriented x3, Cooperative HEENT: Atraumatic, PERRLA, EOMI, Normocephalic Neck: Supple, No JVD, Negative Carotid Bruits Lungs: Clear to auscultation, No rhonchi, No wheeze, No rales, Diminished Cardiovascular: Regular rate, Regular Rhythm, Normal S1, Normal S2, No murmurs Abdomen: Bowel Sounds Present, Soft, Non Tender, Non-Distended Extremities: Capillary Refill Less than 3 Seconds, Edema Skin: No rashes, No breakdown Musculoskeletal: No Tenderness to Palpation of Joints or Extremities, Arthritic Changes Neurological: Cranial nerves II-XII grossly intact Psych/Mental Status: Normal Affect, Appropriate Laboratory Results 01/31/19 05:56: Vitamin B12 617 02/01/19 05:30: WBC 3.9 L, RBC 2.12 L, Hgb 6.5 L, Hct 21.2 L, MCV 100.0 H, MCH 30.7, MCHC 30.7 L, RDW 13.8, RDW Differential 49.6 H, Plt Count 228, MPV 8.5, Immature Gran % (Auto) 0.500, Neut % (Auto) 66.5, Lymph % (Auto) 17.7 L, [place] % (Auto) 9.1, Eos % (Auto) 5.2 H, Baso % (Auto) 1.0, Absolute Neuts (auto) 2.6, Absolute Lymphs (auto) 0.68 L, Total Counted Not Reportable 02/01/19 05:30: Sodium 137, Potassium 5.1, Chloride 102, Carbon Dioxide 31.0, Anion Gap 4 L, BUN 37 H, Creatinine 12.30 H*, Estim Creat Clear Calc 9.29, Est GFR (MDRD) Af Amer 6 L, Est GFR (MDRD) Non-Af 5 L, BUN/Creatinine Ratio 3.0 L, Glucose 85, Calcium 8.3 L 02/01/19 09:15: Blood Type O POSITIVE, Antibody Screen NEGATIVE, Crossmatch See Detail Current Medications Acetaminophen (Tylenol) 650 mg PO Q6H PRN PRN PRN Reason: pain or fever Last Admin: 02/01/19 13:15 Dose: 650 mg Alprazolam (Xanax) 0.5 mg PO TID PRN PRN PRN Reason: ANXIETY Last Admin: 02/01/19 08:20 Dose: 0.5 mg Carvedilol (Coreg) 12.5 mg PO QHS [facility] Last Admin: 01/31/19 21:49 Dose: 12.5 mg Cinacalcet (Sensipar) 90 mg PO QHS [facility] Last Admin: 01/31/19 21:49 Dose: 90 mg Ferrous Sulfate (Ferrous Sulfate) 325 mg PO 1200,1700 [facility] Last Admin: 02/01/19 13:12 Dose: 325 mg Hydralazine HCl (Apresoline Iv) 10 mg IV Q4H PRN PRN PRN Reason: SBP > 160 or DBP > 120 Hydralazine HCl (Apresoline) 25 mg PO TID [facility] Last Admin: 02/01/19 13:13 Dose: 25 mg Vancomycin IV Pharmacy to Dose (1 ea/ Sodium Chloride) 500 mls @ 250 mls/hr IV PRN PRN; Protocol PRN Reason: Rx to Dose Vancomycin HCl (Vancomycin) 1,000 mg in 200 mls @ 200 mls/hr IV X1 ONE Stop: 02/01/19 16:59 Isosorbide Mononitrate (Imdur) 30 mg PO DAILY [facility] Last Admin: 02/01/19 13:11 Dose: 30 mg Ondansetron HCl (Zofran Odt) 4 mg PO Q8H PRN PRN PRN Reason: NAUSEA Sertraline HCl (Zoloft) 100 mg PO DAILY [facility] Last Admin: 02/01/19 13:11 Dose: 100 mg Sodium Chloride () 5 - 15 ml IV UD PRN PRN Reason: SALINE FLUSH Last Admin: 02/01/19 05:28 Dose: 10 ml Medical Necessity - Tobacco Use Smoking Status: Never smoker Assessment/Plan All Active Problems Community acquired pneumonia (Ruled-out) Acute respiratory failure with hypoxia (Acute) Problem with dialysis access (Acute) ESRD (end stage renal disease) on dialysis (Acute) MRSA bacteremia (Acute) Anemia (Acute) Nausea (Acute) Transaminitis (Acute) HTN (hypertension) (Acute) Hematemesis/vomiting blood (Acute) Anemia due to blood loss, acute (Acute) Hemorrhagic shock (Acute) Decubitus ulcer (Acute) Physical deconditioning (Acute) ARDS (adult respiratory distress syndrome) (Resolved) H1N1 influenza with pneumonia (Resolved) This is a 38-year-old gentleman with history of ESRD on hemodialysis with recent history of right AV fistula infection from MRSA bacteremia was admitted with shortness of breath and fluid overload. Chest x-ray shows worsening right lower lobe infiltrate, moderate right pleural effusion and atelectasis and left small pleural effusion. 1. Shortness of breath/pleuritic chest pain mostly secondary to fluid overload with moderate pleural effusion/atelectasis: Patient felt better after hemodialysis. 2D echo January 14, 2019 with a normal EF and normal diastolic function, RVSP was 20 mmHg. 2. Acute/subacute anemia most probably postsurgical after recent AV fistula incision and drainage with history of anemia of chronic disease secondary to ESRD: Iron studies suggestive of anemia of chronic disease, iron 35, TIBC 211 with iron saturation 16.6%. B12 617, folate 6.9, TSH 0.68. Type and crossmatch ordered. Patient is on kidney transplant list and was told for no blood transfusion until less absolutely necessary. Currently patient is not symptomatic and recent drop to 6.5 g% might be secondary to hemodilution. Repeat H&H in evening. 3 Anxiety/depression -Stable -continue with Zoloft 4. Morbid obesity -BMI is 40 -Had extensive discussions for lifestyle modifications 5. Recent MRSA bacteremia with right forearm AV fistula infection/abscess status post incision and drainage. Patient had left IJ tunneled hemodialysis catheter placement, ligation of right forearm cephalic vein with debridement of abscess and resection of infected vein on 01/14. -His right forearm fistula was removed on his previous admission and a wound VAC was placed. Patient seen by ID and advised to continue vancomycin with hemodialysis with stopped it on February 27, 2019 Laboratory Results 01/31/19 05:56: Vitamin B12 617 02/01/19 05:30: WBC 3.9 L, RBC 2.12 L, Hgb 6.5 L, Hct 21.2 L, MCV 100.0 H, MCH 30.7, MCHC 30.7 L, RDW 13.8, RDW Differential 49.6 H, Plt Count 228, MPV 8.5, Immature Gran % (Auto) 0.500, Neut % (Auto) 66.5, Lymph % (Auto) 17.7 L, [place] % (Auto) 9.1, Eos % (Auto) 5.2 H, Baso % (Auto) 1.0, Absolute Neuts (auto) 2.6, Absolute Lymphs (auto) 0.68 L, Total Counted Not Reportable 02/01/19 05:30: Sodium 137, Potassium 5.1, Chloride 102, Carbon Dioxide 31.0, Anion Gap 4 L, BUN 37 H, Creatinine 12.30 H*, Estim Creat Clear Calc 9.29, Est GFR (MDRD) Af Amer 6 L, Est GFR (MDRD) Non-Af 5 L, BUN/Creatinine Ratio 3.0 L, Glucose 85, Calcium 8.3 L 02/01/19 09:15: Blood Type O POSITIVE, Antibody Screen NEGATIVE, Crossmatch See Detail Clinical Impression(s) from Imaging Studies Chest X-Ray 01/31/19 05:55 IMPRESSION: Mild worsening right lower lobe infiltrate, enlarging moderate, right pleural effusion and atelectasis Mild left basilar pulmonary opacity and small pleural effusion Stable cardiomegaly Mild pulmonary venous congestion Code Visit Inpatient E&M: [id number] [facility] Hosp L3
--- NOTE | 2019-02-01 15:13 | PN_ITS ---
Subjective: Patient was fluid overloaded and felt very short of breath. Patient had improvement shortness of breath on hemodialysis today. Pulse ox 100% on room air. No tachypnea. Hemoglobin dropped to 6.5. No obvious loss of blood that he had drop in hemoglobin from baseline 10 g to 7 g after recent AV fistula infection/abscess which required surgical I&D, permacath placement and IV vancomycin Vitals/I&O's: Vital Signs Temp Pulse Resp BP Pulse Ox 98.4 F 84 16 151/91 H 100 02/01/19 14:04 02/01/19 14:04 02/01/19 14:04 02/01/19 14:04 02/01/19 14:04 Oxygen Flow Rate (L/min) 3 Oxygen Delivery Method Room Air Weight: 321 lb 13.998 oz Body Mass Index (BMI) 39.2 Intake and Output for Last 24 Hours 01/30/19 01/31/19 02/01/19 23:59 23:59 23:59 Intake Total 860 / 860 Balance 860 / 860 General: Alert, Oriented x3, Cooperative HEENT: Atraumatic, PERRLA, EOMI, Normocephalic Neck: Supple, No JVD, Negative Carotid Bruits Lungs: Clear to auscultation, No rhonchi, No wheeze, No rales, Diminished Cardiovascular: Regular rate, Regular Rhythm, Normal S1, Normal S2, No murmurs Abdomen: Bowel Sounds Present, Soft, Non Tender, Non-Distended Extremities: Capillary Refill Less than 3 Seconds, Edema Skin: No rashes, No breakdown Musculoskeletal: No Tenderness to Palpation of Joints or Extremities, Arthritic Changes Neurological: Cranial nerves II-XII grossly intact Psych/Mental Status: Normal Affect, Appropriate Laboratory Results 01/31/19 05:56: Vitamin B12 617 02/01/19 05:30: WBC 3.9 L, RBC 2.12 L, Hgb 6.5 L, Hct 21.2 L, MCV 100.0 H, MCH 30.7, MCHC 30.7 L, RDW 13.8, RDW Differential 49.6 H, Plt Count 228, MPV 8.5, Immature Gran % (Auto) 0.500, Neut % (Auto) 66.5, Lymph % (Auto) 17.7 L, [place] % (Auto) 9.1, Eos % (Auto) 5.2 H, Baso % (Auto) 1.0, Absolute Neuts (auto) 2.6, Absolute Lymphs (auto) 0.68 L, Total Counted Not Reportable 02/01/19 05:30: Sodium 137, Potassium 5.1, Chloride 102, Carbon Dioxide 31.0, Anion Gap 4 L, BUN 37 H, Creatinine 12.30 H*, Estim Creat Clear Calc 9.29, Est GFR (MDRD) Af Amer 6 L, Est GFR (MDRD) Non-Af 5 L, BUN/Creatinine Ratio 3.0 L, Glucose 85, Calcium 8.3 L 02/01/19 09:15: Blood Type O POSITIVE, Antibody Screen NEGATIVE, Crossmatch See Detail Current Medications Acetaminophen (Tylenol) 650 mg PO Q6H PRN PRN PRN Reason: pain or fever Last Admin: 02/01/19 13:15 Dose: 650 mg Alprazolam (Xanax) 0.5 mg PO TID PRN PRN PRN Reason: ANXIETY Last Admin: 02/01/19 08:20 Dose: 0.5 mg Carvedilol (Coreg) 12.5 mg PO QHS [facility] Last Admin: 01/31/19 21:49 Dose: 12.5 mg Cinacalcet (Sensipar) 90 mg PO QHS [facility] Last Admin: 01/31/19 21:49 Dose: 90 mg Ferrous Sulfate (Ferrous Sulfate) 325 mg PO 1200,1700 [facility] Last Admin: 02/01/19 13:12 Dose: 325 mg Hydralazine HCl (Apresoline Iv) 10 mg IV Q4H PRN PRN PRN Reason: SBP > 160 or DBP > 120 Hydralazine HCl (Apresoline) 25 mg PO TID [facility] Last Admin: 02/01/19 13:13 Dose: 25 mg Vancomycin IV Pharmacy to Dose (1 ea/ Sodium Chloride) 500 mls @ 250 mls/hr IV PRN PRN; Protocol PRN Reason: Rx to Dose Vancomycin HCl (Vancomycin) 1,000 mg in 200 mls @ 200 mls/hr IV X1 ONE Stop: 02/01/19 16:59 Isosorbide Mononitrate (Imdur) 30 mg PO DAILY [facility] Last Admin: 02/01/19 13:11 Dose: 30 mg Ondansetron HCl (Zofran Odt) 4 mg PO Q8H PRN PRN PRN Reason: NAUSEA Sertraline HCl (Zoloft) 100 mg PO DAILY [facility] Last Admin: 02/01/19 13:11 Dose: 100 mg Sodium Chloride () 5 - 15 ml IV UD PRN PRN Reason: SALINE FLUSH Last Admin: 02/01/19 05:28 Dose: 10 ml Medical Necessity - Tobacco Use Smoking Status: Never smoker Assessment/Plan All Active Problems Community acquired pneumonia (Ruled-out) Acute respiratory failure with hypoxia (Acute) Problem with dialysis access (Acute) ESRD (end stage renal disease) on dialysis (Acute) MRSA bacteremia (Acute) Anemia (Acute) Nausea (Acute) Transaminitis (Acute) HTN (hypertension) (Acute) Hematemesis/vomiting blood (Acute) Anemia due to blood loss, acute (Acute) Hemorrhagic shock (Acute) Decubitus ulcer (Acute) Physical deconditioning (Acute) ARDS (adult respiratory distress syndrome) (Resolved) H1N1 influenza with pneumonia (Resolved) This is a 38-year-old gentleman with history of ESRD on hemodialysis with recent history of right AV fistula infection from MRSA bacteremia was admitted with shortness of breath and fluid overload. Chest x-ray shows worsening right lower lobe infiltrate, moderate right pleural effusion and atele ctasis and left small pleural effusion. 1. Shortness of breath/pleuritic chest pain mostly secondary to fluid overload with moderate pleural effusion/atelectasis: Patient felt better after hemodialy sis. 2D echo January 14, 2019 with a normal EF and normal diastolic function, RVSP was 20 mmHg. 2. Acute/subacute anemia most probably postsurgical after recent AV fistula incision and drainage with history of anemia of chronic disease secondary to ESRD: Iron studies suggestive of anemia of chronic disease, iron 35, TIBC 211 with iron saturation 16.6%. B12 617, folate 6.9, TSH 0.68. Type and crossmatch ordered. Patient is on kidney transplant list and was told for no blood transfusion until less absolutely necessary. Currently patient is not symptomatic and recent drop to 6.5 g% might be secondary to hemodilution. Repeat H&H in evening. 3 Anxiety/depression -Stable -continue with Zoloft 4. Morbid obesity -BMI is 40 -Had extensive discussions for lifestyle modifications 5. Recent MRSA bacteremia with right forearm AV fistula infection/abscess status post incision and drainage. Patient had left IJ tunneled hemodialysis catheter placement, ligation of right forearm cephalic vein with debridement of abscess and resection of infected vein on 01/14. -His right forearm fistula was removed on his previous admission and a wound VAC was placed. Patient seen by ID and advised to continue vancomycin with hemodialysis with stopped it on February 27, 2019 Laboratory Results 01/31/19 05:56: Vitamin B12 617 02/01/19 05:30: WBC 3.9 L, RBC 2.12 L, Hgb 6.5 L, Hct 21.2 L, MCV 100.0 H, MCH 30.7, MCHC 30.7 L, RDW 13.8, RDW Differential 49.6 H, Plt Count 228, MPV 8.5, Immature Gran % (Auto) 0.500, Neut % (Auto) 66.5, Lymph % (Auto) 17.7 L, [place] % (Auto) 9.1, Eos % (Auto) 5.2 H, Baso % (Auto) 1.0, Absolute Neuts (auto) 2.6, Absolute Lymphs (auto) 0.68 L, Total Counted Not Reportable 02/01/19 05:30: Sodium 137, Potassium 5.1, Chloride 102, Carbon Dioxide 31.0, Anion Gap 4 L, BUN 37 H, Creatinine 12.30 H*, Estim Creat Clear Calc 9.29, Est GFR (MDRD) Af Amer 6 L, Est GFR (MDRD) Non-Af 5 L, BUN/Creatinine Ratio 3.0 L, Glucose 85, Calcium 8.3 L 02/01/19 09:15: Blood Type O POSITIVE, Antibody Screen NEGATIVE, Crossmatch See Detail Clinical Impression(s) from Imaging Studies Chest X-Ray 01/31/19 05:55 IMPRESSION: Mild worsening right lower lobe infiltrate, enlarging moderate, right pleural effusion and atelectasis Mild left basilar pulmonary opacity and small pleural effusion Stable cardiomegaly Mild pulmonary venous congestion Code Visit Inpatient E&M: [id number] [facility] Hosp L3
--- NOTE | 2019-02-01 15:14 | NURSING ---
Aware of Vital signs taken by John RASMUSSEN at 1400 today and not due again until 1999 rosa.
--- NOTE | 2019-02-01 15:52 | CHAPLAIN ---
Type of Pastoral Visit _x__ Initial Visit ___ Follow-up Visit ___ On-call Visit ___ General Patient Visit ___ Spiritual Assessment ___ Family Conference ___ Bereavement ___ Rapid Response ___ Code Blue ___ Other (describe below) Pastoral Care Referral From _x__ Patient ___ Family ___ Nurse ___ Physician ___ Dog Trainer ___ Principal Investigator ___ Other (describe below) Sacrament/Intervention _x__ Active listening ___ Anointing ___ Yarsanism ___ Bereavement ___ Communion ___ Claribel exploration ___ _x__ Life review _x__ Prayer ___ Reconciliation ___ Sacrament of Sick _x__ Supportive presence ___ Wedding ___ Other (describe below) Pastoral Comments
[2019-02-01] MEDS: Vancomycin IV 1,000 MG/200 ML BAG 200 MG IV (16:25)
[2019-02-01 20:30] LABS: Hematocrit 22.5 % (40-54); Hemoglobin 6.9 g/dl (13.0-16.5)
[2019-02-01] MEDS: Carvedilol 12.5 MG Tablet PO (21:07)
[2019-02-01] MEDS: Cinacalcet HCl 30 MG Tablet 90 MG PO (21:07)
[2019-02-02] VITALS (7 sets, daily range): BP systolic 140–158; BP diastolic 87–98; PULSE 73–87; RESP 18–20; TEMP 36.2–36.4; O2SAT 92–100
[2019-02-02] MEDS: hydrALAZINE 25 MG Tablet PO ×2 (05:27→13:06)
[2019-02-02] MEDS: 0.9% NaCl Peripheral Flush Adult/Peds IV (05:27)
[2019-02-02 06:28] LABS: Absolute Lymphocyte Count 0.48 X10^3/ul (0.83-4.51); Absolute Neutrophil Count 2.2 X10^3/uL (2.0-7.7); Basophil# 0.03 X10^3/uL; Basophil% 0.9 % (0-1); Eosinophil# 0.18 X10^3/uL; Eosinophils% 5.6 % (0-5); Hematocrit 22.8 % (40-54); Hemoglobin 6.8 g/dl (13.0-16.5); Lymphocyte # 0.48 X10^3/ul (4.0); Mean Corp Hgb Conc 29.8 g/gl (32-36); Mean Corpuscular Volume 100.4 fL (80-94); Mean Platelet Vol. 8.8 fl (6.2-12.0); Monocyte# 0.32 X10^3/uL; Neutrophil # 2.18 X10^3/uL (2.7-7.7); Neutrophil % 67.9 % (47-70); Platelet Count 227 K/mm3 (150-450); RBC Distribution Width CV 13.5 % (11.6-14.6); RBC Distribution Width SD 46.5 fl (35.1-43.9); Red Blood Count 2.27 M/mm3 (4.6-6.2); White Blood Count 3.2 K/mm3 (4.4-11.0)
[2019-02-02 06:29] LABS: Differential Indicated SCAN CRITERIA MET; POSITIVE COUNT NO; POSITIVE DIFFERENTIAL YES; POSITIVE MORPHOLOGY NO
[2019-02-02 06:30] LABS: Anion Gap 9 (5-15); BUN 30 mg/dL (7-18); BUN/Creat Ratio 3.2 RATIO (10-20); Calcium,Total 8.2 mg/dL (8.5-10.1); Chloride 99 mmol/L (98-107); Creatinine, Serum 9.45 mg/dL (0.70-1.30); EST Glomerular Filtration Rate 7 mL/min (>60); Est Glom Filt Rate - Afr Amer 8 mL/min (>60); Ferritin 1051 ng/mL (26-388); Glucose 89 mg/dL (74-106); Potassium 4.2 mmol/L (3.5-5.1); Sodium Level 138 mmol/L (136-145)
[2019-02-02] MEDS: Sertraline 100 MG Tablet PO (08:21)
[2019-02-02] MEDS: Isosorbide Mononitrate 30 MG Tablet PO (08:21)
--- NOTE | 2019-02-02 09:23 | DCINST_ITS ---
You will use the following diet at home:: Renal (restricted protein/sodium) Your food should be the consistency of: Regular Discharge Activity: Return to Normal Activity, May Not Drive - for 3-4 days Weight Bearing Status: Weight bearing as tolerated Call your doctor if you observe: Fever of 101 or Higher, Inability to urinate, Inability to have a bowel movement, Shortness of breath, Fainting spells, Swelling in the ankles, Chest pain, Increased palpitations (irregular heartbeat) Allergies/Adverse Reactions: Allergies No Known Allergies Allergy (Verified 01/31/19 05:42) Medications to take at Discharge Carvedilol [Coreg (Beta Bentley)] 12.5 mg PO DAILY 06/02/14 Cinacalcet HCl [Sensipar] 90 mg PO DAILY 01/13/19 Isosorbide Mononitrate [Imdur] 30 mg PO DAILY 01/13/19 Ondansetron [Zofran Odt] 4 mg PO Q8H PRN PRN #10 tab 01/13/19 Sertraline HCl [Zoloft] 100 mg PO DAILY 01/13/19 Acetaminophen [Tylenol Tablet] 650 mg PO Q6H PRN PRN tablet 01/19/19 Vancomycin IV [Vancomycin] 500 mg IV UD 40 Days #17 bag 01/19/19 Epoetin Gera [Epogen] 10,000 unit IJ MOWEFR 01/31/19 hydrALAZINE [Apresoline] 25 mg PO TID #90 tab 02/02/19 The following prescriptions were given: hydrALAZINE [Apresoline] 25 mg PO TID #90 tab Transmission Status: Pending to [facility]/pharmacy #[id number] Primary Care Physician: Marcell Thacker MD [Primary Care Provider] - Please follow up with your Primary Care Physician in: in 1-2 week Test Results: Test results from this visit will be discussed in further detail at your follow- up appointment, if applicable. When: in 1-2 week Please Follow Up With: Osei Barba MD When: in 2-3 weeks on IV Vanco
--- NOTE | 2019-02-02 09:25 | PCM.DC.SUM ---
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 Chest x-ray shows worsening right lower lobe infiltrate, moderate right pleural effusion and atelectasis and left small pleural effusion. 1. Shortness of breath/pleuritic chest pain mostly secondary to fluid overload with moderate pleural effusion/atelectasis: Patient felt better after hemodialysis. 2D echo January 14, 2019 with a normal EF and normal diastolic function, RVSP was 20 mmHg. Patient was on 2 L of oxygen which was weaned off. 2. Acute/subacute anemia most probably postsurgical after recent AV fistula incision and drainage with history of anemia of chronic disease secondary to ESRD: Iron studies suggestive of anemia of chronic disease, iron 35, TIBC 211 with iron saturation 16.6%. B12 617, folate 6.9, TSH 0.68. Type and crossmatch . Patient is on kidney transplant list and was told for no blood transfusion until less absolutely necessary. Currently patient is not symptomatic and recent drop to 6.5 g% might be secondary to hemodilution. Repeat H&H shows improvement to 6.8. 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 Patient most probably had focal segmental glomerulosclerosis Anxiety/depression -Stable -continue with Zoloft 4. Morbid obesity -BMI is 40 -Had extensive discussions for lifestyle modifications 5. Recent MRSA bacteremia with right forearm AV fistula infection/abscess status post incision and drainage. Patient had left IJ tunneled hemodialysis catheter placement, ligation of right forearm cephalic vein with debridement of abscess and resection of infected vein on 01/14. -His right forearm fistula was removed on his previous admission and a wound VAC was placed. Patient seen by ID and advised to continue vancomycin with hemodialysis with stop date on February 27, 2019 Discharge medication reconciliation done. Discharge follow-up instructions completed. Discharge process discussed with the patient and all questions were answered to patient's satisfaction. 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 Total time spent, exact 35 minutes on discharge meds reconciliation, examination, review of imaging and blood test and discussion with the patient on follow-up instructions. Subjective: Seen and examined. Patient denies shortness of breath and feels better. Walking pulse oximetry was done. Patient pulse ox 99% on room air at rest and 92% on ambulation on room air Objective: General: Alert, Oriented x3, Cooperative HEENT: Atraumatic, PERRLA, EOMI, Normocephalic Neck: Supple, No JVD, Negative Carotid Bruits. left neck dailysis catheter. Lungs: Clear to auscultation, No rhonchi, No wheeze, No rales, Diminished Cardiovascular: Regular rate, Regular Rhythm, Normal S1, Normal S2, No murmurs Abdomen: Bowel Sounds Present, Soft, Non Tender, Non-Distended Extremities: Capillary Refill Less than 3 Seconds, bilateral lower extremity edema. Patient has wound VAC on right arm after AV fistula surgery. Skin: No rashes, No breakdown Musculoskeletal: No Tenderness to Palpation of Joints or Extremities, Arthritic Changes Neurological: Cranial nerves II-XII grossly intact Psych/Mental Status: Normal Affect, Appropriate - Physical Exam Vital Signs Temp Pulse Resp BP Pulse Ox 97.1 F L 74 20 H 140/98 H 100 02/02/19 08:19 02/02/19 08:19 02/02/19 08:19 02/02/19 08:19 02/02/19 08:19 Oxygen Flow Rate (L/min) 2 Oxygen Delivery Method CPAP Weight: 310 lb 13.628 oz Body Mass Index (BMI) 39.2 Intake and Output for Last 24 Hours 01/31/19 02/01/19 02/02/19 23:59 23:59 23:59 Intake Total 1497 / 1497 0 / 0 Output Total 0 / 0 Balance 1497 / 1497 0 / 0 Laboratory Tests Past 24 Hrs 01/31/19 02/01/19 02/01/19 05:56 09:15 20:00 WBC RBC Hgb 6.9 L Hct 22.5 L MCV MCH MCHC RDW RDW Differential Plt Count MPV Immature Gran % (Auto) Neut % (Auto) Lymph % (Auto) Sandoval % (Auto) Eos % (Auto) Baso % (Auto) Absolute Neuts (auto) Absolute Lymphs (auto) Total Counted Diff Path Review Sodium Potassium Chloride Carbon Dioxide Anion Gap BUN Creatinine Estim Creat Clear Calc Est GFR (MDRD) Af Amer Est GFR (MDRD) Non-Af BUN/Creatinine Ratio Glucose Calcium Ferritin Vitamin B12 617 Blood Type O POSITIVE Antibody Screen NEGATIVE Crossmatch See Detail 02/02/19 02/02/19 05:20 05:20 WBC 3.2 L RBC 2.27 L Hgb 6.8 L Hct 22.8 L MCV 100.4 H MCH 30.0 MCHC 29.8 L RDW 13.5 RDW Differential 46.5 H Plt Count 227 MPV 8.8 Immature Gran % (Auto) 0.600 Neut % (Auto) 67.9 Lymph % (Auto) 15.0 L Sandoval % (Auto) 10.0 Eos % (Auto) 5.6 H Baso % (Auto) 0.9 Absolute Neuts (auto) 2.2 Absolute Lymphs (auto) 0.48 L Total Counted Not Reportable Diff Path Review May foll Sodium 138 Potassium 4.2 Chloride 99 Carbon Dioxide 30.0 Anion Gap 9 BUN 30 H Creatinine 9.45 H* Estim Creat Clear Calc 12.10 Est GFR (MDRD) Af Amer 8 L Est GFR (MDRD) Non-Af 7 L BUN/Creatinine Ratio 3.2 L Glucose 89 Calcium 8.2 L Ferritin 1051 H Vitamin B12 Blood Type Antibody Screen Crossmatch Discharge Activity: Return to Normal Activity, May Not Drive - for 3-4 days Weight Bearing Status: Weight bearing as tolerated Call your doctor if you observe: Fever of 101 or Higher, Inability to urinate, Inability to have a bowel movement, Shortness of breath, Fainting spells, Swelling in the ankles, Chest pain, Increased palpitations (irregular heartbeat) Home Medications: Medications to take at Discharge Carvedilol [Coreg (Beta Bentley)] 12.5 mg PO DAILY 06/02/14 Cinacalcet HCl [Sensipar] 90 mg PO DAILY 01/13/19 Isosorbide Mononitrate [Imdur] 30 mg PO DAILY 01/13/19 Ondansetron [Zofran Odt] 4 mg PO Q8H PRN PRN #10 tab 01/13/19 Sertraline HCl [Zoloft] 100 mg PO DAILY 01/13/19 Acetaminophen [Tylenol Tablet] 650 mg PO Q6H PRN PRN tablet 01/19/19 Vancomycin IV [Vancomycin] 500 mg IV UD 40 Days #17 bag 01/19/19 Epoetin Gera [Epogen] 10,000 unit IJ MOWEFR 01/31/19 hydrALAZINE [Apresoline] 25 mg PO TID #90 tab 02/02/19 Following Prescrptions Were Given to Patient: hydrALAZINE [Apresoline] 25 mg PO TID #90 tab Transmission Status: [id number] Primary Care Physician: Marcell Thacker MD [Primary Care Provider] - Please follow up with your Primary Care Physician in: in 1-2 week When: in 1-2 week Please Follow Up With: Osei Barba MD When: in 2-3 weeks on IV Vanco Medical Necessity - Tobacco Use Smoking Status: Never smoker Meaningful Use Info Meaningful Use Diagnoses (Choose all that apply): None applicable Code Visit Inpatient E&M: 15394 Disch Hosp
[2019-02-02] MEDS: Ferrous Sulfate 325 MG Tablet PO (11:25)
[2019-02-02] MEDS: Acetaminophen 325 MG Tablet 650 MG PO (11:27)
--- NOTE | 2019-02-02 13:00 | CASEMGMT ---
VALERY SCHMIDT Chart Review: Patient is a readmission from 01/13/19-01/19/19 for Acute resp failure with hypoxia, problem with dialysis access, ESRD, and MRSA bactermia. See VALERY SCHMIDT assessment on 01/14/19.Patient was discharged to home with support from family, [facility] for wound care. Patient was setup with IV ATB at outpatient HD. Patient was admitted 01/31/19 for SOB, walking oxygen testing completed and patient does not qualify for home oxygen. Patient to continue with wound vac with C. Patient to resume outpatient HD with IV ATB as previously ordered. VALERY SCHMIDT in to discuss discharge plans at this time with resumption HHC and outpatient HD. Patient voiced no concerns at this time. VALERY SCHMIDT called [facility] to updated that patient is discharging with resumption of HHC SN. [facility] updated regarding patient discharging home today. Clinical information faxed to [facility]. CM will continue to follow this patient and plan for a safe discharge.
[2019-02-02 14:03] LABS: Pathologist Review Reviewed
--- NOTE | 2019-02-02 20:53 | PN.RENAL_ITS ---
Subjective: Pt was seen earlier today before his discharge Pt tolerated HD session well yesterday no complaints - Physical Exam General: Alert, Oriented x3 HEENT: Atraumatic Oral: Moist Mucosa Neck: Supple, No JVD Lungs: Clear to auscultation, Normal air movement, No rhonchi, No wheeze Cardiovascular: Regular rate, Regular Rhythm, Normal S1, Normal S2 Abdomen: Bowel Sounds Present, Soft, Non Tender, Non-Distended Extremities: No clubbing, No cyanosis, No edema Skin: No rashes Musculoskeletal: No Tenderness to Palpation of Joints or Extremities Lymphatic: No Cervical, Supraclavicular, or Inguinal Adenopathy Neurological: Cranial nerves II-XII grossly intact, Neuro grossly intact Psych/Mental Status: Normal Affect Vital Signs Temp Pulse Resp BP Pulse Ox 97.5 F L 87 18 153/87 H 95 02/02/19 13:05 02/02/19 13:06 02/02/19 13:05 02/02/19 13:05 02/02/19 13:05 Oxygen Flow Rate (L/min) 2 Oxygen Delivery Method Room Air Weight: 141 kg Body Mass Index (BMI) 39.2 Intake and Output for Last 24 Hours 01/31/19 02/01/19 02/02/19 23:59 23:59 23:59 Intake Total 1497 / 1497 240 / 240 Output Total 0 / 0 Balance 1497 / 1497 240 / 240 Laboratory Tests Past 24 Hrs 02/01/19 02/02/19 02/02/19 09:15 05:20 05:20 WBC 3.2 L RBC 2.27 L Hgb 6.8 L Hct 22.8 L MCV 100.4 H MCH 30.0 MCHC 29.8 L RDW 13.5 RDW Differential 46.5 H Plt Count 227 MPV 8.8 Immature Gran % (Auto) 0.600 Neut % (Auto) 67.9 Lymph % (Auto) 15.0 L Nolan % (Auto) 10.0 Eos % (Auto) 5.6 H Baso % (Auto) 0.9 Absolute Neuts (auto) 2.2 Absolute Lymphs (auto) 0.48 L Total Counted Not Reportable Diff Path Review Reviewed Sodium 138 Potassium 4.2 Chloride 99 Carbon Dioxide 30.0 Anion Gap 9 BUN 30 H Creatinine 9.45 H* Estim Creat Clear Calc 12.10 Est GFR (MDRD) Af Amer 8 L Est GFR (MDRD) Non-Af 7 L BUN/Creatinine Ratio 3.2 L Glucose 89 Calcium 8.2 L Ferritin 1051 H Crossmatch See Detail Medical Necessity - Tobacco Use Smoking Status: Never smoker Assessment/Plan All Active Problems Community acquired pneumonia (Ruled-out) Acute respiratory failure with hypoxia (Acute) Problem with dialysis access (Acute) ESRD (end stage renal disease) on dialysis (Acute) MRSA bacteremia (Acute) Anemia (Acute) Nausea (Acute) Transaminitis (Acute) HTN (hypertension) (Acute) Hematemesis/vomiting blood (Acute) Anemia due to blood loss, acute (Acute) Hemorrhagic shock (Acute) Decubitus ulcer (Acute) Physical deconditioning (Acute) ARDS (adult respiratory distress syndrome) (Resolved) H1N1 influenza with pneumonia (Resolved) ESRD on MWF. next HD session 02/03 Anemia. Hgb < 7.0. hgb stable. did not receive RBC transfusion No RBC txf since the patient is on transplant list HTN continue meds monitor reeval after UF CKD MBD monitor phos ca H/o MRSA bacteremia continue vanco Renal team will continue to follow
== END 2019-02-02 13:30 | disposition home or self-care (01) | DRG 640 ==
LOC: ED 06:14 → MS3 07:35
PROVIDERS: Admitting Provider Family Medicine; Emergency Provider Emergency Medicine; Family Provider Family Medicine; PCP Family Medicine; Visit Provider Internal Medicine
DX: E87.70 Fluid overload, unspecified (principal); N18.6 End stage renal disease; I13.11 Hypertensive heart and chronic kidney disease without heart failure, with stage 5 chronic kidney disease, or end stage renal disease; Z68.41 Body mass index [BMI] 40.0-44.9, adult; R78.81 Bacteremia; I12.0 Hypertensive chronic kidney disease with stage 5 chronic kidney disease or end stage renal disease; Z99.2 Dependence on renal dialysis; D63.8 Anemia in other chronic diseases classified elsewhere; E66.01 Morbid (severe) obesity due to excess calories; B95.62 Methicillin resistant Staphylococcus aureus infection as the cause of diseases classified elsewhere; Z76.82 Awaiting organ transplant status; F41.1 Generalized anxiety disorder; F32.9 Major depressive disorder, single episode, unspecified
CPT/HCPCS: 36415; 71045; 80048; 82607; 82728; 82746; 83540; 83550; 84484; 85014; 85018; 85025; 86850; 86900; 86920; 86922; 90937; 93005; 97802; 99285; J7030; A4216; G0257; Q5106

== ENCOUNTER → 2019-02-10 | Outpatient (CLI) | payer MEDICARE, BC, MEDICAID, SELFPAY ==
[2019-02-10 14:56] VITALS: BMI 42.0
[2019-02-10 15:32] LABS: Absolute Lymphocyte Count 0.81 X10^3/ul (0.83-4.51); Absolute Neutrophil Count 2.7 X10^3/uL (2.0-7.7); Basophil# 0.04 X10^3/uL; Basophil% 0.9 % (0-1); Eosinophil# 0.33 X10^3/uL; Eosinophils% 7.8 % (0-5); Hematocrit 24.4 % (40-54); Hemoglobin 7.5 g/dl (13.0-16.5); Lymphocyte # 0.81 X10^3/ul (4.0); Lymphocyte % 19.1 % (19-41); Mean Corp Hgb Conc 30.7 g/gl (32-36); Mean Corpuscular Hgb 29.4 pg (27.0-32.0); Mean Corpuscular Volume 95.7 fL (80-94); Mean Platelet Vol. 9.1 fl (6.2-12.0); Monocyte# 0.37 X10^3/uL; Monocyte% 8.7 % (0-10); Neutrophil # 2.67 X10^3/uL (2.7-7.7); Platelet Count 266 K/mm3 (150-450); RBC Distribution Width CV 13.6 % (11.6-14.6); Red Blood Count 2.55 M/mm3 (4.6-6.2); White Blood Count 4.2 K/mm3 (4.4-11.0)
[2019-02-10 15:49] LABS: POSITIVE COUNT NO; POSITIVE DIFFERENTIAL NO; POSITIVE MORPHOLOGY NO
[2019-02-10 15:52] LABS: Anion Gap 5 (5-15); BUN 49 mg/dL (7-18); BUN/Creat Ratio 3.7 RATIO (10-20); Calcium,Total 8.6 mg/dL (8.5-10.1); Chloride 98 mmol/L (98-107); EST Glomerular Filtration Rate 5 mL/min (>60); Est Glom Filt Rate - Afr Amer 6 mL/min (>60); Glucose 99 mg/dL (74-106); Potassium 4.4 mmol/L (3.5-5.1); Sodium Level 136 mmol/L (136-145)
== END | disposition home or self-care (01) ==
LOC: PAVLAB 15:09
PROVIDERS: Physician Assistant; Family Provider Family Medicine; PCP Family Medicine; Referring Provider Surgery; Visit Provider Surgery
DX: N18.5 Chronic kidney disease, stage 5 (principal)
CPT/HCPCS: 36415; 80048; 85025

== ENCOUNTER → 2019-02-12 | Outpatient (CLI) | payer MEDICARE, BC, MEDICAID, SELFPAY ==
[2019-02-10 14:56] VITALS: BMI 42.0
[2019-02-12] MEDS: Vancomycin IV 500 MG/100 ML BAG 100 MG IV (15:09)
[2019-02-12 15:10] VITALS: BP 170/104; PULSE 90; RESP 18; TEMP 37; O2SAT 99; BMI 40.8
== END | disposition home or self-care (01) ==
LOC: MEDOUTP 14:58
PROVIDERS: Family Provider Family Medicine; PCP Family Medicine; Referring Provider Internal Medicine Infectious Disease; Visit Provider Internal Medicine Infectious Disease
DX: T85.79XA Infection and inflammatory reaction due to other internal prosthetic devices, implants and grafts, initial encounter (principal); B95.62 Methicillin resistant Staphylococcus aureus infection as the cause of diseases classified elsewhere; N18.6 End stage renal disease; Z99.2 Dependence on renal dialysis
CPT/HCPCS: 96365; 96366; J7050; A4216

== ENCOUNTER → 2019-02-15 | Outpatient (CLI) | payer MEDICARE, BC, MEDICAID, SELFPAY ==
[2019-02-12 15:10] VITALS: BMI 40.8
[2019-02-15 14:27] VITALS: BP 160/104; PULSE 88; RESP 18; TEMP 37; O2SAT 98; BMI 40.8
[2019-02-15] MEDS: Vancomycin IV 500 MG/100 ML BAG 100 MG IV (14:36)
== END | disposition home or self-care (01) ==
LOC: MEDOUTP 14:04
PROVIDERS: Family Provider Family Medicine; PCP Family Medicine; Referring Provider Internal Medicine Infectious Disease; Visit Provider Internal Medicine Infectious Disease
DX: T85.79XA Infection and inflammatory reaction due to other internal prosthetic devices, implants and grafts, initial encounter (principal); B95.62 Methicillin resistant Staphylococcus aureus infection as the cause of diseases classified elsewhere; N18.6 End stage renal disease; Z99.2 Dependence on renal dialysis
CPT/HCPCS: 96365; A4216

== ENCOUNTER → 2019-02-17 | Outpatient (CLI) | payer MEDICARE, BC, MEDICAID, SELFPAY ==
[2019-02-12 15:10] VITALS: BMI 40.8
[2019-02-15 14:27] VITALS: BMI 40.8
[2019-02-17] MEDS: Vancomycin IV 500 MG/100 ML BAG 100 MG IV (14:59)
[2019-02-17 15:03] VITALS: BP 153/95; PULSE 98; RESP 16; TEMP 36.6; O2SAT 98; BMI 40.8
== END | disposition home or self-care (01) ==
LOC: MEDOUTP 14:31
PROVIDERS: Family Provider Family Medicine; PCP Family Medicine; Referring Provider Internal Medicine Infectious Disease; Visit Provider Internal Medicine Infectious Disease
DX: T85.79XA Infection and inflammatory reaction due to other internal prosthetic devices, implants and grafts, initial encounter (principal); B95.62 Methicillin resistant Staphylococcus aureus infection as the cause of diseases classified elsewhere; N18.6 End stage renal disease; Z99.2 Dependence on renal dialysis
CPT/HCPCS: 96365; J7050; A4216

== ENCOUNTER → 2019-02-19 14:16 | Outpatient (CLI) | payer MEDICARE, BC, MEDICAID, SELFPAY ==
[2019-02-12 15:10] VITALS: BMI 40.8
[2019-02-17 15:03] VITALS: BMI 40.8
[2019-02-19] MEDS: Vancomycin IV 500 MG/100 ML BAG 100 MG IV (14:38)
[2019-02-19 14:39] VITALS: BP 167/95; PULSE 89; RESP 16; TEMP 37.3; O2SAT 97; BMI 40.8
== END ==
PROVIDERS: Family Provider Family Medicine; PCP Family Medicine; Referring Provider Internal Medicine Infectious Disease; Visit Provider Internal Medicine Infectious Disease
DX: B95.62 Methicillin resistant Staphylococcus aureus infection as the cause of diseases classified elsewhere (principal); T85.79XA Infection and inflammatory reaction due to other internal prosthetic devices, implants and grafts, initial encounter; N18.6 End stage renal disease; Z99.2 Dependence on renal dialysis
CPT/HCPCS: 96365; 96366; J7050; A4216

== ENCOUNTER → 2019-02-22 | Outpatient (CLI) | payer MEDICARE, BC, MEDICAID, SELFPAY ==
[2019-02-12 15:10] VITALS: BMI 40.8
[2019-02-19 14:39] VITALS: BMI 40.8
[2019-02-22] MEDS: Vancomycin IV 500 MG/100 ML BAG 100 MG IV (14:37)
[2019-02-22 14:38] VITALS: BP 186/96; PULSE 95; RESP 16; O2SAT 98; BMI 40.8
== END | disposition home or self-care (01) ==
LOC: MEDOUTP 14:19
PROVIDERS: Family Provider Family Medicine; PCP Family Medicine; Referring Provider Internal Medicine Infectious Disease; Visit Provider Internal Medicine Infectious Disease
DX: T85.79XA Infection and inflammatory reaction due to other internal prosthetic devices, implants and grafts, initial encounter (principal); B95.62 Methicillin resistant Staphylococcus aureus infection as the cause of diseases classified elsewhere; N18.6 End stage renal disease; Z99.2 Dependence on renal dialysis
CPT/HCPCS: 96365; 96366; J7050; A4216

== ENCOUNTER → 2019-02-24 | Outpatient (CLI) | payer MEDICARE, BC, MEDICAID, SELFPAY ==
[2019-02-12 15:10] VITALS: BMI 40.8
[2019-02-22 14:38] VITALS: BMI 40.8
[2019-02-24 14:22] VITALS: BP 155/97; PULSE 61; RESP 16; TEMP 37.6; O2SAT 97; BMI 40.8
[2019-02-24] MEDS: Vancomycin IV 500 MG/100 ML BAG 100 MG IV (14:31)
== END | disposition home or self-care (01) ==
LOC: MEDOUTP 14:16
PROVIDERS: Family Provider Family Medicine; PCP Family Medicine; Referring Provider Internal Medicine Infectious Disease; Visit Provider Internal Medicine Infectious Disease
DX: T85.79XA Infection and inflammatory reaction due to other internal prosthetic devices, implants and grafts, initial encounter (principal); B95.62 Methicillin resistant Staphylococcus aureus infection as the cause of diseases classified elsewhere; N18.6 End stage renal disease; Z99.2 Dependence on renal dialysis
CPT/HCPCS: 96365; J7050; A4216

== ENCOUNTER → 2019-02-26 14:15 | Outpatient (CLI) | payer MEDICARE, BC, MEDICAID, SELFPAY ==
[2019-02-12 15:10] VITALS: BMI 40.8
[2019-02-24 14:22] VITALS: BMI 40.8
[2019-02-26] MEDS: Vancomycin IV 500 MG/100 ML BAG 100 MG IV (14:37)
[2019-02-26 14:42] VITALS: BP 139/103; PULSE 94; RESP 18; TEMP 37.4; O2SAT 96; BMI 40.8
== END ==
PROVIDERS: Family Provider Family Medicine; PCP Family Medicine; Referring Provider Internal Medicine Infectious Disease; Visit Provider Internal Medicine Infectious Disease
DX: T85.79XA Infection and inflammatory reaction due to other internal prosthetic devices, implants and grafts, initial encounter (principal); B95.62 Methicillin resistant Staphylococcus aureus infection as the cause of diseases classified elsewhere; N18.6 End stage renal disease; Z99.2 Dependence on renal dialysis
CPT/HCPCS: 96365; J7050; A4216

== ENCOUNTER 2019-03-09 05:14 | Day surgery (SDC) | payer MEDICARE, BC, MEDICAID, SELFPAY ==
[2019-02-10 14:56] VITALS: BMI 42.0
--- NOTE | 2019-02-17 09:57 | HP_ITS ---
ADDENDUM by Tamika Alvares PA-C on 02/17/19 at 1003 Addendum entered and electronically signed by Tamika Alvares PA-C 02/17/19 10:03: Patient's hemoglobin results returned with a hgb of 7.5. Patient will have a repeat on 03/01. Dr. Aranda is agreeable to proceed with the proposed procedure if anesthesia is agreeable to proceed. Once we have repeat hgb, I will discuss with anesthesia to see if they are willing to proceed. Intake Chief Complaint: VANCOMYCIN Allergies No Known Allergies Allergy (Verified 02/15/19 13:32) Medications Carvedilol [Coreg (Beta Bentley)] 12.5 mg PO DAILY 06/02/14 [History Confirmed 02/15/19] Cinacalcet HCl [Sensipar] 90 mg PO DAILY 01/13/19 [History Confirmed 02/15/19] Isosorbide Mononitrate [Imdur] 30 mg PO DAILY 01/13/19 [History Confirmed 02/15/19] Ondansetron [Zofran Odt] 4 mg PO Q8H PRN PRN #10 tab 01/13/19 [Rx Confirmed 02/15/19] Sertraline HCl [Zoloft] 100 mg PO DAILY 01/13/19 [History Confirmed 02/15/19] Acetaminophen [Tylenol Tablet] 650 mg PO Q6H PRN PRN tab 01/19/19 [Rx Confirmed 02/15/19] Epoetin Gera [Epogen] 10,000 unit IJ MOWEFR 01/31/19 [History Confirmed 02/15/19] hydrALAZINE [Apresoline] 25 mg PO TID #90 tab 02/02/19 [Rx Confirmed 02/15/19] Pantoprazole Sodium [Protonix] 20 mg PO BID 02/12/19 [History Confirmed 02/15/19] Assessment & Plan Problems 1. Chronic renal failure, stage 5 N18.5 Plan - Tamika Alvares PA-C Discontinue wound vac. Recommend changing dressing twice daily. May wash open wound gently with antibacterial soap and water. Obtain CBC and BMP today. Will discuss anemia with Dr. Aranda. Dr. Aranda will plan to perform a right upper extremity transposed cephalic vein to brachial artery arteriovenous fistula creation. Procedure details, risks ad benefits have been discussed with the patient. Patient has had the opportunity to ask and have questions answered. Patient verbally understands and agrees with the plan. Our office will contact Dr. Pascal's office in regards to anemia. Orders Orders: Basic Metabolic Profile (BMP) 02/10/19 N18.5 CBC W/Diff, Automated 02/10/19 N18.5 CBC-Complete Blood Cnt No Diff 03/03/19 D64.9, N18.5 02/17/19 1003 <Electronically signed by Tamika moses PA-C> Date _ Tamika Alvares PA-C cc: ~* Signed Intake Vital Signs 02/10/19 Height 6 ft 1 in 02/10/19 Weight: 318 lb 4 oz 02/10/19 Body Mass Index (BMI) 42.0 02/10/19 Blood Pressure 145/79 H 02/10/19 Blood Pressure Location Rt brachial 02/10/19 Blood Pressure Position Sitting 02/10/19 Respiratory Rate 20 H 02/10/19 Pulse Rate 92 02/10/19 Pulse Ox 98 02/10/19 Body Mass Index (BMI) 39.2 Intake Visit Reasons: Fistula Check/Wound Vac 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 Is patient in pain?: No Allergies No Known Allergies Allergy (Verified 02/15/19 13:32) Medications Carvedilol [Coreg (Beta Bentley)] 12.5 mg PO DAILY 06/02/14 [History Confirmed 02/15/19] Cinacalcet HCl [Sensipar] 90 mg PO DAILY 01/13/19 [History Confirmed 02/15/19] Isosorbide Mononitrate [Imdur] 30 mg PO DAILY 01/13/19 [History Confirmed 02/15/19] Ondansetron [Zofran Odt] 4 mg PO Q8H PRN PRN #10 tab 01/13/19 [Rx Confirmed 02/15/19] Sertraline HCl [Zoloft] 100 mg PO DAILY 01/13/19 [History Confirmed 02/15/19] Acetaminophen [Tylenol Tablet] 650 mg PO Q6H PRN PRN tab 01/19/19 [Rx Confirmed 02/15/19] Epoetin Gera [Epogen] 10,000 unit IJ MOWEFR 01/31/19 [History Confirmed 02/15/19] hydrALAZINE [Apresoline] 25 mg PO TID #90 tab 02/02/19 [Rx Confirmed 02/15/19] Pantoprazole Sodium [Protonix] 20 mg PO BID 02/12/19 [History Confirmed 02/15/19] PFSH Medical History (Updated 02/10/19 @ 14:27 by Fariha Murillo) Acute respiratory failure with hypoxia (Acute) Chronic renal failure, stage 5 (Chronic) MRSA bacteremia (Acute) Anemia (Acute) Anxiety (Chronic) HTN (hypertension) (Acute) Dysphagia (Chronic) Depression (Chronic) Hemorrhagic shock (Acute) Surgical History (Updated 02/10/19 @ 14:33 by Fariha Murillo) History of arteriovenostomy for renal dialysis (Acute) History of major abdominal surgery (Acute) History of tonsillectomy (Acute) Status post insertion of percutaneous endoscopic gastrostomy (PEG) tube (Acute) HPI HPI HPI: MANUEL FARNSWORTH, is a 38 M who presents to the office today for HPI HPI Surgical H&P: Yes HPI: MANUEL FARNSWORTH, is a 38 M I am following s/p hospitalization for sepsis secondary to an infected pseudoaneurysm with MRSA, fluid overload, end stage renal disease with left IJ catheter placement on 01/14/19, chronic anemia from 01/13 through 01/19. During this hospitalization Dr. Aranda performed a ligation right forearm transposed cephalic vein to radial artery hemodialysis fistula with debridement of abscess and resection of infected vein and also attempted right internal jugular, successful left internal jugular chest catheter on 01/14/19. Patient had a wound vac placement s/p procedure and was subsequently discharged to home with wound vac and dialysis as an outpatient with chest catheters. Patient was readmitted on 01/31 through 02/02 for fluid overload and chronic anemia. Patient's breastfeeding peer counselor is Dr. Pascal. Patient is currently on renal transplant list and was advised to not to have a blood transfusion unless absolutely necessary. Patient's last hemoglobin at discharge was 6.8. Patient is currently being taught how to do home hemodialysis via chest catheters. Today, patient denies pain at the wound site on his right forearm. He denies fevers. He is continuing to receive Vanco at dialysis. Exam Const General: cooperative, healthy appearing, comfortable, no acute distress Other: pale appearance HENMT Head: normal to inspection Eyes General: appearance normal, both eyes and all related structures Neck Neck: normal visual inspection Neck mass: No Chest Other: Left chest catheters intact. Cardio Rate: regular rate Rhythm: regular rhythm GI Inspection: normal to inspection, obesity Palpation: soft Auscultation: normal bowel sounds Skin Other: Right forearm- wound vac removed. Healthy granulation tissue noted. No surrounding erythema noted. Adaptic placed followed by gauze dressing. Neuro General: no focal motor deficits, CN's II-XI intact bilaterally Extrem General: normal to inspection Psych Appearance: grossly normal Affect: normal affect Assessment & Plan Problems 1. Chronic renal failure, stage 5 N18.5 Plan Discontinue wound vac. Recommend changing dressing twice daily. May wash open wound gently with antibacterial soap and water. Obtain CBC and BMP today. Will discuss anemia with Dr. Aranda. Dr. Aranda will plan to perform a right upper extremity transposed cephalic vein to brachial artery arteriovenous fistula creation. Procedure details, risks ad benefits have been discussed with the patient. Patient has had the opportunity to ask and have questions answered. Patient verbally understands and agrees with the plan. Our office will contact Dr. Pascal's office in regards to anemia. Orders Orders: Basic Metabolic Profile (BMP) 02/10/19 N18.5 CBC W/Diff, Automated 02/10/19 N18.5 CBC-Complete Blood Cnt No Diff 03/03/19 D64.9, N18.5 Coding Level of Care Code No Charge Diagnoses Chronic renal failure, stage 5 N18.5 Comment Update H&P 02/17/19 0959 <Electronically signed by Tamika moses PA-C> Date _ Tamika Alvares PA-C I have re-examined the patient. There are no clinical changes since date of exam.
[2019-03-02 13:21] VITALS: BMI 40.8
[2019-03-02 14:25] LABS: Hematocrit 25.6 % (40-54); Hemoglobin 8.2 g/dL (13.0-16.5); Mean Corpuscular Hgb 29.7 pg (27.0-32.0); Mean Corpuscular Volume 92.8 fL (80-94); Mean Platelet Vol. 9.4 fl (6.2-12.0); Platelet Count 226 K/mm3 (150-450); RBC Distribution Width CV 14.5 % (11.6-14.6); RBC Distribution Width SD 48.9 fl (35.1-43.9); Red Blood Count 2.76 M/mm3 (4.6-6.2); White Blood Count 5.5 K/mm3 (4.4-11.0)
[2019-03-02 14:49] LABS: Anion Gap 6 (5-15); BUN 54 mg/dL (7-18); BUN/Creat Ratio 4.7 RATIO (10-20); Calcium,Total 8.3 mg/dL (8.5-10.1); Chloride 99 mmol/L (98-107); EST Glomerular Filtration Rate 5 mL/min (>60); Est Glom Filt Rate - Afr Amer 6 mL/min (>60); Glucose 101 mg/dL (74-106); Potassium 3.6 mmol/L (3.5-5.1); Sodium Level 137 mmol/L (136-145)
[2019-03-09] VITALS (9 sets, daily range): BP systolic 142–175; BP diastolic 73–105; PULSE 85–108; RESP 14–20; TEMP 36.4–37.3; O2SAT 92–100; BMI 40.6
--- NOTE | 2019-03-09 07:06 | DCINST_ITS ---
Discharge Diet: Renal Diet Discharge Activity: May Not Drive - for 2-3 days or while taking narcotic pain medications., May Shower, May Take a Tub Bath - in 5 days. Lifting Restrictions: 5 pounds Keep extremity elevated above heart level: - - Keep arm elevated above the heart level for 3 days. Additional Activity Instructions:: Exercise hand vigorously with a stress ball. Call your doctor if your incision/area has: Continuous Slow Oozing, Sudden Increased Bleeding - apply pressure and call your doctor., Increased Pain/ Swelling, Increased Redness, Foul Smelling Discharge Call your doctor if you observe: Fever of 101 or Higher Suture Line Care: Avoid Pulling/Pushing, Avoid Pinching/Bending Cleanse incision/area with: Keep Dressing Clean & Dry Additional Dressing/Incision Instructions:: Please continue to treat your right forearm wound as previously until completely resolved. Keep the treatment of the forearm wound separate from the right upper arm incision so as to not cross contaminate. You may leave the dressings intact the right upper arm incision for 2 days and then redress with dry gauze as needed. Leave the Steri-Strips in place for 1 week Allergies/Adverse Reactions: Allergies No Known Allergies Allergy (Verified 03/02/19 15:02) Medications to take at Discharge Carvedilol [Coreg (Beta Bentley)] 12.5 mg PO DAILY 06/02/14 Cinacalcet HCl [Sensipar] 90 mg PO DAILY 01/13/19 Isosorbide Mononitrate [Imdur] 30 mg PO DAILY 01/13/19 Ondansetron [Zofran Odt] 4 mg PO Q8H PRN PRN #10 tab 01/13/19 Sertraline HCl [Zoloft] 100 mg PO DAILY 01/13/19 Acetaminophen [Tylenol Tablet] 650 mg PO Q6H PRN PRN tab 01/19/19 Epoetin Gera [Epogen] 20,000 unit IJ MOWEFR 01/31/19 Pantoprazole Sodium [Protonix] 20 mg PO BID 02/12/19 hydrALAZINE [Apresoline] 50 mg PO TID 03/02/19 Hydrocodone Bitart/Apap 5-325 [[place] 5MG-325MG] 1 tablet PO Q6H PRN PRN 2 Days #6 tablet 03/09/19 The following prescriptions were given: Hydrocodone Bitart/Apap 5-325 [[place] 5MG-325MG] 1 tablet PO Q6H PRN PRN 2 Days #6 tablet PRN Reason: Pain Transmission Status: [id number] Primary Care Physician: Marcell Thacker MD [Primary Care Provider] - Test Results: Test results from this visit will be discussed in further detail at your follow- up appointment, if applicable. Please Follow Up With: Osei Aranda MD - [phone] When: Call to make an appointment for suture removal and follow up in 10 days
--- NOTE | 2019-03-09 09:11 | PCM.OPRPT ---
Problem List (1) Problem with dialysis access Status: Acute Qualifiers: Encounter type: subsequent encounter Qualified Code(s): T82.898D - Other specified complication of vascular prosthetic devices, implants and grafts, subsequent encounter Report of Operation Date of Procedure: 03/09/19 Pre-Operative Diagnosis: Need for permanent arteriovenous fistula creation for hemodialysis Post-Operative Diagnosis: Same Surgery/Procedure Performed:: Transposition right upper arm cephalic vein to brachial artery arteriovenous hemodialysis fistula creation Description of Surgical Findings:: Timeout and informed consent was obtained. 38-year-old gentleman was taken the operative room. He initially underwent monitored anesthesia care but because of hypoxia had to be rapidly converted to a general anesthetic. Notes as per anesthesia. He received 3 g of Ancef intravenously. The right upper extremity was sterilely prepped and draped. Ultrasound was used to identify the cephalic vein at the antecubital space and upper arm. A longitudinal incision was made directly over the vein in the upper arm and sharp and blunt dissection was tediously used to harvest the vein. Side branches were secured with 3-0 Vicryl ligatures and hemoclips were indicated. Incision was made up until the very proximal upper arm. This is where the vein started to dive deeper and the dissection was completed. The vein was measured. Made an appropriate counterincision medial antecubital area at the site of the brachial artery. Sharp and blunt dissection used to gain circumferential control around the brachial artery. Then the tunneler was placed from the brachial artery to the upper arm close to the subdermal surface. The vein was ligated the antecubital space with a running 3-0 Vicryl. The patient received 12,000 units of heparin. The vein was irrigated and it was placed through the tunneler and had a good positional lie. Peripheral vascular clamps were placed on the brachial artery. An 11 blade was used to make an arteriotomy which was extended with Orta scissors. A end-to-side anastomosis created with running 7-0 Prolene. Prior to completion of this good antegrade retrograde flow. The anastomosis was completed. There appeared to be good positional lie with some very slight laxity cephalad which I was able to help straighten out. Had a good pulse and thrill. Appeared to be nice and superficial. The wound was closed with a deep layer of interrupted 3-0 Vicryl and then the skin edges proximal running septic or 4-0 Monocryl. Skin prep Steri-Strips Telfa tape dressings applied. Sponge and instrument and needle counts were reported the surgeon to be correct. Blood loss less than 50 cc. Specimens none. Drains none. Patient had a viable hand at the completion with palpable radial pulse. He was taken to the recovery area in satisfactory condition without apparent complication. Osei Aranda M.D., F.A.C.S. Type of Anesthesia:: General Anesthesiologist: Toyin Robbins
[2019-03-09] MEDS: Heparin Injection (Vial) 5,000 UNIT/ML VIAL 5000 UNIT (09:12)
[2019-03-09] MEDS: Bupivacaine Mpf 0.5% 30 ML VIAL (09:12)
== END 2019-03-09 14:02 | disposition home or self-care (01) ==
LOC: SDC 05:15 → AC 05:15
PROVIDERS: Physician Assistant; Family Provider Family Medicine; PCP Family Medicine; Referring Provider Surgery; Visit Provider Surgery
PROC: (CPT 36818; principal; 2019-03-09 07:00)
DX: T82.898A Other specified complication of vascular prosthetic devices, implants and grafts, initial encounter (principal); I12.0 Hypertensive chronic kidney disease with stage 5 chronic kidney disease or end stage renal disease; N18.5 Chronic kidney disease, stage 5; Z99.2 Dependence on renal dialysis; D63.1 Anemia in chronic kidney disease; F32.9 Major depressive disorder, single episode, unspecified; F41.9 Anxiety disorder, unspecified; G47.30 Sleep apnea, unspecified; Z79.899 Other long term (current) drug therapy
CPT/HCPCS: 01844; 36818; 36415; 80048; 85027; J7120; J2405

== ENCOUNTER 2019-04-27 07:57 | Day surgery (SDC) | payer MEDICARE, BC, SELFPAY ==
[2019-04-22 09:58] VITALS: BMI 40.6
--- NOTE | 2019-04-22 11:39 | HP_ITS ---
Intake Vital Signs 04/22/19 Body Mass Index (BMI) 40.6 04/22/19 Blood Pressure 142/83 H 04/22/19 Blood Pressure Location Lt brachial 04/22/19 Blood Pressure Position Sitting 04/22/19 Respiratory Rate 20 H 04/22/19 Pulse Rate 82 04/22/19 Pulse Ox 100 Intake Visit Reasons: 3 wk fu rt arm swelling Chief Complaint: recheck fistula Medical Research Scientist Required: No Is patient in pain?: No Allergies No Known Allergies Allergy (Verified 04/22/19 09:45) Medications Carvedilol [Coreg (Beta Bentley)] 12.5 mg PO DAILY 06/02/14 [History Confirmed 04/22/19] Cinacalcet HCl [Sensipar] 90 mg PO DAILY 01/13/19 [History Confirmed 04/22/19] Isosorbide Mononitrate [Imdur] 30 mg PO DAILY 01/13/19 [History Confirmed 04/22/19] Ondansetron [Zofran Odt] 4 mg PO Q8H PRN PRN #10 tab 01/13/19 [Rx Confirmed 04/22/19] Sertraline HCl [Zoloft] 100 mg PO DAILY 01/13/19 [History Confirmed 04/22/19] Acetaminophen [Tylenol Tablet] 650 mg PO Q6H PRN PRN tab 01/19/19 [Rx Confirmed 04/22/19] Epoetin Gera [Epogen] 20,000 unit IJ MOWEFR 01/31/19 [History Confirmed 04/22/19] Pantoprazole Sodium [Protonix] 20 mg PO BID 02/12/19 [History Confirmed 04/22/19] hydrALAZINE [Apresoline] 50 mg PO TID 03/02/19 [History Confirmed 04/22/19] PFSH Medical History Sleep apnea (Acute) Herniated disc (Acute) Thyroid goiter (Acute) Community acquired pneumonia (Ruled-out) Acute respiratory failure with hypoxia (Acute) Chronic renal failure, stage 5 (Chronic) Problem with dialysis access (Acute) ESRD (end stage renal disease) on dialysis (Acute) MRSA bacteremia (Acute) Anemia (Acute) Anxiety (Chronic) Focal segmental glomerulosclerosis (Chronic) Nausea (Acute) Transaminitis (Acute) HTN (hypertension) (Acute) Dysphagia (Chronic) Depression (Chronic) Hematemesis/vomiting blood (Acute) Anemia due to blood loss, acute (Acute) Hemorrhagic shock (Acute) Anemia of chronic disease (Chronic) Decubitus ulcer (Acute) Physical deconditioning (Acute) Surgical History History of arteriovenostomy for renal dialysis (Acute) History of major abdominal surgery (Acute) History of tonsillectomy (Acute) Status post insertion of percutaneous endoscopic gastrostomy (PEG) tube (Acute) Social History (Updated 04/22/19 @ 11:39 by Tamika Alvares PA-C) Smoking Status: Never smoker HPI HPI HPI: MANUEL FARNSWORTH, is a 38 M who presents to the office today for HPI HPI Surgical H&P: Yes HPI: MANUEL FARNSWORTH, is a 38 M who presents to the office today for chronic renal failure. Dr. Aranda performed a transposition of the right upper extremity AV fistula creation on 03/09/2019. Patient tolerated the procedure well. He denies pain/discomfort. Patient notes previous fistula/open wound has completely healed and resolved. Patient is currently on home-dialysis via chest catheters. Dr. Collins is his roughener. ROS General General: No weight change, appetite, fatigue, colon cancer, breast cancer or weakness HEENT HEENT: No difficulty swallowing, eye injury, eye surgery, swollen glands or hoarseness Endo Endocrine: No thyroid disease, diabetes mellitus, thyroid cancer, Hair loss, heat intolerance or cold intolerance Skin Skin: No rash or changing moles Musc Musculoskeletal: Yes back problems; no arthritis, rheumatoid arthritis, gout or joint pain Cardio Cardiovascular: Yes high blood pressure; no murmur, pacemaker, heart disease, atrial fibrillation, heart attack, heart stent, palpitations, shortness of breat with exertion or chest pain Psych Psychiatric: Yes anxiety; no depression or hearing voices Resp Respiratory: No shortness of breath, Yes sleep apnea, No cough, No COPD, No asthma, No emphysema, No wheezing Gastro Gastrointestinal: No abdominal pain, No nausea or vomiting, No diarrhea, No constipation, No blood in stool, No acid reflux, No hemorrhoids, No ulcers, No gallbladder problem, No black,tarry stools Maulik Hematologic: Yes blood thinners, No blood disorders, No bleeding, Yes anemia, Yes blood clots Neuro Neurologic: No weakness Exam Const General: cooperative, healthy appearing, comfortable, no acute distress HENMT Head: normal to inspection Eyes General: appearance normal, both eyes and all related structures Neck Neck: normal visual inspection Neck mass: No Resp Effort & Inspection: normal respiratory effort Auscultation: clear to auscultation bilaterally Cardio Rate: regular rate Rhythm: regular rhythm Heart Sounds: no murmurs GI Inspection: normal to inspection Palpation: soft Auscultation: normal bowel sounds Skin General: no rashes or lesions noted Neuro General: no focal motor deficits, CN's II-XI intact bilaterally Extrem General: normal to inspection Other: Right upper extremity AV fistula- incision intact with keloid noted. Excellent pulse, diminished bruit and thrill. Right forearm- completely healed previous fistula wound Psych Appearance: grossly normal Affect: normal affect Assessment & Plan Problems 1. Chronic renal failure, stage 5 N18.5 2. Problem with dialysis access, subsequent encounter T82.067D Plan Dr. Aranda will plan to perform a right upper extremity fistulogram with possible intervention. Patient has had the opportunity to ask and have questions answered. Patient verbally understands and agrees with the plan. Coding Level of Care Code Global Post Op Diagnoses Chronic renal failure, stage 5 N18.5 Problem with dialysis access, subsequent encounter T82.001D ??Encounter type: subsequent encounter 04/22/19 1139 <Electronically signed by Tamika moses PA-C> Date _ Tamika Alvares PA-C I have re-examined the patient. There are no clinical changes since date of exam.
[2019-04-27 08:14] LABS: Hematocrit 29.5 % (40-54); Hemoglobin 9.5 g/dL (13.0-16.5); Mean Corp Hgb Conc 32.2 g/dL (32-36); Mean Corpuscular Hgb 29.3 pg (27.0-32.0); Mean Platelet Vol. 8.7 fl (6.2-12.0); Platelet Count 195 K/mm3 (150-450); RBC Distribution Width CV 14.6 % (11.6-14.6); RBC Distribution Width SD 48.9 fl (35.1-43.9); Red Blood Count 3.24 M/mm3 (4.6-6.2)
[2019-04-27 08:23] VITALS: BMI 41.9
[2019-04-27 08:29] LABS: Anion Gap 7 (5-15); BUN 61 mg/dL (7-18); BUN/Creat Ratio 5.6 RATIO (10-20); Calcium,Total 9.1 mg/dL (8.5-10.1); Chloride 101 mmol/L (98-107); EST Glomerular Filtration Rate 6 mL/min (>60); Est Glom Filt Rate - Afr Amer 7 mL/min (>60); Estimated Creatinine Clearance 10.58 ml/min; Glucose 100 mg/dL (74-106); Potassium 3.9 mmol/L (3.5-5.1); Sodium Level 139 mmol/L (136-145)
--- NOTE | 2019-04-27 10:56 | OP.PCM_ITS ---
Problem List (1) Problem with dialysis access Status: Acute Qualifiers: Encounter type: initial encounter Qualified Code(s): T82.898A - Other specified complication of vascular prosthetic devices, implants and grafts, initial encounter Report of Operation Date of Procedure: 04/27/19 Pre-Operative Diagnosis: Pulsatile flow transposed right upper extremity cephalic vein to brachial artery arteriovenous hemodialysis fistula Post-Operative Diagnosis: Proximal right upper extremity cephalic vein venous outflow stenosis and proximal subclavian vein venous outflow stenosis and high- grade superior vena cava stenosis Surgery/Procedure Performed:: Right upper extremity fistulogram with 10 x 40 mm [place] angioplasty of the superior vena cava and subclavian vein and cephalic vein Description of Surgical Findings:: Timeout and informed consent was obtained. 38-year-old gentleman was taken to the special procedures lab. He was placed on the table. The right extremity sterilely prepped draped. He drove himself so no IV sedative was given. The right upper extremity was inspected with ultrasound closer to the antecubital space was very pulsatile. Under ultrasound guidance 2% lidocaine was instilled and a micropuncture needle was inserted antegrade with flow. A micropuncture wire inserted. The 6 Jordanian received guide was inserted. Using Isovue fistulogram was taken in the right upper arm and outflow chest area. This demonstrated the fistula is widely patent and the upper arm there was some moderate stenosis of the cephalic vein at the humeral head there was 70% stenosis of the very proximal right subclavian vein and there was a high-grade 90% stenosis of the superior vena cava//brachiocephalic just distal to the right internal jugular and subclavian vein junction. 035 angled Glidewire was inserted. A 10 x 4 [place] balloon was placed. Several angioplasties of the superior vena cava/brachiocephalic. Additional angioplasty of the proximal right subclavian vein and of the right cephalic vein at the humeral head was performed. For the superior vena cava pressures were taken all the way up to 20 arian of pressure. For the subclavian vein and cephalic veins pressures were taken to only 6 to 8 arian of pressure. Subsequent imaging now demonstrated dramatic improvement at all sites with mild residual stenosis of the right proximal subclavian vein and 30% stenosis of the right superior vena cava/brachiocephalic. He tolerated the procedure well. Sheath wires balloons were removed. A U suture of 4-0 nylon was placed and then additional simple suture of 4-0 nylon was placed to obtain hemostasis. Although the fascia was still pulsatile there was resumption of a palpable thrill. Specimens none. Drains none. Blood loss 100 cc. Hand was viable at the completion no apparent complication. Images demonstrate a patent right upper arm cephalic vein AV fistula with moderate stenosis at the humeral head 70% stenosis of the proximal subclavian vein on the right and high-grade 90% stenosis of the brachiocephalic/superior vena cava. Subsequent to angioplasty there is improvement at all sites. There still is at least 30% residual stenosis of the superior vena cava/brachiocephalic. There is still 15% stenosis of the right proximal subclavian. There appears to be resolved stenosis of the right cephalic vein at the humeral head. Osei Aranda M.D., F.A.C.S. Type of Anesthesia:: Local
== END 2019-04-27 11:45 | disposition home or self-care (01) ==
PROVIDERS: Family Provider Family Medicine; PCP Family Medicine; Referring Provider Surgery; Visit Provider Surgery
DX: I12.0 Hypertensive chronic kidney disease with stage 5 chronic kidney disease or end stage renal disease (principal); N18.6 End stage renal disease; G47.30 Sleep apnea, unspecified; E04.9 Nontoxic goiter, unspecified; D63.1 Anemia in chronic kidney disease; F41.9 Anxiety disorder, unspecified; F32.9 Major depressive disorder, single episode, unspecified; Z99.2 Dependence on renal dialysis; Z79.899 Other long term (current) drug therapy
CPT/HCPCS: 36415; 36902; 76937; 80048; 85027; Q9967; C1725; C1769

== ENCOUNTER → 2019-05-31 | Outpatient (CLI) | payer MEDICARE, BC, MEDICAID, SELFPAY ==
[2019-05-05 12:13] VITALS: BMI 41.9
[2019-05-31 14:57] VITALS: BP 141/76; BMI 40.8
[2019-05-31] MEDS: Vancomycin IV 1,000 MG/200 ML BAG 200 MG IV (15:01)
== END | disposition home or self-care (01) ==
LOC: MEDOUTP 14:45
PROVIDERS: Family Provider Family Medicine; PCP Family Medicine; Referring Provider Internal Medicine Nephrology; Visit Provider Internal Medicine Nephrology
DX: N18.6 End stage renal disease (principal); A49.9 Bacterial infection, unspecified
CPT/HCPCS: 96365; 96366; J7050; A4216

== ENCOUNTER → 2019-06-02 | Outpatient (CLI) | payer MEDICARE, BC, MEDICAID, SELFPAY ==
[2019-05-05 12:13] VITALS: BMI 41.9
[2019-05-31 14:57] VITALS: BMI 40.8
[2019-06-02 14:45] VITALS: BP 134/79; PULSE 94; RESP 18; TEMP 37.6; O2SAT 97; BMI 40.8
[2019-06-02] MEDS: Vancomycin IV 1,000 MG/200 ML BAG 200 MG IV (14:48)
== END | disposition home or self-care (01) ==
LOC: MEDOUTP 14:28
PROVIDERS: Family Provider Family Medicine; PCP Family Medicine; Referring Provider Internal Medicine Nephrology; Visit Provider Internal Medicine Nephrology
DX: N18.6 End stage renal disease (principal); A49.9 Bacterial infection, unspecified
CPT/HCPCS: 96365; J7050; A4216

== ENCOUNTER → 2019-06-04 | Outpatient (CLI) | payer MEDICARE, BC, MEDICAID, SELFPAY ==
[2019-05-05 12:13] VITALS: BMI 41.9
[2019-06-02 14:45] VITALS: BMI 40.8
[2019-06-04] MEDS: Vancomycin IV 1,000 MG/200 ML BAG 200 MG IV (14:15)
[2019-06-04 14:29] VITALS: BP 132/69; PULSE 100; RESP 16; TEMP 37; O2SAT 100; BMI 40.8
== END | disposition home or self-care (01) ==
LOC: MEDOUTP 13:59
PROVIDERS: Family Provider Family Medicine; PCP Family Medicine; Referring Provider Internal Medicine Nephrology; Visit Provider Internal Medicine Nephrology
DX: N18.6 End stage renal disease (principal)
CPT/HCPCS: 96365; J7050; A4216

== ENCOUNTER → 2019-06-07 | Outpatient (CLI) | payer MEDICARE, BC, MEDICAID, SELFPAY ==
[2019-05-05 12:13] VITALS: BMI 41.9
[2019-06-04 14:29] VITALS: BMI 40.8
[2019-06-07 15:20] VITALS: BP 132/79; PULSE 80; RESP 16; TEMP 36.7; O2SAT 99; BMI 40.8
[2019-06-07] MEDS: Vancomycin IV 1,000 MG/200 ML BAG 200 MG IV (15:52)
== END | disposition home or self-care (01) ==
LOC: MEDOUTP 15:17
PROVIDERS: Family Provider Family Medicine; PCP Family Medicine; Referring Provider Internal Medicine Nephrology; Visit Provider Internal Medicine Nephrology
DX: N18.6 End stage renal disease (principal)
CPT/HCPCS: 96365; J7050; A4216

== ENCOUNTER → 2019-06-09 | Outpatient (CLI) | payer MEDICARE, BC, MEDICAID, SELFPAY ==
[2019-06-04 14:29] VITALS: BMI 40.8
[2019-06-07 15:20] VITALS: BMI 40.8
[2019-06-09 15:14] VITALS: BP 108/64; PULSE 102; RESP 18; TEMP 36.5; O2SAT 97; BMI 40.8
[2019-06-09] MEDS: Vancomycin IV 1,000 MG/200 ML BAG 200 MG IV (15:18)
== END | disposition home or self-care (01) ==
LOC: MEDOUTP 15:05
PROVIDERS: Family Provider Family Medicine; PCP Family Medicine; Referring Provider Internal Medicine Nephrology; Visit Provider Internal Medicine Nephrology
DX: N18.6 End stage renal disease (principal)
CPT/HCPCS: 96365; J7050; A4216

== ENCOUNTER → 2019-06-14 | Outpatient (CLI) | payer MEDICARE, BC, MEDICAID, SELFPAY ==
[2019-06-04 14:29] VITALS: BMI 40.8
[2019-06-09 15:14] VITALS: BMI 40.8
[2019-06-14] MEDS: Vancomycin IV 1,000 MG/200 ML BAG 200 MG IV (15:12)
[2019-06-14 15:15] VITALS: BP 115/69; PULSE 110; RESP 16; TEMP 36.3; O2SAT 98; BMI 40.8
== END | disposition home or self-care (01) ==
LOC: MEDOUTP 14:49
PROVIDERS: Family Provider Family Medicine; PCP Family Medicine; Referring Provider Internal Medicine Nephrology; Visit Provider Internal Medicine Nephrology
DX: N18.6 End stage renal disease (principal)
CPT/HCPCS: 96365; J7050; A4216

== ENCOUNTER → 2019-06-16 | Outpatient (CLI) | payer MEDICARE, BC, MEDICAID, SELFPAY ==
[2019-06-04 14:29] VITALS: BMI 40.8
[2019-06-14 15:15] VITALS: BMI 40.8
[2019-06-16 15:30] VITALS: BP 131/79; PULSE 88; RESP 16; O2SAT 100; BMI 40.8
[2019-06-16] MEDS: Vancomycin IV 1,000 MG/200 ML BAG 200 MG IV (15:37)
== END | disposition home or self-care (01) ==
LOC: MEDOUTP 15:15
PROVIDERS: Family Provider Family Medicine; PCP Family Medicine; Referring Provider Internal Medicine Nephrology; Visit Provider Internal Medicine Nephrology
DX: N18.6 End stage renal disease (principal)
CPT/HCPCS: 96365; J7050

== ENCOUNTER → 2019-06-18 | Outpatient (CLI) | payer MEDICARE, BC, MEDICAID, SELFPAY ==
[2019-06-04 14:29] VITALS: BMI 40.8
[2019-06-16 15:30] VITALS: BMI 40.8
[2019-06-18 14:59] VITALS: BP 126/79; PULSE 84; RESP 16; TEMP 36.7; O2SAT 100; BMI 40.8
[2019-06-18] MEDS: Vancomycin IV 1,000 MG/200 ML BAG 200 MG IV (15:02)
== END | disposition home or self-care (01) ==
LOC: MEDOUTP 14:48
PROVIDERS: Family Provider Family Medicine; PCP Family Medicine; Referring Provider Internal Medicine Nephrology; Visit Provider Internal Medicine Nephrology
DX: N18.6 End stage renal disease (principal)
CPT/HCPCS: 96365; 96366; J7050; A4216

== ENCOUNTER → 2019-06-21 | Outpatient (CLI) | payer MEDICARE, BC, MEDICAID, SELFPAY ==
[2019-06-04 14:29] VITALS: BMI 40.8
[2019-06-18 14:59] VITALS: BMI 40.8
[2019-06-21] MEDS: Vancomycin IV 1,000 MG/200 ML BAG 200 MG IV (15:12)
[2019-06-21 15:15] VITALS: BP 129/80; PULSE 89; RESP 16; TEMP 36.6; O2SAT 99; BMI 40.8
== END | disposition home or self-care (01) ==
LOC: MEDOUTP 14:50
PROVIDERS: Family Provider Family Medicine; PCP Family Medicine; Referring Provider Internal Medicine Nephrology; Visit Provider Internal Medicine Nephrology
DX: N18.6 End stage renal disease (principal)
CPT/HCPCS: 96365; J7050; A4216

== ENCOUNTER → 2019-06-23 | Outpatient (CLI) | payer MEDICARE, BC, MEDICAID, SELFPAY ==
[2019-06-16 15:30] VITALS: BMI 40.8
[2019-06-21 15:15] VITALS: BMI 40.8
[2019-06-23 13:33] VITALS: BP 129/86; PULSE 101; RESP 18; TEMP 35.5; O2SAT 98; BMI 40.8
[2019-06-23] MEDS: Vancomycin IV 1,000 MG/200 ML BAG 200 MG IV (13:42)
== END | disposition home or self-care (01) ==
LOC: MEDOUTP 13:22
PROVIDERS: Family Provider Family Medicine; PCP Family Medicine; Referring Provider Internal Medicine Nephrology; Visit Provider Internal Medicine Nephrology
DX: N18.6 End stage renal disease (principal)
CPT/HCPCS: 96365; J7050; A4216

== ENCOUNTER → 2019-09-06 12:21 | Outpatient (CLI) | payer MEDICARE, BC, MEDICAID, SELFPAY ==
[2019-06-23 13:33] VITALS: BMI 40.8
[2019-09-06] MEDS: Vancomycin IV 1,000 MG/200 ML BAG 200 MG IV (13:03)
[2019-09-06 13:07] VITALS: BP 129/81; PULSE 96; RESP 16; TEMP 37; O2SAT 99; BMI 41.5
== END ==
PROVIDERS: PCP Family Medicine; Referring Provider Internal Medicine Nephrology; Visit Provider Internal Medicine Nephrology
DX: T80.212A Local infection due to central venous catheter, initial encounter (principal); N18.6 End stage renal disease
CPT/HCPCS: 96365; J7050; A4216

== ENCOUNTER → 2019-09-09 14:02 | Outpatient (CLI) | payer MEDICARE, BC, MEDICAID, SELFPAY ==
[2019-09-06 13:07] VITALS: BMI 41.5
[2019-09-09 14:18] VITALS: BP 149/84; PULSE 98; RESP 18; TEMP 36.7; O2SAT 97; BMI 41.5
[2019-09-09] MEDS: Vancomycin IV 1,000 MG/200 ML BAG 200 MG IV (14:22)
== END ==
PROVIDERS: PCP Family Medicine; Referring Provider Internal Medicine Nephrology; Visit Provider Internal Medicine Nephrology
DX: N18.6 End stage renal disease (principal)
CPT/HCPCS: 96365; 96366; J7050; A4216

== ENCOUNTER 2019-09-12 12:11 | Outpatient (CLI) | payer MEDICARE, BC, MEDICAID, SELFPAY ==
[2019-09-06 13:07] VITALS: BMI 41.5
[2019-09-09 14:18] VITALS: BMI 41.5
[2019-09-12 12:35] VITALS: BP 131/66; PULSE 91; RESP 16; TEMP 36.7; O2SAT 100
[2019-09-12] MEDS: 0.9% Saline Lock 10 ML Syringe IV (12:56)
[2019-09-12] MEDS: Vancomycin IV 1,000 MG/200 ML BAG 200 MG IV (12:56)
== END 2019-09-12 14:10 | disposition home or self-care (01) ==
LOC: MEDOUTP 12:15 → PCU 12:20
PROVIDERS: PCP Family Medicine
DX: N18.6 End stage renal disease (principal)
CPT/HCPCS: 96365; 96366; A4216

== ENCOUNTER → 2019-09-14 | Outpatient (CLI) | payer MEDICARE, BC, MEDICAID, SELFPAY ==
[2019-09-14 16:52] VITALS: BMI 41.5
== END | disposition home or self-care (01) ==
LOC: LABSPEC 17:05
PROVIDERS: PCP Family Medicine; Referring Provider Surgery; Visit Provider Surgery
DX: T82.7XXA Infection and inflammatory reaction due to other cardiac and vascular devices, implants and grafts, initial encounter (principal)
CPT/HCPCS: 87075; 87205

== ENCOUNTER → 2020-01-28 06:23 | Outpatient (CLI) | payer MEDICARE, BC, MEDICAID, SELFPAY ==
--- NOTE | 2020-01-28 06:25 | ECHOCS_ITS ---
Version 2 Reason For Study: DYSPNEA/SOB Procedure This was a 2D Doppler, Color Flow transthoracic echocardiogram. The study was technically difficult. Due to body habitus. Contrast injection was performed. Left Ventricle Normal LV size. The estimated ejection fraction is 55 %. No evidence for diastolic dysfunction. Basal anteroseptal: Hypokinetic. Right Ventricle Normal RV size. Normal systolic function. Atria Normal left atrium. Normal right atrium. No doppler evidence for ASD. Mitral Valve There is no mitral valve stenosis. No mitral valve insufficiency. Tricuspid Valve There is no tricuspid stenosis. No tricuspid valve insufficiency. Unable to estimate RV systolic pressure due to inadequate jet, pulmonary artery pressure probably normal. Aortic Valve Trisinus/trileaflet aortic valve. There is no aortic stenosis. No aortic valve insufficiency. Pulmonic Valve There is no pulmonic valvular stenosis. No pulmonic valve insufficiency. Great Vessels Normal aortic root. Pericardium/Pleural No pericardial effusion. Medication Diluted definity 4.0ml given slow IV push to enhance endocardial definition. MMode/2D Measurements & Calculations LVIDd: 5.7 cm IVSd: 1.1 cm LAV(MOD-bp): 44.0 ml LVIDs: 3.8 cm LVPWd: 1.2 cm RVDd: 3.0 cm FS: 32.0 % LAV(MOD-bp) Indexed: 16.8 ml/m2 LAV(MOD-sp2): 41.1 ml LAV(MOD-sp4): 44.4 ml LA dimension(2D): 4.0 cm LA A4 area: 16.4 cm2 RA A4 area: 12.3 cm2 Doppler Measurements & Calculations MV E max malcolm: 60.2 cm/sec Lat Peak E' Malcolm: 7.9 cm/sec Med Peak E' Malcolm: 6.6 cm/sec MV A max malcolm: 75.5 cm/sec E/E' lat: 7.6 E/E' med: 9.1 MV E/A: 0.80 Ao V2 max: 140.1 cm/sec LV V1 max: 104.3 cm/sec PA V2 max: 93.9 cm/sec Ao max P.9 mmHg LV V1 max P.4 mmHg Ao V2 mean: 98.2 cm/sec LV V1 mean P.4 mmHg Ao mean P.3 mmHg LV V1 mean: 75.0 cm/sec Ao V2 VTI: 20.6 cm LV V1 VTI: 17.9 cm Interpretation Summary No evidence for diastolic dysfunction. The estimated ejection fraction is 55 %. Basal anteroseptal: Hypokinetic The study was technically difficult. Contrast injection was performed. Ordering Physician: Cintia Duffy Referring Physician: Marcell Thacker Performed By: Dana Khan, LUZMA, RVT
[2020-01-28 09:04] LABS: Absolute Lymphocyte Count 0.93 X10^3/uL (0.83-4.51); Absolute Neutrophil Count 5.1 X10^3/uL (2.0-7.7); Basophil# 0.03 X10^3/uL; Basophil% 0.4 % (0-1); Eosinophil# 0.28 X10^3/uL; Eosinophils% 4.1 % (0-5); Hematocrit 36.9 % (40-54); Hemoglobin 11.8 g/dL (13.0-16.5); Lymphocyte # 0.93 X10^3/ul (4.0); Lymphocyte % 13.6 % (19-41); Mean Platelet Vol. 9.1 fl (6.2-12.0); Monocyte% 5.8 % (0-10); NRBC Flagged by Analyzer 0 % (0-5); Neutrophil # 5.11 X10^3/uL (2.7-7.7); Neutrophil % 74.8 % (47-70); Platelet Count 230 K/mm3 (150-450); RBC Distribution Width CV 16.3 % (11.6-14.6); RBC Distribution Width SD 59.2 fl (35.1-43.9); Red Blood Count 3.69 M/mm3 (4.6-6.2); White Blood Count 6.8 K/mm3 (4.4-11.0)
[2020-01-28 09:32] LABS: Thyroid Stim Hormone (TSH) 2.21 uIU/mL (0.358-3.74)
--- NOTE | 2020-01-31 10:25 | STRESSREP_ITS ---
Stress Test Report Date: 01/28/2020 Procedure: Exercise tolerance test/imaging study Indications: Dyspnea on exertion Consent: Per the patient Procedure: The patient exercised on a Valeriy protocol for 6 minutes achieving a peak heart rate of 144 bpm (79 % predicted maximal heart rate) with a peak blood pressure 162/76 mmHg and a peak MET capacity 7.2 METs. The baseline ECG demonstrated normal sinus rhythm. The peak exercise ECG demonstrated sinus tachycardia, no significant ST-T changes. EKG during recovery revealed no significant ST-T changes, occasional PVCs [There were no significant cardiac dysrhythmias pretest, during exercise, or recovery]. The functional capacity was considered decreased for age. There was [no complaint of chest discomfort during exercise or recovery]. The examination was discontinued secondary to shortness of breath. Impression: 1. Stress test is[negative] for exercise-induced EKG changes of ischemia 2. The test test negative for exercise-induced chest pain 3. Functional capacity is decreased for age 4. Nuclear images pending Myocardial perfusion imaging study: Technique: The patient was injected with [] mCi of technetium 99m Cardiolite and subsequently rest SPECT Cardiolite nuclear imaging was obtained in the horizontal long, vertical long, and short axis views. The patient exercised on a Valeriy protocol. Please see above for details. The patient was injected with [] mCi of technetium 99m Cardiolite and subsequently stress SPECT Cardiolite nuclear imaging was obtained in the horizontal long, vertical long, and short axis views. A gated Cardiolite study at peak stress was obtained. Interpretation: Rest and stress SPECT Cardiolite nuclear imaging status post realignment, normalization, and attenuation correction, demonstrates mildly decreased radioisotope uptake in the apex and inferior wall on the stress images compared to the rest images suggestive of mild apical and inferior ischemia. The gated Cardiolite study demonstrates no significant regional wall motion abnormalities. The reported LVEF is 50 %. Impression: 1. Mild apical and inferior ischemia cannot be excluded. 2. The gated Cardiolite study reports an LVEF of 50 %. This note was generated with IN[employer] software. It may contain incorrect words, spelling, and punctuation that were not noted in checking the note before signing.
== END ==
PROVIDERS: PCP Family Medicine; Referring Provider Specialist; Visit Provider Specialist
DX: R06.02 Shortness of breath (principal); R07.9 Chest pain, unspecified; R06.00 Dyspnea, unspecified; E04.9 Nontoxic goiter, unspecified
CPT/HCPCS: 36415; 78452; 84443; 85025; 93017; 93306; A9500; Q9957; A4216; C8929

== ENCOUNTER → 2020-07-03 13:25 | Outpatient (CLI) | payer MEDICARE, BC, MEDICAID, SELFPAY ==
[2020-07-03 13:25] VITALS: BMI 41.5
[2020-07-03 13:42] LABS: Absolute Lymphocyte Count 0.86 X10^3/uL (0.83-4.51); Basophil# 0.04 X10^3/uL; Basophil% 0.6 % (0-1); Eosinophil# 0.29 X10^3/uL; Eosinophils% 4.3 % (0-5); Hematocrit 32.4 % (40-54); Hemoglobin 10.6 g/dL (13.0-16.5); Lymphocyte # 0.86 X10^3/ul (4.0); Lymphocyte % 12.7 % (19-41); Mean Corp Hgb Conc 32.7 g/dL (32-36); Mean Corpuscular Hgb 31.3 pg (27.0-32.0); Mean Corpuscular Volume 95.6 fL (80-94); Mean Platelet Vol. 8.5 fl (6.2-12.0); Monocyte# 0.43 X10^3/uL; Monocyte% 6.4 % (0-10); NRBC Flagged by Analyzer 0 % (0-5); Neutrophil # 5.04 X10^3/uL (2.7-7.7); Neutrophil % 74.7 % (47-70); Platelet Count 250 K/mm3 (150-450); RBC Distribution Width CV 13.4 % (11.6-14.6); RBC Distribution Width SD 47.1 fl (35.1-43.9); Red Blood Count 3.39 M/mm3 (4.6-6.2); White Blood Count 6.8 K/mm3 (4.4-11.0)
[2020-07-03 14:03] LABS: Anion Gap 11 (5-15); BUN 77 mg/dL (7-18); BUN/Creat Ratio 5.5 RATIO (10-20); Calcium,Total 8.9 mg/dL (8.5-10.1); Chloride 95 mmol/L (98-107); EST Glomerular Filtration Rate 4 mL/min (>60); Est Glom Filt Rate - Afr Amer 5 mL/min (>60); Glucose 113 mg/dL (74-106); Potassium 3.6 mmol/L (3.5-5.1); Sodium Level 137 mmol/L (136-145)
== END ==
PROVIDERS: PCP Family Medicine; Referring Provider Physician Assistant; Visit Provider Physician Assistant
DX: N18.5 Chronic kidney disease, stage 5 (principal); R94.39 Abnormal result of other cardiovascular function study
CPT/HCPCS: 36415; 80048; 85025

== ENCOUNTER 2020-07-12 09:20 | Day surgery (SDC) | payer MEDICARE, BC, MEDICAID, SELFPAY ==
[2020-07-03 13:28] VITALS: BMI 42.2
[2020-07-11 06:59] VITALS: BMI 42.2
--- NOTE | 2020-07-12 09:29 | HP.PCM_ITS ---
Problem List (1) Problem with dialysis access Status: Resolved Qualifiers: History and Physical Date of Admission: 07/12/20 Intake Visit Reasons: FISTULAGRAM, INCREASING VENOUS PRESSURES Environmental Research Project Manager Required: No Is patient in pain?: No Allergies No Known Allergies Allergy (Verified 07/03/20 12:59) Medications Ondansetron [Zofran Odt] 4 mg PO Q8H PRN PRN #10 tab 01/13/19 [Rx Confirmed 07/03/20] Acetaminophen [Tylenol Tablet] 650 mg PO Q6H PRN PRN tab 01/19/19 [Rx Confirmed 07/03/20] pantoprazole 20 mg tablet,delayed release 40 mg PO DAILY tab 01/11/20 [History Confirmed 07/03/20] sertraline 100 mg tablet 150 mg PO DAILY tab 01/11/20 [History Confirmed 07/03/20] carvedilol 6.25 mg tablet 6.25 mg PO BID tab 07/03/20 [History Confirmed 07/03/20] cinacalcet 60 mg tablet 60 mg PO DAILY tab 07/03/20 [History Confirmed 07/03/20] PFS Medical History DEVANG treated with BiPAP (Chronic) Herniated disc (Chronic) Thyroid goiter (Chronic) Acute respiratory failure with hypoxia (Resolved) Chronic renal failure, stage 5 (Chronic) Problem with dialysis access (Resolved) ESRD (end stage renal disease) on dialysis (Chronic) Anemia (Chronic) Anxiety (Chronic) Focal segmental glomerulosclerosis (Chronic) Transaminitis (Acute) Dysphagia (Chronic) Depression (Resolved) Anemia of chronic disease (Chronic) Physical deconditioning (Chronic) history removal dialysis cath (Acute ~09/14/19) Essential hypertension (Chronic) Anemia due to blood loss, acute (Resolved) Decubitus ulcer (Resolved) Hematemesis/vomiting blood (Resolved) Hemorrhagic shock (Resolved) MRSA bacteremia (Resolved) Nausea (Resolved) Community acquired pneumonia (Ruled-out) Surgical History History of arteriovenostomy for renal dialysis (Chronic) History of major abdominal surgery (Chronic) History of tonsillectomy (Resolved) Status post insertion of percutaneous endoscopic gastrostomy (PEG) tube (Resolved) Family History Father Heart disease Brother Heart disease Social History (Updated 07/05/20 @ 15:17 by Tamika ROMO, PAAguedaC) alcohol intake: never substance use type: does not use caffeine: No HPI HPI HPI: MANUEL FARNSWORTH, is a 40 M who presents to the office today for HPI HPI HPI: MANUEL FARNSWORTH, is a 40 M who presents to the office today for increased venous pressures during dialysis. Patient does home dialysis. He noted in April 2020, he had a thrombectomy at [facility]. Patient then had a fistulogram on 05/25/[address] Pascal which demonstrated no central stenosis and stent appeared patent. In May 2019, patient had a fistulogram by Dr. Green which demonstrated stenosis at the cephalic arch. Angioplasty was performed with follow-up films that continued to demonstrate 50% stenosis. A 9mm x 5 cm Viabahn stent was placed. Following this procedure there was consideration to perform a jump graft for this patient if high venous pressures persisted. Patient states within the last week he has noted increasing venous pressure. Per the patient, the last time this had happened his fistula was clotted. He denies taking any blood thinners. Patient has gained weight over the last several months. ROS General General: No weight change, appetite, fatigue, colon cancer, breast cancer or weakness HEENT HEENT: No difficulty swallowing, eye injury, eye surgery, swollen glands or hoarseness Endo Endocrine: No thyroid disease, diabetes mellitus, thyroid cancer, Hair loss, heat intolerance or cold intolerance Skin Skin: No rash or changing moles Musc Musculoskeletal: Yes back problems; no arthritis, rheumatoid arthritis, gout or joint pain Cardio Cardiovascular: Yes high blood pressure; no murmur, pacemaker, heart disease, atrial fibrillation, heart attack, heart stent, palpitations, shortness of breat with exertion or chest pain Psych Psychiatric: Yes anxiety; no depression or hearing voices Resp Respiratory: No shortness of breath, Yes sleep apnea, No cough, No COPD, No asthma, No emphysema, No wheezing Gastro Gastrointestinal: No abdominal pain, No nausea or vomiting, No diarrhea, No constipation, No blood in stool, No acid reflux, No hemorrhoids, No ulcers, No gallbladder problem, No black,tarry stools Maulik Hematologic: Yes blood thinners, No blood disorders, No bleeding, Yes anemia, Yes blood clots Neuro Neurologic: No weakness Exam Const General: cooperative, healthy appearing, comfortable, no acute distress HENMT Head: normal to inspection Eyes General: appearance normal, both eyes and all related structures Neck Neck: normal visual inspection Neck mass: No Resp Effort & Inspection: normal respiratory effort Auscultation: clear to auscultation bilaterally Cardio Rate: regular rate Rhythm: regular rhythm Heart Sounds: no murmurs GI Inspection: normal to inspection Palpation: soft Auscultation: normal bowel sounds Skin General: no rashes or lesions noted Neuro General: no focal motor deficits, CN's II-XI intact bilaterally Extrem General: normal to inspection Other: Right upper extremity AV fistula- good pulse, diminished bruit and thrill. Multiple pseudoaneurysms noted. Psych Appearance: grossly normal Affect: normal affect Assessment & Plan Problems 1. Chronic renal failure, stage 5 N18.5 2. Problem with dialysis access, initial encounter T82.892D Plan Dr. Aranda will plan to perform a non-urgent right upper extremity fistulogram. Procedure details, risks and benefits have been reviewed. Patient has had the opportunity to ask and have questions answered. Orders Orders: CBC W/Diff, Automated 07/03/20 R94.39 Basic Metabolic Profile (BMP) 07/03/20 N18.5 Coding Level of Care Code Off vis,est,level 3 Diagnoses Chronic renal failure, stage 5 N18.5 Problem with dialysis access, initial encounter T82.201H ??Encounter type: initial encounter I have re-examined the patient. There are no clinical changes since date of exam. Procedure Criteria Procedure Type: Elective COVID Risk Discussion: The surgeon/proceduralist and patient have discussed in detail the risk of exposure to and/or potential harm posed by the COVID-19 virus with having a melvin angelito/procedure at this time versus the risk of delaying the surgery/procedure. It is not possible to know either the risk of delaying the surgery or procedure or chance of getting an infection with perfect accuracy, but a joint decision was made between the patient and the surgeon/proceduralist to proceed at this time with the scheduled surgery/procedure as indicated on the consent form.
--- NOTE | 2020-07-12 11:21 | PCM.OPRPT ---
Problem List (1) Problem with dialysis access Status: Resolved Qualifiers: Report of Operation Date of Procedure: 07/12/20 Pre-Operative Diagnosis: Problem with right upper extremity transposed cephalic vein to brachial artery arteriovenous hemodialysis fistula with increased venous pressure Post-Operative Diagnosis: Right upper extremity transposed cephalic vein to brachial artery hemodialysis access with 3 areas of venous stenosis Surgery/Procedure Performed:: Right upper extremity fistulogram with 8 x 4 ConQuest angioplasty x3 Description of Surgical Findings:: Timeout and informed consent was obtained. Patient was taken to the special procedures lab and placed supine on the table. He received 50 mcg of fentanyl and 2 mg of Versed is intravenous sedation. Closer to the arterial anastomosis 2% lidocaine was instilled as a local anesthetic. 1 cc was used. Micropuncture needle was inserted antegrade with flow. Micropuncture wire. 6 Nigerien short sheath dilator was inserted. Fistulogram was taken of the right upper arm using Isovue contrast. This demonstrated of clinical significance aneurysmal change in the mid upper arm with a focal area of 80% outflow stenosis. Additionally there is an area of 70% stenosis at a valve site at the cephalic arch. Additionally there is an area of 80% stenosis at the proximal end of a Viabahn stent graft which is centrally placed within the innominate at the junction with the subclavian vein. I was able to advance a 035 angled Glidewire using a 4 Nigerien glide cath passed all 3 areas of stenosis. I then treated all 3 areas of stenosis with an 8 x 4 ConQuest balloon. Insufflations up to 35mmHg pressure was utilized. He tolerated the procedure well. At the completion it appeared that all 3 areas resolved with angioplasty. The balloon was removed. Sheath removed. U suture 4-0 nylon was placed. There was a pulse at the completion. I could not palpate a thrill. No apparent complication blood loss minimal. Images demonstrate a transposed right extremity cephalic vein to brachial artery AV fistula. There is diffuse enlargement of the fistula from the arterial anastomosis on. I could not get a good view of the arterial anastomosis because of the very high arterial inflow. There was a focal area of about 2 to 3 cm diameter aneurysmal change in the mid upper arm and at the outflow of that 80% stenosis. At the cephalic arch there appeared to be a valve and 70% stenosis. And then more centrally within the innominate there is a Viabahn stent graft which is placed so that there is a natural kink at the junction with the subclavian vein. There was felt to be at least 80% stenosis at that location. All 3 areas appeared to have 100% respond to angioplasty. It is of additional note that the patient does home dialysis 6 days/week. He noticed increased venous pressures. In the recent past he has had complete thrombosis of this fistula. He is instructed to initiate 81 mg aspirin daily. He is instructed to notify me if venous pressures do not resolve or worsen again. Osei Aranda M.D., F.A.C.S. Type of Anesthesia:: IV Sedation, Local
== END 2020-07-12 12:15 | disposition home or self-care (01) ==
PROVIDERS: PCP Family Medicine; Referring Provider Surgery; Visit Provider Surgery
DX: T82.858A Stenosis of other vascular prosthetic devices, implants and grafts, initial encounter (principal); N18.5 Chronic kidney disease, stage 5; Z99.2 Dependence on renal dialysis; G47.33 Obstructive sleep apnea (adult) (pediatric); I12.0 Hypertensive chronic kidney disease with stage 5 chronic kidney disease or end stage renal disease; F41.9 Anxiety disorder, unspecified; Z79.899 Other long term (current) drug therapy
CPT/HCPCS: 36902; 99152; 99153; Q9967; C1769

== ENCOUNTER → 2020-07-28 09:56 | Outpatient (CLI) | payer MEDICARE, BC, MEDICAID, SELFPAY ==
[2020-07-11 06:59] VITALS: BMI 42.2
[2020-07-28 12:24] LABS: Vitamin D,25 Hydroxy 14.7 ng/mL
[2020-07-28 13:50] LABS: Anion Gap 10 (5-15); BUN 77 mg/dL (7-18); BUN/Creat Ratio 5.1 RATIO (10-20); Calcium,Total 8.5 mg/dL (8.5-10.1); Chloride 99 mmol/L (98-107); Cholesterol 163 mg/dL (200); EST Glomerular Filtration Rate 4 mL/min (>60); Est Glom Filt Rate - Afr Amer 5 mL/min (>60); Glucose 106 mg/dL (74-106); High Density Lipoprotein 33 mg/dL; Potassium 3.9 mmol/L (3.5-5.1); Sodium Level 138 mmol/L (136-145); Thyroid Stim Hormone (TSH) 2.16 uIU/mL (0.358-3.74); Triglycerides 354 mg/dL; Very Low Density Lipoprotein 71 mg/dL (5-40)
== END ==
PROVIDERS: PCP Family Medicine; Referring Provider Family Medicine; Visit Provider Family Medicine
DX: Z00.00 Encounter for general adult medical examination without abnormal findings (principal); N18.6 End stage renal disease
CPT/HCPCS: 36415; 80048; 80061; 82306; 84443

== ENCOUNTER → 2021-01-18 14:29 | Outpatient (CLI) | payer MEDICARE, BC, MEDICAID, SELFPAY ==
[2020-07-11 06:59] VITALS: BMI 42.2
[2021-01-18 17:57] LABS: Absolute Lymphocyte Count 0.26 X10^3/uL (0.83-4.51); Basophil# 0.02 X10^3/uL; Basophil% 0.4 % (0-1); Eosinophil# 0.35 X10^3/uL; Eosinophils% 7.2 % (0-5); Hematocrit 31.7 % (40-54); Hemoglobin 10.1 g/dL (13.0-16.5); Lymphocyte # 0.26 X10^3/ul (0.83-4.51); Lymphocyte % 5.3 % (19-41); Mean Corp Hgb Conc 31.9 g/dL (32-36); Mean Corpuscular Hgb 31.5 pg (27.0-32.0); Mean Corpuscular Volume 98.8 fL (80-94); Mean Platelet Vol. 10.3 fl (6.2-12.0); Monocyte# 0.25 X10^3/uL; Monocyte% 5.1 % (0-10); NRBC Flagged by Analyzer 0 % (0-5); Neutrophil # 3.95 X10^3/uL (2.7-7.7); Neutrophil % 81.4 % (47-70); POSITIVE DIFFERENTIAL YES; Platelet Count 195 K/mm3 (150-450); RBC Distribution Width CV 13.3 % (11.6-14.6); RBC Distribution Width SD 48.2 fl (35.1-43.9); Red Blood Count 3.21 M/mm3 (4.6-6.2); White Blood Count 4.9 K/mm3 (4.4-11.0)
[2021-01-18 18:21] LABS: Differential Indicated SCAN CRITERIA MET
[2021-01-18 18:27] LABS: Anisocytosis RARE; Macrocytosis RARE; Platelet Estimate ADEQUATE (ADEQ); Red Cell Morphology N CHROM NORMAL (NORM C&C)
[2021-01-18 18:28] LABS: Anion Gap 10 (5-15); BUN 56 mg/dL (7-18); BUN/Creat Ratio 4.3 RATIO (10-20); Calcium,Total 8.8 mg/dL (8.5-10.1); Chloride 92 mmol/L (98-107); EST Glomerular Filtration Rate 5 mL/min (>60); Est Glom Filt Rate - Afr Amer 6 mL/min (>60); Glucose 104 mg/dL (74-106); Potassium 3.8 mmol/L (3.5-5.1); Sodium Level 134 mmol/L (136-145)
== END ==
PROVIDERS: PCP Family Medicine; Referring Provider Family Medicine; Visit Provider Family Medicine
DX: R50.9 Fever, unspecified (principal)
CPT/HCPCS: 36415; 80048; 85025; 87040

== ENCOUNTER → 2021-03-07 09:54 | Outpatient (CLI) | payer MEDICARE, BC, MEDICAID, SELFPAY ==
[2021-03-07 09:50] VITALS: BMI 42.2
[2021-03-07 10:21] LABS: Absolute Lymphocyte Count 0.75 X10^3/uL (0.83-4.51); Absolute Neutrophil Count 5.9 X10^3/uL (2.0-7.7); Basophil# 0.04 X10^3/uL; Basophil% 0.5 % (0-1); Eosinophil# 0.36 X10^3/uL; Eosinophils% 4.7 % (0-5); Hematocrit 34.7 % (40-54); Hemoglobin 11.3 g/dL (13.0-16.5); Lymphocyte # 0.75 X10^3/ul (0.83-4.51); Lymphocyte % 9.8 % (19-41); Mean Corp Hgb Conc 32.6 g/dL (32-36); Mean Corpuscular Hgb 30.8 pg (27.0-32.0); Mean Corpuscular Volume 94.6 fL (80-94); Mean Platelet Vol. 8.7 fl (6.2-12.0); Monocyte# 0.48 X10^3/uL; Monocyte% 6.3 % (0-10); NRBC Flagged by Analyzer 0 % (0-5); Neutrophil # 5.91 X10^3/uL (2.7-7.7); Neutrophil % 77.1 % (47-70); Platelet Count 233 K/mm3 (150-450); RBC Distribution Width CV 12.9 % (11.6-14.6); RBC Distribution Width SD 45.1 fl (35.1-43.9); Red Blood Count 3.67 M/mm3 (4.6-6.2); White Blood Count 7.7 K/mm3 (4.4-11.0)
[2021-03-07 11:00] LABS: Anion Gap 10 (5-15); BUN 50 mg/dL (7-18); BUN/Creat Ratio 4.5 RATIO (10-20); Calcium,Total 8.5 mg/dL (8.5-10.1); Chloride 96 mmol/L (98-107); EST Glomerular Filtration Rate 6 mL/min (>60); Est Glom Filt Rate - Afr Amer 7 mL/min (>60); Glucose 114 mg/dL (74-106); Potassium 3.8 mmol/L (3.5-5.1); Sodium Level 137 mmol/L (136-145)
== END ==
PROVIDERS: PCP Family Medicine; Referring Provider Physician Assistant; Visit Provider Physician Assistant
DX: T82.898A Other specified complication of vascular prosthetic devices, implants and grafts, initial encounter (principal)
CPT/HCPCS: 36415; 80048; 85025

== ENCOUNTER 2021-03-14 08:21 | Day surgery (SDC) | payer MEDICARE, BC, MEDICAID, SELFPAY ==
[2021-01-31 06:02] VITALS: BMI 42.2
[2021-03-07 09:50] VITALS: BMI 42.2
[2021-03-13 10:05] VITALS: BMI 44.9
--- NOTE | 2021-03-14 08:50 | PCM.HP.BLA ---
History and Physical Date of Admission: 03/14/21 ntake Visit Reasons: update h&p fistulogram Chief Complaint: Update H&P Therapeutic Recreation Assistant Required: No Accompanied by: Self Is patient in pain?: No Allergies No Known Allergies Allergy (Verified 03/07/21 09:48) Medications ondansetron 4 mg PO Q8H PRN PRN #10 tab 01/13/19 [Rx Confirmed 03/07/21] acetaminophen 650 mg PO Q6H PRN PRN tab 01/19/19 [Rx Confirmed 03/07/21] sertraline 100 mg tablet 150 mg PO DAILY tab 01/11/20 [History Confirmed 03/07/21] carvedilol 6.25 mg tablet 6.25 mg PO BID tab 07/03/20 [History Confirmed 03/07/21] aspirin 81 mg tablet,delayed release 81 mg PO DAILY 03/07/21 [History Confirmed 03/07/21] cinacalcet 90 mg tablet 90 mg PO DAILY tab 03/07/21 [History Confirmed 03/07/21] pantoprazole 40 mg tablet,delayed release 40 mg PO DAILY tab 03/07/21 [History Confirmed 03/07/21] [facility] Medical History (Updated 03/07/21 @ 10:09 by Tamika ROMO, PA-C) Acute respiratory failure with hypoxia Anemia Anemia due to blood loss, acute Anemia of chronic disease Anxiety Chronic renal failure, stage 5 Community acquired pneumonia Decubitus ulcer Depression Dysphagia ESRD (end stage renal disease) on dialysis Essential hypertension Focal segmental glomerulosclerosis Hematemesis/vomiting blood Hemorrhagic shock Herniated disc history removal dialysis cath (~09/14/19) MRSA bacteremia Nausea DEVANG treated with BiPAP Physical deconditioning Problem with dialysis access Thyroid goiter Transaminitis Surgical History History of arteriovenostomy for renal dialysis History of major abdominal surgery History of tonsillectomy Status post insertion of percutaneous endoscopic gastrostomy (PEG) tube Family History Father Heart disease Brother Heart disease Social History Smoking Status: Never smoker alcohol intake: never substance use type: does not use caffeine: No HPI HPI HPI: MANUEL FRANSWORTH, is a 40 M who presents to the office today for an update history and physical. Patient performs home dialysis via right upper extremity AV fistula. He has noted high venous pressures. He was recently also evaluated by Dr. Cortes for aneurysmal change of AV fistula. No intervention was recommended at that time. He was recommended to have a fistulogram which could be accomplished locally. Patient's last fistulogram was performed on 01/12/21 in [place]. Findings included 80% outflow stenosis proximal to aneurysm. An 8 x 4 V access balloon angioplasty was performed. 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 Surgical reduction was recommended upon completion of the fistulogram. Patient also had a Viabahn stent graft placed in 2019 during a fistulogram. Viabahn stent measures 9 mm x 5 mm. Patient denies any recent hospitalizations or illnesses. He denies recent medication changes. ROS General General: No weight change, appetite, fatigue, colon cancer, breast cancer or weakness HEENT HEENT: No difficulty swallowing, eye injury, eye surgery, swollen glands or hoarseness Endo Endocrine: No thyroid disease, diabetes mellitus, thyroid cancer, Hair loss, heat intolerance or cold intolerance Skin Skin: No rash or changing moles Musc Musculoskeletal: Yes back problems; No arthritis, rheumatoid arthritis, gout or joint pain Cardio Cardiovascular: Yes high blood pressure; No murmur, pacemaker, heart disease, atrial fibrillation, heart attack, heart stent, palpitations, shortness of breat with exertion or chest pain Psych Psychiatric: Yes anxiety; No depression or hearing voices Resp Respiratory: No shortness of breath, No sleep apnea, No cough, No COPD, No asthma, No emphysema and No wheezing Gastro Gastrointestinal: No abdominal pain, No nausea or vomiting, No diarrhea, No constipation, No blood in stool, No acid reflux, No hemorrhoids, No ulcers, No gallbladder problem and No black,tarry stools Maulik Hematologic: Yes blood thinners, No blood disorders, No bleeding, Yes anemia and Yes blood clots Neuro Neurologic: No weakness Exam Const General: cooperative, comfortable and no acute distress [facility] Head: normal to inspection Eyes General: appearance normal, both eyes and all related structures Neck Neck: normal visual inspection Neck mass: No Resp Effort & Inspection: normal respiratory effort Auscultation: clear to auscultation bilaterally Cardio Rate: regular rate Rhythm: regular rhythm GI Inspection: normal to inspection and obesity Auscultation: normal bowel sounds Skin General: no rashes or lesions noted Neuro General: no focal motor deficits and CN's II-XI intact bilaterally Extrem Other: Right upper extremity AV fistula- superior aspect of the fistula with aneurysmal change noted. No skin breakdown or ulcers noted. Diminished pulse, bruit and thrill inferior to the aneurysm. Button hole access established. Psych Appearance: grossly normal Affect: normal affect COVID (Procedure Consent) Procedure Criteria Procedure Criteria: Yes Elective The surgeon/proceduralist and patient have discussed in detail the risk of exposure to and/or potential harm posed by the COVID-19 virus with having a surgery/procedure at this time versus the risk of delaying the surgery/procedure. It is not possible to know either the risk of delaying the surgery or procedure or chance of getting an infection with perfect accuracy, but a joint decision was made between the patient and the surgeon/proceduralist to proceed at this time with the scheduled surgery/procedure as indicated on the consent form. Assessment and Plan Assessment and Plan (1) Problem with dialysis access: Status: Resolved Qualifiers: Encounter type: initial encounter Qualified Code(s): T82.898A - Other specified complication of vascular prosthetic devices, implants and grafts, initial encounter Orders: Orders: Basic Metabolic Profile (BMP) Today CBC W/Diff, Automated Today Plan - Tamika ROMO PA-C: Dr. Aranda will plan to perform a right upper extremity fistulogram. He may continue his daily aspirin. Procedure details, risks and benefits have been explained. Patient has had the opportunity to ask and have questions answered. Patient verbally understands and agrees with the plan. He will obtain lab work today. Coding Level of Care Code Off vis,est,level 3 Diagnoses Problem with dialysis access T82.898A Encounter type: initial encounter 03/07/21 1013<Electronically signed by Tamika ROMO PA-C> I concur with the above findings. I anticipate central stenosis with the presence of a previously placed Viabahn stent graft. Angioplasty intervention is anticipated. Osei Aranda M.D., F.A.C.S.
--- NOTE | 2021-03-14 09:51 | PCM.OPRPT ---
Problems Associated Problem List Diagnoses (1) Problem with dialysis access: Report of Operation Date of Procedure: 03/14/21 Pre-Operative Diagnosis: Increased venous pressure and aneurysmal change right upper extremity brachial cephalic arteriovenous hemodialysis fistula Post-Operative Diagnosis: In-stent central venous stenosis, cephalic arch stenosis, mid and distal upper arm peripheral fistula stenosis Surgery/Procedure Performed:: Right upper extremity fistulogram with 9 x 4 Hopkins angioplasty proximal subclavian vein innominate and cephalic arch and distal peripheral cephalic vein and mid to distal cephalic vein Description of Surgical Findings:: Timeout informed consent was obtained. 40-year-old gentleman was taken to the special procedure lab placed on the table. Right extremity sterilely prepped and draped. He received 50 mcg of fentanyl and 2 mg of Versed is intermittent sedation. Under ultrasound guidance 2% lidocaine was instilled as a local anesthetic close to the arterial anastomosis antegrade with flow. Micropuncture needle inserted micropuncture wire inserted 6 Mauritian short sheath was inserted using Isovue contrast a fistulogram was obtained of the right upper arm brachiocephalic arteriovenous hemodialysis fistula. This demonstrated aneurysmal change in the mid to distal fistula. There is evidence stenosis at the outflow at that aneurysm site. There is another area of stenosis in the slightly more distal cephalic vein. There was significant evidence about 6 to 7 cm long of 70% stenosis of the cephalic arch. There was evidence of in-stent stenosis involving a Viabahn stent graft within the proximal subclavian vein/innominate vein. Was able to advance a Glidewire. Performed a 9 x 4 Hopkins angioplasty of all 4 of these sites. There was improvement at the completion. Each angioplasty was held for 3 minutes. Completion views were obtained demonstrating improvement on all accounts. Balloon and wire were removed. Sheath was removed and a new suture of 4-0 nylon was placed. Blood loss was minimal. Specimens none. Drains none. Blood loss minimal. Images demonstrate a right upper extremity brachial to cephalic arteriovenous hemodialysis fistula. The diameter of the vein throughout the fistula is markedly enlarged. There is aneurysmal change in the mid to distal fistula. There is evidence of 70% stenosis of the cephalic arch. There is stenosis just at the outflow of the aneurysmal change and in the slightly more distal fistula in the proximal right upper arm. And there is evidence of some mild in-stent stenosis within the Viabahn within the proximal subclavian innominate. All of these areas responded to the angioplasty. If the patient requires future intervention I might consider placing a 13 x 10 Viabahn stent graft within the cephalic arch. This would require a short 12 Mauritian sheath as well. Osei Aranda M.D., F.A.C.S. Surgeon: Osei Aranda Type of Anesthesia: IV Sedation and Local
== END 2021-03-14 10:55 | disposition home or self-care (01) ==
LOC: CLSP 08:23
PROVIDERS: PCP Family Medicine; Referring Provider Surgery; Visit Provider Surgery
DX: T82.858A Stenosis of other vascular prosthetic devices, implants and grafts, initial encounter (principal); F41.9 Anxiety disorder, unspecified; F32.9 Major depressive disorder, single episode, unspecified; I12.0 Hypertensive chronic kidney disease with stage 5 chronic kidney disease or end stage renal disease; N18.6 End stage renal disease; D63.1 Anemia in chronic kidney disease; Z99.2 Dependence on renal dialysis; Z79.899 Other long term (current) drug therapy
CPT/HCPCS: 36902; 76937; 99152; 99153; Q9967; A4216; C1725; C1769

== ENCOUNTER 2021-03-16 10:00 | Emergency (ER) | payer MEDICARE, BC, MEDICAID, SELFPAY ==
[2021-03-13 10:05] VITALS: BMI 44.9
[2021-03-16 10:00] VITALS: BP 140/106; PULSE 96; RESP 18; TEMP 37.1; O2SAT 98; BMI 44.9
--- NOTE | 2021-03-16 10:10 | EDS_ITS ---
HPI History of Present Illness Chief Complaint: Bite Informant: patient Narrative Narrative: 40-year-old male presents the emergency department for the evaluation of cat bite left hand. Patient is on dialysis. He notes that the cat is known to him but is an outdoor cat. He apparently had gotten hit by the side of the road and he was trying to help it out when it bit him. He states his last tetanus was about 10 years ago. He is worried about infection. [facility] Medical History (Updated 03/16/21 @ 10:[address] Robert Fong DO) Acute respiratory failure with hypoxia Anemia Anemia due to blood loss, acute Anemia of chronic disease Anxiety Chronic renal failure, stage 5 Community acquired pneumonia Decubitus ulcer Depression Dysphagia ESRD (end stage renal disease) on dialysis Essential hypertension Focal segmental glomerulosclerosis Hematemesis/vomiting blood Hemorrhagic shock Herniated disc history removal dialysis cath (~09/14/19) MRSA bacteremia Nausea DEVANG treated with BiPAP Physical deconditioning Problem with dialysis access Thyroid goiter Transaminitis Home Medications acetaminophen 650 mg PO Q6H PRN PRN tab 01/19/19 [Rx Last Taken Unknown] sertraline 100 mg tablet 150 mg PO DAILY tab 01/11/20 [History Last Taken Unknown] carvedilol 6.25 mg tablet 12.5 mg PO BID tab 07/03/20 [History Last Taken 03/14/21] aspirin 81 mg tablet,delayed release 81 mg PO DAILY 03/07/21 [History Last Taken Unknown] cinacalcet 90 mg tablet 60 mg PO DAILY tab 03/07/21 [History Last Taken Unknown] B complex with C 20-folic acid [Renal Caps] 1 cap PO DAILY 03/14/21 [History Last Taken Unknown] clonazepam 1 mg PO DAILY PRN 03/14/21 [History Last Taken 03/14/21] ferric citrate [Auryxia] 2 tab PO TID 03/14/21 [History Last Taken Unknown] amoxicillin-pot clavulanate 875 mg PO Q12H #14 tablet 03/16/21 [Rx Last Taken Unknown] Allergy/AdvReac Type Severity Reaction Status Date / Time No Known Allergies Allergy Verified 03/16/21 10:00 Family History Father Heart disease Brother Heart disease Surgical History History of arteriovenostomy for renal dialysis History of major abdominal surgery History of tonsillectomy Status post insertion of percutaneous endoscopic gastrostomy (PEG) tube Social History Smoking Status: Never smoker alcohol intake: never substance use type: does not use caffeine: No ROS ROS ED Constitutional Constitutional ED: Denies chills or weight loss Eyes Eyes: Denies change in vision or diplopia ENT ENT ED: Denies ear pain, rhinorrhea or sore throat Cardiovascular Cardiovascular: Denies chest pain, orthopnea, palpitations or racing heartbeat Respiratory/Chest Respiratory/Chest: Denies cough, dyspnea or orthopnea Gastrointestinal Gastrointestinal: Denies abdominal pain, diarrhea, nausea or vomiting Genitourinary Genitourinary ED: Denies dysuria, hematuria or urinary frequency Musculoskeletal Musculoskeletal: Denies arthralgias or myalgias Integumentary Reports other Details: See history of present illness ; Denies abscess or rash Neurologic Neurologic: Denies headache(s) or weakness Psychiatric Psychiatric: Denies anxiety, depression, suicidal ideation or suicidal thoughts Endocrine Endocrinology: Denies polydipsia, polyphagia or polyuria Allergic/Immunologic Allergic/Immunologic ED: Denies mouth swelling, tongue swelling or urticaria EXAM Physical Exam Const Vital Signs: 03/16/21 10:00 Temperature 98.8 F Temperature Source Oral Pulse Rate 96 Respiratory Rate 18 Blood Pressure 140/106 H Blood Pressure Mean 117 Pulse Ox 98 Oxygen Delivery Method Room Air Positive well nourished and well developed General Appearance ED: well developed HEENT Reports normocephalic, head/scalp atraumatic and moist mucous membranes Eyes PERRL and EOMs intact bilaterally Neck no lymphadenopathy, supple and no JVD Resp normal respiratory effort and clear to auscultation bilaterally Cardio regular rate, regular rhythm and no murmurs GI normal to inspection, nondistended, normoactive bowel sounds and non-tender Palpation: soft Back/Spine no CVA tenderness and normal ROM Extremity Extremity Narrative: Located on the dorsum of the left hand near the fourth MCP joint is a puncture wound there is also a second puncture wound in the webspace of the index and long finger. General Extremety ED: Negative for edema General Extremity: Negative for edema Neuro oriented x3 and CN's II-XII intact bilaterally Sensorium / Orientation: alert Motor Exam: strength 5/5 throughout Psych mental status grossly normal Mood & Affect: Negative for depressed or tearful Skin no rashes or lesions noted MDM MDM MDM Narrative Medical decision making narrative: Patient's tetanus was updated with Adacel. He was placed on Augmentin with the first dose here in the emergency department. Wounds were cleansed and dressed. My interpretation of the plain films of the left hand is no obvious foreign body. No fracture. Patient will be discharged home with local wound care return if worsening or concerns Discharge Plan Triage Chief Complaint: Bite ED Provider: Robert Fong Dx/Rx/DC Orders Clinical Impression: Cat bite of left hand Instructions: ED Cat Bite Prescriptions: New amoxicillin-pot clavulanate [amoxicillin-pot clavulanate] 875 MG tablet 875 mg PO Q12H Qty: 14 RF: 0 No Action carvedilol 6.25 mg tablet 12.5 mg PO BID RF: 0 cinacalcet 90 mg tablet 60 mg PO DAILY RF: 0 aspirin [Adult Low Dose Aspirin] 81 mg tablet,delayed release (DR/EC) 81 mg PO DAILY RF: 0 acetaminophen 325 MG tablet 650 mg PO Q6H PRN PRN (Reason: pain or fever) RF: 0 sertraline 100 mg tablet 150 mg PO DAILY RF: 0 clonazepam 1 mg tablet 1 mg PO DAILY PRN (Reason: Anxiety) RF: 0 Auryxia 210 mg iron tablet 2 tab PO TID RF: 0 Renal Caps 1 mg capsule 1 cap PO DAILY RF: 0 Primary Care Provider: Marcell Thacker Referrals: Marcell Thacker MD [Primary Care Provider] - As Needed Disposition Disposition: Home, Self Care
--- NOTE | 2021-03-16 10:30 | RAD_ITS ---
STUDY: X-RAY - LEFT HAND REASON FOR EXAM: Left hand injury from cat bite today. TECHNIQUE: 3 view(s) of the hand. COMPARISON: None. FINDINGS: Normal radiocarpal articulation. Normal distal radioulnar joint. Normal visualized carpal bones. Normal carpal articulations Normal carpometacarpal articulation of the thumb. Normal second through fifth carpometacarpal joints. Normal metacarpi. Normal metacarpophalangeal joint of the thumb. Normal interphalangeal joint of the thumb. Normal proximal and distal phalanges of the thumb. Normal metacarpophalangeal joints of the second through fifth fingers. Normal proximal and distal interphalangeal joints of the second through fifth fingers. Normal phalanges of the second through fifth fingers. The soft tissue structures are unremarkable. RAD/Hand Min 3 Views IMPRESSION: Normal x-ray examination of the left hand. Electronically Signed: Luis E Pyle MD at 11:07 EDT Tel , Service support ,
[2021-03-16] MEDS: Diphth,Pertuss(Acell),Tet Vac 0.5 ML Vial IM (10:35)
[2021-03-16] MEDS: Amox/Clavulanate 875 MG Tablet PO (10:35)
[2021-03-16 10:50] VITALS: RESP 16
== END 2021-03-16 10:54 | disposition home or self-care (01) ==
PROVIDERS: Emergency Provider Emergency Medicine; PCP Family Medicine
DX: S61.452A Open bite of left hand, initial encounter (principal); Z23 Encounter for immunization; F41.9 Anxiety disorder, unspecified; F32.9 Major depressive disorder, single episode, unspecified; I12.0 Hypertensive chronic kidney disease with stage 5 chronic kidney disease or end stage renal disease; N18.6 End stage renal disease; Z99.2 Dependence on renal dialysis; Z79.899 Other long term (current) drug therapy; W55.01XA Bitten by cat, initial encounter; Y93.89 Activity, other specified; Y92.008 Other place in unspecified non-institutional (private) residence as the place of occurrence of the external cause; Y99.8 Other external cause status
CPT/HCPCS: 73130; 90715; 99282

== ENCOUNTER → 2021-06-15 09:28 | Outpatient (CLI) | payer MEDICARE, BC, MEDICAID, SELFPAY ==
[2021-06-15 09:48] LABS: Hematocrit 35.2 % (40-54); Hemoglobin 11.8 g/dL (13.0-16.5); Mean Corp Hgb Conc 33.5 g/dL (32-36); Mean Corpuscular Hgb 32.2 pg (27.0-32.0); Mean Corpuscular Volume 95.9 fL (80-94); Mean Platelet Vol. 9.2 fl (6.2-12.0); Platelet Count 282 K/mm3 (150-450); RBC Distribution Width CV 14.5 % (11.6-14.6); RBC Distribution Width SD 50.2 fl (35.1-43.9); Red Blood Count 3.67 M/mm3 (4.6-6.2)
[2021-06-15 10:21] LABS: Anion Gap 10 (5-15); BUN 50 mg/dL (7-18); BUN/Creat Ratio 4.2 RATIO (10-20); Calcium,Total 8.8 mg/dL (8.5-10.1); Chloride 97 mmol/L (98-107); EST Glomerular Filtration Rate 5 mL/min (>60); Est Glom Filt Rate - Afr Amer 6 mL/min (>60); Glucose 129 mg/dL (74-106); Potassium 3.3 mmol/L (3.5-5.1); Sodium Level 139 mmol/L (136-145)
== END ==
PROVIDERS: PCP Family Medicine; Referring Provider Physician Assistant; Visit Provider Physician Assistant
DX: Z01.818 Encounter for other preprocedural examination (principal); T82.898A Other specified complication of vascular prosthetic devices, implants and grafts, initial encounter
CPT/HCPCS: 36415; 80048; 85027

== ENCOUNTER 2021-06-19 07:46 | Day surgery (SDC) | payer MEDICARE, BC, MEDICAID, SELFPAY ==
[2021-06-19 07:56] VITALS: BMI 44.6
--- NOTE | 2021-06-19 08:47 | HP.PCM_ITS ---
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 Is patient in pain?: No Allergies No Known Allergies Allergy (Verified 06/14/21 09:39) Medications acetaminophen 650 mg PO Q6H PRN PRN tab 01/19/19 [Rx Confirmed 06/14/21] sertraline 100 mg tablet 150 mg PO DAILY tab 01/11/20 [History Confirmed 06/14/21] carvedilol 6.25 mg tablet 12.5 mg PO BID tab 07/03/20 [History Confirmed 06/14/21] aspirin 81 mg tablet,delayed release 81 mg PO DAILY 03/07/21 [History Confirmed 06/14/21] cinacalcet 90 mg tablet 60 mg PO DAILY tab 03/07/21 [History Confirmed 06/14/21] B complex with C 20-folic acid [Renal Caps] 1 cap PO DAILY 03/14/21 [History Confirmed 06/14/21] clonazepam 1 mg PO DAILY PRN 03/14/21 [History Confirmed 06/14/21] ferric citrate [Auryxia] 2 tab PO TID 03/14/21 [History Confirmed 06/14/21] PFSH Medical History Acute respiratory failure with hypoxia Anemia Anemia due to blood loss, acute Anemia of chronic disease Anxiety Chronic renal failure, stage 5 Community acquired pneumonia Decubitus ulcer Depression Dysphagia ESRD (end stage renal disease) on dialysis Essential hypertension Focal segmental glomerulosclerosis Hematemesis/vomiting blood Hemorrhagic shock Herniated disc history removal dialysis cath (~09/14/19) MRSA bacteremia Nausea DEVANG treated with BiPAP Physical deconditioning Problem with dialysis access Thyroid goiter Transaminitis Surgical History History of arteriovenostomy for renal dialysis History of major abdominal surgery History of tonsillectomy Status post insertion of percutaneous endoscopic gastrostomy (PEG) tube Family History Father Heart disease Brother Heart disease Social History Smoking Status: Never smoker alcohol intake: never substance use type: does not use caffeine: No HPI HPI HPI: MANUEL EDGELL, is a 41 M who presents to the office today for decreased flows and increase in venous pressures. Patient performs home dialysis. He has a right upper extremity brachiocephalic AV fistula with aneurysmal change. His most recent intervention was on 03/14/21. Findings included in-stent central venous stenosis, cephalic arch stenosis, mid and distal upper arm peripheral fistula stenosis. A 9 x 4 Bryant angioplasty proximal subclavian vein innominate and cephalic arch and distal peripheral cephalic vein and mid to distal cephalic vein. Patient denies any pain/discomfort with the fistula. He is currently awaiting results from a thyroid FNA. ROS General General: No weight change, appetite, fatigue, colon cancer, breast cancer or weakness HEENT HEENT: No difficulty swallowing, eye injury, eye surgery, swollen glands or hoarseness Endo Endocrine: No thyroid disease, diabetes mellitus, thyroid cancer, Hair loss, heat intolerance or cold intolerance Skin Skin: No rash or changing moles Musc Musculoskeletal: Yes back problems; No arthritis, rheumatoid arthritis, gout or joint pain Cardio Cardiovascular: Yes high blood pressure; No murmur, pacemaker, heart disease, atrial fibrillation, heart attack, heart stent, palpitations, shortness of breat with exertion or chest pain Psych Psychiatric: Yes anxiety; No depression or hearing voices Resp Respiratory: No shortness of breath, No sleep apnea, No cough, No COPD, No asthma, No emphysema and No wheezing Gastro Gastrointestinal: No abdominal pain, No nausea or vomiting, No diarrhea, No constipation, No blood in stool, No acid reflux, No hemorrhoids, No ulcers, No gallbladder problem and No black,tarry stools Maulik Hematologic: Yes blood thinners, No blood disorders, No bleeding, Yes anemia and Yes blood clots Neuro Neurologic: No weakness Exam Const General: cooperative, healthy appearing, comfortable and no acute distress [facility] Head: normal to inspection Eyes General: appearance normal, both eyes and all related structures Neck Neck: normal visual inspection Neck mass: No Resp Effort & Inspection: normal respiratory effort Auscultation: clear to auscultation bilaterally Cardio Rate: regular rate Rhythm: regular rhythm GI Inspection: normal to inspection Palpation: soft Auscultation: normal bowel sounds Musc Cervical Spine: normal cervical lordosis Skin General: no rashes or lesions noted Neuro General: no focal motor deficits and CN's II-XI intact bilaterally Extrem Other: Right upper extremity AV fistula- diminished bruit and thrill distal fistula surrounding the button hole. Aneurysmal change throughout the entire fistula. Button hole technique noted. Psych Appearance: grossly normal Affect: normal affect COVID (Procedure Consent) Procedure Criteria Procedure Criteria: Yes Elective The surgeon/proceduralist and patient have discussed in detail the risk of exposure to and/or potential harm posed by the COVID-19 virus with having a surgery/procedure at this time versus the risk of delaying the surgery/procedure. It is not possible to know either the risk of delaying the surgery or procedure or chance of getting an infection with perfect accuracy, but a joint decision was made between the patient and the surgeon/proceduralist to proceed at this time with the scheduled surgery/procedure as indicated on the consent form. Assessment and Plan Assessment and Plan (1) Problem with dialysis access: Status: Resolved Qualifiers: Encounter type: initial encounter Qualified Code(s): T82.898A - Other specified complication of vascular prosthetic devices, implants and grafts, initial encounter Plan - Tamika ROMO PA-C: Dr. Aranda will plan to perform [facility] upper extremity fistulogram. Procedure details, risks and benefits have been reviewed with this patient. Patient has had the opportunity to ask and have questions answered. Patient may continue his aspirin. Patient verbally understands and agrees with the plan. Per Dr. Aranda's last note, consider placing a 13 x 10 Viabahn stent graft within the cephalic arch which would require a short 12 Albanian sheath available. Materials availability will be verified with the phlebotomist medical lab assistant. Coding Level of Care Code Off vis,est,level 3 Diagnoses Problem with dialysis access T82.898A Encounter type: initial encounter 06/14/21 1016<Electronically signed by Tamika ROMO PA-C>Date Tamika ROMO PA-C I have re-examined the patient. There are no clinical changes since date of exam. Osei Aranda M.D., F.A.C.S.
--- NOTE | 2021-06-19 09:59 | OP.PCM_ITS ---
Problems Associated Problem List Diagnoses (1) Problem with dialysis access: Report of Operation Date of Procedure: 06/19/21 Pre-Operative Diagnosis: Diminished flow right upper extremity brachiocephalic arteriovenous hemodialysis fistula Post-Operative Diagnosis: Right upper extremity distal fistula 60% stenosis in cephalic arch 60% stenosis and innominate vein in-stent 70% stenosis Surgery/Procedure Performed:: Right upper extremity fistulogram with 9 x 5 4 [place] angioplasty in the proximal upper right arm more distal part of the fistula and at the cephalic arch and within the innominate stent graft centrally. 11 x 5 centrally placed Viabahn stent graft within the subclavian/innominate Description of Surgical Findings:: Timeout informed consent was obtained. The patient received 50 mcg of fentanyl and 2 mg of Versed as IV sedation. 41-year-old gent was taken to the special procedures lab placed on the table. Ancef 2 g were given intravenously. The right upper extremity was sterilely prepped and draped. 2% lidocaine was instilled antegrade with flow close to the brachial artery anastomosis. Since micropuncture needle inserted. Micropuncture wire inserted. 6 [place] short sheath dilator is inserted. A fistulogram with Isovue was obtained of the right extremity. This demonstrated a pseudoaneurysm/coiling of the fistula in the more distal aspect of the fistula in the upper arm. There is an area of at least 60% stenosis. The cephalic arch has approximately 60% stenosis over 4 cm. There is evidence of a previously placed 9 x 5 Viabahn in the innominate vein which has in-stent stenosis. The patient received 8000 units of heparin. I was able to get an angled Glidewire through all the areas of disease. I then placed a 9 x 4 [place] balloon perform balloon angioplasty of the distal part of the fistula in the upper arm. The cephalic arch and of the in-stent stenosis within the innominate. All angioplasty was formed up to 20 arian of pressure and held for 3 minutes. Upon further review it appeared that the previously placed 9 x 5 Viabahn stent graft in the innominate which was placed elsewhere was placed so that the apex was within the curvature and I felt likely the stent graft itself was blocking flow. For that reason I then exchanged out and placed a Magic wire. I then placed a 11 x 5 Viabahn approximately 30% within the old graft and deployed it. I seated it in place with the 9 x 4 [place] balloon. Final imaging suggested that that recreated the normal curvature of the subclavian vein into the innominate vein. All areas of stenosis adequately treated. Successfully treated right extremity brachiocephalic arteriovenous hemodialysis fistula with distal fistula in the proximal upper arm successfully treated and cephalic arch treated and the innominate vein subclavian vein junction treated with additional placement of a Viabahn stent graft at that location. Blood loss minimal. The patient tolerated the procedure well was taken to recovery in separate edition no apparent complication. Osei Aranda M.D., F.A.C.S. Surgeon: Osei Aranda Type of Anesthesia: IV Sedation and Local
== END 2021-06-19 11:00 | disposition home or self-care (01) ==
LOC: CLSP 07:49
PROVIDERS: PCP Family Medicine; Referring Provider Surgery; Visit Provider Surgery
DX: T82.898A Other specified complication of vascular prosthetic devices, implants and grafts, initial encounter (principal); I12.0 Hypertensive chronic kidney disease with stage 5 chronic kidney disease or end stage renal disease; N18.6 End stage renal disease; D63.1 Anemia in chronic kidney disease; F41.9 Anxiety disorder, unspecified; F32.A Depression, unspecified; E04.1 Nontoxic single thyroid nodule; Z79.899 Other long term (current) drug therapy; Z99.2 Dependence on renal dialysis
CPT/HCPCS: 36903; 99152; 99153; Q9967; C1725; C1769; C1874; C1887; C1894

== ENCOUNTER 2021-09-25 13:43 | Outpatient (CLI) | payer MEDICARE, BC, MEDICAID, SELFPAY ==
[2021-09-25 14:18] LABS: Absolute Lymphocyte Count 0.86 X10^3/uL (0.83-4.51); Absolute Neutrophil Count 5.3 X10^3/uL (2.0-7.7); Basophil# 0.05 X10^3/uL; Basophil% 0.7 % (0-1); Eosinophil# 0.27 X10^3/uL; Eosinophils% 3.8 % (0-5); Hematocrit 38.5 % (40-54); Hemoglobin 13.5 g/dL (13.0-16.5); Lymphocyte # 0.86 X10^3/ul (0.83-4.51); Lymphocyte % 12.2 % (19-41); Mean Corp Hgb Conc 35.1 g/dL (32-36); Mean Corpuscular Hgb 33.8 pg (27.0-32.0); Mean Corpuscular Volume 96.5 fL (80-94); Mean Platelet Vol. 9.5 fl (6.2-12.0); Monocyte# 0.48 X10^3/uL; Monocyte% 6.8 % (0-10); NRBC Flagged by Analyzer 0 % (0-5); Neutrophil # 5.34 X10^3/uL (2.7-7.7); Neutrophil % 75.5 % (47-70); Platelet Count 287 K/mm3 (150-450); RBC Distribution Width CV 14.1 % (11.6-14.6); RBC Distribution Width SD 49.1 fl (35.1-43.9); Red Blood Count 3.99 M/mm3 (4.6-6.2); White Blood Count 7.1 K/mm3 (4.4-11.0)
[2021-09-25 14:54] LABS: Anion Gap 11 (5-15); BUN 55 mg/dL (7-18); BUN/Creat Ratio 4.2 RATIO (10-20); Chloride 94 mmol/L (98-107); EST Glomerular Filtration Rate 5 mL/min (>60); Est Glom Filt Rate - Afr Amer 6 mL/min (>60); Glucose 120 mg/dL (74-106); Potassium 3.2 mmol/L (3.5-5.1); Sodium Level 136 mmol/L (136-145)
== END 2021-09-25 23:59 | disposition home or self-care (01) ==
LOC: PAVLAB 13:45
PROVIDERS: PCP Family Medicine; Referring Provider Physician Assistant; Visit Provider Physician Assistant
DX: T82.898A Other specified complication of vascular prosthetic devices, implants and grafts, initial encounter (principal)
CPT/HCPCS: 36415; 80048; 85025

== ENCOUNTER 2021-09-26 06:54 | Day surgery (SDC) | payer MEDICARE, BC, MEDICAID, SELFPAY ==
[2021-09-25 14:15] VITALS: BMI 43.2
--- NOTE | 2021-09-26 07:15 | PCM.HP.BLA ---
History and Physical Date of Admission: 09/26/21 ADDENDUM by NIKHIL Alvares on 09/25/21 at 1550 Intake Chief Complaint: recheck fistula - high pressures Allergies No Known Allergies Allergy (Verified 09/25/21 13:31) Medications acetaminophen 650 mg PO Q6H PRN PRN tab 01/19/19 [Rx Confirmed 09/25/21] sertraline 100 mg tablet 150 mg PO DAILY tab 01/11/20 [History Confirmed 09/25/21] carvedilol 6.25 mg tablet 12.5 mg PO BID tab 07/03/20 [History Confirmed 09/25/21] aspirin 81 mg tablet,delayed release 81 mg PO DAILY 03/07/21 [History Confirmed 09/25/21] cinacalcet 90 mg tablet 60 mg PO DAILY tab 03/07/21 [History Confirmed 09/25/21] B complex with C 20-folic acid [Renal Caps] 1 cap PO DAILY 03/14/21 [History Confirmed 09/25/21] clonazepam 1 mg PO DAILY PRN 03/14/21 [History Confirmed 09/25/21] ferric citrate [Auryxia] 2 tab PO TID 03/14/21 [History Confirmed 09/25/21] Assessment and Plan Assessment and Plan (1) Problem with dialysis access: Status: Acute Qualifiers: Encounter type: initial encounter Qualified Code(s): T82.898A - Other specified complication of vascular prosthetic devices, implants and grafts, initial encounter Comment: Patient's previous fistulogram demonstrated Right upper extremity fistulogram with 9 x 5 4 [place] angioplasty in the proximal upper right arm more distal part of the fistula and at the cephalic arch and within the innominate stent graft centrally. 11 x 5 centrally placed Viabahn stent graft within the subclavian/innominate. Findings showed Right upper extremity distal fistula 60% stenosis in cephalic arch 60% stenosis and innominate vein in-stent 70% stenosis. Orders: Orders: Basic Metabolic Profile (BMP) Today CBC W/Diff, Automated Today 09/25/21 1550<Electronically signed by Tamika ROMO PA-C>Date Tamika Alvares PA-C cc: Dr. 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 Is patient in pain?: No Allergies No Known Allergies Allergy (Verified 09/25/21 13:31) Medications acetaminophen 650 mg PO Q6H PRN PRN tab 01/19/19 [Rx Confirmed 09/25/21] sertraline 100 mg tablet 150 mg PO DAILY tab 01/11/20 [History Confirmed 09/25/21] carvedilol 6.25 mg tablet 12.5 mg PO BID tab 07/03/20 [History Confirmed 09/25/21] aspirin 81 mg tablet,delayed release 81 mg PO DAILY 03/07/21 [History Confirmed 09/25/21] cinacalcet 90 mg tablet 60 mg PO DAILY tab 03/07/21 [History Confirmed 09/25/21] B complex with C 20-folic acid [Renal Caps] 1 cap PO DAILY 03/14/21 [History Confirmed 09/25/21] clonazepam 1 mg PO DAILY PRN 03/14/21 [History Confirmed 09/25/21] ferric citrate [Auryxia] 2 tab PO TID 03/14/21 [History Confirmed 09/25/21] PFSH Medical History Acute respiratory failure with hypoxia Anemia Anemia due to blood loss, acute Anemia of chronic disease Anxiety Chronic renal failure, stage 5 Community acquired pneumonia Decubitus ulcer Depression Dysphagia ESRD (end stage renal disease) on dialysis Essential hypertension Focal segmental glomerulosclerosis Hematemesis/vomiting blood Hemorrhagic shock Herniated disc history removal dialysis cath (~09/14/19) MRSA bacteremia Nausea DEVANG treated with BiPAP Physical deconditioning Pre-op chest exam Pre-op testing Problem with dialysis access Thyroid goiter Transaminitis Surgical History History of arteriovenostomy for renal dialysis History of major abdominal surgery History of tonsillectomy Status post insertion of percutaneous endoscopic gastrostomy (PEG) tube Family History Father Heart disease Brother Heart disease Social History Smoking Status: Never smoker alcohol intake: never substance use type: does not use caffeine: No HPI HPI HPI: MANUEL FARNSWORTH, is a 41 M who presents to the office today for increased venous pressures. Patient has a right upper extremity brachiocephalic AV fistula with aneurysmal change. Patient states on Friday he had noted his venous pressures were elevated. He did not have dialysis on Friday and tried again on Friday. Friday the venous pressure continued to be elevated. He stated last night, the venous pressures were even more elevated which prompted his call this morning to our office. Patient does home-hemodialysis. He denies any recent hospitalizations or illnesses since last appointment in June. He is maintained on a daily 81 mg aspirin. ROS General General: No weight change, appetite, fatigue, colon cancer, breast cancer or weakness HEENT HEENT: No difficulty swallowing, eye injury, eye surgery, swollen glands or hoarseness Endo Endocrine: No thyroid disease, diabetes mellitus, thyroid cancer, Hair loss, heat intolerance or cold intolerance Skin Skin: No rash or changing moles Musc Musculoskeletal: Yes back problems; No arthritis, rheumatoid arthritis, gout or joint pain Cardio Cardiovascular: Yes high blood pressure; No murmur, pacemaker, heart disease, atrial fibrillation, heart attack, heart stent, palpitations, shortness of breat with exertion or chest pain Psych Psychiatric: Yes anxiety; No depression or hearing voices Resp Respiratory: No shortness of breath, No sleep apnea, No cough, No COPD, No asthma, No emphysema and No wheezing Gastro Gastrointestinal: No abdominal pain, No nausea or vomiting, No diarrhea, No constipation, No blood in stool, No acid reflux, No hemorrhoids, No ulcers, No gallbladder problem and No black,tarry stools Maulik Hematologic: Yes blood thinners, No blood disorders, No bleeding, Yes anemia and Yes blood clots Neuro Neurologic: No weakness Exam Const General: cooperative, healthy appearing, comfortable and no acute distress HENGA Head: normal to inspection Eyes General: appearance normal, both eyes and all related structures Neck Neck: normal visual inspection Neck mass: No Resp Effort & Inspection: normal respiratory effort Auscultation: clear to auscultation bilaterally Cardio Rate: regular rate Rhythm: regular rhythm GI Inspection: normal to inspection Palpation: soft Auscultation: normal bowel sounds Skin General: no rashes or lesions noted Neuro General: no focal motor deficits and CN's II-XI intact bilaterally Extrem Other: Right upper extremity- good pulse, diminished bruit and thrill area of access sites. No erythema or infection noted. Aneurysmal change throughout the entire fistula. Button hole technique noted. Psych Appearance: grossly normal Affect: normal affect COVID (Procedure Consent) Procedure Criteria Procedure Criteria: Yes Elective The surgeon/proceduralist and patient have discussed in detail the risk of exposure to and/or potential harm posed by the COVID-19 virus with having a surgery/procedure at this time versus the risk of delaying the surgery/procedure. It is not possible to know either the risk of delaying the surgery or procedure or chance of getting an infection with perfect accuracy, but a joint decision was made between the patient and the surgeon/proceduralist to proceed at this time with the scheduled surgery/procedure as indicated on the consent form. Assessment and Plan Assessment and Plan (1) Problem with dialysis access: Status: Acute Qualifiers: Encounter type: initial encounter Qualified Code(s): T82.898A - Other specified complication of vascular prosthetic devices, implants and grafts, initial encounter Orders: Orders: Basic Metabolic Profile (BMP) Today CBC W/Diff, Automated Today Plan - Tamika ROMO PAAguedaC: Dr. Aranda will plan to perform a right upper extremity fistulogram with angioplasty. I have reviewed his most recent fistulogram with Dr. Aranda and provided his diagram. Patient will obtain blood work today and proceed with the proposed procedure tomorrow. Procedure details, risks and benefits have been explained/reviewed. Patient has had the opportunity to ask and have questions answered. Patient verbally understands and agrees with the plan. I have re-examined the patient. There are no clinical changes since date of exam.
--- NOTE | 2021-09-26 08:31 | PCM.OPRPT ---
Problems Associated Problem List Diagnoses (1) Problem with dialysis access: Report of Operation Date of Procedure: 09/26/21 Pre-Operative Diagnosis: High pressure right upper extremity brachiocephalic arteriovenous hemodialysis fistula Post-Operative Diagnosis: Central in-stent venous stenosis. Cephalic arch venous stenosis. Proximal right upper arm venous fistula stenosis Surgery/Procedure Performed:: Right upper extremity fistulogram with 9 x 5 [place] angioplasty of 3 areas and Lutonix 9 x 6 cm DCB angioplasty Description of Surgical Findings:: Timeout informed consent was obtained. 41-year-old gentleman was taken to the special procedures lab placed on the table. The right upper semisterilely prepped and draped. He received 50 mcg of fentanyl and 2 mg of Versed is intravenous sedation. Under ultrasound guidance the the right upper arm cephalic vein closer to the antecubital space was anesthetized with 2% lidocaine and accessed with a micropuncture needle antegrade with flow the micropuncture wire then a 6 [place] short sheath dilator using Isovue contrast fistulogram was obtained of the fistula of the right upper arm this demonstrated evidence of 2 Viabahn stent graft within the central circulation innominate and proximal subclavian. There is evidence of in-stent stenosis within the most remotely placed Viabahn the junction of the innominate and SVC. There is evidence of severe stenosis of the cephalic arch. And in the proximal upper arm additional area of aneurysmal change with an additional area approximately 8 cm long of venous stenosis. The patient received 5000 units of heparin. An angled 035 Glidewire was advanced past all the areas. 9 x 5 [place] balloon was performed of all 3 areas of stenosis with pressures up to 20 arian of pressure each held for at least 3 minutes. Balloon repositioning was performed where indicated. Subsequently a 9 x 6 Lutonix drug-coated balloon was placed at the cephalic arch and that single area of stenosis was treated with a drug-coated balloon. The Viabahn in-stent stenosis and the stenosis associated with the aneurysmal change in the proximal right upper arm were not treated secondary to lack of correct balloon size matching available. Completion views demonstrated dramatic improvement at all sites. The Viabahn in-stent stenosis. Resolved. The cephalic arch appeared much improved and resolved. The proximal right upper arm area still had some erratic nature to the edges but was markedly improved. Sheath was removed U suture 4-0 nylon was placed. Blood loss was minimal the patient tolerated the procedure well there are no apparent complications. Images demonstrate a right upper extremity cephalic to brachial artery AV fistula. There is evidence of 2 Viabahn stent graft within the central circulation and dominant proximal subclavian. The one is known to be a 9 x 5 more centrally placed and then a 11 x 5 which extends into the subclavian vein. There was in-stent stenosis of the very proximal portion of the innominate and that most remote stent. There is severe stenosis of at least 5 cm of cephalic arch. There is severe stenosis of the proximal right upper arm cephalic vein over approximately 8 cm with a aneurysm located just distally. All areas improved or resolved subsequent angioplasty. Future consideration of treatment will be to consider DCB of the cephalic vein within the proximal right upper arm if the cephalic arch durability is better with its current treatment. Would consider for the proximal right upper arm cephalic vein possibly a 10 x 10 cm DCB device if available Osei Aranda M.D., F.A.C.S. Surgeon: Osei Aranda Type of Anesthesia: IV Sedation and Local
== END 2021-09-26 23:59 | disposition home or self-care (01) ==
LOC: CLSP 06:56
PROVIDERS: PCP Family Medicine; Referring Provider Surgery; Visit Provider Surgery
DX: T82.858A Stenosis of other vascular prosthetic devices, implants and grafts, initial encounter (principal); I12.0 Hypertensive chronic kidney disease with stage 5 chronic kidney disease or end stage renal disease; N18.6 End stage renal disease; I87.2 Venous insufficiency (chronic) (peripheral); D63.8 Anemia in other chronic diseases classified elsewhere; F41.9 Anxiety disorder, unspecified; Z87.01 Personal history of pneumonia (recurrent); F32.A Depression, unspecified; Z86.14 Personal history of Methicillin resistant Staphylococcus aureus infection; G47.33 Obstructive sleep apnea (adult) (pediatric); Z87.19 Personal history of other diseases of the digestive system; Z79.82 Long term (current) use of aspirin; Z79.899 Other long term (current) drug therapy
CPT/HCPCS: 36902; 36907; 76937; 99152; 99153; Q9967; C1725; C1769; C1894

== ENCOUNTER → 2022-03-04 | Outpatient (CLI) | payer MEDICARE, BC, MEDICAID, SELFPAY ==
[2022-03-04 13:44] LABS: Absolute Lymphocyte Count 0.56 X10^3/uL (0.83-4.51); Absolute Neutrophil Count 4.4 X10^3/uL (2.0-7.7); Basophil# 0.03 X10^3/uL; Basophil% 0.5 % (0-1); Eosinophil# 0.25 X10^3/uL; Eosinophils% 4.5 % (0-5); Hematocrit 36.8 % (40-54); Hemoglobin 12.3 g/dL (13.0-16.5); Lymphocyte # 0.56 X10^3/ul (0.83-4.51); Mean Corp Hgb Conc 33.4 g/dL (32-36); Mean Corpuscular Hgb 33.2 pg (27.0-32.0); Mean Corpuscular Volume 99.2 fL (80-94); Mean Platelet Vol. 8.7 fl (6.2-12.0); Monocyte% 5.4 % (0-10); NRBC Flagged by Analyzer 0 % (0-5); Neutrophil # 4.41 X10^3/uL (2.7-7.7); Neutrophil % 78.9 % (47-70); POSITIVE DIFFERENTIAL YES; Platelet Count 179 K/mm3 (150-450); RBC Distribution Width CV 13.9 % (11.6-14.6); RBC Distribution Width SD 50.3 fl (35.1-43.9); Red Blood Count 3.71 M/mm3 (4.6-6.2); White Blood Count 5.6 K/mm3 (4.4-11.0)
[2022-03-04 13:55] LABS: Differential Indicated SCAN CRITERIA MET
[2022-03-04 14:06] LABS: Anion Gap 9 (5-15); BUN 52 mg/dL (7-18); BUN/Creat Ratio 4.5 RATIO (10-20); Calcium,Total 9.7 mg/dL (8.5-10.1); Chloride 94 mmol/L (98-107); EST Glomerular Filtration Rate 5 mL/min (>60); Est Glom Filt Rate - Afr Amer 6 mL/min (>60); Glucose 126 mg/dL (74-106); Potassium 4.2 mmol/L (3.5-5.1); Sodium Level 136 mmol/L (136-145)
[2022-03-04 14:41] LABS: Platelet Estimate ADEQUATE (ADEQ); Red Cell Morphology NORM C+C NORMAL (NORM C&C)
== END | disposition home or self-care (01) ==
LOC: PAVLAB 13:16
PROVIDERS: PCP Family Medicine; Referring Provider Physician Assistant; Visit Provider Physician Assistant
DX: T82.898A Other specified complication of vascular prosthetic devices, implants and grafts, initial encounter (principal)
CPT/HCPCS: 36415; 80048; 85025

== ENCOUNTER 2022-03-05 09:13 | Day surgery (SDC) | payer MEDICARE, BC, MEDICAID, SELFPAY ==
[2022-03-04 14:44] VITALS: BMI 43.5
--- NOTE | 2022-03-05 10:13 | HP.PCM_ITS ---
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 Is patient in pain?: No Allergies No Known Allergies Allergy (Verified 03/04/22 12:54) Medications acetaminophen 325 mg tablet 650 mg PO Q6H PRN PRN pain or fever 01/19/19 [Rx Confirmed 03/04/22] sertraline 100 mg tablet 150 mg PO DAILY anxiety 01/11/20 [History Confirmed 03/04/22] carvedilol 6.25 mg tablet 12.5 mg PO BID 07/03/20 [History Confirmed 03/04/22] aspirin 81 mg tablet,delayed release (Adult Low Dose Aspirin) 81 mg PO DAILY 03/07/21 [History Confirmed 03/04/22] cinacalcet 90 mg tablet 60 mg PO DAILY 03/07/21 [History Confirmed 03/04/22] clonazepam 1 mg tablet 1 mg PO DAILY PRN Anxiety 03/14/21 [History Confirmed 03/04/22] ferric citrate 210 mg iron tablet (Auryxia) 2 tab PO TID 03/14/21 [History Conf irmed 03/04/22] vitamin B complex and vitamin C no.20-folic acid 1 mg capsule (Renal Caps) 1 cap PO DAILY 03/14/21 [History Confirmed 03/04/22] pantoprazole 40 mg tablet,delayed release (Protonix) 40 mg PO DAILY 09/26/21 [History Confirmed 03/04/22] PFSH Medical History? Acute respiratory failure with hypoxia Anemia Anemia due to blood loss, acute Anemia of chronic disease Anxiety Chronic renal failure, stage 5 Community acquired pneumonia Decubitus ulcer Depression Dysphagia ESRD (end stage renal disease) on dialysis Essential hypertension Focal segmental glomerulosclerosis Hematemesis/vomiting blood Hemorrhagic shock Herniated disc history removal dialysis cath (~09/14/19) MRSA bacteremia Nausea DEVANG treated with BiPAP Physical deconditioning Pre-op chest exam Pre-op testing Problem with dialysis access Thyroid goiter Transaminitis Surgical History? History of arteriovenostomy for renal dialysis History of major abdominal surgery History of tonsillectomy Status post insertion of percutaneous endoscopic gastrostomy (PEG) tube Family History? Father Heart diseaseBrother Heart disease Social History? Smoking Status:? Never smoker alcohol intake:? never substance use type:? does not use caffeine:? No HPI HPI Surgical H&P: Yes HPI: MANUEL FARNSWORTH, is a 41 M who presents to the office today for decrease flow and high venous pressures for the last week. Patient states for the last week he has had high venous pressures. He dialyzes at home. Patient states in November he had a total thyroidectomy at [facility]. 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 Patient did complete radioactive iodine treatment. He is currently on Levothyroxine 300 mg daily. He follows with an pharmacist helper. Patient's last fistulogram was completed on September 26, 2021. A right upper extremity fistulogram demonstrated central in-stent venous stenosis and cephalic arch venous stenosis and proximal right upper arm venous aneurysmal change with additional venous stenosis.? He was treated centrally with a 9 x 5 [place] angioplasty of all 3 areas and a drug-coated balloon Lutonix 9 x 6 cm angioplasty was performed of the cephalic arch. He is maintained on a daily 81 mg aspirin. ROS General General: No weight change, appetite, fatigue, colon cancer, breast cancer or weakness HEENT HEENT: No difficulty swallowing, eye injury, eye surgery, swollen glands or hoarseness Endo Endocrine: No thyroid disease, diabetes mellitus, thyroid cancer, Hair loss, heat intolerance or cold intolerance Skin Skin: No rash or changing moles Musc Musculoskeletal: Yes back problems; No arthritis, rheumatoid arthritis, gout or joint pain Cardio Cardiovascular: Yes high blood pressure; No murmur, pacemaker, heart disease, atrial fibrillation, heart attack, heart stent, palpitations, shortness of breat with exertion or chest pain Psych Psychiatric: Yes anxiety; No depression or hearing voices Resp Respiratory: No shortness of breath, No sleep apnea, No cough, No COPD, No asthma, No emphysema and No wheezing Gastro Gastrointestinal: No abdominal pain, No nausea or vomiting, No diarrhea, No constipation, No blood in stool, No acid reflux, No hemorrhoids, No ulcers, No gallbladder problem and No black,tarry stools Maulik Hematologic: Yes blood thinners, No blood disorders, No bleeding, Yes anemia and Yes blood clots Neuro Neurologic: No weakness Exam Const General: cooperative, healthy appearing, comfortable and no acute distress HENMT Head: normal to inspection Eyes General: appearance normal, both eyes and all related structures Neck Neck: normal visual inspection Neck mass: No Resp Effort & Inspection: normal respiratory effort Auscultation: clear to auscultation bilaterally Cardio Rate: regular rate Rhythm: regular rhythm GI Inspection: normal to inspection Palpation: soft Auscultation: normal bowel sounds Musc Cervical Spine: normal cervical lordosis Skin General: no rashes or lesions noted Neuro General: no focal motor deficits and CN's II-XI intact bilaterally Extrem Other: Right upper extremity AV fistula- good pulse, diminished bruit and thrill. Button hole technique noted. Multiple aneurysms noted. Psych Appearance: grossly normal Affect: normal affect Assessment and Plan Assessment and Plan (1) Problem with dialysis access: ?Status:?Acute ?Qualifiers: ?Encounter type:?initial encounter? Qualified Code(s):?T82.898A - Other specified complication of vascular prosthetic devices, implants and grafts, initial encounter ?Plan: Dr. Aranda will plan to perform an urgent right upper extremity fistulogram. Procedure details, risks and benefits have been reviewed. Patient has had the opportunity to ask and have questions answered. Patient verbally understands and agrees with the plan. Patient may continue his aspirin for the procedure. Per Dr. Aranda's previous note: When he has recurrent stenosis then we would want to have available the Lutonix drug-coated balloon wrap so that if the cephalic arch demonstrates a superior result from treatment with a drug-coated balloon that if we go back and do a repeat fistulogram that we have access to drug-coated balloons to treat the 2 additional areas. wetlands conservation laborer was contacted and notified of the above request. wetlands conservation laborer noted that the vascular rep did not need to be contacted as the warehouse general laborer would have all sizes available. Patient has been added on for tomorrow. Lab work has been obtained.? I have re-examined the patient. There are no clinical changes since date of exam. Osei Aranda M.D., F.A.C.S.
--- NOTE | 2022-03-05 11:30 | PCM.OPRPT ---
Problems Associated Problem List Diagnoses (1) Problem with dialysis access: Report of Operation Date of Procedure: 03/05/22 Pre-Operative Diagnosis: Increased pressure and diminished flow right upper extremity brachial cephalic arteriovenous hemodialysis fistula Post-Operative Diagnosis: 3 areas of clinically significant venous stenosis right upper extremity brachial cephalic arteriovenous fistula Surgery/Procedure Performed:: Right upper extremity fistulogram with 9 x 4 [place] angioplasty and 10 x 2 [place] angioplasty Description of Surgical Findings:: Timeout informed consent was obtained. The patient was taken to the operating placed supine on the table had 50 mcg fentanyl and a milligram Versed is intravenous sedation. The right extremity sterilely prepped and draped. The fistula markedly enlarged throughout. 2% lidocaine was instilled closer to the arterial anastomosis micropuncture needle inserted micropuncture wire inserted 6 [place] short sheath dilator was inserted using Isovue fistulogram was obtained this demonstrated a 5 cm long area of high-grade up to 90% stenosis in the proximal upper arm. There was recurrent 70% stenosis within the cephalic arch and there was recurrent in-stent stenosis within the Viabahn stent grafts within the proximal subclavian innominate junction/superior vena cava. The patient received 5000 units of heparin. An 035 stiff Glidewire was used. The in-stent stenosis within the proximal subclavian/brachiocephalic superior vena cava area was treated with the 9 x 4 [place] up to 22 arian of pressure and was held for at least 3 minutes 3 separate insufflations performed. There is still persistent stenosis distally within the SVC at the edge of the stent so I try placing a 10 x 2 [place] there to treat that but that was not successful. The cephalic arch was treated with 2 insufflations of the 9 x 4 [place] in the proximal upper arm humeral area was treated with 2 insufflations with a 9 x 4 [place]. Completion views demonstrated improvement in each area but incomplete resolution that each. The flow was much improved. I did not want to place graft material at this time. I have elected to complete the procedure as is. The sheath was removed U suture 4-0 nylon was placed. The patient may be a candidate for renal transplantation. In the future if recurrent stenosis occurs might consider utilizing a cutting balloon at the cephalic arch in the proximal humeral area. The in-stent stenosis more centrally is a difficult issue. At this point likely would consider repeat angioplasty. Osei Aranda M.D., F.A.C.S. Surgeon: Osei Aranda
== END 2022-03-05 12:45 | disposition home or self-care (01) ==
LOC: CLSP 09:15
PROVIDERS: PCP Family Medicine; Referring Provider Surgery; Visit Provider Surgery
DX: T82.898A Other specified complication of vascular prosthetic devices, implants and grafts, initial encounter (principal); Z99.2 Dependence on renal dialysis; N18.6 End stage renal disease; I12.9 Hypertensive chronic kidney disease with stage 1 through stage 4 chronic kidney disease, or unspecified chronic kidney disease; F32.A Depression, unspecified; F41.9 Anxiety disorder, unspecified; G47.33 Obstructive sleep apnea (adult) (pediatric); Z79.82 Long term (current) use of aspirin; Z79.899 Other long term (current) drug therapy; X58.XXXA Exposure to other specified factors, initial encounter
CPT/HCPCS: 36902; 99152; 99153; Q9967; C1769

== ENCOUNTER 2022-05-24 20:35 | Emergency (ER) | payer MEDICARE, BC, MEDICAID, SELFPAY ==
[2022-05-24 20:37] VITALS: BP 144/90; PULSE 67; RESP 14; TEMP 35.5; O2SAT 97; BMI 44.4
--- NOTE | 2022-05-24 21:45 | EX.ED.DYSGE1 ---
HPI History of Present Illness Chief Complaint: Abn Labs Detail of Chief Complaint: Fatigue so sent in to be checked for possible anemia. Informant: patient Onset/Context/Timing Onset: Days Context: Gradual Onset Timing: Continuous Current Severity: Mild Narrative Narrative: 41-year-old male history of end-stage renal disease does home dialysis 6 days a week. Prior history of anemia for which she needed a transfusion. Recently has been tired a talk to his disk recordist tonight they were just looking to get labs done and the disk recordist sent him into the ER to be evaluated. He denies vomiting or diarrhea. No fever. No melena. Prior similar symptoms: Yes Recent Illness/Hospitalization: No PFSH PFS Medical History Acute respiratory failure with hypoxia Anemia Anemia due to blood loss, acute Anemia of chronic disease Anxiety Chronic renal failure, stage 5 Community acquired pneumonia Decubitus ulcer Depression Dysphagia ESRD (end stage renal disease) on dialysis Essential hypertension Focal segmental glomerulosclerosis Hematemesis/vomiting blood Hemorrhagic shock Herniated disc history removal dialysis cath (~09/14/19) MRSA bacteremia Nausea DEVANG treated with BiPAP Physical deconditioning Pre-op chest exam Pre-op testing Problem with dialysis access Thyroid goiter Transaminitis Home Medications acetaminophen 325 mg tablet 650 mg PO Q6H PRN PRN pain or fever 01/19/19 [Rx Last Taken Unknown] sertraline 100 mg tablet 150 mg PO DAILY anxiety 01/11/20 [History Last Taken Unknown] carvedilol 6.25 mg tablet 12.5 mg PO BID 07/03/20 [History Last Taken 03/05/22] aspirin 81 mg tablet,delayed release (Adult Low Dose Aspirin) 81 mg PO DAILY 03/07/21 [History Last Taken Unknown] cinacalcet 90 mg tablet 60 mg PO DAILY 03/07/21 [History Last Taken Unknown] clonazepam 1 mg tablet 1 mg PO DAILY PRN Anxiety 03/14/21 [History Last Taken 03/14/21] ferric citrate 210 mg iron tablet (Auryxia) 2 tab PO TID 03/14/21 [History Last Taken Unknown] vitamin B complex and vitamin C no.20-folic acid 1 mg capsule (Renal Caps) 1 cap PO DAILY 03/14/21 [History Last Taken Unknown] pantoprazole 40 mg tablet,delayed release (Protonix) 40 mg PO DAILY 09/26/21 [History Last Taken 03/05/22] Allergy/AdvReac Type Severity Reaction Status Date / Time No Known Allergies Allergy Verified 05/24/22 20:37 Family History Father Heart disease Brother Heart disease Surgical History History of arteriovenostomy for renal dialysis History of major abdominal surgery History of tonsillectomy Status post insertion of percutaneous endoscopic gastrostomy (PEG) tube Social History Smoking Status: Never smoker alcohol intake: never substance use type: does not use caffeine: No ROS ROS ED ROS Narrative Tired. Review of Systems ROS Unobtainable: Denies due to encephalopathy Constitutional Constitutional ED: Denies chills or fever(s) Eyes Eyes: Denies blurry vision ENT ENT ED: Denies ear pain Cardiovascular Cardiovascular: Denies chest pain Respiratory/Chest Respiratory/Chest: Denies cough or dyspnea Gastrointestinal Gastrointestinal: Denies abdominal pain Genitourinary Genitourinary ED: Denies dysuria or hematuria Musculoskeletal Musculoskeletal: Denies arthralgias Integumentary Denies abscess Neurologic Neurologic: Denies headache(s) Psychiatric Psychiatric: Denies anxiety Endocrine Endocrinology: Denies cold intolerance Hematologic/Lymphatic Hematologic/Lymphatic: Reports none Allergic/Immunologic Allergic/Immunologic ED: Denies mouth swelling or tongue swelling EXAM Physical Exam Narrative Exam Narrative: 45-year-old male no acute distress. Vital signs stable afebrile. Pulse ox 97% on room air no hypoxia. H EENT exam unremarkable. Moist Riis members. Neck nontender. No lymphadenopathy. Lungs clear to auscultation. Heart regular rhythm rate about 65 no murmur. Chest wall nontender. Abdomen soft nontender. Moving all 4 extremities. 5/5 nephrology nurse strength. Dorsi plantarflexion intact. Trace edema to feet and ankles. Equal and symmetrical. Neurologically is awake and alert with no focal motor deficits. Const Vital Signs: 05/24/22 20:37 05/24/22 22:23 Temperature 96 F L Temperature Source Temporal Pulse Rate 67 Respiratory Rate 14 Respiratory Pattern Normal Blood Pressure 144/90 H Blood Pressure Mean 108 Pulse Ox 97 Oxygen Delivery Method Room Air Positive well nourished and well developed; Negative for cachectic, contractures or unkempt General Appearance ED: well developed and NAD; Negative for unkempt, cachectic, contractures, cyanotic or diaphoretic Nutritional Appearance: Negative for cachectic HEENT Reports moist mucous membranes; Denies dry mucous membranes Negative for trauma or tenderness Mouth ED: No dry mucous membranes Mouth: No dry mucous membranes Eyes PERRL and EOMs intact bilaterally General Eye ED: Negative for pale conjunctiva or scleral icterus Neck no lymphadenopathy, supple and no JVD General: Negative for tenderness Chest Wall inspection of chest normal and palpation of chest normal Resp normal respiratory effort and clear to auscultation bilaterally Effort and Inspection: Negative for retractions Auscultation: Negative for rales, rhonchi or wheezes Cardio regular rate, regular rhythm, S1 normal heart sound, S2 normal heart sound and no murmurs Rate: Negative for bradycardia or tachycardic GI normal to inspection, nondistended, normoactive bowel sounds, non-tender, non-distended and no masses Inspection: Negative for abdominal distention Auscultation: normoactive bowel sounds Palpation: soft; Negative for tender Extremity normal to inspection Extremity Narrative: Trace edema at the feet and ankles. General Extremety ED: Yes edema General Extremity: edema Neuro oriented x3 Sensorium / Orientation: alert; Negative for orientation impaired, lethargic or stuporous Motor Exam: strength 5/5 throughout Psych mental status grossly normal Appearance: Negative for unkempt Attitude: No agitated Mood & Affect: Negative for depressed or anxious Skin no rashes or lesions noted and no wounds Lesions: No lesion noted Rashes: No rashes noted Trauma: Negative for abrasion Wounds: Negative for wounds noted MDM MDM MDM Narrative Medical decision making narrative: 41-year-old with end-stage renal disease with a history of anemia. CBC and chemistry to be obtained. Repeat exam patient doing well at 10:50 PM. Discharged home with outpatient follow-up. Lab Data Attestation: I reviewed the patient's lab results. Lab results narrative: CBC shows a white count 5.7. H&H 10.6 and 32.3. Platelets 235.\Chemistry show a gap of 10. BUN 67 creatinine at 13 is getting history of end-stage renal disease and is on dialysis. Glucose 128. He is anemic but his hemoglobin is running between 10 and 13. This is his baseline. Labs: Laboratory Results - last 24 hr 05/24/22 05/24/22 21:57 21:57 WBC 5.7 RBC 3.15 L Hgb 10.6 L Hct 32.3 L MCV 102.5 H MCH 33.7 H MCHC 32.8 RDW Std Deviation 50.8 H RDW Coeff of Daniel 14.5 Plt Count 235 MPV 9.3 Immature Gran % (Auto) 3.000 H Neut % (Auto) 72.5 H Lymph % (Auto) 12.0 L Phelps % (Auto) 6.5 Eos % (Auto) 5.3 H Baso % (Auto) 0.7 Absolute Neuts (auto) 4.1 Absolute Lymphs (auto) 0.68 L Nucleated RBC % 0 Sodium 139 Potassium 3.5 Chloride 98 Carbon Dioxide 31.0 Anion Gap 10 BUN 67 H Creatinine 13.00 H* Estim Creat Clear Calc 8.54 Est GFR (MDRD) Af Amer 6 L Est GFR (MDRD) Non-Af 5 L BUN/Creatinine Ratio 5.2 L Glucose 128 H Calcium 9.2 Discharge Plan Triage Chief Complaint: Abn Labs ED Provider: Adrian Noland Dx/Rx/DC Orders Prescriptions: No Action carvedilol 6.25 mg tablet 12.5 mg PO BID cinacalcet 90 mg tablet 60 mg PO DAILY Label Comments: TAKE 1 TABLET BY MOUTH EVERY DAY aspirin [Adult Low Dose Aspirin] 81 mg tablet,delayed release (DR/EC) 81 mg PO DAILY acetaminophen 325 MG tablet 650 mg PO Q6H PRN PRN (Reason: pain or fever) 0RF sertraline 100 mg tablet 150 mg PO DAILY clonazepam 1 mg tablet 1 mg PO DAILY PRN (Reason: Anxiety) Label Comments: TAKE 1 TABLET BY ORAL ROUTE 1 TIMES PER DAY NEEDED FOR SEVERE ANXIETY Auryxia 210 mg iron tablet 2 tab PO TID Renal Caps 1 mg capsule 1 cap PO DAILY Label Comments: TAKE 1 CAPSULE BY MOUTH ONCE A DAY pantoprazole [Protonix] 40 mg Tablet,Delayed Release (Dr/Ec) 40 mg PO DAILY Primary Care Provider: Marcell Thacker Referrals: Marcell Thacker MD [Primary Care Provider] -
[2022-05-24 22:10] LABS: Absolute Lymphocyte Count 0.68 X10^3/uL (0.83-4.51); Absolute Neutrophil Count 4.1 X10^3/uL (2.0-7.7); Basophil# 0.04 X10^3/uL; Basophil% 0.7 % (0-1); Eosinophils% 5.3 % (0-5); Hematocrit 32.3 % (40-54); Hemoglobin 10.6 g/dL (13.0-16.5); Lymphocyte # 0.68 X10^3/ul (0.83-4.51); Mean Corp Hgb Conc 32.8 g/dL (32-36); Mean Corpuscular Hgb 33.7 pg (27.0-32.0); Mean Corpuscular Volume 102.5 fL (80-94); Mean Platelet Vol. 9.3 fl (6.2-12.0); Monocyte# 0.37 X10^3/uL; Monocyte% 6.5 % (0-10); NRBC Flagged by Analyzer 0 % (0-5); Neutrophil # 4.09 X10^3/uL (2.7-7.7); Neutrophil % 72.5 % (47-70); Platelet Count 235 K/mm3 (150-450); RBC Distribution Width CV 14.5 % (11.6-14.6); RBC Distribution Width SD 50.8 fl (35.1-43.9); Red Blood Count 3.15 M/mm3 (4.6-6.2); White Blood Count 5.7 K/mm3 (4.4-11.0)
[2022-05-24 22:36] LABS: Anion Gap 10 (5-15); BUN 67 mg/dL (7-18); BUN/Creat Ratio 5.2 RATIO (10-20); Calcium,Total 9.2 mg/dL (8.5-10.1); Chloride 98 mmol/L (98-107); EST Glomerular Filtration Rate 5 mL/min (>60); Est Glom Filt Rate - Afr Amer 6 mL/min (>60); Estimated Creatinine Clearance 8.54 ml/min; Glucose 128 mg/dL (74-106); Potassium 3.5 mmol/L (3.5-5.1); Sodium Level 139 mmol/L (136-145)
== END 2022-05-24 23:16 | disposition home or self-care (01) ==
PROVIDERS: Emergency Provider Emergency Medicine; PCP Family Medicine; Visit Provider Emergency Medicine
DX: R53.83 Other fatigue (principal); Z99.2 Dependence on renal dialysis; I12.0 Hypertensive chronic kidney disease with stage 5 chronic kidney disease or end stage renal disease; N18.6 End stage renal disease; F41.9 Anxiety disorder, unspecified; Z79.899 Other long term (current) drug therapy; Z79.82 Long term (current) use of aspirin
CPT/HCPCS: 80048; 85025; 99283; A4216

== ENCOUNTER → 2022-06-25 | Outpatient (CLI) | payer MEDICARE, BC, MEDICAID, SELFPAY ==
[2022-06-25 14:01] LABS: Absolute Neutrophil Count 5.6 X10^3/uL (2.0-7.7); Basophil# 0.04 X10^3/uL; Basophil% 0.5 % (0-1); Eosinophil# 0.27 X10^3/uL; Eosinophils% 3.7 % (0-5); Hematocrit 39.5 % (40-54); Hemoglobin 13.2 g/dL (13.0-16.5); Mean Corp Hgb Conc 33.4 g/dL (32-36); Mean Corpuscular Hgb 33.9 pg (27.0-32.0); Mean Corpuscular Volume 101.5 fL (80-94); Mean Platelet Vol. 9.1 fl (6.2-12.0); Monocyte# 0.48 X10^3/uL; Monocyte% 6.6 % (0-10); NRBC Flagged by Analyzer 0 % (0-5); Neutrophil # 5.64 X10^3/uL (2.7-7.7); Neutrophil % 77.5 % (47-70); Platelet Count 204 K/mm3 (150-450); RBC Distribution Width CV 15.5 % (11.6-14.6); RBC Distribution Width SD 57.2 fl (35.1-43.9); Red Blood Count 3.89 M/mm3 (4.6-6.2); White Blood Count 7.3 K/mm3 (4.4-11.0)
[2022-06-25 14:17] LABS: Anion Gap 8 (5-15); BUN 52 mg/dL (7-18); BUN/Creat Ratio 4.3 RATIO (10-20); Calcium,Total 9.2 mg/dL (8.5-10.1); Chloride 96 mmol/L (98-107); EST Glomerular Filtration Rate 5 mL/min (>60); Est Glom Filt Rate - Afr Amer 6 mL/min (>60); Glucose 106 mg/dL (74-106); Potassium 3.5 mmol/L (3.5-5.1); Sodium Level 136 mmol/L (136-145)
== END | disposition home or self-care (01) ==
LOC: PAVLAB 13:43
PROVIDERS: PCP Family Medicine; Referring Provider Physician Assistant; Visit Provider Physician Assistant
DX: T82.898A Other specified complication of vascular prosthetic devices, implants and grafts, initial encounter (principal)
CPT/HCPCS: 36415; 80048; 85025

== ENCOUNTER 2022-07-04 06:45 | Day surgery (SDC) | payer MEDICARE, BC, MEDICAID, SELFPAY ==
[2022-07-03 06:59] VITALS: BMI 44.1
--- NOTE | 2022-07-04 07:42 | PCM.HP.BLA ---
History and Physical Date of Admission: 07/04/22 Visit Reasons:?fistula problems Chief Complaint: Evaluate right AV Fistula Correspondence Coordinator Required: No Is patient in pain?: No Allergies No Known Allergies Allergy (Verified 06/25/22 13:00) Medications acetaminophen 325 mg tablet 650 mg PO Q6H PRN PRN pain or fever 01/19/19 [Rx Confirmed 06/25/22] sertraline 100 mg tablet 150 mg PO DAILY anxiety 01/11/20 [History Confirmed 06/25/22] aspirin 81 mg tablet,delayed release (Adult Low Dose Aspirin) 81 mg PO DAILY 03/07/21 [History Confirmed 06/25/22] cinacalcet 90 mg tablet 60 mg PO DAILY 03/07/21 [History Confirmed 06/25/22] clonazepam 1 mg tablet 1 mg PO DAILY PRN Anxiety 03/14/21 [History Confirmed 06/25/22] ferric citrate 210 mg iron tablet (Auryxia) 2 tab PO TID 03/14/21 [History Confirmed 06/25/22] vitamin B complex and vitamin C no.20-folic acid 1 mg capsule (Renal Caps) 1 cap PO DAILY 03/14/21 [History Confirmed 06/25/22] pantoprazole 40 mg tablet,delayed release (Protonix) 40 mg PO DAILY 09/26/21 [History Confirmed 06/25/22] metoprolol tartrate 25 mg tablet 12.5 mg PO BID 06/25/22 [History Confirmed 06/25/22] PFSH Medical History? Acute respiratory failure with hypoxia Anemia Anemia due to blood loss, acute Anemia of chronic disease Anxiety Chronic renal failure, stage 5 Community acquired pneumonia Decubitus ulcer Depression Dysphagia ESRD (end stage renal disease) on dialysis Essential hypertension Focal segmental glomerulosclerosis Hematemesis/vomiting blood Hemorrhagic shock Herniated disc history removal dialysis cath (~09/14/19) MRSA bacteremia Nausea DEVANG treated with BiPAP Physical deconditioning Pre-op chest exam Pre-op testing Problem with dialysis access Thyroid goiter Transaminitis Surgical History? History of arteriovenostomy for renal dialysis History of major abdominal surgery History of tonsillectomy Status post insertion of percutaneous endoscopic gastrostomy (PEG) tube Family History? Father Heart diseaseBrother Heart disease Social History? Smoking Status:? Never smoker alcohol intake:? never substance use type:? does not use caffeine:? No HPI HPI HPI: Patient is a 42 y/o M I am following for increased venous pressure. Dr. Aranda performed a right upper extremity fistulogram with 9 x 4 [place] angioplasty and 10 x 2 [place] angioplasty on 03/05/22. Patient tolerated the procedure well. Findings included 90% stenosis of the proximal upper arm, 70% recurrent stenosis within the cephalic arch and recurrent in-stent stenosis within the Viabahn stent graft proximal subclavian. Patient performs home hemodialysis. He has noted over the last 1-2 weeks that his venous pressures have been increasing. Patient was evaluated yesterday for renal transplant. Patient is maintained on a daily aspirin. ROS General General: No weight change, appetite, fatigue, colon cancer, breast cancer or weakness HEENT HEENT: No difficulty swallowing, eye injury, eye surgery, swollen glands or hoarseness Endo Endocrine: No thyroid disease, diabetes mellitus, thyroid cancer, Hair loss, heat intolerance or cold intolerance Skin Skin: No rash or changing moles Musc Musculoskeletal: Yes back problems; No arthritis, rheumatoid arthritis, gout or joint pain Cardio Cardiovascular: Yes high blood pressure; No murmur, pacemaker, heart disease, atrial fibrillation, heart attack, heart stent, palpitations, shortness of breat with exertion or chest pain Psych Psychiatric: Yes anxiety; No depression or hearing voices Resp Respiratory: No shortness of breath, No sleep apnea, No cough, No COPD, No asthma, No emphysema and No wheezing Gastro Gastrointestinal: No abdominal pain, No nausea or vomiting, No diarrhea, No constipation, No blood in stool, No acid reflux, No hemorrhoids, No ulcers, No gallbladder problem and No black,tarry stools Maulik Hematologic: Yes blood thinners, No blood disorders, No bleeding, Yes anemia and Yes blood clots Neuro Neurologic: No weakness Exam Const General: cooperative, healthy appearing, comfortable and no acute distress HENMT Head: normal to inspection Eyes General: appearance normal, both eyes and all related structures Neck Neck: normal visual inspection Neck mass: No Resp Effort & Inspection: normal respiratory effort Auscultation: clear to auscultation bilaterally Cardio Rate: regular rate Rhythm: regular rhythm GI Inspection: normal to inspection, large pannus and obesity Musc Cervical Spine: normal cervical lordosis Skin General: no rashes or lesions noted Neuro General: no focal motor deficits Extrem Other: Right upper extremity- diminished pulse, bruit and thrill. Psych Appearance: grossly normal Affect: normal affect Assessment and Plan Assessment and Plan (1) Problem with dialysis access: ?Status:?Acute ?Qualifiers: ?Encounter type:?initial encounter? Qualified Code(s):?T82.898A - Other specified complication of vascular prosthetic devices, implants and grafts, initial encounter ?Plan: Dr. Aranda will plan to perform a right upper extremity fistulogram. Procedure details, risks and benefits have been reviewed. Patient will continue his daily aspirin. Patient has had the opportunity to ask and have questions answered. Patient verbally understands and agrees with the plan I have examined the patient and the H&P has been reviewed. There are no clinical changes since date of exam. Osei Aranda M.D., F.A.C.S.
--- NOTE | 2022-07-04 08:56 | OP.PCM_ITS ---
Report of Operation Date of Procedure: 07/04/22 Pre-Operative Diagnosis: Diminished flow right upper extremity brachiocephalic arteriovenous hemodialysis fistula Post-Operative Diagnosis: Central and peripheral right upper extremity venous stenosis Surgery/Procedure Performed:: Right upper extremity fistulogram with multiple areas of 10 x 4 [place] angioplasty Description of Surgical Findings:: Timeout informed consent was obtained. 42-year-old gentleman was taken to the special procedures lab. He was placed on the table. He received 50 mcg of fentanyl and 2 mg of Versed distention and sedation. The right upper tremor sterilely prepped and draped. 2% lidocaine was used as a local anesthetic. 1 cc was used. Micropuncture technique was used to gain antegrade access to the quite enlarged brachiocephalic arteriovenous hemodialysis fistula of the upper arm. Micropuncture wire inserted. 6 [place] short sheath dilator inserted. Using Isovue contrast hand-injection a fistulogram was taken the upper arm and central venous outflow. This demonstrated to Viabahn stent graft within the proximal circulation brachiocephalic and proximal subclavian vein. There were 2 areas of in-stent stenosis. There is stenosis of the cephalic arch. In the proximal third of the right upper arm there is aneurysmal change of the fistula and tortuosity and high-grade 70% stenosis at that location as well. I staged to a 7 [place] sheath. Patient received 10,000 units of heparin intravenously. An 035 angled Glidewire was advanced through all areas of stenosis. A 10 x 4 [place] balloon was placed centrally and balloon angioplasty performed of the areas of [place] in-stent stenosis centrally within the brachiocephalic arch and proximal subclavian vein. This was performed up to 8 arian of pressure and held for 2 minutes at each insufflation. Then it was withdrawn to the cephalic arch and the cephalic arch was treated with 3 separate insufflations up to 30 arian of pressure. Finally the balloon was pulled back to the upper third arm where additional stenosis was identified and this also was treated to 30 arian. He tolerated the procedure well completion fistulogram was obtained now demonstrating significant improvement in all areas treated. The fistula now had a resumption of a palpable thrill. Sheath was removed U suture of 4-0 nylon was placed no apparent complications blood loss was minimal. Angiographic findings demonstrated a right upper arm brachiocephalic arteriovenous hemodialysis fistula. There is evidence of 2 Viabahn stent grafts overlying within the proximal subclavian vein and innominate vein. There is stenosis within the stent proximally close to the brachiocephalic vein and also in the mid stented portion where the 2 stents overlapped. There is evidence of at least 70% stenosis over a 6 cm area of the cephalic arch. There is 70% stenosis in the proximal third of the right upper arm within the cephalic vein. There is still aneurysmal change at that location as well. The more proximal portion of the fistula in the distal arm is aneurysmal but patent. Subsequent to the angioplasty of the in-stent stenosis is resolved the cephalic arch stenosis is resolved and the upper arm stenosis is resolved. Osei Aranda M.D., F.A.C.S. Surgeon: Osei Aranad Type of Anesthesia: IV Sedation and Local
== END 2022-07-04 10:00 | disposition home or self-care (01) ==
LOC: CLSP 06:47
PROVIDERS: PCP Family Medicine; Referring Provider Surgery; Visit Provider Surgery
DX: T82.856A Stenosis of peripheral vascular stent, initial encounter (principal); N18.6 End stage renal disease; I12.0 Hypertensive chronic kidney disease with stage 5 chronic kidney disease or end stage renal disease; Z79.82 Long term (current) use of aspirin; Z79.899 Other long term (current) drug therapy; D63.8 Anemia in other chronic diseases classified elsewhere; G47.33 Obstructive sleep apnea (adult) (pediatric); F41.9 Anxiety disorder, unspecified; F32.A Depression, unspecified; Y82.8 Other medical devices associated with adverse incidents
CPT/HCPCS: 36902; 99152; 99153; Q9967; C1769; C1894

== ENCOUNTER 2022-09-03 16:56 | Emergency (ER) | payer MEDICARE, BC, MEDICAID, SELFPAY ==
[2022-09-03 16:57] VITALS: BP 115/72; PULSE 113; RESP 16; TEMP 36.6; O2SAT 99; BMI 42.8
--- NOTE | 2022-09-03 17:11 | EDS_ITS ---
HPI History of Present Illness Chief Complaint: Fever Detail of Chief Complaint: Temperature of 101.5 ?F Informant: patient Onset/Context/Timing Onset: Today Context: Sudden Onset Timing: Intermittent Quality: Fever Current Severity: Gone Maximum Severity: Moderate Worsened by: Nothing Relieved by: Nothing Associated Symptoms Associated Symptoms: Nausea Narrative Narrative: Patient is a 42-year-old male on hemodialysis. He does hemodialysis at home. He has a fistula in his right arm. He was instructed by his pbx repairer to come to the emergency department for evaluation and blood cultures. He had sepsis due to infected fistula right forearm. He had similar presentation. He did not seek medical attention immediately which led to multiple complications. He denies headache, visual, ocular auditory symptoms. He denies photophobia, neck pain or neck stiffness. He denies rash. He denies myalgias or arthralgias. He denies ill contacts. He denies rhinorrhea, congestion, postnasal drainage or sore throat. He denies cough or shortness of breath. He denies vomiting or diarrhea. He states he does not make urine. Prior similar symptoms: Yes Recent Illness/Hospitalization: No PFSH PFSH Medical History Acute respiratory failure with hypoxia Anemia Anemia due to blood loss, acute Anemia of chronic disease Anxiety Chronic renal failure, stage 5 Community acquired pneumonia Decubitus ulcer Depression Dysphagia ESRD (end stage renal disease) on dialysis Essential hypertension Focal segmental glomerulosclerosis Hematemesis/vomiting blood Hemorrhagic shock Herniated disc history removal dialysis cath (~09/14/19) MRSA bacteremia Nausea DEVANG treated with BiPAP Physical deconditioning Pre-op chest exam Pre-op testing Problem with dialysis access Thyroid goiter Transaminitis Home Medications acetaminophen 325 mg tablet 650 mg PO Q6H PRN PRN pain or fever 01/19/19 [Rx Last Taken Unknown] sertraline 100 mg tablet 150 mg PO DAILY anxiety 01/11/20 [History Last Taken Unknown] aspirin 81 mg tablet,delayed release (Adult Low Dose Aspirin) 81 mg PO DAILY 03/07/21 [History Last Taken Unknown] cinacalcet 90 mg tablet 60 mg PO DAILY 03/07/21 [History Last Taken Unknown] clonazepam 1 mg tablet 1 mg PO DAILY PRN Anxiety 03/14/21 [History Last Taken 03/14/21] ferric citrate 210 mg iron tablet (Auryxia) 2 tab PO TID 03/14/21 [History Last Taken Unknown] vitamin B complex and vitamin C no.20-folic acid 1 mg capsule (Renal Caps) 1 cap PO DAILY 03/14/21 [History Last Taken Unknown] pantoprazole 40 mg tablet,delayed release (Protonix) 40 mg PO DAILY 09/26/21 [History Last Taken 03/05/22] metoprolol tartrate 25 mg tablet 12.5 mg PO BID 06/25/22 [History Last Taken Unknown] Allergy/AdvReac Type Severity Reaction Status Date / Time No Known Allergies Allergy Verified 09/03/22 16:57 Family History Father Heart disease Brother Heart disease Surgical History History of arteriovenostomy for renal dialysis History of major abdominal surgery History of tonsillectomy Status post insertion of percutaneous endoscopic gastrostomy (PEG) tube Social History Smoking Status: Never smoker alcohol intake: never substance use type: does not use caffeine: No ROS ROS ED Constitutional Constitutional ED: Reports fever(s); Denies chills, subjective, sweats or weight loss Eyes Eyes: Denies blurry vision, change in vision or diplopia ENT ENT ED: Denies ear pain, rhinorrhea or sore throat Cardiovascular Cardiovascular: Denies chest pain, palpitations or racing heartbeat Respiratory/Chest Respiratory/Chest: Denies cough or dyspnea Gastrointestinal Gastrointestinal: Reports nausea; Denies abdominal pain, diarrhea or vomiting Genitourinary Genitourinary ED: Reports other Details: Does not make urine Musculoskeletal Musculoskeletal: Denies arthralgias, back pain, myalgias or neck pain Integumentary Denies rash Neurologic Neurologic: Denies headache(s) Hematologic/Lymphatic Hematologic/Lymphatic: Reports anemia EXAM Physical Exam Const Vital Signs: 09/03/22 16:57 09/03/22 19:00 09/03/22 19:12 Temperature 97.9 F Temperature Source Temporal Pulse Rate 113 H 103 H Respiratory Rate 16 18 Respiratory Effort Normal Non-Labored Respiratory Pattern Normal Blood Pressure 115/72 127/76 H Blood Pressure Mean 86 93 Pulse Ox 99 97 Oxygen Delivery Method Room Air Room Air Positive well nourished, well developed and obese General Appearance ED: well developed, NAD and pallor; Negative for cyanotic or diaphoretic Nutritional Appearance: obese HEENT Reports moist mucous membranes HEENT Narrative: Head is atraumatic normocephalic. Ears normal. TMs normal. Nares patent with no discharge. Uvula midline. No erythema or exudate the posterior pharynx. Eyes PERRL and EOMs intact bilaterally General Eye ED: Yes pale conjunctiva; Negative for scleral icterus Neck no lymphadenopathy, supple and no JVD Chest Wall inspection of chest normal and palpation of chest normal Resp normal respiratory effort and clear to auscultation bilaterally Cardio regular rate, regular rhythm, S1 normal heart sound, S2 normal heart sound and no murmurs GI normal to inspection, nondistended, normoactive bowel sounds, non-tender, non- distended and no masses; Negative for hepatosplenomegaly GI Narrative: There is a well-healed midline supraumbilical incision noted. Palpation: soft Back/Spine no CVA tenderness Cervical Spine: Negative for cervical spine tenderness Thoracic Spine / Upper Back: Negative for thoracic spinal tenderness Lumbar Spine / Lower Back: Negative for lumbar spinal tenderness Extremity Negative for normal to inspection Extremity Narrative: Large well-healed scar without evidence infection volar surface right forearm due to prior infected fistula. He has a fistula noted volar surface of the right arm. There is a palpable thrill. There is no erythema, warmth, induration or lymphangitis noted. Neuro oriented x3, CN's II-XII intact bilaterally and no sensory deficits noted Sensorium / Orientation: alert Psych mental status grossly normal Skin no rashes or lesions noted, no wounds and skin turgor normal General Skin Exam: pallor; Negative for jaundice MDM MDM MDM Narrative Medical decision making narrative: Patient presents with fever of unknown known etiology. Chest x-ray was not obtained since he is respiratory rate is normal, pulse ox is normal and his lungs are clear to auscultation. Urine was not obtained since he does not make urine. Examination of his extremities and torso is indicates no evidence of cellulitis. There is no swelling of the joints to suggest pyogenic arthritis. Fistula site does not appear infected. Since patient had significant infection prior episode of fever of unknown etiology will obtain blood cultures, CBC and BMP. Since he is not febrile at this time we will not administer IV antibiotics. Furthermore, he is due for dialysis this evening. Review of prior records indicates that Dr. Osei Aranda placed his fistula in the right arm. His prior records were reviewed regarding his infected fistula. At this time there is no concern for infection. This does not rule out bacteremia due to dialysis. With no obvious source and no documented fever during his ER course will discharge to home. Antibiotics were not administered. If a dose of vancomycin would have been given this would have been dialyzed out this evening. Lab Data Attestation: I reviewed the patient's lab results. Lab results narrative: White count is slightly elevated. There is a shift with no bandemia. BUN and creatinine are elevated at 68 and 12.1. This is baseline for patient patient is due for dialysis at home this evening. Labs: Laboratory Results - last 24 hr 09/03/22 09/03/22 17:22 17:22 WBC 11.1 H RBC 3.99 L Hgb 13.5 Hct 40.2 MCV 100.8 H MCH 33.8 H MCHC 33.6 RDW Std Deviation 50.4 H RDW Coeff of Daniel 13.7 Plt Count 196 MPV 9.5 Immature Gran % (Auto) 0.500 Neut % (Auto) 90.0 H Lymph % (Auto) 3.6 L [place] % (Auto) 4.1 Eos % (Auto) 1.4 Baso % (Auto) 0.4 Absolute Neuts (auto) 10.0 H Absolute Lymphs (auto) 0.40 L Nucleated RBC % 0 Differential Comment SCANNED Sodium 133 L Potassium 3.6 Chloride 96 L Carbon Dioxide 27.0 Anion Gap 10 BUN 68 H Creatinine 12.10 H* Estim Creat Clear Calc 9.08 Est GFR (MDRD) Af Amer 6 L Est GFR (MDRD) Non-Af 5 L BUN/Creatinine Ratio 5.6 L Glucose 120 H Calcium 9.9 Discharge Plan Triage Chief Complaint: Fever ED Provider: Adrian Barrett Dx/Rx/DC Orders Clinical Impression: Fever of unknown origin, ESRD (end stage renal disease) on dialysis, DEVANG treated with BiPAP Instructions: ED FUO Adult Prescriptions: No Action cinacalcet 90 mg tablet 60 mg PO DAILY Label Comments: TAKE 1 TABLET BY MOUTH EVERY DAY aspirin [Adult Low Dose Aspirin] 81 mg tablet,delayed release (DR/EC) 81 mg PO DAILY metoprolol tartrate 25 mg tablet 12.5 mg PO BID acetaminophen 325 MG tablet 650 mg PO Q6H PRN PRN (Reason: pain or fever) 0RF sertraline 100 mg tablet 150 mg PO DAILY clonazepam 1 mg tablet 1 mg PO DAILY PRN (Reason: Anxiety) Label Comments: TAKE 1 TABLET BY ORAL ROUTE 1 TIMES PER DAY NEEDED FOR SEVERE ANXIETY Auryxia 210 mg iron tablet 2 tab PO TID Renal Caps 1 mg capsule 1 cap PO DAILY Label Comments: TAKE 1 CAPSULE BY MOUTH ONCE A DAY pantoprazole [Protonix] 40 mg Tablet,Delayed Release (Dr/Ec) 40 mg PO DAILY Primary Care Provider: Marcell Thacker Referrals: Marcell Thacker MD [Primary Care Provider] - 3-5 Days if not improving Disposition Disposition: Home, Self Care
[2022-09-03 17:40] LABS: Basophil# 0.04 X10^3/uL; Basophil% 0.4 % (0-1); Eosinophil# 0.16 X10^3/uL; Eosinophils% 1.4 % (0-5); Hematocrit 40.2 % (40-54); Hemoglobin 13.5 g/dL (13.0-16.5); Lymphocyte % 3.6 % (19-41); Mean Corp Hgb Conc 33.6 g/dL (32-36); Mean Corpuscular Hgb 33.8 pg (27.0-32.0); Mean Corpuscular Volume 100.8 fL (80-94); Mean Platelet Vol. 9.5 fl (6.2-12.0); Monocyte# 0.45 X10^3/uL; Monocyte% 4.1 % (0-10); NRBC Flagged by Analyzer 0 % (0-5); POSITIVE DIFFERENTIAL YES; Platelet Count 196 K/mm3 (150-450); RBC Distribution Width CV 13.7 % (11.6-14.6); RBC Distribution Width SD 50.4 fl (35.1-43.9); Red Blood Count 3.99 M/mm3 (4.6-6.2); White Blood Count 11.1 K/mm3 (4.4-11.0)
[2022-09-03 17:46] LABS: Differential Indicated SCAN CRITERIA MET
[2022-09-03 18:03] LABS: Anion Gap 10 (5-15); BUN 68 mg/dL (7-18); BUN/Creat Ratio 5.6 RATIO (10-20); Calcium,Total 9.9 mg/dL (8.5-10.1); Chloride 96 mmol/L (98-107); EST Glomerular Filtration Rate 5 mL/min (>60); Est Glom Filt Rate - Afr Amer 6 mL/min (>60); Estimated Creatinine Clearance 9.08 ml/min; Glucose 120 mg/dL (74-106); Potassium 3.6 mmol/L (3.5-5.1); Sodium Level 133 mmol/L (136-145)
[2022-09-03 18:20] LABS: Differential Comment SCANNED
[2022-09-03 19:00] VITALS: BP 127/76; PULSE 103; RESP 18; O2SAT 97
== END 2022-09-03 19:39 | disposition home or self-care (01) ==
PROVIDERS: Emergency Provider Emergency Medicine; PCP Family Medicine; Visit Provider Emergency Medicine
DX: R50.9 Fever, unspecified (principal); Z99.2 Dependence on renal dialysis; M00.9 Pyogenic arthritis, unspecified; A41.9 Sepsis, unspecified organism; N18.6 End stage renal disease; I12.0 Hypertensive chronic kidney disease with stage 5 chronic kidney disease or end stage renal disease; G47.33 Obstructive sleep apnea (adult) (pediatric); R11.0 Nausea; E66.9 Obesity, unspecified; Z99.89 Dependence on other enabling machines and devices
CPT/HCPCS: 80048; 85025; 87040; 99283

== ENCOUNTER 2022-09-06 10:49 | Emergency (ER) | payer MEDICARE, BC, MEDICAID, SELFPAY ==
[2022-09-06 10:50] VITALS: BP 132/82; PULSE 92; RESP 16; TEMP 36.4; O2SAT 100; BMI 42.8
--- NOTE | 2022-09-06 11:16 | RAD_ITS ---
STUDY: X-RAY CHEST REASON FOR EXAM: Male, 42 years old. Chest pain, pleuritic TECHNIQUE: PA and lateral views of the chest. COMPARISON: Comparison is made with prior study dated 01/31/2019. FINDINGS: EKG electrodes are seen. A vascular stent is seen in the right subclavian artery or vein. Stable pleural parenchymal changes at the left lung base. Normal size heart. Normal mediastinum and rakesh. Normal visualized pulmonary arteries. Normal visualized aortic arch and descending thoracic aorta. Normal visualized thoracic spine. Normal visualized ribs, clavicles, and shoulders. There is no demonstrated abnormality of the visualized soft tissue structures of the upper abdomen. RAD/Chest PA and Lateral IMPRESSION: Stable pleural parenchymal changes at the left lung base. Electronically Signed: Levon Mayorga MD at 11:57 EST ,
--- NOTE | 2022-09-06 11:16 | EKG12_ITS ---
Test Reason : Blood Pressure : / mmHG Vent. Rate : 098 BPM Atrial Rate : 098 BPM P-R Int : 148 ms QRS Dur : 086 ms QT Int : 348 ms P-R-T Axes : 035 041 019 degrees QTc Int : 444 ms Sinus rhythm with occasional Premature ventricular complexes Otherwise normal ECG Confirmed by DEVIN PARSONS, CONCHITA ([id number]), editor in chief WAYNE OLMSTEAD ([id number]) on 09/09/2022 9:59:54 AM Referred By: KIRBY Confirmed By:CONCHITA BELTRAN MD
[2022-09-06 11:25] LABS: Absolute Lymphocyte Count 0.64 X10^3/uL (0.83-4.51); Absolute Neutrophil Count 5.2 X10^3/uL (2.0-7.7); Basophil# 0.03 X10^3/uL; Basophil% 0.5 % (0-1); Eosinophil# 0.29 X10^3/uL; Eosinophils% 4.4 % (0-5); Hematocrit 38.3 % (40-54); Hemoglobin 12.6 g/dL (13.0-16.5); Lymphocyte # 0.64 X10^3/ul (0.83-4.51); Lymphocyte % 9.6 % (19-41); Mean Corp Hgb Conc 32.9 g/dL (32-36); Mean Corpuscular Hgb 33.7 pg (27.0-32.0); Mean Corpuscular Volume 102.4 fL (80-94); Mean Platelet Vol. 9.5 fl (6.2-12.0); Monocyte# 0.45 X10^3/uL; Monocyte% 6.8 % (0-10); NRBC Flagged by Analyzer 0 % (0-5); Neutrophil % 78.2 % (47-70); Platelet Count 214 K/mm3 (150-450); RBC Distribution Width CV 13.9 % (11.6-14.6); RBC Distribution Width SD 51.8 fl (35.1-43.9); Red Blood Count 3.74 M/mm3 (4.6-6.2); White Blood Count 6.6 K/mm3 (4.4-11.0)
[2022-09-06 11:46] LABS: D-Dimer Quantitative (DVT/PE) < 0.27 FEU/ug/m (0.27-0.49)
[2022-09-06 11:51] LABS: Anion Gap 12 (5-15); BUN 66 mg/dL (7-18); BUN/Creat Ratio 6.3 RATIO (10-20); Calcium,Total 9.9 mg/dL (8.5-10.1); Chloride 96 mmol/L (98-107); EST Glomerular Filtration Rate 6 mL/min (>60); Est Glom Filt Rate - Afr Amer 7 mL/min (>60); Estimated Creatinine Clearance 10.46 ml/min; Glucose 138 mg/dL (74-106); Potassium 3.6 mmol/L (3.5-5.1); Sodium Level 136 mmol/L (136-145); Troponin-I HS 5 pg/mL (3.0-78.0)
--- NOTE | 2022-09-06 12:38 | EDS_ITS ---
HPI History of Present Illness Chief Complaint: Chest Pain Detail of Chief Complaint: Patient presents with pleuritic pain. He does have remote history of DVT Informant: patient Onset/Context/Timing Onset: Yesterday Activity at onset: sudden Timing: Intermittent Quality: Positive for Aching Location: Right Chest and Left Chest Current Severity: Mild Maximum Severity: Moderate Worsened By: Movement of Arm and Breathing Relieved By: Rest Associated Symptoms: Positive for Dyspnea; Negative for Nausea, Vomiting, Diaphoresis, Cough, Fever, Lightheadedness, Acid Reflux or Palpitations Narrative Narrative: Patient is a 42-year-old male. Patient was seen earlier this week by me for chest pain. That record was reviewed as well as outpatient records that were documented in the chart. Per old records patient does have history of DVT. The DVT was provoked. Patient presents with pleuritic pain. He denies rhinorrhea, congestion, postnasal drainage, sore throat. Patient denies cough or sputum production. Patient denies leg pain, discoloration or significant swelling. He states he has mild edema due to not having dialysis yesterday. He has hemodialysis at home. Patient denies headache, visual, ocular auditory symptoms. Patient denies abdominal pain. Patient denies black or maroon-colored stool. Prior Similar Symptoms: No Recent Illness/Hospitalization: Yes CVD Risk Factors: Positive for Hypertension and Diabetes PE Risk Factors: Positive for Prior DVT or PE; Negative for Recent Travel/Surgery, Recent Immobilization, Cancer or OCP + Smoking + >/=35 TAD Risk Factors: Positive for Hypertension; Negative for Marfan's Syndrome or Family History [facility] Medical History Acute respiratory failure with hypoxia Anemia Anemia due to blood loss, acute Anemia of chronic disease Anxiety Chronic renal failure, stage 5 Community acquired pneumonia Decubitus ulcer Depression Dysphagia ESRD (end stage renal disease) on dialysis Essential hypertension Focal segmental glomerulosclerosis Hematemesis/vomiting blood Hemorrhagic shock Herniated disc history removal dialysis cath (~09/14/19) MRSA bacteremia Nausea DEVANG treated with BiPAP Physical deconditioning Pre-op chest exam Pre-op testing Problem with dialysis access Thyroid goiter Transaminitis Home Medications acetaminophen 325 mg tablet 650 mg PO Q6H PRN PRN pain or fever 01/19/19 [Rx Last Taken Unknown] sertraline 100 mg tablet 150 mg PO DAILY anxiety 01/11/20 [History Last Taken Unknown] aspirin 81 mg tablet,delayed release (Adult Low Dose Aspirin) 81 mg PO DAILY 03/07/21 [History Last Taken Unknown] cinacalcet 90 mg tablet 60 mg PO DAILY 03/07/21 [History Last Taken Unknown] clonazepam 1 mg tablet 1 mg PO DAILY PRN Anxiety 03/14/21 [History Last Taken 03/14/21] ferric citrate 210 mg iron tablet (Auryxia) 2 tab PO TID 03/14/21 [History Last Taken Unknown] pantoprazole 40 mg tablet,delayed release (Protonix) 40 mg PO DAILY 09/26/21 [History Last Taken 03/05/22] metoprolol tartrate 25 mg tablet 12.5 mg PO BID 06/25/22 [History Last Taken Unknown] prednisone 20 mg tablet 60 mg PO DAILY #15 TABLETS 09/06/22 [Rx Last Taken Unknown] Allergy/AdvReac Type Severity Reaction Status Date / Time No Known Allergies Allergy Verified 09/06/22 10:52 Family History Father Heart disease Brother Heart disease Surgical History History of arteriovenostomy for renal dialysis History of major abdominal surgery History of tonsillectomy Status post insertion of percutaneous endoscopic gastrostomy (PEG) tube Social History Smoking Status: Never smoker alcohol intake: never substance use type: does not use caffeine: No ROS ROS ED Constitutional Constitutional ED: Denies chills, fever(s), subjective, sweats or weight loss Eyes Eyes: Denies blurry vision, change in vision or diplopia ENT ENT ED: Denies ear pain, rhinorrhea or sore throat Cardiovascular Cardiovascular: Reports as per HPI; Denies orthopnea or paroxysmal nocturnal dyspnea Respiratory/Chest Respiratory/Chest: Reports dyspnea; Denies cough, dyspnea on exertion, orthopnea or paroxysmal nocturnal dyspnea Gastrointestinal Gastrointestinal: Denies abdominal pain, constipation, diarrhea, melena, nausea or vomiting Genitourinary Genitourinary ED: Reports other Details: Patient does not make urine. Musculoskeletal Musculoskeletal: Denies arthralgias, back pain, myalgias or neck pain Neurologic Neurologic: Denies headache(s), paresthesias or weakness Psychiatric Psychiatric: Denies anxiety or depression Endocrine Endocrinology: Denies cold intolerance, heat intolerance or polydipsia Hematologic/Lymphatic Hematologic/Lymphatic: Denies easy bleeding or easy bruising EXAM Physical Exam Const Vital Signs: 09/06/22 10:50 Temperature 97.5 F L Temperature Source Temporal Pulse Rate 92 Respiratory Rate 16 Blood Pressure 132/82 H Blood Pressure Mean 98 Pulse Ox 100 Oxygen Delivery Method Room Air Positive well nourished, well developed and obese Constitutional Narrative: Patient appears pale. He does not appear toxic. General Appearance ED: well developed; Negative for NAD or pallor Nutritional Appearance: obese HEENT Reports TM's clear and moist mucous membranes HEENT Narrative: Nares patent. Uvula midline. No deviation with protrusion. normocephalic and atraumatic Tympanic Membrane ED: Yes TM's clear Eyes PERRL and EOMs intact bilaterally General Eye ED: Negative for pale conjunctiva or scleral icterus Neck no lymphadenopathy, supple and no JVD Resp normal respiratory effort and clear to auscultation bilaterally Cardio regular rate, regular rhythm, S1 normal heart sound, S2 normal heart sound and no murmurs GI normal to inspection, nondistended, normoactive bowel sounds, soft to palpation, non-tender, non-distended and no masses; Negative for hepatosplenomegaly Back/Spine no CVA tenderness and no thoracic nor lumbar tenderness Back/Spine Narrative: Back appears normal. Extremity Extremity Narrative: There is no discoloration, leg vein distention, palpable cords or tenderness on the distribution deep venous system. Patient does have a fistula right arm with thrill noted. No evidence of infection at and insertion sites. General Extremety ED: Yes edema General Extremity: edema Neuro oriented x3, CN's II-XII intact bilaterally, no sensory deficits noted and gait normal Sensorium / Orientation: awake and alert Psych mental status grossly normal Skin no rashes or lesions noted and no wounds General Skin Exam: Negative for jaundice or pallor MDM MDM MDM Narrative Medical decision making narrative: Frontal diagnosis would include pneumonia, pneumothorax, pleurisy, pulmonary embolus. With prior history of DVT and patient not being PERC negative D-dimer was obtained. D-dimer is normal. Basic metabolic panel was obtained and blood work is unchanged from prior. Glucose is normal with a normal CO2 anion gap. CBC is remarkable mild anemia, which is chronic. Chest x-ray was obtained to evaluate for pneumonia, fluid overload, pneumothorax. eview of prior records indicates that Dr. Osei Aranda placed his fistula in the right arm.? His prior records were reviewed regarding his infected fistula.? At this time there is no concern for infection.? This does not rule out bacteremia due to dialysis. Because patient is on hemodialysis he was treated with prednisone versus NSAIDs. Lab Data Attestation: I reviewed the patient's lab results. Lab results narrative: CBC and differential are unremarkable. D-dimer is less than 0.27. Basic metabolic panel is remarkable for elevated BUN/creatinine of 66 and 10.5. This is baseline for patient. Patient is due for dialysis tomorrow. Glucose is elevated 138 with normal CO2 anion gap. Labs: Laboratory Results - last 24 hr 09/06/22 09/06/22 09/06/22 11:04 11:04 11:04 WBC 6.6 RBC 3.74 L Hgb 12.6 L Hct 38.3 L MCV 102.4 H MCH 33.7 H MCHC 32.9 RDW Std Deviation 51.8 H RDW Coeff of Daniel 13.9 Plt Count 214 MPV 9.5 Immature Gran % (Auto) 0.500 Neut % (Auto) 78.2 H Lymph % (Auto) 9.6 L [place] % (Auto) 6.8 Eos % (Auto) 4.4 Baso % (Auto) 0.5 Absolute Neuts (auto) 5.2 Absolute Lymphs (auto) 0.64 L Nucleated RBC % 0 D-Dimer Quant (PE/DVT) < 0.27 L Sodium 136 Potassium 3.6 Chloride 96 L Carbon Dioxide 28.0 Anion Gap 12 BUN 66 H Creatinine 10.50 H* Estim Creat Clear Calc 10.46 Est GFR (MDRD) Af Amer 7 L Est GFR (MDRD) Non-Af 6 L BUN/Creatinine Ratio 6.3 L Glucose 138 H Calcium 9.9 Troponin I High Sens 5 Radiography Chest X-Ray - ED: 1 View and Read by ED Physician (Single view portable chest x- ray reveals chronic changes in left base. Cardiac silhouette and size unremarkable. Inspiration is limited. Osseous structures are unremarkable. There is unchanged from prior.) Diagnostic Testing: Clinical Impression(s) from Imaging Studies Chest X-Ray 09/06/22 11:16 IMPRESSION: Stable pleural parenchymal changes at the left lung base. Electronically Signed: Levon Mayorga MD at 11:57 EST , Discharge Plan Triage Chief Complaint: Chest Pain ED Provider: Adrian Barrett Dx/Rx/DC Orders Clinical Impression: Pleurisy, Thyroid goiter, End-stage renal disease on hemodialysis, Anemia due to chronic illness Instructions: ED Pleurisy Prescriptions: New prednisone 20 mg tablet 60 mg PO DAILY Qty: 15 0RF No Action cinacalcet 90 mg tablet 60 mg PO DAILY Label Comments: TAKE 1 TABLET BY MOUTH EVERY DAY aspirin [Adult Low Dose Aspirin] 81 mg tablet,delayed release (DR/EC) 81 mg PO DAILY metoprolol tartrate 25 mg tablet 12.5 mg PO BID acetaminophen 325 MG tablet 650 mg PO Q6H PRN PRN (Reason: pain or fever) 0RF sertraline 100 mg tablet 150 mg PO DAILY clonazepam 1 mg tablet 1 mg PO DAILY PRN (Reason: Anxiety) Label Comments: TAKE 1 TABLET BY ORAL ROUTE 1 TIMES PER DAY NEEDED FOR SEVERE ANXIETY Auryxia 210 mg iron tablet 2 tab PO TID pantoprazole [Protonix] 40 mg Tablet,Delayed Release (Dr/Ec) 40 mg PO DAILY Primary Care Provider: Marcell Thacker Referrals: Marcell Thacker MD [Primary Care Provider] - 3-5 Days if not improving Disposition Disposition: Home, Self Care
[2022-09-06 12:43] VITALS: BP 116/72; PULSE 86; RESP 14; O2SAT 97
[2022-09-06 13:21] VITALS: BP 168/68; PULSE 72; RESP 16; O2SAT 98
== END 2022-09-06 13:22 | disposition home or self-care (01) ==
PROVIDERS: Emergency Provider Emergency Medicine; PCP Family Medicine; Visit Provider Emergency Medicine
DX: R09.1 Pleurisy (principal); Z99.2 Dependence on renal dialysis; E11.22 Type 2 diabetes mellitus with diabetic chronic kidney disease; I12.0 Hypertensive chronic kidney disease with stage 5 chronic kidney disease or end stage renal disease; N18.6 End stage renal disease; R07.81 Pleurodynia; E04.9 Nontoxic goiter, unspecified; J93.9 Pneumothorax, unspecified; D63.1 Anemia in chronic kidney disease; E66.9 Obesity, unspecified; Z79.52 Long term (current) use of systemic steroids; R06.00 Dyspnea, unspecified; Z86.718 Personal history of other venous thrombosis and embolism
CPT/HCPCS: 71046; 80048; 84484; 85025; 85379; 93005; 99284; A4216

== ENCOUNTER 2022-10-03 20:57 | Emergency (ER) | payer MEDICARE, BC, MEDICAID, SELFPAY ==
[2022-10-03 20:57] VITALS: BP 137/86; PULSE 103; RESP 16; TEMP 36.4; O2SAT 100; BMI 41.5
[2022-10-03 22:09] LABS: Absolute Lymphocyte Count 0.43 X10^3/uL (0.83-4.51); Absolute Neutrophil Count 5.8 X10^3/uL (2.0-7.7); Basophil# 0.04 X10^3/uL; Basophil% 0.6 % (0-1); Eosinophil# 0.33 X10^3/uL; Eosinophils% 4.8 % (0-5); Hematocrit 37.6 % (40-54); Hemoglobin 12.4 g/dL (13.0-16.5); Lymphocyte # 0.43 X10^3/ul (0.83-4.51); Lymphocyte % 6.2 % (19-41); Mean Corpuscular Hgb 33.2 pg (27.0-32.0); Mean Corpuscular Volume 100.8 fL (80-94); Mean Platelet Vol. 9.1 fl (6.2-12.0); Monocyte# 0.34 X10^3/uL; Monocyte% 4.9 % (0-10); NRBC Flagged by Analyzer 0 % (0-5); Neutrophil # 5.76 X10^3/uL (2.7-7.7); Neutrophil % 82.9 % (47-70); POSITIVE DIFFERENTIAL YES; Platelet Count 235 K/mm3 (150-450); RBC Distribution Width CV 13.3 % (11.6-14.6); RBC Distribution Width SD 49.3 fl (35.1-43.9); Red Blood Count 3.73 M/mm3 (4.6-6.2); White Blood Count 6.9 K/mm3 (4.4-11.0)
--- NOTE | 2022-10-03 22:10 | RAD_ITS ---
EXAM: XR CHEST, 1 VIEW CLINICAL INDICATION: chest pain TECHNIQUE: Frontal view of the chest. This report was created using [employer] report generation technology. COMPARISON: September 06, 2022. January 31, 2019. FINDINGS: LUNGS AND PLEURAL SPACES: Pleural parenchymal changes at the left lateral costophrenic angle appears similar to prior exams. No pneumothorax. No effusion. HEART: Unremarkable. Cardiac silhouette not enlarged. MEDIASTINUM: Central airways and mediastinal contour are unremarkable. BONES/JOINTS: Unremarkable. SOFT TISSUES: Unremarkable. VASCULATURE: Similar location and the duration of the right subclavian vascular metallic mesh stent. RAD/Chest 1 View (Portable) IMPRESSION: Stable chest. Pleuroparenchymal changes at the left base. Electronically Signed: Gisell Smith MD at 22:21 EST ,
[2022-10-03 22:29] LABS: D-Dimer Quantitative (DVT/PE) < 0.27 FEU/ug/m (0.27-0.49)
[2022-10-03 22:30] LABS: Differential Indicated SCAN CRITERIA MET
[2022-10-03 22:37] LABS: Anion Gap 14 (5-15); BUN 74 mg/dL (7-18); BUN/Creat Ratio 5.2 RATIO (10-20); Calcium,Total 9.5 mg/dL (8.5-10.1); Chloride 94 mmol/L (98-107); EST Glomerular Filtration Rate 4 mL/min (>60); Est Glom Filt Rate - Afr Amer 5 mL/min (>60); Estimated Creatinine Clearance 7.68 ml/min; Glucose 161 mg/dL (74-106); Potassium 3.9 mmol/L (3.5-5.1); Sodium Level 136 mmol/L (136-145); Troponin-I HS 7 pg/mL (3.0-78.0)
[2022-10-03 22:38] LABS: Differential Comment SCANNED
--- NOTE | 2022-10-03 22:59 | ED.VIS.CHEST ---
HPI History of Present Illness Chief Complaint: Chest Pain Narrative Narrative: Patient presents with left-sided chest pain. It is slightly pruritic he has had in the past and it was due to pleurisy. No fever chills no cough or congestion. There is no radiation. He is end-stage renal disease on dialysis. He has a right-sided right upper extremity fistula and he got dialysis last night without problem. [facility] Medical History Acute respiratory failure with hypoxia Anemia Anemia due to blood loss, acute Anemia of chronic disease Anxiety Chronic renal failure, stage 5 Community acquired pneumonia Decubitus ulcer Depression Dysphagia ESRD (end stage renal disease) on dialysis Essential hypertension Focal segmental glomerulosclerosis Hematemesis/vomiting blood Hemorrhagic shock Herniated disc history removal dialysis cath (~09/14/19) MRSA bacteremia Nausea DEVANG treated with BiPAP Physical deconditioning Pre-op chest exam Pre-op testing Problem with dialysis access Thyroid goiter Transaminitis Home Medications acetaminophen 325 mg tablet 650 mg PO Q6H PRN PRN pain or fever 01/19/19 [Rx Last Taken Unknown] sertraline 100 mg tablet 150 mg PO DAILY anxiety 01/11/20 [History Last Taken Unknown] aspirin 81 mg tablet,delayed release (Adult Low Dose Aspirin) 81 mg PO DAILY 03/07/21 [History Last Taken Unknown] cinacalcet 90 mg tablet 60 mg PO DAILY 03/07/21 [History Last Taken Unknown] clonazepam 1 mg tablet 1 mg PO DAILY PRN Anxiety 03/14/21 [History Last Taken 03/14/21] ferric citrate 210 mg iron tablet (Auryxia) 2 tab PO TID 03/14/21 [History Last Taken Unknown] pantoprazole 40 mg tablet,delayed release (Protonix) 40 mg PO DAILY 09/26/21 [History Last Taken 03/05/22] metoprolol tartrate 25 mg tablet 12.5 mg PO BID 06/25/22 [History Last Taken Unknown] prednisone 20 mg tablet 60 mg PO DAILY #15 TABLETS 09/06/22 [Rx Last Taken Unknown] Allergy/AdvReac Type Severity Reaction Status Date / Time No Known Allergies Allergy Verified 09/06/22 10:52 Family History Father Heart disease Brother Heart disease Surgical History History of arteriovenostomy for renal dialysis History of major abdominal surgery History of tonsillectomy Status post insertion of percutaneous endoscopic gastrostomy (PEG) tube Social History Smoking Status: Never smoker alcohol intake: never substance use type: does not use caffeine: No ROS ROS ED ROS Narrative Past medical history: Reviewed Medications: Reviewed Social history: Noncontributory Review of systems: All systems negative except as indicated General: No fever Eyes: No visual changes ENT: No upper airway congestion, normal voice Neck: No neck pain Cardiovascular: Chest pain as in HPI Respiratory: No shortness of breath or cough Gastrointestinal: No abdominal pain, nausea vomiting or diarrhea Genitourinary: No dysuria Musculoskeletal: Denies myalgias no difficulty with ambulation Skin: No rash Neurological: No memory loss, confusion or any focal weakness Psych: No recent behavioral changes Hematologic: No easy bleeding or easy bruising EXAM Physical Exam Narrative Exam Narrative: Physical exam General: Well nourished, Well developed, No Acute Distress Head: Normocephalic, Atraumatic Eyes: Conjunctiva not pale ENT: Moist mucous membranes Neck: Supple, Nontender, No lymphadenopathy Cardiovascular: Regular rate, Regular rhythm Respiratory: No distress, CTA bilaterally Abdomen: Soft, Nontender, Nondistended Back: Nontender, Normal Inspection. Negative for: CVA tenderness Extremities: Right upper arm has a fistula with a palpable thrill Skin: Normal color, No rash Neurological: Alert, Normal Strength, Normal Sensation Psychological: Normal affect Const Vital Signs: 10/03/22 20:57 10/03/22 21:55 Temperature 97.5 F L Temperature Source Temporal Pulse Rate 103 H Respiratory Rate 16 Blood Pressure 137/86 H Blood Pressure Mean 103 Pulse Ox 100 Oxygen Delivery Method Room Air Room Air [facility] Lab Data Labs: Laboratory Results - last 24 hr 10/03/22 10/03/22 10/03/22 21:59 21:59 21:59 WBC 6.9 RBC 3.73 L Hgb 12.4 L Hct 37.6 L MCV 100.8 H MCH 33.2 H MCHC 33.0 RDW Std Deviation 49.3 H RDW Coeff of Daniel 13.3 Plt Count 235 MPV 9.1 Immature Gran % (Auto) 0.600 Neut % (Auto) 82.9 H Lymph % (Auto) 6.2 L [place] % (Auto) 4.9 Eos % (Auto) 4.8 Baso % (Auto) 0.6 Absolute Neuts (auto) 5.8 Absolute Lymphs (auto) 0.43 L Nucleated RBC % 0 Differential Comment SCANNED D-Dimer Quant (PE/DVT) < 0.27 L Sodium 136 Potassium 3.9 Chloride 94 L Carbon Dioxide 28.0 Anion Gap 14 BUN 74 H Creatinine 14.30 H* Estim Creat Clear Calc 7.68 Est GFR (MDRD) Af Amer 5 L Est GFR (MDRD) Non-Af 4 L BUN/Creatinine Ratio 5.2 L Glucose 161 H Calcium 9.5 Troponin I High Sens 7 Radiography Diagnostic Testing: Clinical Impression(s) from Imaging Studies Chest X-Ray 10/03/22 22:10 IMPRESSION: Stable chest. Pleuroparenchymal changes at the left base. Electronically Signed: Gisell Smith MD at 22:21 EST , X-ray interpreted by me as normal EKG Initial EKG: Comments: Sinus rhythm with a rate of 102. Normal HI and QTc intervals. No pleuritic component. Treatment and Re-Evaluation Narrative: A. Problems addressed, end-stage renal disease, chest pain, pleurisy. He has an unremarkable work-up he has been ruled out from coronary and thromboembolic etiologies. He feels him improved after NSAIDs and I believe he can be discharged. B. Amount and/or complexity of the data (2 out of 3) 1. CBC CMP troponin and D-dimer interpreted by me 2. Independent interpretation of test Telemetry: Sinus rhythm with a rate of 102 without ectopy C. Patient was seen by me in the emergency department. I have considered the following differential diagnoses however I was able to exclude all of these through a thorough history and physical exam as well as laboratory testing: PE or any thromboembolic etiologies, myocardial infarction, aortic dissection, esophageal rupture, pneumothorax, musculoskeletal emergencies, upper abdominal pathologies such as pancreatitis, cholecystitis or choledocholithiasis, as well as ruptured bowel. I considered admission but after discussion with the patient we came to a mutual agreement that the patient is stable for discharge due to the following reasons: Heart score is: Heart score is 3 D-dimer is normal Patient's exam is normal. History and physical point towards noncardiac, none thromboembolic and nonemergent etiologies. Discharge Plan Triage Chief Complaint: Chest Pain ED Provider: Marcell Scrugsg Dx/Rx/DC Orders Clinical Impression: Chest pain, End stage kidney disease, Pleurisy Instructions: ED Chest Pain, Noncardiac Prescriptions: No Action cinacalcet 90 mg tablet 60 mg PO DAILY Label Comments: TAKE 1 TABLET BY MOUTH EVERY DAY aspirin [Adult Low Dose Aspirin] 81 mg tablet,delayed release (DR/EC) 81 mg PO DAILY metoprolol tartrate 25 mg tablet 12.5 mg PO BID acetaminophen 325 MG tablet 650 mg PO Q6H PRN PRN (Reason: pain or fever) 0RF sertraline 100 mg tablet 150 mg PO DAILY clonazepam 1 mg tablet 1 mg PO DAILY PRN (Reason: Anxiety) Label Comments: TAKE 1 TABLET BY ORAL ROUTE 1 TIMES PER DAY NEEDED FOR SEVERE ANXIETY Auryxia 210 mg iron tablet 2 tab PO TID pantoprazole [Protonix] 40 mg Tablet,Delayed Release (Dr/Ec) 40 mg PO DAILY prednisone 20 mg tablet 60 mg PO DAILY Qty: 15 0RF Primary Care Provider: Marcell Thacker Referrals: Marcell Thacker MD [Primary Care Provider] - 3-5 Days Disposition Disposition: Home, Self Care
[2022-10-03 23:00] VITALS: PULSE 94; RESP 18
[2022-10-03 23:15] VITALS: BP 159/100; PULSE 96; RESP 17; O2SAT 98
== END 2022-10-03 23:15 | disposition home or self-care (01) ==
PROVIDERS: Emergency Provider Emergency Medicine; PCP Family Medicine; Visit Provider Emergency Medicine
DX: R07.9 Chest pain, unspecified (principal); Z99.2 Dependence on renal dialysis; I12.0 Hypertensive chronic kidney disease with stage 5 chronic kidney disease or end stage renal disease; N18.6 End stage renal disease; R09.1 Pleurisy
CPT/HCPCS: 71045; 80048; 84484; 85025; 85379; 93005; 99283; A4216

== ENCOUNTER → 2022-11-04 | Outpatient (CLI) | payer MEDICARE, BC, MEDICAID, SELFPAY ==
[2022-11-04 14:10] LABS: Basophil# 0.04 X10^3/uL; Basophil% 0.6 % (0-1); Eosinophil# 0.25 X10^3/uL; Eosinophils% 3.9 % (0-5); Hematocrit 38.6 % (40-54); Hemoglobin 12.5 g/dL (13.0-16.5); Lymphocyte % 9.4 % (19-41); Mean Corp Hgb Conc 32.4 g/dL (32-36); Mean Corpuscular Hgb 31.9 pg (27.0-32.0); Mean Corpuscular Volume 98.5 fL (80-94); Mean Platelet Vol. 8.7 fl (6.2-12.0); Monocyte% 6.3 % (0-10); NRBC Flagged by Analyzer 0 % (0-5); Neutrophil # 5.02 X10^3/uL (2.7-7.7); POSITIVE DIFFERENTIAL YES; Platelet Count 184 K/mm3 (150-450); RBC Distribution Width SD 46.3 fl (35.1-43.9); Red Blood Count 3.92 M/mm3 (4.6-6.2); White Blood Count 6.4 K/mm3 (4.4-11.0)
[2022-11-04 14:19] LABS: Differential Indicated SCAN CRITERIA MET
[2022-11-04 14:40] LABS: Anion Gap 10 (5-15); BUN 64 mg/dL (7-18); BUN/Creat Ratio 4.7 RATIO (10-20); Calcium,Total 8.9 mg/dL (8.5-10.1); Chloride 96 mmol/L (98-107); EST Glomerular Filtration Rate 4 mL/min (>60); Est Glom Filt Rate - Afr Amer 5 mL/min (>60); Glucose 105 mg/dL (74-106); Potassium 4.1 mmol/L (3.5-5.1); Sodium Level 136 mmol/L (136-145)
[2022-11-04 14:43] LABS: Differential Comment SCANNED
[2022-11-04 17:51] LABS: Erythrocyte Sedimentation Rate 14 mm/hr (0-20)
[2022-11-04 18:04] LABS: CRP, High Sensitivity Cardiac 6.88 mg/L
[2022-11-06 13:40] LABS: ANTINUCLEAR ANTIBODIES DIRECT Negative (Negative)
== END | disposition home or self-care (01) ==
LOC: PAVLAB 13:48
PROVIDERS: PCP Family Medicine; Referring Provider Physician Assistant; Visit Provider Physician Assistant
DX: R07.89 Other chest pain (principal); T82.898A Other specified complication of vascular prosthetic devices, implants and grafts, initial encounter; X58.XXXA Exposure to other specified factors, initial encounter
CPT/HCPCS: 36415; 80048; 85025; 85652; 86038; 86141

== ENCOUNTER 2022-11-06 07:27 | Day surgery (SDC) | payer MEDICARE, BC, MEDICAID, SELFPAY ==
[2022-11-06 07:38] VITALS: BMI 41.5
--- NOTE | 2022-11-06 07:47 | PCM.HP.BLA ---
History and Physical Date of Admission: 11/06/22 Visit Reasons:?decreased thrill, increased pressures/fistulogram Chief Complaint: decreased thrill and pressures [employer] Required: No Is patient in pain?: No Allergies No Known Allergies Allergy (Verified 11/04/22 13:23) Medications acetaminophen 325 mg tablet 650 mg PO Q6H PRN PRN pain or fever 01/19/19 [Rx Confirmed 11/04/22] sertraline 100 mg tablet 150 mg PO DAILY anxiety 01/11/20 [History Confirmed 11/04/22] aspirin 81 mg tablet,delayed release (Adult Low Dose Aspirin) 81 mg PO DAILY 03/07/21 [History Confirmed 11/04/22] cinacalcet 90 mg tablet 60 mg PO DAILY 03/07/21 [History Confirmed 11/04/22] clonazepam 1 mg tablet 1 mg PO DAILY PRN Anxiety 03/14/21 [History Confirmed 11/04/22] ferric citrate 210 mg iron tablet (Auryxia) 2 tab PO TID 03/14/21 [History Confirmed 11/04/22] pantoprazole 40 mg tablet,delayed release (Protonix) 40 mg PO DAILY 09/26/21 [History Confirmed 11/04/22] metoprolol tartrate 25 mg tablet 12.5 mg PO BID 06/25/22 [History Confirmed 11/04/22] prednisone 20 mg tablet 60 mg PO DAILY #15 TABLETS 09/06/22 [Rx Confirmed 11/04/22] PFSH Medical History? Acute respiratory failure with hypoxia Anemia Anemia due to blood loss, acute Anemia of chronic disease Anxiety Chronic renal failure, stage 5 Community acquired pneumonia Decubitus ulcer Depression Dysphagia ESRD (end stage renal disease) on dialysis Essential hypertension Focal segmental glomerulosclerosis Hematemesis/vomiting blood Hemorrhagic shock Herniated disc history removal dialysis cath (~09/14/19) MRSA bacteremia Nausea DEVANG treated with BiPAP Physical deconditioning Pre-op chest exam Pre-op testing Problem with dialysis access Thyroid goiter Transaminitis Surgical History? History of arteriovenostomy for renal dialysis History of major abdominal surgery History of tonsillectomy Status post insertion of percutaneous endoscopic gastrostomy (PEG) tube Family History? Father Heart diseaseBrother Heart disease Social History? Smoking Status:? Never smoker alcohol intake:? never substance use type:? does not use caffeine:? No HPI HPI HPI: Patient is a 42 y/o M I am following for increased venous pressures. Patient does home hemodialysis via right upper extremity fistula. Patient's most recent intervention was on 07/04/22 which demonstrated central and peripheral right upper extremity venous stenosis. A 10 x 4 conquest angioplasty was performed in multiple areas: Angiographic findings demonstrated a right upper arm brachiocephalic arteriovenous hemodialysis fistula.? There is evidence of 2 Viabahn stent grafts overlying within the proximal subclavian vein and innominate vein.? There is stenosis within the stent proximally close to the brachiocephalic vein and also in the mid stented portion where the 2 stents overlapped.? There is evidence of at least 70% stenosis over a 6 cm area of the cephalic arch.? There is 70% stenosis in the proximal third of the right upper arm within the cephalic vein.? There is still aneurysmal change at that location as well.? The more proximal portion of the fistula in the distal arm is aneurysmal but patent.? Subsequent to the angioplasty of the in-stent stenosis is resolved the cephalic arch stenosis is resolved and the upper arm stenosis is resolved. Patient notes for the last 1 1/2 weeks he has had increased venous pressures. He notes he is on the inactive transplant list due to his weight and now pleurisy. Patient has also noted a decrease in thrill. Patient is currently on prednisone for pleurisy. Patient notes this is his 3rd round of prednisone and the symptoms continue. He is scheduled for today to follow-up with his PCP to potential be referred to a specialist. ROS General General: No weight change, appetite, fatigue, colon cancer, breast cancer or weakness HEENT HEENT: No difficulty swallowing, eye injury, eye surgery, swollen glands or hoarseness Endo Endocrine: No thyroid disease, diabetes mellitus, thyroid cancer, Hair loss, heat intolerance or cold intolerance Skin Skin: No rash or changing moles Musc Musculoskeletal: Yes back problems; No arthritis, rheumatoid arthritis, gout or joint pain Cardio Cardiovascular: Yes high blood pressure; No murmur, pacemaker, heart disease, atrial fibrillation, heart attack, heart stent, palpitations, shortness of breat with exertion or chest pain Psych Psychiatric: Yes anxiety; No depression or hearing voices Resp Respiratory: No shortness of breath, No sleep apnea, No cough, No COPD, No asthma, No emphysema and No wheezing Gastro Gastrointestinal: No abdominal pain, No nausea or vomiting, No diarrhea, No constipation, No blood in stool, No acid reflux, No hemorrhoids, No ulcers, No gallbladder problem and No black,tarry stools Maulik Hematologic: Yes blood thinners, No blood disorders, No bleeding, Yes anemia and Yes blood clots Neuro Neurologic: No weakness Exam Const General: cooperative, healthy appearing, comfortable and no acute distress [facility] Head: normal to inspection Eyes General: appearance normal, both eyes and all related structures Neck Neck: normal visual inspection Neck mass: No Resp Effort & Inspection: normal respiratory effort Auscultation: clear to auscultation bilaterally Cardio Rate: regular rate Rhythm: regular rhythm GI Inspection: normal to inspection Skin General: no rashes or lesions noted Neuro General: no focal motor deficits and CN's II-XI intact bilaterally Extrem General: normal to inspection Other: Right upper extremity AV fistula- button hole technique noted. Diminished pulse, bruit and thrill noted over the access sites. Pseudoaneurysm noted. Psych Appearance: grossly normal Affect: normal affect Assessment and Plan Assessment and Plan (1) Problem with dialysis access: ?Status:?Acute ?Qualifiers: ?Encounter type:?initial encounter? Qualified Code(s):?T82.898A - Other specified complication of vascular prosthetic devices, implants and grafts, initial encounter ?Plan: Dr. Aranda will plan to perform a right upper extremity fistulogram. Procedure details, risks and benefits have been explained. Patient verbally understands and agrees with the plan. Patient will continue on his daily aspirin. He will obtain blood work today. paint laboratory technician was notified of the sizing of balloons utilized in the previous fistulogram and multiple sizes and styles were noted to be available I have examined the patient and the H&P has been reviewed. There are no clinical changes since date of exam. Osei Aranda M.D., F.A.C.S.
--- NOTE | 2022-11-06 08:49 | OP.PCM_ITS ---
Report of Operation Date of Procedure: 11/06/22 Pre-Operative Diagnosis: Diminished flow right extremity brachial cephalic mariely riovenous hemodialysis fistula Post-Operative Diagnosis: Right upper extremity peripheral and central venous stenosis Surgery/Procedure Performed:: Right upper extremity fistulogram with 10 x 4 conquest angioplasty Description of Surgical Findings:: Timeout informed consent was obtained. 42-year-old gentleman was taken to the special procedures lab placed on the table he received 50 mcg of fentanyl and 2 mg of Versed is intravenous sedation. The right extremity sterilely prepped and draped. Ultrasound was used to gain access closer to the antecubital space. 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 There is evidence of 2 stent grafts within the central and innominate and proximal subclavian's circulation with stenosis there and there is also stenosis within the cephalic arch. I up sheath to a 7 Estonian sheath and then was able to get an 035 stiff Glidewire and and then used a 10 x 4 conquest balloon performed balloon angioplasty of the innominate vein. The patient did experience some head pressure and chest discomfort to a moderate nature and so insufflation time was limited to 1 minute. Withdrew the balloon to the cephalic arch and was able to treat that to 15 arian of pressure and then withdrew the balloon further into the proximal third of the right upper arm and was able to treat that focal area of stenosis with the same balloon. He tolerated procedure well. Final fistulogram was obtained demonstrating improvement at all 3 sites. No apparent complication sheath was removed you suture of 4-0 nylon was placed hemostasis was intact blood loss was minimal Images demonstrate a right upper extremity brachial cephalic arteriovenous hemodialysis fistula. 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 There is some venous stenosis outflow at that location. There is moderate stenosis of the cephalic arch. There is 70% stenosis of the innominate vein just distal to the stent graft. Subsequent to the angioplasty there is improvement of the abdominal pain though still with 20% residual. There is notable improvement in the cephalic arch and improvement in the cephalic vein in the proximal third of the upper arm. At this point did not feel that additional treatment would be pertinent. Osei Aranda M.D., F.A.C.S. Surgeon: Osei Aranda Type of Anesthesia: IV Sedation and Local
== END 2022-11-06 09:45 | disposition home or self-care (01) ==
LOC: CLSP 07:28
PROVIDERS: PCP Family Medicine; Visit Provider Surgery
DX: T82.898A Other specified complication of vascular prosthetic devices, implants and grafts, initial encounter (principal); Z99.2 Dependence on renal dialysis; I12.0 Hypertensive chronic kidney disease with stage 5 chronic kidney disease or end stage renal disease; N18.6 End stage renal disease; I87.1 Compression of vein; R09.1 Pleurisy; G47.33 Obstructive sleep apnea (adult) (pediatric); Z79.52 Long term (current) use of systemic steroids; Z79.82 Long term (current) use of aspirin; Z79.899 Other long term (current) drug therapy
CPT/HCPCS: 36902; 36907; 76937; 99152; 99153; Q9967; C1725; C1769; C1894

== ENCOUNTER → 2023-01-02 | Outpatient (CLI) | payer MEDICARE, BC, MEDICAID, SELFPAY ==
--- NOTE | 2023-01-02 17:45 | CT_ITS ---
INDICATION: PLEURISY EXAMINATION: CT CHEST WITHOUT CONTRAST - CT Chest W/O Contrast Injection TECHNIQUE: Helically acquired images were obtained of the chest. A radiation dose optimization technique was used for this scan. IV Contrast dosage and agent: None. COMPARISON: None. FINDINGS: LUNGS, PLEURA AND LARGE AIRWAYS: There is bibasilar subsegmental atelectasis more pronounced on the left. There are scattered tiny bilateral granulomatous calcifications.. No pleural effusion or thickening. No pneumothorax. THYROID: No thyroid lesions. HEART AND PERICARDIUM: Heart size is normal. No pericardial effusion. CORONARY ARTERIES: There is mild multifocal coronary artery calcification VESSELS: Minor atherosclerotic changes of the aorta without evidence for aneurysm. Right subclavian graft is noted MEDIASTINUM AND CARI: No mediastinal or hilar adenopathy. Esophagus is unremarkable. No hiatal hernia. UPPER ABDOMEN: Multicystic appearance to the visualized portions of the left kidney. BONES: Dorsal spine demonstrates degenerative changes No suspicious lytic or blastic abnormality. CT/Chest without Contrast IMPRESSION: Mild bibasilar subsegmental atelectasis slightly more pronounced on the left. ASHD without evidence for aortic aneurysm Electronically Signed: Dwayne Darden MD at 19:29 EDT ,
== END | disposition home or self-care (01) ==
LOC: CT 17:34
PROVIDERS: PCP Family Medicine; Referring Provider Internal Medicine Pulmonary Disease; Visit Provider Internal Medicine Pulmonary Disease
DX: R09.1 Pleurisy (principal)
CPT/HCPCS: 71250

== ENCOUNTER → 2023-02-24 | Day surgery (SDC) | payer MEDICARE, BC, MEDICAID, SELFPAY ==
[2023-02-21 06:59] VITALS: BMI 42.7
[2023-02-24 08:26] LABS: Absolute Lymphocyte Count 1.02 X10^3/uL (0.83-4.51); Absolute Neutrophil Count 6.2 X10^3/uL (2.0-7.7); Basophil# 0.06 X10^3/uL; Basophil% 0.7 % (0-1); Eosinophil# 0.28 X10^3/uL; Eosinophils% 3.4 % (0-5); Hematocrit 37.3 % (40-54); Hemoglobin 12.5 g/dL (13.0-16.5); Lymphocyte # 1.02 X10^3/ul (0.83-4.51); Lymphocyte % 12.6 % (19-41); Mean Corp Hgb Conc 33.5 g/dL (32-36); Mean Corpuscular Hgb 34.8 pg (27.0-32.0); Mean Corpuscular Volume 103.9 fL (80-94); Mean Platelet Vol. 9.1 fl (6.2-12.0); Monocyte# 0.44 X10^3/uL; Monocyte% 5.4 % (0-10); NRBC Flagged by Analyzer 0 % (0-5); Neutrophil # 6.17 X10^3/uL (2.7-7.7); Neutrophil % 76.1 % (47-70); Platelet Count 252 K/mm3 (150-450); RBC Distribution Width CV 15.8 % (11.6-14.6); RBC Distribution Width SD 59.7 fl (35.1-43.9); Red Blood Count 3.59 M/mm3 (4.6-6.2); White Blood Count 8.1 K/mm3 (4.4-11.0)
[2023-02-24 08:56] LABS: Anion Gap 8 (5-15); BUN 48 mg/dL (7-18); BUN/Creat Ratio 4.1 RATIO (10-20); Calcium,Total 9.1 mg/dL (8.5-10.1); Chloride 94 mmol/L (98-107); EST Glomerular Filtration Rate 5 mL/min (>60); Est Glom Filt Rate - Afr Amer 6 mL/min (>60); Estimated Creatinine Clearance 9.47 ml/min; Glucose 118 mg/dL (74-106); Potassium 3.2 mmol/L (3.5-5.1); Sodium Level 133 mmol/L (136-145)
--- NOTE | 2023-02-24 09:25 | PCM.HP.BLA ---
History and Physical Date of Admission: 02/24/23 Visit Reasons: difficulty cannulating Chief Complaint: difficulty cannulating Whizzer Operator Required: No Is patient in pain?: No Allergies No Known Allergies Allergy (Verified 02/20/23 08:35) Medications acetaminophen 325 mg tablet 650 mg (2 x 325 mg) PO Q6H PRN PRN pain or fever 01/19/19 [Rx Confirmed 02/20/23] sertraline 100 mg tablet 150 mg PO DAILY anxiety 01/11/20 [History Confirmed 02/20/23] aspirin 81 mg tablet,delayed release (Adult Low Dose Aspirin) 81 mg PO DAILY 03/07/21 [History Confirmed 02/20/23] cinacalcet 90 mg tablet 60 mg PO DAILY 03/07/21 [History Confirmed 02/20/23] clonazepam 1 mg tablet 1 mg PO DAILY PRN Anxiety 03/14/21 [History Confirmed 02/20/23] ferric citrate 210 mg iron tablet (Auryxia) 2 tab PO TID 03/14/21 [History Confirmed 02/20/23] pantoprazole 40 mg tablet,delayed release (Protonix) 40 mg PO DAILY 09/26/21 [History Confirmed 02/20/23] metoprolol tartrate 25 mg tablet 12.5 mg PO BID 06/25/22 [History Confirmed 02/20/23] [facility] Medical History (Updated 02/20/23 @ 08:34 by Fariha Murillo) Acute respiratory failure with hypoxia Anemia of chronic disease Anxiety Chronic renal failure, stage 5 Community acquired pneumonia Decubitus ulcer Depression Dysphagia ESRD (end stage renal disease) on dialysis Essential hypertension Focal segmental glomerulosclerosis Hematemesis/vomiting blood Hemorrhagic shock Herniated disc history removal dialysis cath (~09/14/19) MRSA bacteremia Nausea DEVANG treated with BiPAP Physical deconditioning Pre-op chest exam Pre-op testing Problem with dialysis access Thyroid goiter Transaminitis Surgical History History of arteriovenostomy for renal dialysis History of major abdominal surgery History of tonsillectomy Status post insertion of percutaneous endoscopic gastrostomy (PEG) tube Family History Father Heart diseaseBrother Heart disease Social History Smoking Status: Never smoker alcohol intake: never substance use type: does not use caffeine: No HPI HPI Surgical H&P: Yes HPI: Patient is a 42 y/o M I am following for difficulty cannulating since Friday. Patient does home hemodialysis via right upper extremity fistula. Patient's most recent intervention was on 11/06/22 which demonstrated central and peripheral right upper extremity venous stenosis. A 10 x 4 conquest angioplasty was performed in multiple areas: Images demonstrate a right upper extremity brachial cephalic arteriovenous hemodialysis fistula. 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 There is some venous stenosis outflow at that location. There is moderate stenosis of the cephalic arch. There is 70% stenosis of the innominate vein just distal to the stent graft. Subsequent to the angioplasty there is improvement of the abdominal pain though still with 20% residual. There is notable improvement in the cephalic arch and improvement in the cephalic vein in the proximal third of the upper arm. Patient notes since Friday he has had difficulty cannulating from the top button hole. Patient notes once he is able to successfully insert the needle, his treatments run well. He notes he is currently on the inactive transplant list due to thyroid tissue being found on imaging following a total thyroidectomy for thyroid cancer. ROS General General: No weight change, appetite, fatigue, colon cancer, breast cancer or weakness HEENT HEENT: No difficulty swallowing, eye injury, eye surgery, swollen glands or hoarseness Endo Endocrine: No thyroid disease, diabetes mellitus, thyroid cancer, Hair loss, heat intolerance or cold intolerance Skin Skin: No rash or changing moles Musc Musculoskeletal: Yes back problems; No arthritis, rheumatoid arthritis, gout or joint pain Cardio Cardiovascular: Yes high blood pressure; No murmur, pacemaker, heart disease, atrial fibrillation, heart attack, heart stent, palpitations, shortness of breat with exertion or chest pain Psych Psychiatric: Yes anxiety; No depression or hearing voices Resp Respiratory: No shortness of breath, No sleep apnea, No cough, No COPD, No asthma, No emphysema and No wheezing Gastro Gastrointestinal: No abdominal pain, No nausea or vomiting, No diarrhea, No constipation, No blood in stool, No acid reflux, No hemorrhoids, No ulcers, No gallbladder problem and No black,tarry stools Maulik Hematologic: Yes blood thinners, No blood disorders, No bleeding, Yes anemia and Yes blood clots Neuro Neurologic: No weakness Exam Const General: cooperative, healthy appearing, comfortable and no acute distress [facility] Head: normal to inspection Eyes General: appearance normal, both eyes and all related structures Neck Neck: normal visual inspection Neck mass: No Resp Effort & Inspection: normal respiratory effort Auscultation: clear to auscultation bilaterally Cardio Rate: regular rate Rhythm: regular rhythm GI Inspection: normal to inspection Palpation: soft Musc Cervical Spine: normal cervical lordosis Skin General: no rashes or lesions noted Neuro General: no focal motor deficits and CN's II-XI intact bilaterally Extrem General: normal to inspection Other: Right upper extremity AV fistula- button hole technique noted. Diminished pulse, bruit and thrill noted over the access sites. Pseudoaneurysm noted. Psych Appearance: grossly normal Affect: normal affect Assessment and Plan Assessment and Plan (1) Problem with dialysis access: Status: Acute Qualifiers: Encounter type: initial encounter Qualified Code(s): T82.898A - Other specified complication of vascular prosthetic devices, implants and grafts, initial encounter Plan: Dr. Aranda will plan to perform a right upper extremity fistulogram. Procedure details, risks and benefits have been explained. Patient verbally understands and agrees with the plan. Patient will continue on his daily aspirin. He will obtain blood work today. I have examined the patient and the H&P has been reviewed. There are no clinical changes since date of exam. Osei Aranda M.D., F.A.C.S.
--- NOTE | 2023-02-24 10:29 | PCM.OPRPT ---
Report of Operation Date of Procedure: 02/24/23 Pre-Operative Diagnosis: Diminished flow and high venous pressure right upper extremity brachial cephalic arteriovenous hemodialysis fistula Post-Operative Diagnosis: Central venous stenosis proximal right subclavian and innominate veins and cephalic arch stenosis and proximal right upper arm cephalic vein stenosis Surgery/Procedure Performed:: Right upper extremity fistulogram with 10 x 4 conquest angioplasty at 2 peripheral sites and 2 central sites of venous stenosis Description of Surgical Findings:: Timeout informed consent was obtained. 42-year-old gentleman was taken to the Currency Machine Operator placed upon the table right upper extremity was sterilely prepped and draped. tHE PATIENT RECEIVED 50 MCG OF FENTANYL AND 2 MG OF vERSED INTRAVENOUS SEDATION. 2% lidocaine was used as a local anesthetic local was instilled and a micropuncture needle was inserted close to the break arterial anastomosis antegrade with flow micropuncture wire and then a 6 Tuvaluan short sheath dilator using Isovue contrast fistulogram was obtained. This demonstrated aneurysmal change in the proximal right upper arm and just proximal to that 5 cm long area of high-grade 90% stenosis there is evidence of 85% stenosis of the cephalic arch 70% stenosis of the subclavian vein proximally and in-stent stenosis within the innominate. The patient received 5000 of heparin intravenously. I up sheath to a 7 Tu[place]uan sheath. A 10 x 4 conquest with balloon was inserted over stiff Glidewire and balloon angioplasty was performed separately of the innominate vein at the site of the previous stents. The proximal subclavian vein. The cephalic arch. And the cephalic vein just proximal to the aneurysm will change in the upper arm. Areas had to be treated several times all the way up to 35 arian of pressure. Completion view was obtained now demonstrating dramatic improvement in all sites. I did not see any areas of clinically significant residual stenosis other than within the very proximal innominate vein proximal to the most proximal stent graft there is an about a 30% area of residual in-stent narrowing at its proximal and. He tolerated the procedure well. No apparent complication. Fistulogram demonstrates a right upper extremity brachial cephalic arteriovenous hemodialysis fistula. There is aneurysmal change in the proximal right upper arm that does not appear to have grossly altered from previous images. Just proximal to that there is high-grade stenosis of the cephalic vein. There is significant stenosis of the cephalic arch throughout. There is diffuse irregular 70% stenosis of the subclavian vein proximal and there is significant in-stent stenosis of at least 70 to 80%. All improved status post plain balloon angioplasty. Total contrast used was 20 cc. Osei Aranda M.D., F.A.C.S. Surgeon: Osei Aranda Type of Anesthesia: IV Sedation and Local
== END | disposition home or self-care (01) ==
PROVIDERS: Physician Assistant; PCP Family Medicine; Referring Provider Surgery; Visit Provider Surgery
DX: T82.898A Other specified complication of vascular prosthetic devices, implants and grafts, initial encounter (principal); T82.856A Stenosis of peripheral vascular stent, initial encounter; Z99.2 Dependence on renal dialysis; I12.0 Hypertensive chronic kidney disease with stage 5 chronic kidney disease or end stage renal disease; N18.6 End stage renal disease; I87.1 Compression of vein; Z79.82 Long term (current) use of aspirin; Z79.899 Other long term (current) drug therapy; Y71.2 Prosthetic and other implants, materials and accessory cardiovascular devices associated with adverse incidents; E89.0 Postprocedural hypothyroidism
CPT/HCPCS: 36415; 36902; 80048; 85025; 99152; 99153; Q9967; C1769; C1894

== ENCOUNTER → 2023-03-22 | Outpatient (CLI) | payer MEDICARE, BC, MEDICAID, SELFPAY ==
[2023-03-22 12:18] LABS: Absolute Neutrophil Count 6.2 X10^3/uL (2.0-7.7); Basophil# 0.09 X10^3/uL; Basophil% 1.1 % (0-1); Eosinophils% 3.5 % (0-5); Hematocrit 39.2 % (40-54); Hemoglobin 12.6 g/dL (13.0-16.5); Lymphocyte % 10.5 % (19-41); Mean Corp Hgb Conc 32.1 g/dL (32-36); Mean Corpuscular Hgb 34.3 pg (27.0-32.0); Mean Corpuscular Volume 106.8 fL (80-94); Monocyte# 0.64 X10^3/uL; Monocyte% 7.5 % (0-10); NRBC Flagged by Analyzer 0 % (0-5); Neutrophil % 72.6 % (47-70); Platelet Count 244 K/mm3 (150-450); RBC Distribution Width SD 59.6 fl (35.1-43.9); Red Blood Count 3.67 M/mm3 (4.6-6.2); White Blood Count 8.5 K/mm3 (4.4-11.0)
[2023-03-22 12:36] LABS: Erythrocyte Sedimentation Rate 8 mm/hr (0-20)
[2023-03-22 12:48] LABS: AST(SGOT) 17 U/L (15-37); Alanine Aminotransfer ALT/SGPT 40 U/L (16-61); Alkaline Phosphatase 100 U/L (45-117); Bilirubin, Direct 0.11 mg/dL (0.00-0.30); Globulin 3.7 g/dL (2.2-4.2); Protein, Total 7.7 g/dL (6.4-8.2); Rheumatoid Factor < 10.0 IU/mL (<15)
[2023-03-24 13:07] LABS: ANTINUCLEAR ANTIBODIES DIRECT Negative (Negative); Anti-Scleroderma-70 AB <0.2 AI (0.0-0.9); Anti-dsDNA Ab <1 IU/mL (0-9); RNP Ab <0.2 AI (0.0-0.9); SJOGREN'S Anti-SS-A test < 0.2 AI (0.0-0.9); SJOGREN'S Anti-SS-B test < 0.2 AI (0.0-0.9)
[2023-03-25 14:09] LABS: Angiotensin Convert Enzyme 24 U/L (14-82); Anti-Smooth Muscle ABS 3 Units (0-19); CCP IgG Antibodies 7 units (0-19); Cytoplasmic Ab (C-ANCA) <1:20 titer (Neg:<1:20); Perinuclear Ab (P-ANCA) <1:20 titer (Neg:<1:20)
== END | disposition home or self-care (01) ==
PROVIDERS: PCP Family Medicine; Referring Provider Internal Medicine Pulmonary Disease; Visit Provider Internal Medicine Pulmonary Disease
DX: R09.1 Pleurisy (principal)
CPT/HCPCS: 36415; 80076; 82164; 83516; 85025; 85652; 86038; 86140; 86200; 86225; 86235; 86256; 86431

== ENCOUNTER → 2023-06-16 | Outpatient (CLI) | payer MEDICARE, BC, MEDICAID, SELFPAY ==
--- NOTE | 2023-06-16 12:55 | RAD_ITS ---
STUDY: X-RAY CHEST REASON FOR EXAM: Male, 43 years old. HILAR ADENOPATHY TECHNIQUE: PA and lateral views of the chest. COMPARISON: 10/03/2022 FINDINGS: Right subclavian stent. The lungs are clear and expanded. Tiny bilateral pleural effusions. Normal size heart. Normal mediastinum and rakesh. Normal visualized pulmonary arteries. Normal visualized aortic arch and descending thoracic aorta. Normal visualized thoracic spine. Normal visualized ribs, clavicles, and shoulders. There is no demonstrated abnormality of the visualized soft tissue structures of the upper abdomen. RAD/Chest PA and Lateral IMPRESSION: Tiny bilateral pleural effusions. Electronically Signed: Tao Dempsey MD at 18:34 EDT ,
== END | disposition home or self-care (01) ==
LOC: RAD 12:47
PROVIDERS: PCP Family Medicine; Referring Provider Internal Medicine Pulmonary Disease; Visit Provider Internal Medicine Pulmonary Disease
DX: R59.0 Localized enlarged lymph nodes (principal)
CPT/HCPCS: 71046

== ENCOUNTER 2024-04-21 07:20 | Emergency (ER) | payer MEDICARE, BC, MEDICAID, SELFPAY ==
[2024-04-21 07:21] VITALS: BP 152/98; PULSE 99; RESP 18; TEMP 36.4; O2SAT 98
--- NOTE | 2024-04-21 07:35 | ED.VIS.GI ---
HPI HPI - GI History of Present Illness Chief Complaint: Nausea/Vomiting Informant: patient Abdominal Pain/Flank Pain Onset: Days Context: Gradual Onset Timing: Continuous Quality: Sharp Location: Epigastric Current Severity: Mild Maximum Severity: Mild Worsened by: Nothing Relieved by: Nothing Nausea/Vomiting/Emesis GI Symptom: Positive for Nausea and Vomiting Onset: Days Severity: Mild Diarrhea/Melena/Hematochezia GI Symptom: Negative for Diarrhea, Melena or Hematochezia Associated Symptoms Associated Symptoms: Negative for Dysuria, Frequency, Hematuria or Urgency Narrative Narrative: 43-year-old male history of chronic kidney disease diabetes dialysis at home does not make any urine. History of gastritis. Prior PEG tube with reversal. Some epigastric discomfort with nausea vomiting for the last 3 days since Friday. Said he had dry heaves. Denies any hematemesis. No melena. No fever. He has had episodes like this before. Prior similar symptoms: Yes Recent Illness/Hospitalization: No PFSH PFSH Medical History Pre-op testing Pre-op chest exam DEVANG treated with BiPAP Essential hypertension history removal dialysis cath (~09/14/19) Herniated disc Thyroid goiter MRSA bacteremia ESRD (end stage renal disease) on dialysis Problem with dialysis access Chronic renal failure, stage 5 Acute respiratory failure with hypoxia Community acquired pneumonia Depression Hematemesis/vomiting blood Hemorrhagic shock Anemia of chronic disease Decubitus ulcer Physical deconditioning Anxiety Focal segmental glomerulosclerosis Nausea Transaminitis Dysphagia Home Medications ?Medication ?Instructions ?Recorded ?Last Taken ?Type acetaminophen 325 mg tablet 650 mg (2 x 325 mg) PO Q6H PRN PRN 01/19/19 Unknown Rx pain or fever sertraline 100 mg tablet 150 mg PO DAILY anxiety 01/11/20 Unknown History aspirin 81 mg tablet,delayed 81 mg PO DAILY 03/07/21 Unknown History release (Adult Low Dose Aspirin) cinacalcet 90 mg tablet 60 mg PO DAILY 03/07/21 Unknown History clonazepam 1 mg tablet 1 mg PO DAILY PRN Anxiety 03/14/21 03/14/21 History ferric citrate 210 mg iron tablet 2 tab PO TID 03/14/21 Unknown History (Auryxia) pantoprazole 40 mg tablet,delayed 40 mg PO DAILY 09/26/21 03/05/22 History release (Protonix) metoprolol tartrate 25 mg tablet 12.5 mg PO BID 06/25/22 Unknown History Allergy/AdvReac Type Severity Reaction Status Date / Time No Known Allergies Allergy Verified 04/21/24 07:21 Family History Father Heart disease Brother Heart disease Surgical History History of major abdominal surgery History of arteriovenostomy for renal dialysis Status post insertion of percutaneous endoscopic gastrostomy (PEG) tube History of tonsillectomy Social History Smoking Status: Never smoker alcohol intake: never substance use type: does not use caffeine: No ROS ROS ED ROS Narrative Nausea and vomiting. Abdominal pain. Constitutional Constitutional ED: Denies chills or fever(s) ENT ENT ED: Denies ear pain Cardiovascular Cardiovascular: Denies chest pain Respiratory/Chest Respiratory/Chest: Denies cough or dyspnea Gastrointestinal Gastrointestinal: Reports abdominal pain, nausea and vomiting; Denies constipation, diarrhea or melena Genitourinary Genitourinary ED: Denies dysuria or hematuria Musculoskeletal Musculoskeletal: Denies arthralgias or back pain Integumentary Denies abscess, Abrasions or rash Neurologic Neurologic: Denies headache(s) Psychiatric Psychiatric: Denies anxiety, depression or suicidal thoughts Endocrine Endocrinology: Denies polydipsia or polyphagia Hematologic/Lymphatic Hematologic/Lymphatic: Denies easy bleeding, easy bruising or lymphadenopathy Allergic/Immunologic Allergic/Immunologic ED: Denies mouth swelling, tongue swelling or urticaria EXAM Physical Exam Narrative Exam Narrative: 43-year-old male vital signs are stable. He is afebrile. He is actively retching. H EENT exam unremarkable. Neck nontender. No lymphadenopathy. Lungs clear to auscultation bilaterally. Heart regular rhythm rate about 95 no murmur. Chest wall and ribs nontender. Abdomen soft nondistended normal bowel sounds no peritoneal signs. No significant tenderness. No right upper or right lower quadrant tenderness. No hernia or mass. No obstruction. Moving all 4 extremities. Nontender no edema. Neurologically is awake alert no focal motor deficits. Const Vital Signs: 04/21/24 07:21 04/21/24 09:18 Temperature 97.6 F L Temperature Source Temporal Pulse Rate 99 80 Respiratory Rate 18 19 H Blood Pressure 152/98 H 110/63 Blood Pressure Mean 116 78 Pulse Ox 98 Oxygen Delivery Method Room Air Positive well nourished and well developed; Negative for cachectic, contractures or unkempt General Appearance ED: well developed and NAD; Negative for unkempt, cachectic, contractures or pallor Nutritional Appearance: Negative for cachectic HEENT Reports moist mucous membranes normocephalic and atraumatic; Negative for trauma or tenderness Eyes PERRL and EOMs intact bilaterally General Eye ED: Negative for pale conjunctiva or scleral icterus Neck no lymphadenopathy, supple and no JVD General: Negative for tenderness Carotids: Negative for other Lymph Lymphatic: Negative for other Resp normal respiratory effort and clear to auscultation bilaterally Auscultation: Negative for rales, rhonchi, wheezes or diminished lung sounds Cardio regular rate, regular rhythm, S1 normal heart sound, S2 normal heart sound and no murmurs Rate: Negative for bradycardia or tachycardic Rhythm: Negative for abnormal rhythm GI non-tender, non-distended and no masses Inspection: Negative for abdominal distention Palpation: soft; Negative for tender, guarding or rebound tenderness present Back/Spine no CVA tenderness General Back: Negative for CVA tenderness Cervical Spine: Negative for cervical spine tenderness Thoracic Spine / Upper Back: Negative for thoracic spinal tenderness Lumbar Spine / Lower Back: Negative for lumbar spinal tenderness Coccyx: Negative for other Extremity full ROM General Extremety ED: Negative for edema or tenderness General Extremity: Negative for edema Neuro CN's II-XII intact bilaterally and moves all extremities Sensorium / Orientation: alert, oriented to person, oriented to place and oriented to time Motor Exam: strength 5/5 throughout Psych mental status grossly normal and thought process normal Appearance: Negative for unkempt Attitude: No agitated Mood & Affect: Negative for depressed, anxious or tearful Skin no wounds General Skin Exam: Negative for jaundice or pallor Lesions: no lesions Rashes: no rashes Trauma: Negative for abrasion Nails: Negative for discolored MDM MDM MDM Narrative Medical decision making narrative: 43-year-old male epigastric pain with a history of gastritis. Being treated with Zofran for nausea. IV Protonix. Screening labs. At this time I do not think he needs imaging of his abdomen. Repeat exam at 9:20 AM patient doing well. Abdomen benign. No peritoneal signs. He and I discussed his test results. He is comfortable being discharged to home. He has both Protonix and Zofran at home. He does not need any prescriptions. We went over all of his test results. Lab Data Attestation: I reviewed the patient's lab results. Lab results narrative: CBC white count 7. H&H 14 and 42. Platelets 244. Chemistry shows sodium 132. Potassium 3.1. Gap 12. BUN 45 creatinine 12.7. Patient has a history of end-stage renal disease and gets dialyzed at home 6 days a week. Liver enzymes show an alk phos of 169. Lipase is normal at 34. Labs are consistent with the patient's prior labs and baseline. Labs: Laboratory Results - last 24 hr 04/21/24 07:40 WBC 7.0 RBC 4.34 L Hgb 14.3 Hct 42.7 MCV 98.4 H MCH 32.9 H MCHC 33.5 RDW Std Deviation 48.2 H RDW Coeff of Daniel 13.4 Plt Count 244 MPV 8.8 Immature Gran % (Auto) 0.700 Neut % (Auto) 76.8 H Lymph % (Auto) 11.3 L Carroll % (Auto) 5.6 Eos % (Auto) 4.7 Baso % (Auto) 0.9 Absolute Neuts (auto) 5.4 Absolute Lymphs (auto) 0.79 L Nucleated RBC % 0 Sodium 132 L Potassium 3.1 L Chloride 89 L Carbon Dioxide 31.0 Anion Gap 12 BUN 45 H Creatinine 12.70 H* Est GFR (MDRD) Af Amer 6 L Est GFR (MDRD) Non-Af 5 L BUN/Creatinine Ratio 3.5 L Glucose 137 H Calcium 9.3 Total Bilirubin 0.70 AST 17 ALT 36 Alkaline Phosphatase 169 H Total Protein 8.4 H Albumin 4.7 Globulin 3.7 Albumin/Globulin Ratio 1.3 Lipase 34 Discharge Plan Triage Chief Complaint: Nausea/Vomiting ED Provider: Adrian Noland Dx/Rx/DC Orders Clinical Impression: Abdominal pain, Gastritis, Nausea, History of end stage renal disease Instructions: Abdominal Pain, ED Gastritis (Adult) Prescriptions: No Action cinacalcet 90 mg tablet 60 mg PO DAILY Patient Comments: TAKE 1 TABLET BY MOUTH EVERY DAY aspirin [Adult Low Dose Aspirin] 81 mg tablet,delayed release (DR/EC) 81 mg PO DAILY metoprolol tartrate 25 mg tablet 12.5 mg PO BID acetaminophen 325 MG tablet 650 mg PO Q6H PRN PRN (Reason: pain or fever) 0RF sertraline 100 mg tablet 150 mg PO DAILY clonazepam 1 mg tablet 1 mg PO DAILY PRN (Reason: Anxiety) Patient Comments: TAKE 1 TABLET BY ORAL ROUTE 1 TIMES PER DAY NEEDED FOR SEVERE ANXIETY Auryxia 210 mg iron tablet 2 tab PO TID pantoprazole [Protonix] 40 mg Tablet,Delayed Release (Dr/Ec) 40 mg PO DAILY Primary Care Provider: Marcell Thacker Referrals: Marcell Thacker MD [Primary Care Provider] - 3-5 Days if not improving Activity Restrictions/Additional Instructions: Continue using your Protonix. Also use Zofran for nausea. Follow-up with your doctor if not improving or return if feeling a lot worse. Print Language: Irish Disposition Disposition: Home, Self Care
[2024-04-21] MEDS: Ondansetron 4 MG/2 ML Vial IV (07:39)
[2024-04-21 07:47] LABS: Absolute Lymphocyte Count 0.79 X10^3/uL (0.83-4.51); Absolute Neutrophil Count 5.4 X10^3/uL (2.0-7.7); Basophil# 0.06 X10^3/uL; Basophil% 0.9 % (0-1); Eosinophil# 0.33 X10^3/uL; Eosinophils% 4.7 % (0-5); Hematocrit 42.7 % (40-54); Hemoglobin 14.3 g/dL (13.0-16.5); Lymphocyte # 0.79 X10^3/ul (0.83-4.51); Lymphocyte % 11.3 % (19-41); Mean Corp Hgb Conc 33.5 g/dL (32-36); Mean Corpuscular Hgb 32.9 pg (27.0-32.0); Mean Corpuscular Volume 98.4 fL (80-94); Mean Platelet Vol. 8.8 fl (6.2-12.0); Monocyte# 0.39 X10^3/uL; Monocyte% 5.6 % (0-10); NRBC Flagged by Analyzer 0 % (0-5); Neutrophil # 5.36 X10^3/uL (2.7-7.7); Neutrophil % 76.8 % (47-70); Platelet Count 244 K/mm3 (150-450); RBC Distribution Width CV 13.4 % (11.6-14.6); RBC Distribution Width SD 48.2 fl (35.1-43.9); Red Blood Count 4.34 M/mm3 (4.6-6.2)
[2024-04-21 08:06] LABS: ALB/GLOB Ratio 1.3 RATIO (0.9-2.4); AST(SGOT) 17 U/L (15-37); Alanine Aminotransfer ALT/SGPT 36 U/L (16-61); Albumin, Serum 4.7 g/dL (3.2-5.0); Alkaline Phosphatase 169 U/L (45-117); Anion Gap 12 (5-15); BUN 45 mg/dL (7-18); BUN/Creat Ratio 3.5 RATIO (10-20); Calcium,Total 9.3 mg/dL (8.5-10.1); Chloride 89 mmol/L (98-107); EST Glomerular Filtration Rate 5 mL/min (>60); Est Glom Filt Rate - Afr Amer 6 mL/min (>60); Globulin 3.7 g/dL (2.2-4.2); Glucose 137 mg/dL (74-106); Lipase 34 U/L (13-75); Potassium 3.1 mmol/L (3.5-5.1); Protein, Total 8.4 g/dL (6.4-8.2); Sodium Level 132 mmol/L (136-145)
[2024-04-21] MEDS: Pantoprazole Sodium 80 MG in 0.9% Normal Saline (50mL Bag) 15 ML 420 MG IV BOLUS (08:10)
[2024-04-21 09:18] VITALS: BP 110/63; PULSE 80; RESP 19
[2024-04-21 09:28] VITALS: BP 110/63; PULSE 81; RESP 18; TEMP 36.6; O2SAT 97
== END 2024-04-21 09:29 | disposition home or self-care (01) ==
PROVIDERS: Emergency Provider Emergency Medicine; PCP Family Medicine; Visit Provider Emergency Medicine
DX: R10.9 Unspecified abdominal pain (principal); I12.0 Hypertensive chronic kidney disease with stage 5 chronic kidney disease or end stage renal disease; N18.6 End stage renal disease; E11.22 Type 2 diabetes mellitus with diabetic chronic kidney disease; K29.70 Gastritis, unspecified, without bleeding; Z99.2 Dependence on renal dialysis
CPT/HCPCS: 80053; 83690; 85025; 96374; 96375; 99283; A4216; J2405; J3490

== ENCOUNTER → 2025-03-03 | Outpatient (CLI) | payer MEDICARE, BC, MEDICAID, SELFPAY ==
--- NOTE | 2025-03-03 08:56 | US_ITS ---
PROCEDURE: ABD LIMITED W/ ELASTOGRAPHY REASON FOR EXAM: HEMATEMESIS, HEPATOSPLENOMEGALY Polycystic kidneys. COMPARISON: None. TECHNIQUE: Right upper quadrant abdominal ultrasound. Lani ElastQ Imaging shear wave elastography for non-invasive assessment of liver tissue stiffness. Lani EPIQ Elite. FINDINGS: LIVER: Size: Enlarged (hepatomegaly) Length: 20.9 cm Echotexture: Diffusely echogenic suggesting fatty infiltration Contour: Normal Lesions: None identified Elastography: EQI Med: 8.2 kPa EQI Med Malcolm: 1.65 m/s IQR/Med: 22 %* GALLBLADDER: No stones sludge wall thickening or tenderness. COMMON BILE DUCT: Normal measuring 3 mm . PANCREAS: Normal The right kidney is hypertrophic. Findings suggestive of a 5.1 cm 4.9 cm 4.6 cm solid mass in the upper pole. Further evaluation needed. Spleen: There is evidence of splenomegaly. The spleen measures 16.6 cm x 7.6 cm by 6.5 cm. US/ABD Limited w/ Elastography IMPRESSION: Moderate hepatic fibrosis. Hepatomegaly and diffuse fatty infiltration of the liver. Polycystic kidneys. Possible mass in the upper pole of the left kidney as described. Follow-up rec ommended. Splenomegaly. Reference Values: SRU <1.37 m/s (5.7kPa): No to mild fibrosis 1.37 m/s - 2.2 m/s: Moderate to severe fibrosis >2.2 m/s (15kPa): Significant fibrosis / cirrhosis METAVIR Score F2 or higher: 1.34 m/s (5.7kPa) F3 or higher: 1.55 m/s (7.3kPa) F4: 1.80 m/s (10kPa) * If the IQR/Med is >30%, the variance in the measurements is a large and the a ccuracy of the measurement may be in question. Reading Location: [place] [id number]
== END | disposition home or self-care (01) ==
LOC: US 08:51
PROVIDERS: PCP Family Medicine
DX: R16.2 Hepatomegaly with splenomegaly, not elsewhere classified (principal); K29.70 Gastritis, unspecified, without bleeding
CPT/HCPCS: 76705; 76981

== ENCOUNTER 2025-06-30 08:22 | Day surgery (SDC) | payer MEDICARE, BC, MEDICAID, SELFPAY ==
--- NOTE | 2025-06-29 16:33 | PAT.ANESEVAL ---
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 When Was Last Pacemaker Check QUESTION #4 FULL TEXT: You/Your Family Experience fever (hyperthermia) with Anesthesia Last Oral Intake Last Oral intake: Last Oral Intake NPO since Meds taken in AM with sips of water? Meds patient instructed to take am of surgery PONV PONV - promotional marketing agent: PONV - promotional marketing agent Female No 06/29/25 13:43 HX of Motion Sickness No 06/29/25 13:43 HX of N/V After Surgery No 06/29/25 13:43 Non-Smoker Yes 06/29/25 13:43 Duration of Surgery greater No 06/29/25 13:43 than 60 minutes Number of Risk Factors 1 06/29/25 13:43 PONV Score Low Risk 06/29/25 13:43 Height & Weight Height & Weight: Anesthesia: Height & Weight Height 6 ft 1 in 04/21/24 07:21 Respiratory Assessment Respiratory Assessment - promotional marketing agent: Respiratory Tract Infection Hx - promotional marketing agent Hx Respiratory Tract Infection No 06/29/25 13:43 STOP Sleep Apnea STOP Sleep Apnea - promotional marketing agent: STOP Sleep Apnea - promotional marketing agent Hx Hypertension No 06/29/25 13:43 Hx Sleep Apnea Yes 06/29/25 13:43 CPAP No 06/29/25 13:43 BIPAP Yes 06/29/25 13:43 Do you snore loudly (louder than talking or can be heard Do you often feel tired/ fatigued/ sleepy during daytime? Has anyone observed you stop breathing during sleep? STOP Results Positive 06/29/25 13:43 QUESTION #5 FULL TEXT : Do you snore loudly (louder than talking or can be heard through closed doors)? Tobacco Use History Tobacco Use History - promotional marketing agent: Tobacco Use History - promotional marketing agent Tobacco Use Smoking Status Never smoker 06/29/25 13:43 Hx Tobacco Use No 06/29/25 13:43 Years Smoking Packs Smoked per Day Smoking Cessation Date was within the last 15 years Hx Smoking Cessation Date Hx Smoking Cessation Counseling Hematologic Medial History Hematologic Hx - promotional marketing agent: Hematologic Medical Hx - locator specialist Hx of Blood Transfusion Yes 06/29/25 13:43 Hx of Transfusion in last 3 No 06/29/25 13:43 Months Date of Last Transfusion (if within last 3 months) Ever experience any problems No 06/29/25 13:43 with transfusion(s)? Specify any problems Hx of Preganancy in last 3 N/A 06/29/25 13:43 Months Nurse Filling Out Transfusion NBUCHER 06/29/25 13:43 & Questions: Date: 06/29/25 06/29/25 13:43 Time: 13:44 06/29/25 13:43 Patient unable to answer at this time (ie. confused, unrespo /Reproduction History /Reproductive History - promotional marketing agent: /Reproductive Hx- promotional marketing agent Hx Now No 06/29/25 13:43 Gestational Age (in weeks): EDC: Hx Hx Para Hx Section SAB No 06/29/25 13:43 Does the father of the baby or his family experience fever w Father of the baby Malignant Hypertension history comment PFSH Medical History (Updated 06/29/25 @ 16:23 by Gabby Simpson) Hypothyroid Thyroid disease Cancer History of renal dialysis History of renal disease Pulmonary embolism Dietary restriction GERD (gastroesophageal reflux disease) Shortness of breath on exertion BiPAP (biphasic positive airway pressure) dependence Sleep apnea Non-smoker Leg cramps Cardiology follow-up encounter History of echocardiogram History of stress test H/O dialysis fistulogram BPH (benign prostatic hyperplasia) Thyroid cancer Pre-op testing Pre-op chest exam DEVANG treated with BiPAP Essential hypertension history removal dialysis cath (~09/14/19) Herniated disc Thyroid goiter MRSA bacteremia ESRD (end stage renal disease) on dialysis Problem with dialysis access Chronic renal failure, stage 5 Acute respiratory failure with hypoxia Community acquired pneumonia Depression Hematemesis/vomiting blood Hemorrhagic shock Anemia of chronic disease Decubitus ulcer Physical deconditioning Anxiety Focal segmental glomerulosclerosis Nausea Transaminitis Dysphagia Home Medications Medication Instructions Recorded Last Taken Type acetaminophen 325 mg tablet 650 mg (2 x 325 mg) PO Q6H PRN PRN 01/19/19 Unknown Rx pain or fever sertraline 100 mg tablet 150 mg PO DAILY anxiety 01/11/20 Unknown History cinacalcet 90 mg tablet 30 mg PO DAILY 03/07/21 Unknown History levothyroxine 300 mcg tablet 350 mcg PO QDAY 01/25/25 Unknown History (Synthroid) lorazepam 1 mg tablet (Ativan) 1 mg PO QDAY PRN anxiety 01/25/25 Unknown History sucralfate 1 gram tablet 1 g PO Q6H 01/25/25 Unknown History famotidine 40 mg tablet 40 mg PO QHS #30 tabs 06/08/25 Unknown Rx omeprazole 40 mg capsule,delayed 40 mg PO BID #60 caps 06/08/25 Unknown Rx release ondansetron 8 mg disintegrating 8 mg PO Q12H PRN nausea and 06/08/25 Unknown History tablet vomiting metoclopramide HCl 5 mg tablet 5 mg PO QAC PRN nausea and vomiting 06/29/25 Unknown History Allergy/AdvReac Type Severity Reaction Status Date / Time No Known Allergies Allergy Verified 06/29/25 13:39 Family History Father Heart disease Brother Heart disease Mother Thyroid disorder Hypertension HLD (hyperlipidemia) Surgical History History of percutaneous endoscopic gastrostomy (PEG) History of thyroidectomy History of major abdominal surgery History of arteriovenostomy for renal dialysis Status post insertion of percutaneous endoscopic gastrostomy (PEG) tube History of tonsillectomy Social History Smoking Status: Never smoker alcohol intake: never substance use type: does not use caffeine: No Audit: Pertinent Findings Pertinent Findings EKG Perinent findings: EKG 02/2025: NSR Stress test pertinent findings: 04/2022: Negative stress test study Echo (EF%) pertinent findings: 11/2024: EF 55-60%, normal RV systolic function Recommendation Anesthesia Recommendation Anesthesia recommendation: OPTIMIZED for anesthesia Follow up Details BMP Recommendation: Yes BMP Rec Details: BMP on DOS. Make sure pt arrives early enough for BMP to result.
[2025-06-30] VITALS (9 sets, daily range): BP systolic 105–147; BP diastolic 60–94; PULSE 88–92; RESP 16–18; TEMP 36.1–36.6; O2SAT 97–100; BMI 43.3
--- NOTE | 2025-06-30 08:45 | PCM.HP.STD ---
HPI - General General Date of Admission: 06/30/25 Date of Service: 06/30/25 Chief Complaint: Nausea and vomiting [facility] Narrative DANE FARNSWORTH, is a 45 M who presents [ Chief Complaint: Gastritis Last office visit 01/29/2025 with Marie Manuel [employer] with concerns for gastritis. Patient with a past medical history of H1 N1 virus in 2013 which cause elevated transaminases and kidney damage. He is beginning the workup for kidney transplant. Patient has severe abdominal pain after eating and episodes of vomiting. He is noticing some blood in his emesis. Patient started on sucralfate, metoclopramide and Zofran in the past. Start omeprazole 40 mg twice a day and famotidine 40 mg in the evening Liver elastography 03/03/2025:Moderate hepatic fibrosis. 8.2 K PA Hepatomegaly and diffuse fatty infiltration of the liver. Polycystic kidneys. Possible mass in the upper pole of the left kidney as described. Follow-up recommended. Splenomegaly. OV 06/07/2025 patient continues to have intermittent episodes of nausea and vomiting. Patient will have these episodes 1 time per month the last a few days. He will have constant nausea and a few episodes of vomiting. In between he feels fine. He is still taking omeprazole daily, Reglan as needed and famotidine as needed. Patient is trying to get his symptoms figured out prior to his kidney transplant which is not planned yet. He is on dialysis. [facility] Medical History Hypothyroid Thyroid disease Cancer History of renal dialysis History of renal disease Pulmonary embolism Dietary restriction GERD (gastroesophageal reflux disease) Shortness of breath on exertion BiPAP (biphasic positive airway pressure) dependence Sleep apnea Non-smoker Leg cramps Cardiology follow-up encounter History of echocardiogram History of stress test H/O dialysis fistulogram BPH (benign prostatic hyperplasia) Thyroid cancer Pre-op testing Pre-op chest exam DEVANG treated with BiPAP Essential hypertension history removal dialysis cath (~09/14/19) Herniated disc Thyroid goiter MRSA bacteremia ESRD (end stage renal disease) on dialysis Problem with dialysis access Chronic renal failure, stage 5 Acute respiratory failure with hypoxia Community acquired pneumonia Depression Hematemesis/vomiting blood Hemorrhagic shock Anemia of chronic disease Decubitus ulcer Physical deconditioning Anxiety Focal segmental glomerulosclerosis Nausea Transaminitis Dysphagia Home Medications Medication Instructions Recorded Last Taken Type acetaminophen 325 mg tablet 650 mg (2 x 325 mg) PO Q6H PRN PRN 01/19/19 06/23/25 Rx pain or fever sertraline 100 mg tablet 150 mg PO DAILY anxiety 01/11/20 06/29/25 History cinacalcet 90 mg tablet 30 mg PO DAILY 03/07/21 06/28/25 History levothyroxine 300 mcg tablet 350 mcg PO QDAY 01/25/25 06/29/25 History (Synthroid) lorazepam 1 mg tablet (Ativan) 1 mg PO QDAY PRN anxiety 01/25/25 Unknown History sucralfate 1 gram tablet 1 g PO Q6H 01/25/25 06/29/25 History famotidine 40 mg tablet 40 mg PO QHS #30 tabs 06/08/25 06/29/25 Rx omeprazole 40 mg capsule,delayed 40 mg PO BID #60 caps 06/08/25 06/30/25 Rx release ondansetron 8 mg disintegrating 8 mg PO Q12H PRN nausea and 06/08/25 06/19/25 History tablet vomiting metoclopramide HCl 5 mg tablet 5 mg PO QAC PRN nausea and vomiting 06/29/25 06/19/25 History rosuvastatin 10 mg tablet 10 mg PO QHS 06/30/25 06/28/25 History Allergy/AdvReac Type Severity Reaction Status Date / Time No Known Allergies Allergy Verified 06/30/25 08:42 Family History Father Heart disease Brother Heart disease Mother Thyroid disorder Hypertension HLD (hyperlipidemia) Surgical History History of percutaneous endoscopic gastrostomy (PEG) History of thyroidectomy History of major abdominal surgery History of arteriovenostomy for renal dialysis Status post insertion of percutaneous endoscopic gastrostomy (PEG) tube History of tonsillectomy Social History Smoking Status: Never smoker alcohol intake: never substance use type: does not use caffeine: No ROS Constitutional Constitutional: Denies fatigue, fever(s), poor appetite, weight gain or weight loss Gastrointestinal Gastrointestinal: Denies belching, bloating, change in bowel habits, change in stool character, chewing difficulty, coffee ground emesis, constipation, cramping, diarrhea, dyspepsia, dysphagia, early satiety, excessive flatus, fecal incontinence, heartburn, hematemesis, hematochezia, hemorrhoids, loose stools, melena, nausea, odynophagia, rectal bleeding, tenesmus, vomiting or weight changes Physical Exam Const alert, oriented x3, no apparent distress and healthy appearing General Appearance: cooperative GI normal to inspection, nondistended, normoactive bowel sounds, soft to palpation, non-tender and non-distended Percussion: normal to percussion Rectal Exam: deferred Assessment & Plan Assessment/Plan (1) Nausea & vomiting: (2) Fatty liver: (3) Hepatosplenomegaly: PLAN: Assessment and Plan Assessment and Plan (1) Nausea & vomiting: Status: Acute (2) Fatty liver: Status: Acute Plan: Dane is a 45-year-old male patient with past medical history of DEVANG, chronic renal failure stage V on dialysis and depression here today for follow-up. Patient continues to have nausea and vomiting intermittently. Episodes will happen about once per month after eating something. Symptoms will last a few days. He continues with omeprazole, Reglan and famotidine. Patient underwent EGD and gastric emptying study about 10 years ago however symptoms has worsened since then. He will undergo EGD for assessment of his upper GI tract and gastric emptying study to rule out gastroparesis. We may consider HIDA scan. Patient also found to have fatty liver with K PA of 8.2. Recommended lifestyle changes with diet and weight loss. Avoidance of hepatotoxic agents. We may consider medications in the future. Will repeat elastography in 1 year. - EGD - Gastric emptying study - Continue PPI - Consider HIDA scan - Follow-up after testing Note: [employer] speech recognition order packer or packager software was used to create portions of this document. Sound-alike and misspelled words, as well as other order packer or packager errors may be contained in the documentation. Orders: Orders Gastric Emptying Study Today R11.2 - Nausea with vomiting, unspecified Medications: New metoclopramide HCl administer 30 minutes before meals 5 mg PO QAC 20 tabs 3RF Refilled famotidine 40 mg PO QHS 30 tabs 2RF omeprazole 40 mg PO BID 60 caps 2RF ] D/C Safety Score for UGIB Assessment Ayaka-Blatchford Bleeding Score (GBS): Stratifies upper GI bleeding patients who are "low-risk" and candidates for outpatient management. Score Interpretation: Score of 0: A GBS of 0 is a “Low Risk” GI bleed, and is highly sensitive (99.6% in a 2006 retrospective study) for predicting which patients did not require any “medical intervention”: blood transfusion, endoscopy, or surgery. This was confirmed in a 2009 [facility] study where patients with a score of 0 were actually discharged and had no GI bleeding mortality at 6 month followup Score above 0: A GBS greater than zero suggests a “High Risk” GI bleed that is likely to require “medical intervention”: transfusion, endoscopy, or surgery. A higher GBS also correlated with a higher likelihood of needing intervention Scores >/= 6 are associated with >50% risk of needing intervention D/C Safety Score for LGIB Assessment Assessment Tool: Readmission and adverse event risk in patients with acute lower GI bleeding. Score Interpretation: Probability Percentage of safe discharge (absence of rebleeding, blood transfusion, therapeutic intervention, 28 day readmission, or ) Score of 8 or below: Consider discharge, with appropriate precautions. Score of 9 or above: Discharge NOT recommended. Consider admission with further workup and resuscitation as necessary.
[2025-06-30] MEDS: Lactated Ringers 1,000 ML 15 ML IV (08:55)
--- NOTE | 2025-06-30 09:03 | PCM.PRE.AN2 ---
ASA Classification* ASA Classification ASA Classification: 3 Assessment & Plan Anesthesia* Anesthesia Assessment Anesthesia Assessment: Discussed sedation and/or anesthesia options, risks, benefits, and alternatives with patient/parents/legal guardian/POA. Questions invited. The patient/parents/legal guardian/POA seems to understand and agrees to proceed with anesthesia plan. Reviewed the physical assessment, medical history, allergy history and patient home medications list prior to surgery/procedure/anesthetic and documented any changes. Performed airway and anesthesia risk assessments. Anesthesia Type Anesthesia Type: MAC History Source History Obtained from:: Patient and Chart Anesthesia Focused Assessment* Temperature: 97.9 F Pulse Rate: 90 Blood Pressure: 147/94 Respiratory Rate: 18 Pulse Ox: 100 Oxygen Delivery Method: Room Air Airway Assessment Mouth opens: >3 cm Mallampati Score: III Teeth Condition: Intact Neck Range of motion (ROM): Limited ROM (Somewhat Decreased) Labs Anesthesia Preop lab: CBC WBC, (4.4-11.0) 7.0 K/mm3 04/21/24, 07:40 RBC, (4.6-6.2) 4.34 M/mm3 L 04/21/24, 07:40 Hgb, (13.0-16.5) 14.3 g/dL 04/21/24, 07:40 Hct, (40-54) 42.7 % 04/21/24, 07:40 Plt Count, (150-450) 244 K/mm3 04/21/24, 07:40 CHEMISTRY Potassium, (3.5-5.1) 3.1 mmol/L L 04/21/24, 07:40 Sodium, (136-145) 132 mmol/L L 04/21/24, 07:40 Magnesium, (1.8-2.4) 1.7 mg/dL L 11/15/13, 05:20 Phosphorus, (2.5-4.9) 5.3 mg/dL H 06/27/16, 12:08 BUN, (7-18) 45 mg/dL H 04/21/24, 07:40 Creatinine, (0.70-1.30) 12.70 mg/dL H* 04/21/24, 07:40 Glucose, (74-106) 137 mg/dL H 04/21/24, 07:40 POC Glucose, (70-110) 89 mg/dL 09/25/13, 07:33 TSH, (0.358-3.74) 2.16 uIU/mL 07/28/20, 10:00 COAG PT, (11.7-14.9) 15.7 SECONDS H 01/14/19, 12:50 Pre-Assessment Diagnosis/Proposed Procedure Planned Operative Procedure(s): egd Anesthesia History 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 When Was Last Pacemaker Check QUESTION #4 FULL TEXT: You/Your Family Experience fever (hyperthermia) with Anesthesia Last Oral Intake Last Oral intake: Last Oral Intake NPO since 21:00 06/30/25 08:45 Meds taken in AM with sips of Yes 06/30/25 08:45 water? Meds patient instructed to omeprazole 06/30/25 08:45 take am of surgery PONV PONV - housekeeper and laundry assistant: PONV - housekeeper and laundry assistant Female No 06/29/25 13:43 HX of Motion Sickness No 06/29/25 13:43 HX of N/V After Surgery No 06/29/25 13:43 Non-Smoker Yes 06/29/25 13:43 Duration of Surgery greater No 06/29/25 13:43 than 60 minutes Number of Risk Factors 1 06/29/25 13:43 PONV Score Low Risk 06/29/25 13:43 Height & Weight Height & Weight: Anesthesia: Height & Weight Height 6 ft 1 in 06/30/25 08:45 Weight: 149 kg 06/30/25 08:45 Body Mass Index (BMI) 43.3 06/30/25 08:45 Respiratory Assessment Respiratory Assessment - housekeeper and laundry assistant: Respiratory Tract Infection Hx - housekeeper and laundry assistant Hx Respiratory Tract Infection No 06/29/25 13:43 STOP Sleep Apnea STOP Sleep Apnea - housekeeper and laundry assistant: STOP Sleep Apnea - housekeeper and laundry assistant Hx Hypertension No 06/29/25 13:43 Hx Sleep Apnea Yes 06/29/25 13:43 CPAP No 06/29/25 13:43 BIPAP Yes 06/29/25 13:43 Do you snore loudly (louder than talking or can be heard Do you often feel tired/ fatigued/ sleepy during daytime? Has anyone observed you stop breathing during sleep? STOP Results Positive 06/29/25 13:43 QUESTION #5 FULL TEXT : Do you snore loudly (louder than talking or can be heard through closed doors)? Tobacco Use History Tobacco Use History - housekeeper and laundry assistant: Tobacco Use History - housekeeper and laundry assistant Tobacco Use Smoking Status Never smoker 06/29/25 13:43 Hx Tobacco Use No 06/29/25 13:43 Years Smoking Packs Smoked per Day Smoking Cessation Date was within the last 15 years Hx Smoking Cessation Date Hx Smoking Cessation Counseling Hematologic Medial History Hematologic Hx - housekeeper and laundry assistant: Hematologic Medical Hx - documentation specialist Hx of Blood Transfusion Yes 06/29/25 13:43 Hx of Transfusion in last 3 No 06/29/25 13:43 Months Date of Last Transfusion (if within last 3 months) Ever experience any problems No 06/29/25 13:43 with transfusion(s)? Specify any problems Hx of Preganancy in last 3 N/A 06/29/25 13:43 Months Nurse Filling Out Transfusion NBUCHER 06/29/25 13:43 & Questions: Date: 06/29/25 06/29/25 13:43 Time: 13:44 06/29/25 13:43 Patient unable to answer at this time (ie. confused, unrespo /Reproduction History /Reproductive History - housekeeper and laundry assistant: /Reproductive Hx- housekeeper and laundry assistant Hx Now No 06/29/25 13:43 Gestational Age (in weeks): EDC: Hx Hx Para Hx Section SAB No 06/29/25 13:43 Does the father of the baby or his family experience fever w Father of the baby Malignant Hypertension history comment Active Medications Active Medications: Current Medications Generic Name Dose Route Start Last Admin Trade Name Freq PRN Reason Stop Dose Admin Lactated Ringer's 1,000 mls @ 15 mls/hr 06/30/25 08:45 06/30/25 08:55 IV 15 mls/hr .Q48H CATHI Administration PFSH Medical History Hypothyroid Thyroid disease Cancer History of renal dialysis History of renal disease Pulmonary embolism Dietary restriction GERD (gastroesophageal reflux disease) Shortness of breath on exertion BiPAP (biphasic positive airway pressure) dependence Sleep apnea Non-smoker Leg cramps Cardiology follow-up encounter History of echocardiogram History of stress test H/O dialysis fistulogram BPH (benign prostatic hyperplasia) Thyroid cancer Pre-op testing Pre-op chest exam DEVANG treated with BiPAP Essential hypertension history removal dialysis cath (~09/14/19) Herniated disc Thyroid goiter MRSA bacteremia ESRD (end stage renal disease) on dialysis Problem with dialysis access Chronic renal failure, stage 5 Acute respiratory failure with hypoxia Community acquired pneumonia Depression Hematemesis/vomiting blood Hemorrhagic shock Anemia of chronic disease Decubitus ulcer Physical deconditioning Anxiety Focal segmental glomerulosclerosis Nausea Transaminitis Dysphagia Home Medications Medication Instructions Recorded Last Taken Type acetaminophen 325 mg tablet 650 mg (2 x 325 mg) PO Q6H PRN PRN 01/19/19 06/23/25 Rx pain or fever sertraline 100 mg tablet 150 mg PO DAILY anxiety 01/11/20 06/29/25 History cinacalcet 90 mg tablet 30 mg PO DAILY 03/07/21 06/28/25 History levothyroxine 300 mcg tablet 350 mcg PO QDAY 01/25/25 06/29/25 History (Synthroid) lorazepam 1 mg tablet (Ativan) 1 mg PO QDAY PRN anxiety 01/25/25 Unknown History sucralfate 1 gram tablet 1 g PO Q6H 01/25/25 06/29/25 History famotidine 40 mg tablet 40 mg PO QHS #30 tabs 06/08/25 06/29/25 Rx omeprazole 40 mg capsule,delayed 40 mg PO BID #60 caps 06/08/25 06/30/25 Rx release ondansetron 8 mg disintegrating 8 mg PO Q12H PRN nausea and 06/08/25 06/19/25 History tablet vomiting metoclopramide HCl 5 mg tablet 5 mg PO QAC PRN nausea and vomiting 06/29/25 06/19/25 History rosuvastatin 10 mg tablet 10 mg PO QHS 06/30/25 06/28/25 History Allergy/AdvReac Type Severity Reaction Status Date / Time No Known Allergies Allergy Verified 06/30/25 08:42 Family History Father Heart disease Brother Heart disease Mother Thyroid disorder Hypertension HLD (hyperlipidemia) Surgical History History of percutaneous endoscopic gastrostomy (PEG) History of thyroidectomy History of major abdominal surgery History of arteriovenostomy for renal dialysis Status post insertion of percutaneous endoscopic gastrostomy (PEG) tube History of tonsillectomy Social History Smoking Status: Never smoker alcohol intake: never substance use type: does not use caffeine: No Review of Systems (Anesthesia) ROS Narrative System reviewed and no additional complaints, except as documented.
--- NOTE | 2025-06-30 09:30 | EGD_PTH ---
PATIENT: MANUEL FARNSWORTH LOC: EN U#:[id number] AGE/SX: 45/M ROOM: RE06/30/[address]: Dr. Van Alba DO : 1980 BED: DIS: 06/30/2025 SPEC #: [id number] RECD: 06/30/25 10:46 STATUS: NINI [place] #: [id number] ALIYA: 06/30/25 09:[address]: Van Alba DEPT: SURGICAL PATHOLOGY RECD BY: Hany Ricardo ENTERED: 06/30/25 13:20 SP TYPE: EGD BIOPSY JAMIL DR: Dr. Marcell Thacker MD Tissues: A - Gastric mucous membrane Procedures: Immunohistochemical Stains Surgery Specimen Level IV HEADER OPERATION: EGD with biopsy PRE-OP DIAGNOSIS: Nausea / vomiting, fatty liver, hepatosplenomegaly TISSUE SUBMITTED: A- Gastric antrum biopsy MICROSCOPIC DIAGNOSIS A. Stomach, gastric antrum, biopsy: - Oxynto-pyloric mucosa with slight chronic inflammation - An immunohistochemical stain for Helicobacter pylori is negative MICROSCOPIC DESCRIPTION Slides are reviewed. All matched controls reacted appropriately. These tests were developed and their performance characteristics determined by [facility]. They may not have been cleared or approved by the U.[place]. Food and Drug Administration. The FDA has determined that such clearance or approval is not necessary. The above immunohistochemical markers are viewed by the Pathologist. GROSS DESCRIPTION A. Received in fixative is one container labeled with the patient's name and designated "Gastric antrum biopsy." The specimen consists of two irregular fragments of cantor tissue that measure 0.4 and 0.7 cm. The specimen is totally submitted in one cassette. TN 06/30/2025 CPT:28677,56416
--- NOTE | 2025-06-30 10:15 | OP.EGD_ITS ---
Patient Name: Dane Fonseca Procedure Date: 06/30/2025 9:41 AM Date of : 1980 Age: 45 Procedure: Upper GI endoscopy Indications: Epigastric abdominal pain, Functional Dyspepsia, Indigestion Providers: Van Alba DO Medicines: Monitored Anesthesia Care Patient Profile: This is a 45 year old male. Refer to note in patient chart for documentation of history and physical. Patient has symptoms of chronic nausea and chronic vomiting. Complications: No immediate complications. Procedure: Pre-Anesthesia Assessment: - Prior to the procedure, a History and Physical was performed, and patient medications and allergies were reviewed. The patient is competent. The risks and benefits of the procedure and the sedation options and risks were discussed with the patient. All questions were answered and informed consent was obtained. Patient identification and proposed procedure were verified by the physician in the pre-procedure area. Mental Status Examination: alert and oriented. Airway Examination: normal oropharyngeal airway and neck mobility. Respiratory Examination: clear to auscultation. CV Examination: normal. Prophylactic Antibiotics: The patient does not require prophylactic antibiotics. Prior Anticoagulants: The patient has taken no anticoagulant or antiplatelet agents. ASA Grade Assessment: II - A patient with mild systemic disease. After reviewing the risks and benefits, the patient was deemed in satisfactory condition to undergo the procedure. The anesthesia plan was to use monitored anesthesia care (MAC). Immediately prior to administration of medications, the patient was re-assessed for adequacy to receive sedatives. The heart rate, respiratory rate, oxygen saturations, blood pressure, adequacy of pulmonary ventilation, and response to care were monitored throughout the procedure. The physical status of the patient was re-assessed after the procedure. After obtaining informed consent, the endoscope was passed under direct vision. Throughout the procedure, the patient's blood pressure, pulse, and oxygen saturations were monitored continuously. The gastroscope was introduced through the mouth, and advanced to the third part of the duodenum. Small bowel enteroscopy was deemed necessary. The upper GI endoscopy was accomplished without difficulty. The patient tolerated the procedure well. Scope In: 9:57:58 AM Scope Out: 10:00:59 AM Total Procedure Duration Time 0 hours 3 minutes 1 second Findings: No gross lesions were noted in the entire esophagus. Suspect gastroparesis due to absence of peristalsis, patient symptoms and retained gastric contents. Biopsies were taken with a cold forceps for histology. Biopsies were taken with a cold forceps for Helicobacter pylori testing. Verification of patient identification for the specimen was done. Estimated blood loss was minimal. No gross lesions were noted in the entire examined duodenum. Impression: - No gross lesions in the entire esophagus. - Gastroparesis, secondary to electrolyte imbalance. Biopsied. - No gross lesions in the entire examined duodenum. Recommendation: - Discharge patient to home. - Resume previous diet. - Continue present medications. - Await pathology results. - Gastric emptying study Procedure Code(s): --- Professional --- 09673, Small intestinal endoscopy, enteroscopy beyond second portion of duodenum, not including ileum; with biopsy, single or multiple CPT copyright 2021 [employer]. All rights reserved. The codes documented in this report are preliminary and upon [employer] review may be revised to meet current compliance requirements. Van Alba DO 06/30/2025 10:14:58 AM This report has been signed electronically. Number of Addenda: 0 Note Initiated On: 06/30/2025 9:41 AM
--- NOTE | 2025-06-30 10:15 | OP.PROVAT_ITS ---
06/30/2025 Marcell Thacker MD [address] [id number] Re : Upper GI endoscopy procedure for Dane Fonseca Dear Dr. Thacker This procedure was performed on June. My impressions and recommendations are as follows: Impressions : - No gross lesions in the entire esophagus. - Gastroparesis, secondary to electrolyte imbalance. Biopsied. - No gross lesions in the entire examined duodenum. Recommendations : - Discharge patient to home. - Resume previous diet. - Continue present medications. - Await pathology results. - Gastric emptying study My findings are described in the full procedure note, which is enclosed. If I can be of further assistance, please feel free to contact me at . Sincerely, Van Alba, 06/30/2025 10:14:58 AM This report has been signed electronically.
--- NOTE | 2025-06-30 10:15 | PCM.POST.ANE ---
Anesthesia: Postop Eval I Current Vital Signs Temperature: 97.9 F Pulse Rate: 88 Blood Pressure: 116/72 Respiratory Rate: 16 Pulse Ox: 100 Oxygen Delivery Method: Simple Mask Oxygen Flow Rate (L/min): 6 Assessment Airway patent: Yes Spontaneous unlabored respirations: Yes Mental status: Awake nausea: No Vomiting: No Anesthesia Complication: No Fluid Hydration Crystalloid volume administer (ml): 400 Total IV fluid infused: 400 Progress Note Anesthesia document: Postop Eval 1 completed: Yes
--- NOTE | 2025-06-30 13:06 | PCM.POSTANE2 ---
Anesthesia Postop Eval I Sum Postop Eval Completion status Anesthesia document: Postop Eval 1 completed: Yes Anesthesia Postop Eval I Summary Anesthesia Postop Eval I Summary: Anesthesia Postop Eval I: Assessment Summary Airway patent Yes 06/30/25 10:19 [email or web address] Spontaneous unlabored Yes 06/30/25 10:19 [email or web address] respirations Mental status Awake 06/30/25 10:19 [email or web address] nausea No 06/30/25 10:19 [email or web address] Vomiting No 06/30/25 10:19 [email or web address] Anesthesia Postop Eval I: Fluid Summary Crystalloid volume administer 400 06/30/25 10:19 [email or web address] (ml) Colloids volume administered ( ml) Blood Product volume administered (ml) Total IV fluid infused 400 06/30/25 10:19 [email or web address] Anesthesia Postop Eval I: Summary Notes Anesthesia Complication No 06/30/25 10:19 [email or web address] Anesthesia Complication Comment: Post-operative progress note Anesthesia: Postop Eval II Evaluation Mental status: Awake Pain Level: 0 nausea: No Vomiting: No Complications Anesthesia Complication: No
== END 2025-06-30 10:59 | disposition home or self-care (01) ==
LOC: EN 08:22 → AC 08:23
PROVIDERS: PCP Family Medicine; Referring Provider Family Medicine; Visit Provider Internal Medicine Gastroenterology
DX: K29.50 Unspecified chronic gastritis without bleeding (principal); N18.6 End stage renal disease; R16.2 Hepatomegaly with splenomegaly, not elsewhere classified; K21.9 Gastro-esophageal reflux disease without esophagitis; Z79.899 Other long term (current) drug therapy; K76.0 Fatty (change of) liver, not elsewhere classified; K31.84 Gastroparesis; E87.8 Other disorders of electrolyte and fluid balance, not elsewhere classified; Z99.2 Dependence on renal dialysis; E03.9 Hypothyroidism, unspecified; Z79.890 Hormone replacement therapy
CPT/HCPCS: 44361; 88305; 88342; J2405

== ENCOUNTER → 2025-07-08 | Outpatient (CLI) | payer MEDICARE, MEDICAID, SELFPAY ==
--- NOTE | 2025-07-08 10:20 | NM_ITS ---
PROCEDURE: GASTRIC EMPTYING STUDY 07/08/2025 REASON FOR EXAM: NAUSEA AND VOMITING COMPARISON: None. TECHNIQUE: Procedure Code: NMGES Modality: NM Procedure: GASTRIC EMPTYING STUDY The patient ingested a standard semi-solid meal of oatmeal.. There was no vomiting postprandially. Anterior and posterior planar images of the upper abdomen were obtained for a total of 60 minutes. Regions of interest were drawn, and a geometric mean was used to calculate a [id number]. RADIOPHARMACEUTICAL: Oral administration of 1.0 mCi technetium 99 M sulfur colloid within the oatmeal. FINDINGS: During the time of imaging, gastroesophageal reflux was not seen. Linear fit gastric emptying half-time of 57.29 minutes. Gastric emptying at 17.5 minutes of 3%, at 29.5 minutes of 11%, at 47.5 minutes of 35%, and at 59.5 minutes of 53% NM/Gastric Emptying Study IMPRESSION: Normal semi solid phase gastric emptying. Reading Location: [place] [id number]
== END | disposition home or self-care (01) ==
LOC: NM 10:17
PROVIDERS: PCP Family Medicine; Referring Provider Student in an Organized Health Care Education/Training Program; Visit Provider Student in an Organized Health Care Education/Training Program
DX: R11.2 Nausea with vomiting, unspecified (principal)
CPT/HCPCS: 78264; A9541